=== PATIENT | female | born 1935 | race African-American/Black ===

== ENCOUNTER 2017-03-17 18:01 | Inpatient (IN) | payer MEDICARE, MEDICAID ==
[2017-03-17] MEDS ORDERED: NORMAL SALINE 1000 ML 1,000 ML IV ONE (18:18)
[2017-03-17] MEDS ORDERED: ONDANSETRON HCL INJ/PF 4 MG/2 ML SDV IV ONE ×2 (18:18→20:11)
--- NOTE | 2017-03-17 18:19 | ER Document Report ---
ED General - General Stated Complaint: ABDOMINAL PAIN Time Seen by Provider: 03/17/17 18:06 Mode of Arrival: Medic Information source: Patient Notes: 82-year-old female history of constipation presents with complaints of generalized abdominal pain. Patient denies any fevers or chills has been vomiting all day. Patient notes last bowel movement was this morning - HPI Onset: Just prior to arrival Onset/Duration: Sudden Quality of pain: Cramping Severity: Mild Pain Level: 1 Associated symptoms: Nausea, Vomiting Exacerbated by: Denies Relieved by: Denies Similar symptoms previously: Yes Recently seen / treated by doctor: Yes - Related Data Allergies/Adverse Reactions: No Known Allergies Allergy (Verified 03/17/17 21:09) Past Medical History - Social History Smoking Status: Never Smoker Cigarette use (# per day): No Chew tobacco use (# tins/day): No Smoking Education Provided: No Family History: Reviewed & Not Pertinent Neurological Medical History: Denies: Hx Seizures Past Surgical History: Reports: Hx Hysterectomy - Immunizations Hx Pneumococcal Vaccination: 07/28/09 Review of Systems - Review of Systems Notes: REVIEW OF SYSTEMS: CONSTITUTIONAL : Denies fever, chills, or sweats. Denies recent illness. EENT: Denies eye, ear, throat, or mouth pain or symptoms. Denies nasal or sinus congestion or discharge. Denies throat, tongue, or mouth swelling or difficulty swallowing. CARDIOVASCULAR: Denies chest pain. Denies palpitations or racing or irregular heart beat. Denies ankle edema. RESPIRATORY: Denies cough, cold, or chest congestion. Denies shortness of breath, difficulty breathing, or wheezing. GASTROINTESTINAL: Admits constipation nausea vomiting GENITOURINARY: Denies difficulty urinating, painful urination, burning, frequency, blood in urine, or discharge. FEMALE GENITOURINARY: Denies vaginal bleeding, heavy or abnormal periods, irregular periods. Denies vaginal discharge or odor. MUSCULOSKELETAL: Denies back or neck pain or stiffness. Denies joint pain or swelling. SKIN: Denies rash, lesions or sores. HEMATOLOGIC : Denies easy bruising or bleeding. LYMPHATIC: Denies swollen, enlarged glands. NEUROLOGICAL: Denies confusion or altered mental status. Denies passing out or loss of consciousness. Denies dizziness or lightheadedness. Denies headache. Denies weakness or paralysis or loss of use of either side. Denies problems with gait or speech. Denies sensory loss, numbness, or tingling. Denies seizures. PSYCHIATRIC: Denies anxiety or stress. Denies depression, suicidal ideation, or homicidal ideation. ALL OTHER SYSTEMS REVIEWED AND NEGATIVE. PHYSICAL EXAMINATION: GENERAL: Well-appearing, well-nourished and in no acute distress. Actively vomiting HEAD: Atraumatic, normocephalic. EYES: Pupils equal round and reactive to light, extraocular movements intact, conjunctiva are normal. ENT: Nares patent, oropharynx clear without exudates. Moist mucous membranes. NECK: Normal range of motion, supple without lymphadenopathy LUNGS: Breath sounds clear to auscultation bilaterally and equal. No wheezes rales or rhonchi. HEART: Regular rate and rhythm without murmurs ABDOMEN: Firm tender all throughout Female : deferred Musculoskeletal: Normal range of motion, no pitting or edema. No cyanosis. NEUROLOGICAL: Cranial nerves grossly intact. Normal speech, normal gait. Normal sensory, motor exams PSYCH: Normal mood, normal affect. SKIN: Warm, Dry, normal turgor, no rashes or lesions noted. Dictation was performed using evly voice recognition software Physical Exam - Vital signs Vitals: Resp BP Pulse Ox 28 H 91/49 L 94 03/17/17 18:09 03/17/17 18:09 03/17/17 18:09 Course - Re-evaluation Re-evalutation: 03/17/17 18:19 Very high concern for obstruction CT pending at this time - Vital Signs Vital signs: Temp Pulse Resp BP Pulse Ox 98.1 F 71 14 158/86 H 99 03/17/17 22:55 03/17/17 22:55 03/17/17 23:01 03/17/17 22:55 03/17/17 23:01 - Laboratory Result Diagrams: 03/17/17 18:25 03/17/17 18:25 Laboratory results interpreted by me: 03/17/17 03/17/17 03/17/17 18:25 18:25 21:00 WBC 14.1 H Absolute Neutrophils 8.7 H Sodium 136.8 L Est GFR ( Amer) 55 L Est GFR (Non-Af Amer) 46 L Glucose 155 H Lactic Acid 3.5 H Direct Bilirubin 0.6 H AST 121 H Lipase 56269.7 H Discharge - Discharge Clinical Impression: Gallstone pancreatitis Abdominal pain Qualifiers: Abdominal location: generalized Qualified Code(s): R10.84 - Generalized abdominal pain Condition: Stable Disposition: ADMITTED INPATIENT Admitting Provider: Hospitalist Unit Admitted: Telemetry
[2017-03-17 18:35] LABS: ABSOLUTE BASOPHILS # (AUTO) 0.1 10^3/uL (0.0-0.2); ABSOLUTE EOSINOPHILS # (AUTO) 0.1 10^3/uL (0.0-0.6); ABSOLUTE LYMPHOCYTES (AUTO) 4.6 10^3/uL (0.5-4.7); ABSOLUTE MONOCYTES (AUTO) 0.5 10^3/uL (0.1-1.4); ABSOLUTE NEUT (AUTO) 8.7 10^3/uL (1.7-8.2); BASOPHILS % (AUTO) 0.4 % (0-2); HEMATOCRIT 39.6 % (36.0-47.0); HEMOGLOBIN 12.9 g/dL (12.0-15.5); HGB HCT DIFFERENCE -0.9; LYMPHOCYTES % (AUTO) 32.9 % (13-45); MEAN CORPUSCULAR HEMOGLOBIN 30.1 pg (27.0-33.4); MEAN CORPUSCULAR HGB CONC 32.6 g/dL (32.0-36.0); MEAN CORPUSCULAR VOLUME 92 fl (80-97); MONOCYTES % (AUTO) 3.7 % (3-13); RED CELL DISTRIBUTION WIDTH 13.9 % (11.5-14.0); WHITE BLOOD COUNT 14.1 10^3/uL (4.0-10.5)
[2017-03-17 18:53] LABS: ALANINE AMINOTRANSFERASE 52 U/L (9-52); ALBUMIN 4.1 g/dL (3.5-5.0); ALKALINE PHOSPHATASE 108 U/L (38-126); ANION GAP 10 (5-19); ASPARTATE AMINO TRANSFERASE 121 U/L (14-36); BILIRUBIN,DIRECT 0.6 mg/dL (0.0-0.4); BILIRUBIN,TOTAL 0.7 mg/dL (0.2-1.3); BLOOD UREA NITROGEN 20 mg/dL (7-20); CALCIUM 9.4 mg/dL (8.4-10.2); CARBON DIOXIDE 22 mmol/L (22-30); CHLORIDE 105 mmol/L (98-107); CREATININE RESULT 1.14 mg/dL (0.52-1.25); GLUCOSE 155 mg/dL (75-110); POTASSIUM 3.8 mmol/L (3.6-5.0); SODIUM 136.8 mmol/L (137-145); TOTAL PROTEIN 7.6 g/dL (6.3-8.2)
[2017-03-17 19:24] LABS: LIPASE 56537.7 U/L (23-300)
[2017-03-17] MEDS ORDERED: NORMAL SALINE 1000 ML 1,000 ML IV PRN (19:30)
[2017-03-17] MEDS ORDERED: HYDROMORPHONE HCL INJ/PF 2 MG/ML AMPULE IV ONE (20:12)
--- NOTE | 2017-03-17 21:56 | RADIOLOGY REPORT (SQ) ---
EXAM DESCRIPTION: CT ABD/PELVIS WITH IV ORAL COMPLETED DATE/TIME: 03/17/2017 9:37 pm REASON FOR STUDY: vomiting COMPARISON: 01/02/2011 TECHNIQUE: CT scan of the abdomen and pelvis performed using helical scanning technique with dynamic intravenous contrast injection. No oral contrast. Images reviewed with lung, soft tissue, and bone windows. Reconstructed coronal and sagittal MPR images reviewed. Delayed images for evaluation of the urinary system also acquired. All images stored on PACS. All CT scanners at this facility use dose modulation, iterative reconstruction, and/or weight based d osing when appropriate to reduce radiation dose to as low as reasonably achievable (ALARA). [facility]: Dose Right [facility]: CareDose [facility]: Dose Right [facility]: Teradose 4D [facility]: NetProspex CONTRAST TYPE AND DOSE: contrast/concentration: Isovue 370.00 mg/ml; Total Contrast Delivered: 69.0 ml; Total Saline Delivered: 65.0 ml RENAL FUNCTION: Creatinine 1.14 RADIATION DOSE: Up-to-date CT equipment and radiation dose reduction techniques were employed. CTDIv ol: 14.6 - 17.4 mGy. DLP: 1613 mGy-cm.. LIMITATIONS: None. FINDINGS: LOWER CHEST: No significant findings. No nodules or infiltrates. LIVER: Normal size. No masses. No dilated ducts. SPLEEN: Normal size. No focal lesions. PANCREAS: Dilated pancreatic duct. Mild posterior peripancreatic fluid. GALLBLADDER: Distended gallbladder without definitive stones. ADRENAL GLANDS: No significant masses or asymmetry. RIGHT KIDNEY AND URETER: Cyst. No significant calcifications. No hydronephrosis or hydroureter. LEFT KIDNEY AND URETER: No solid masses. No significant calcifications. No hydronephrosis or hydr oureter. AORTA AND VESSELS: No aneurysm. No dissection. Renal arteries, SMA, celiac without stenosis. RETROPERITONEUM: No retroperitoneal adenopathy, hemorrhage or masses. BOWEL AND PERITONEAL CAVITY: No masses or inflammatory changes. No free fluid or peritoneal masses. APPENDIX: Not visualized. PELVIS: No mass. No free fluid. Normal bladder. ABDOMINAL WALL: No masses. No hernias. BONES: No significant or acute findings. OTHER: No other significant finding. IMPRESSION: The distended gallbladder. Small amount of fluid posterior to the pancreas. Dilated pa ncreatic duct. No definite pancreatic mass lesion. TECHNICAL DOCUMENTATION: JOB ID: [id number] Quality ID # [id number]: Final reports with documentation of one or more dose reduction techniques (e.g., Au tomated exposure control, adjustment of the mA and/or kV according to patient size, use of iterative reconstruction technique) 2010 [facility]- All Rights Reserved
[2017-03-17] MEDS ORDERED: ERTAPENEM SODIUM INJ 1 GM VIAL IV ONE (22:05)
[2017-03-17] MEDS ORDERED: ACETAMINOPHEN 325 MG TABLET PO PRN (22:08)
[2017-03-17] MEDS ORDERED: ONDANSETRON HCL INJ/PF 4 MG/2 ML SDV IV PRN (22:08)
[2017-03-17] MEDS ORDERED: ERTAPENEM SODIUM INJ 1 GM VIAL IV PRN (22:42)
[2017-03-17 22:58] LABS: PROTHROMBIN TIME 13.4 SEC (11.4-15.4)
--- NOTE | 2017-03-17 23:10 | RADIOLOGY REPORT (SQ) ---
EXAM DESCRIPTION: CHEST SINGLE VIEW COMPLETED DATE/TIME: 03/17/2017 10:59 pm REASON FOR STUDY: pre op COMPARISON: 01/03/2011 EXAM PARAMETERS: NUMBER OF VIEWS: One view. TECHNIQUE: Single frontal radiographic view of the chest acquired. RADIATION DOSE: NA LIMITATIONS: None. FINDINGS: LUNGS AND PLEURA: No opacities, masses or pneumothorax. No pleural effusion. MEDIASTINUM AND HILAR STRUCTURES: No masses. Contour normal. HEART AND VASCULAR STRUCTURES: Heart normal in size. Normal vasculature. BONES: No acute findings. HARDWARE: None in the chest. OTHER: No other significant finding. IMPRESSION: NO ACUTE RADIOGRAPHIC FINDING IN THE CHEST. TECHNICAL DOCUMENTATION: JOB ID: [id number]
[2017-03-17] MEDS: NORMAL SALINE 1000 ML 1,000 ML IV PRN (23:41)
[2017-03-17] MEDS: HYDROMORPHONE HCL INJ/PF 2 MG/ML AMPULE IV PRN (23:42)
--- NOTE | 2017-03-17 23:57 | CONSULTATION REPORT E ---
Consultation Report NAME: CHRISTINA SOMMER : 1935 AGE: 82Y DATE: 03/17/2017 ED11 A TO: RANI MODI M.D. FROM: BRADEN PACHECO M.D. Requesting Physician REFERRING PHYSICIAN: Tracie Haynes D.O. CHIEF COMPLAINT: Acute cholecystitis with pancreatitis. REASON FOR CONSULTATION: The patient is an 82-year-old white female who presents to the emergency department complaining of acute onset abdominal pain that started about 4 days ago. This is a nagging pain refractory to dietary management. This was associated with some vomiting. Last bowel movement was yesterday. The pain intensified over the last 48 hours to the point that she could not tolerate it any further. She was seen in the emergency department today where she underwent CT scan of the abdomen and pelvis without oral contrast which showed findings consistent with acute pancreatitis, acute cholecystitis, dilated common bile duct and pancreatic duct. No definitive stones. There was no free air or free fluid in the peritoneal cavity. Surgery was consulted. The patient was advised admission to the medicine service. PAST MEDICAL HISTORY: 1. Anemia. 2. Hypertension. 3. Hypercholesterolemia. 4. Anxiety syndrome. 5. Degenerative joint disease. PAST SURGICAL HISTORY: Significant for bilateral knee replacements. ALLERGIES: None known. MEDICATIONS: Include antihypertensive. SOCIAL HISTORY: The patient does not smoke. REVIEW OF SYSTEMS: CONSTITUTIONAL: The patient denies. CARDIOVASCULAR: The patient denies. MUSCULOSKELETAL: As per HPI. The patient does get about well and cooks and cleans and lives with her son. The remainder of the review of systems unremarkable. PHYSICAL EXAMINATION: GENERAL: The patient is examined in the emergency department. VITAL SIGNS: Stable except for uncontrolled hypertension with diastolic of 102, heart rate 85. GENERAL: The patient is awake and alert, communicative, oriented x4. HEAD: Eyes without icterus. NECK: No adenopathy. LUNGS: Diminished in the bases bilateral. HEART: Without murmur or gallop. ABDOMEN: Slightly distended. Tender in the right upper quadrant with guarding. Bowel sounds are hypoactive. EXTREMITIES: Lower extremities with scars over the knees consistent with previous surgery. RECTAL: Deferred. The patient has a remote history of colonoscopy. The remainder of the physical exam is unremarkable. LABORATORY PROFILE: Shows a white blood cell count of 14,000 with no left shift, hemoglobin of 12.9. Blood sugar 155. Lactate of 3.5, lipase of 56,537. Independent interpretation of CT scan of the abdomen and pelvis shows no free fluid, no free air. Distended gallbladder, distended pancreatic duct and what appears to be a distended common bile duct. No liver masses. Polycystic kidney. Delineation of pancreatic anatomy poor due to absence of oral contrast. IMPRESSION: 1. Acute cholecystitis with pancreatitis, rule out common pathoanatomy such as distal common bile duct stone. 2. Dehydration. 3. Sepsis. 4. History of hypertension. 5. History of degenerative joint disease. RECOMMENDATIONS: The patient needs admission to the medicine service, IV fluids, intravenous antibiotics, and n.p.o. status. Definitive management of her gallbladder disease may include cholecystostomy tube versus cholecystectomy, depending upon the patient's perioperative cardiovascular risk assessment, which will be undertaken in the next 24 hours. Furthermore, evaluation for distal common bile duct obstruction such as retained stone will be considered as well. DICTATING PHYSICIAN: RANI MODI M.D. [id number] PHY#: [id number] ID: [id number] JOB#: [id number] ACCT: [id number] cc:RANI MODI M.D. > MTDD
[2017-03-18] MEDS: HYDROMORPHONE HCL INJ/PF 2 MG/ML AMPULE IV PRN (01:22)
[2017-03-18 01:25] LABS: ADD ON TESTING BLD IN LAB ACKNOWLEDGE
[2017-03-18 01:40] LABS: MAGNESIUM 2.3 mg/dL (1.6-2.3)
[2017-03-18] MEDS ORDERED: PIPERACILLIN SODIUM/TAZOBACTAM 4.5 GM in NORMAL SALINE 100 ML IV SCH (01:45)
[2017-03-18] MEDS ORDERED: PHARMACY COMMUNICATION ORDER MC SCH (01:45)
--- NOTE | 2017-03-18 01:51 | PDOC H&P ---
History of Present Illness Admission Date/PCP: 03/17/17 22:08 DR. Wallace Patient complains of: Abdominal pain, nausea and vomiting History of Present Illness: CHRISTINA SOMMER is a 82 year old -Burmese female with underlying hypertension, along with coronary artery disease, having suffered UT 2 in 1993 , and arthritis who presents to the emergency room for evaluation of above complaints. Patient has been discussed with emergency room physician who evaluated the patient. Prior to my being contacted about the patient, Dr. Jenkins of general surgery had seen and evaluated the patient and requested that patient be admitted to the medicine service with surgery consult. Consult note by general surgery has been reviewed. She describes a 4 day history of slowly progressive primarily sharp upper abdominal pain, primarily right upper quadrant. Increases with pressure on the area and certain movements. No prior such pain. No history of pancreatitis. Denies alcohol use. No associated fever or chills, diarrhea or dysuria. She has had a number of episodes of vomiting over the last 24 hours. Emergency room physician initially admitted the patient to Dr. Butler. However, after orders had been entered by Dr. Butler, he called back and stated that actually the patient was no longer in his practice. Dictation via voice recognition software. Laboratory results are listed in [facility] and are reviewed. X-ray summary results are listed below, with full report(s) reviewed. . EKG reviewed. No prior EKG available for comparison. Social history/personal habits: . Son lives with her. Does not work outside the home. No tobacco use for 30 years. Denies illicit drug use. No alcohol use. No known drug allergies. Home medications initially autopopulated into [facility] may not accurately reflect patient's true medications, dosages, and/or frequencies. monitor technician to reconcile medications. Unfortunately, patient not certain of medications/dosages/frequencies. REVIEW OF SYSTEMS: Constitutional: No fever or chills. Eyes: Wears glasses. ENT: No swallowing problems or complaints. Denies hearing loss. Pulmonary: No current complaints. Cardiovascular: No current complaints, including chest pain. States that on a good day, she can walk probably a mile with no unusual shortness of breath, no chest or lower extremity pain or tightness. Gastrointestinal: See history and present illness. Skin: No current complaints, including rashes. Hematologic: Denies easy bruising. Neurologic: No current complaints, including numbness or tingling. Musculoskeletal: Joint pain from arthritis. Psychiatric: Denies anxiety or depression. Endocrine: No current complaints, including polyuria. Genitourinary: No current complaints, including dysuria. PHYSICAL EXAMINATION: 5 feet 7 inches tall. 86.2 kg. BMI 29.8 kg/m.Temperature 97.4. Pulse 78 and regular. Blood pressure 152/76. Respirations are 18 and unlabored. 100% saturation on room air. Slightly overweight otherwise well-nourished well-developed elderly - Burmese female appearing approximately her stated age. Pleasant awake alert and cooperative. Appears to be in some discomfort with abdominal pain. Mildly anxious. Skin is warm and dry. No grossly obvious evidence of rash in areas of skin examined. No subcutaneous nodules palpated. ENT: Hearing grossly normal to normal conversation. Tongue midline on protrusion pink and slightly tacky. Eyes: No scleral icterus. Pupils equal and reactive to light at 4 mm. [place] conjunctivae. Neck is supple and nontender to gentle active range of motion and palpation. Midline trachea. No palpable thyroid nodule mass enlargement or tenderness. Lymphatic: No palpable cervical or clavicular nodes. Neck and lymphatic exams limited by patient body habitus. Psychiatric: Fair to reasonable insight into acute and chronic medical issues. Oriented to time location and why here. Lungs: Auscultation reveals clear and equal breath sounds bilaterally. No use of accessory respiratory muscles. Cardiovascular: Heart regular rate and rhythm, without gallop or rub. No carotid or abdominal aortic bruits. No ankle or pedal edema. Palpable dorsalis pedis pulses. 2/6 holosystolic murmur at cardiac apex. Abdomen:soft slightly distended with positive bowel sounds. Mild to moderate diffuse upper abdominal discomfort, a bit more noticeable in the right upper quadrant. No evidence of guarding or peritoneal signs. Unable to adequately evaluate abdomen for masses or organomegaly due to distention and discomfort. Extremities: Feet are warm and dry. No calf tenderness to compression. No grossly obvious visual evidence of calf swelling. Gentle manipulation of lower extremities fails to reveal any obvious evidence of injury or instability to knees hips or ankles. Neurologic: Moves upper extremities grossly normally. Patellar reflexes absent. Absent Babinski. Light touch is intact at feet. Dorsiflexion and plantarflexion of feet 5 / 5 and symmetric. Past Medical History Cardiac Medical History: Reports: Coronary Artery Disease, Myocardial Infarction , Hypertension, Heart Murmur - Long-standing, per patient Denies: Atrial Fibrillation, Congestive Heart Failure, DVT, Hyperlipidema, Pulmonary Embolism Pulmonary Medical History: Denies: Asthma, Chronic Obstructive Pulmonary Disease (COPD), Sleep Apnea EENT Medical History: Denies: Ears, Throat Neurological Medical History: Denies: Hemorrhagic CVA, Ischemic CVA, Seizures Endocrine Medical History: Denies: Diabetes Mellitus Type 1, Diabetes Mellitus Type 2, Hyperthyroidism, Hypothyroidism Renal/ Medical History: Reports: None GI Medical History: Denies: Cirrhosis, Gastroesophageal Reflux Disease, Hepatitis, Peptic Ulcer Disease Musculoskeltal Medical History: Reports: Arthritis Psychiatric Medical History: Denies: Alcohol Dependency, Depression, General Anxiety Disorder, Substance Abuse, Tobacco Dependency Infectious Medical History: Denies: Hepatitis B, Hepatitis C Past Surgical History Past Surgical History: Reports: Hysterectomy, Orthopedic Surgery - Bilateral knee replacement, Other - Benign left breast biopsy Social History Information Source: Patient, Emergency Med Personnel, [facility], [facility] Records Lives with: Family Smoking Status: Former Smoker Frequency of Alcohol Use: None Hx Recreational Drug Use: No Drugs: None Hx Prescription Drug Abuse: No - Advance Directive Resuscitation Status: Full Code Surrogate healthcare decision maker:: Son who lives with her Family History Family History: Reviewed & Not Pertinent Parental Family History Reviewed: Yes - Never really knew her father. Mother of heart failure. Children Family History Reviewed: Yes - Son has gout. Sibling(s) Family History Reviewed.: Yes - Hypertension Medication/Allergy Home Medications: Lisinopril [Zestril] 20 mg PO DAILY 03/18/17 Allergies/Adverse Reactions: No Known Allergies Allergy (Verified 03/17/17 21:09) Physical Exam Vital Signs: Temp Pulse Resp BP Pulse Ox 97.4 F 78 18 152/76 H 100 03/18/17 01:28 03/18/17 01:28 03/18/17 01:28 03/18/17 01:28 03/18/17 01:28 Intake & Output 03/17/17 03/18/17 03/19/17 00:59 00:59 00:59 Weight 79.832 kg 86.2 kg Results Impressions: Chest X-Ray 03/17/17 00:00 IMPRESSION: NO ACUTE RADIOGRAPHIC FINDING IN THE CHEST. Abdomen/Pelvis CT 03/17/17 18:18 IMPRESSION: The distended gallbladder. Small amount of fluid posterior to the pancreas. Dilated pancreatic duct. No definite pancreatic mass lesion. Assessment & Plan - Diagnosis (1) ARF (acute renal failure) Qualifiers: Acute renal failure type: unspecified Qualified Code(s): N17.9 - Acute kidney failure, unspecified Is this a current diagnosis for this admission?: Yes Plan: No evidence of obstruction on CT scan. IV fluids. Serial chemistry. I have strongly encouraged patient not to get out of bed without notifying staff , to avoid a fall with injury. Knee high SCDs for DVT prophylaxis, along with subcutaneous heparin. Impression and plans were discussed with patient, who concurs. Time spent in evaluation and management of patient: 70 minutes. (2) Abnormal CT of the abdomen Is this a current diagnosis for this admission?: Yes Plan: Surgical management. (3) Pancreatitis Qualifiers: Chronicity: acute Pancreatitis type: unspecified pancreatitis type Acute pancreatitis complication: no infection or necrosis Qualified Code(s): K85.90 - Acute pancreatitis without necrosis or infection, unspecified Is this a current diagnosis for this admission?: Yes Plan: Surgical management. (4) CAD (coronary artery disease) Qualifiers: Coronary Disease-Associated Artery/Lesion type: [place] artery [place] vs. transplanted heart: [place] heart Associated angina: without angina Qualified Code(s): I25.10 - Atherosclerotic heart disease of [place] coronary artery without angina pectoris Is this a current diagnosis for this admission?: Yes Plan: Cardiology consult. Resume home medications as appropriate once these have been determined and reviewed. (5) HTN (hypertension) Qualifiers: Hypertension type: essential hypertension Qualified Code(s): I10 - Essential (primary) hypertension Is this a current diagnosis for this admission?: Yes Plan: Resume home medications as appropriate once these have been determined and reviewed. - Time Time Spent: 50 to 70 Minutes Anticipated discharge: Home Within: Other - Inpatient Certification Based on my medical assessment, after consideration of the patient's comorbidities, presenting symptoms, or acuity I expect that the services needed warrant INPATIENT care.: Yes I certify that my determination is in accordance with my understanding of Medicare's requirements for reasonable and necessary INPATIENT services [42 CFR 412.3e].: Yes Medical Necessity: Need Close Monitoring Due to Risk of Patient Decompensation, Need For IV Fluids, Need for Pain Control, Need for IV Antibiotics, Risk of Complication if Not Cared For in Hospital Post Hospital Care: D/C or Transfer Summary
[2017-03-18] MEDS ORDERED: PIPERACILLIN/TAZOBACTAM 3.375 GM VIAL IV PRN (01:52)
[2017-03-18 02:46] LABS: APPEARANCE,URINE CLEAR; BILIRUBIN,URINE NEGATIVE (NEGATIVE); GLUCOSE, URINE NEGATIVE (NEGATIVE); KETONES,URINE NEGATIVE (NEGATIVE); LEUKOCYTE ESTERASE,URINE NEGATIVE (NEGATIVE); NITRITE,URINE NEGATIVE (NEGATIVE); PROTEIN,URINE NEGATIVE (NEGATIVE); URINE SPECIFIC GRAVITY 1.027; UROBILINOGEN,URINE NEGATIVE mg/dL (<2.0)
[2017-03-18] MEDS: PIPERACILLIN SODIUM/TAZOBACTAM 3.375 GM in NORMAL SALINE 100 ML IV SCH ×3 (05:29→18:05)
[2017-03-18 07:01] LABS: ABSOLUTE BASOPHILS # (AUTO) 0.1 10^3/uL (0.0-0.2); ABSOLUTE LYMPHOCYTES (AUTO) 1.7 10^3/uL (0.5-4.7); ABSOLUTE MONOCYTES (AUTO) 0.4 10^3/uL (0.1-1.4); ABSOLUTE NEUT (AUTO) 7.3 10^3/uL (1.7-8.2); BASOPHILS % (AUTO) 0.6 % (0-2); EOSINOPHILS % (AUTO) 0.1 % (0-6); HEMATOCRIT 34.7 % (36.0-47.0); HEMOGLOBIN 11.6 g/dL (12.0-15.5); HGB HCT DIFFERENCE 0.1; LYMPHOCYTES % (AUTO) 18.1 % (13-45); MEAN CORPUSCULAR HEMOGLOBIN 30.7 pg (27.0-33.4); MEAN CORPUSCULAR HGB CONC 33.5 g/dL (32.0-36.0); MEAN CORPUSCULAR VOLUME 92 fl (80-97); MONOCYTES % (AUTO) 4.5 % (3-13); RED BLOOD COUNT 3.78 10^6/uL (3.72-5.28); RED CELL DISTRIBUTION WIDTH 14.1 % (11.5-14.0); SEGMENTED NEUTROPHILS % (AUTO) 76.7 % (42-78); WHITE BLOOD COUNT 9.5 10^3/uL (4.0-10.5)
[2017-03-18 07:21] LABS: ALANINE AMINOTRANSFERASE 126 U/L (9-52); ALBUMIN 3.2 g/dL (3.5-5.0); ALKALINE PHOSPHATASE 90 U/L (38-126); ANION GAP 6 (5-19); ASPARTATE AMINO TRANSFERASE 164 U/L (14-36); BILIRUBIN,DIRECT 0.4 mg/dL (0.0-0.4); BILIRUBIN,TOTAL 0.5 mg/dL (0.2-1.3); BLOOD UREA NITROGEN 19 mg/dL (7-20); CARBON DIOXIDE 25 mmol/L (22-30); CHLORIDE 110 mmol/L (98-107); CREATININE RESULT 1.12 mg/dL (0.52-1.25); GLUCOSE 102 mg/dL (75-110); SODIUM 140.9 mmol/L (137-145); TOTAL PROTEIN 6.2 g/dL (6.3-8.2)
[2017-03-18 08:04] LABS: LIPASE 15742.8 U/L (23-300); POTASSIUM 5.4 mmol/L (3.6-5.0)
[2017-03-18 09:02] LABS: APPEARANCE,URINE SLIGHTLY-CLOUDY; BILIRUBIN,URINE NEGATIVE (NEGATIVE); GLUCOSE, URINE NEGATIVE (NEGATIVE); KETONES,URINE NEGATIVE (NEGATIVE); LEUKOCYTE ESTERASE,URINE NEGATIVE (NEGATIVE); NITRITE,URINE NEGATIVE (NEGATIVE); PROTEIN,URINE NEGATIVE (NEGATIVE); UROBILINOGEN,URINE NEGATIVE mg/dL (<2.0)
--- NOTE | 2017-03-18 09:26 | EKG REPORT ---
SEVERITY:- ABNORMAL ECG - SINUS RHYTHM MULTIPLE ATRIAL PREMATURE COMPLEXES FIRST DEGREE AV BLOCK NONSPECIFIC T ABNORMALITIES, DIFFUSE LEADS : Confirmed by: Alessia Jim 18-Mar-2017 09:25:37
--- NOTE | 2017-03-18 09:26 | EKG REPORT ---
SEVERITY:- ABNORMAL ECG - SINUS RHYTHM FIRST DEGREE AV BLOCK BORDERLINE T ABNORMALITIES, DIFFUSE LEADS : Confirmed by: Alessia Jim 18-Mar-2017 09:25:24
[2017-03-18] MEDS ORDERED: ERTAPENEM SODIUM 1 GM in NORMAL SALINE 50 ML IV SCH (10:00)
[2017-03-18] MEDS ORDERED: ENOXAPARIN SODIUM INJ 40 MG/0.4 ML DISP.SYRIN SUBCUT SCH (10:00)
[2017-03-18] MEDS: HEPARIN SOD (PORCINE) 5,000 UNIT/ML 1 ML SYRINGE SUBCUT SCH ×2 (10:41→21:43)
[2017-03-18] MEDS: FAMOTIDINE INJ/PF 20 MG/2 ML SDV IV SCH ×2 (10:41→21:41)
[2017-03-18] MEDS: NORMAL SALINE 1000 ML 1,000 ML IV PRN ×2 (10:49→21:54)
--- NOTE | 2017-03-18 12:28 | PDOC CONSULTATION ---
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 The patient reports a 4 day history of slowly progressive primarily sharp right and left upper abdominal pain, primarily in the right upper quadrant together with pressure on the area. No prior such pain. No history of pancreatitis, she denies alcohol use, gallstones, previous abdominal surgery. She denies fever or chills, diarrhea, hematemesis, hematochetia, or dysuria. She reports several episodes of vomiting the day prior to admission. Past Medical History Cardiac Medical History: Reports: Coronary Artery Disease, Myocardial Infarction , Hypertension, Heart Murmur - Long-standing, per patient Denies: Atrial Fibrillation, Congestive Heart Failure, DVT, Hyperlipidema, Pulmonary Embolism Pulmonary Medical History: Denies: Asthma, Chronic Obstructive Pulmonary Disease (COPD), Sleep Apnea EENT Medical History: Denies: Ears, Throat Neurological Medical History: Denies: Hemorrhagic CVA, Ischemic CVA, Seizures Endocrine Medical History: Denies: Diabetes Mellitus Type 1, Diabetes Mellitus Type 2, Hyperthyroidism, Hypothyroidism Renal/ Medical History: Reports: None GI Medical History: Denies: Cirrhosis, Gastroesophageal Reflux Disease, Hepatitis, Peptic Ulcer Disease Musculoskeltal Medical History: Reports: Arthritis Psychiatric Medical History: Denies: Alcohol Dependency, Depression, General Anxiety Disorder, Substance Abuse, Tobacco Dependency Infectious Medical History: Denies: Hepatitis B, Hepatitis C Past Surgical History Past Surgical History: Reports: Hysterectomy, Orthopedic Surgery - Bilateral knee replacement, Other - Benign left breast biopsy Social History Lives with: Family Smoking Status: Former Smoker Last Time Smoked: occasional snuff Frequency of Alcohol Use: None Hx Recreational Drug Use: No Drugs: None Hx Prescription Drug Abuse: No - Advance Directive Resuscitation Status: Full Code Family History Family History: Reviewed & Not Pertinent Parental Family History Reviewed: Yes - none Children Family History Reviewed: Yes - none Sibling(s) Family History Reviewed.: Yes - none Medication/Allergy Home Medications: Lisinopril [Zestril] 20 mg PO DAILY 03/18/17 Allergies/Adverse Reactions: No Known Allergies Allergy (Verified 03/17/17 21:09) Review of Systems Cardiovascular: PRESENT: as per HPI, other - VT x 2 Physical Exam Vital Signs: Temp Pulse Resp BP Pulse Ox 98.9 F 78 16 142/61 H 98 03/18/17 08:02 03/18/17 08:02 03/18/17 08:02 03/18/17 08:02 03/18/17 08:02 Intake & Output 03/17/17 03/18/17 03/19/17 06:59 06:59 06:59 Intake Total 700 Output Total 600 Balance 100 Weight 86.2 kg General appearance: PRESENT: cooperative, well-nourished Neck exam: PRESENT: full ROM Respiratory exam: PRESENT: clear to auscultation talha Cardiovascular exam: PRESENT: RRR GI/Abdominal exam: PRESENT: guarding, tenderness - diffuse, mainly in the right and left upper quadrant with guarding Musculoskeletal exam: PRESENT: full ROM Neurological exam: PRESENT: alert, awake, reflexes normal Results Laboratory Results: 03/18/17 06:42 03/18/17 06:42 03/18/17 03/18/17 03/18/17 01:58 02:20 06:42 WBC 9.5 RBC 3.78 Hgb 11.6 L Hct 34.7 L MCV 92 MCH 30.7 MCHC 33.5 RDW 14.1 H Plt Count 193 Seg Neutrophils % 76.7 Lymphocytes % 18.1 Monocytes % 4.5 Eosinophils % 0.1 Basophils % 0.6 Absolute Neutrophils 7.3 Absolute Lymphocytes 1.7 Absolute Monocytes 0.4 Absolute Eosinophils 0.0 Absolute Basophils 0.1 Sodium Potassium Chloride Carbon Dioxide Anion Gap BUN Creatinine Est GFR ( Amer) Est GFR (Non-Af Amer) Glucose Lactic Acid 2.9 H Calcium Total Bilirubin AST ALT Alkaline Phosphatase Total Protein Albumin Lipase Urine Color STRAW Urine Appearance CLEAR Urine pH 6.0 Ur Specific [place] 1.027 Urine Protein NEGATIVE Urine Glucose (UA) NEGATIVE Urine Ketones NEGATIVE Urine Blood MODERATE H Urine Nitrite NEGATIVE Ur Leukocyte Esterase NEGATIVE Urine WBC (Auto) 0 Urine RBC (Auto) 2 03/18/17 03/18/17 03/18/17 06:42 08:05 08:28 WBC RBC Hgb Hct MCV MCH MCHC RDW Plt Count Seg Neutrophils % Lymphocytes % Monocytes % Eosinophils % Basophils % Absolute Neutrophils Absolute Lymphocytes Absolute Monocytes Absolute Eosinophils Absolute Basophils Sodium 140.9 Potassium 5.4 H D Chloride 110 H Carbon Dioxide 25 Anion Gap 6 BUN 19 Creatinine 1.12 Est GFR ( Amer) 56 L Est GFR (Non-Af Amer) 46 L Glucose 102 Lactic Acid 1.5 Calcium 8.0 L Total Bilirubin 0.5 AST 164 H ALT 126 H Alkaline Phosphatase 90 Total Protein 6.2 L Albumin 3.2 L Lipase 89412.8 H Urine Color YELLOW Urine Appearance SLIGHTLY-CLOUDY Urine pH 5.0 Ur Specific [place] 1.040 Urine Protein NEGATIVE Urine Glucose (UA) NEGATIVE Urine Ketones NEGATIVE Urine Blood MODERATE H Urine Nitrite NEGATIVE Ur Leukocyte Esterase NEGATIVE Urine WBC (Auto) 1 Urine RBC (Auto) 7 Impressions: Chest X-Ray 03/17/17 00:00 IMPRESSION: NO ACUTE RADIOGRAPHIC FINDING IN THE CHEST. Abdomen/Pelvis CT 03/17/17 18:18 IMPRESSION: The distended gallbladder. Small amount of fluid posterior to the pancreas. Dilated pancreatic duct. No definite pancreatic mass lesion. Assessment & Plan - Plan Summary Plan Summary: A/ Four day hx of abdominal pain, nausea, vomiting On PE, the abdomen is very tender, parti Blood work shows elevated AST/ALT (164/126) with normal total bilirubin Elevated Lipase (15K) Normal CBC CT scan A/P significant for pancreatitis and distended gallbladder; no stones seen, no pancreatic mass identified Diagnosis of gallstone pancreatitis has been entertained P/ Continue NPO, IVH, IV antibiotics US gallbladder today MRCP today once the pancreatitis symptoms and chemical levels have improved, patient will undergo laparoscopic cholecystectomy with possible IOC
--- NOTE | 2017-03-18 15:22 | Progress Note ---
Provider Note Provider Note: Pt seen, examined, and chart reviewed. Pt seen earlier this morning. U/S of abd ordered. Appreciate Surgery's assistance with case.
--- NOTE | 2017-03-18 17:16 | RADIOLOGY REPORT (SQ) ---
EXAM DESCRIPTION: U/S ABDOMEN LIMITED W/O DOP COMPLETED DATE/TIME: 03/18/2017 4:02 pm REASON FOR STUDY: r/o gallstones, hx pancratitis COMPARISON: AP chest 03/17/2017 CT abdomen pelvis 03/17/2017, 01/02/2011 TECHNIQUE: Dynamic and static grayscale images acquired of the abdomen and recorded on PACS. Additio nal selected color Doppler and spectral images recorded. LIMITATIONS: Midline bowel gas FINDINGS: PANCREAS: Midline pancreas unremarkable LIVER: No masses. Echotexture normal. LIVER VASCULATURE: Normal directional flow of the main portal vein and hepatic veins. GALLBLADDER: Distended, stones and sludge layer dependently in the gallbladder. No definite gallblad carina wall thickening or pericholecystic fluid. ULTRASOUND-DETECTED [place]'S SIGN: Negative. INTRAHEPATIC DUCTS AND COMMON DUCT: There is mild intrahepatic and extrahepatic biliary ductal dilata tion. Common bile duct at the yulissa hepatis 11 mm in diameter. Distal ductal stone or stricture cou ld not be excluded, distal common bile duct at the pancreatic head difficult to visualize due to duod enum gas. INFERIOR VENA CAVA: Normal flow. AORTA: No aneurysm. RIGHT KIDNEY: Normal size. Normal echogenicity. No solid or suspicious masses. No hydronephrosis. No calcifications. Right mid and lower pole renal cortical cysts are not as well demonstrated as on pr ior CT abdomen and pelvis due to right upper quadrant bowel gas PERITONEAL AND RIGHT PLEURAL SPACE: No ascites or effusions. OTHER: No other significant findings. IMPRESSION: Mild intra and extrahepatic biliary ductal dilatation. Distal ductal stone or stricture could not be excluded. Stones and sludge in the dependent gallbladder without gallbladder wall thickening. No pericholecyst ic fluid. TECHNICAL DOCUMENTATION: JOB ID: [id number] [employer]- All Rights Reserved
[2017-03-18] MEDS: MORPHINE SULFATE 10 MG/ML INJ IV PRN (20:10)
--- NOTE | 2017-03-18 20:18 | RADIOLOGY REPORT (SQ) ---
EXAM DESCRIPTION: MRI ABDOMEN WITHOUT COMPLETED DATE/TIME: 03/18/2017 7:59 pm REASON FOR STUDY: MRCP; r/o CBD stones, hx pancreatitis COMPARISON: Abdominal ultrasound dated 03/18/2017, CT dated 03/17/2017 TECHNIQUE: Noncontrast MRCP. Source and MIP images reviewed. LIMITATIONS: None. FINDINGS: GALLBLADDER: The gallbladder is distended. Small layering stones are noted. INTRAHEPATIC DUCTS: Mild central intrahepatic biliary ductal dilatation this appears improved from re cent CT EXTRAHEPATIC DUCTS: The common bile duct is dilated measured at 8.9 mm. No focal mass or filling def ects. The distal common bile duct is normal in caliber. PANCREAS: Pancreas shows no inflammatory changes. The pancreatic duct is prominent no focal strictur es are appreciated. LIVER, SPLEEN, KIDNEYS, ADRENALS: There are several right renal cysts. No focal hepatic lesions. Th e spleen and left kidney are unremarkable. VESSELS: No evidence of aneurysm. Grossly appropriate flow voids in the major vascular structures. LUNG BASES: Grossly clear. OTHER: No other significant finding. IMPRESSION: Mild dilatation of the common bile duct and central hepatic ducts. No definite distal s tone or mass. The gallbladder is distended with small layering stones. TECHNICAL DOCUMENTATION: JOB ID: [id number] [employer]- All Rights Reserved
[2017-03-19] MEDS: PIPERACILLIN SODIUM/TAZOBACTAM 3.375 GM in NORMAL SALINE 100 ML IV SCH ×5 (00:14→23:52)
[2017-03-19 04:23] LABS: ABSOLUTE BASOPHILS # (AUTO) 0.1 10^3/uL (0.0-0.2); ABSOLUTE EOSINOPHILS # (AUTO) 0.1 10^3/uL (0.0-0.6); ABSOLUTE LYMPHOCYTES (AUTO) 1.9 10^3/uL (0.5-4.7); ABSOLUTE MONOCYTES (AUTO) 0.6 10^3/uL (0.1-1.4); ABSOLUTE NEUT (AUTO) 7.7 10^3/uL (1.7-8.2); BASOPHILS % (AUTO) 0.9 % (0-2); EOSINOPHILS % (AUTO) 0.7 % (0-6); HEMATOCRIT 32.4 % (36.0-47.0); HGB HCT DIFFERENCE 0.6; LYMPHOCYTES % (AUTO) 18.5 % (13-45); MEAN CORPUSCULAR HEMOGLOBIN 31.1 pg (27.0-33.4); MEAN CORPUSCULAR HGB CONC 33.9 g/dL (32.0-36.0); MEAN CORPUSCULAR VOLUME 92 fl (80-97); MONOCYTES % (AUTO) 6.1 % (3-13); RED BLOOD COUNT 3.54 10^6/uL (3.72-5.28); RED CELL DISTRIBUTION WIDTH 14.1 % (11.5-14.0); SEGMENTED NEUTROPHILS % (AUTO) 73.8 % (42-78); WHITE BLOOD COUNT 10.5 10^3/uL (4.0-10.5)
[2017-03-19 04:37] LABS: ALANINE AMINOTRANSFERASE 80 U/L (9-52); ALBUMIN 3.2 g/dL (3.5-5.0); ALKALINE PHOSPHATASE 78 U/L (38-126); ANION GAP 7 (5-19); ASPARTATE AMINO TRANSFERASE 58 U/L (14-36); BILIRUBIN,DIRECT 0.5 mg/dL (0.0-0.4); BLOOD UREA NITROGEN 12 mg/dL (7-20); CALCIUM 8.1 mg/dL (8.4-10.2); CARBON DIOXIDE 22 mmol/L (22-30); CHLORIDE 110 mmol/L (98-107); GLUCOSE 88 mg/dL (75-110); SODIUM 139.2 mmol/L (137-145); TOTAL PROTEIN 6.1 g/dL (6.3-8.2)
[2017-03-19 04:49] LABS: LIPASE 2580.3 U/L (23-300); POTASSIUM 4.2 mmol/L (3.6-5.0)
--- NOTE | 2017-03-19 08:33 | PDOC PROGRESS REPORT ---
Subjective Progress Note for:: 03/19/17 Subjective:: Feels better but still has epigastric abdominal pain and abdominal distention. Physical Exam Vital Signs: Temp Pulse Resp BP Pulse Ox 99.6 F 99 20 134/74 H 95 03/19/17 07:31 03/19/17 07:31 03/19/17 07:31 03/19/17 07:31 03/19/17 07:31 Intake & Output 03/18/17 03/19/17 03/20/17 06:59 06:59 06:59 Intake Total 700 3432 Output Total 600 400 Balance 100 3032 Weight 86.2 kg 86.9 kg General appearance: PRESENT: no acute distress, cooperative Respiratory exam: PRESENT: clear to auscultation talha Cardiovascular exam: PRESENT: RRR GI/Abdominal exam: PRESENT: other - Soft, mildly distended, diffuse abdominal tenderness without peritoneal signs. Results Laboratory Results: 03/19/17 04:06 03/19/17 04:06 03/18/17 03/18/17 03/19/17 08:05 08:28 04:06 WBC 10.5 RBC 3.54 L Hgb 11.0 L Hct 32.4 L MCV 92 MCH 31.1 MCHC 33.9 RDW 14.1 H Plt Count 160 Seg Neutrophils % 73.8 Lymphocytes % 18.5 Monocytes % 6.1 Eosinophils % 0.7 Basophils % 0.9 Absolute Neutrophils 7.7 Absolute Lymphocytes 1.9 Absolute Monocytes 0.6 Absolute Eosinophils 0.1 Absolute Basophils 0.1 Sodium Potassium Chloride Carbon Dioxide Anion Gap BUN Creatinine Est GFR ( Amer) Est GFR (Non-Af Amer) Glucose Lactic Acid 1.5 Calcium Total Bilirubin AST ALT Alkaline Phosphatase Total Protein Albumin Lipase Urine Color YELLOW Urine Appearance SLIGHTLY-CLOUDY Urine pH 5.0 Ur Specific [place] 1.040 Urine Protein NEGATIVE Urine Glucose (UA) NEGATIVE Urine Ketones NEGATIVE Urine Blood MODERATE H Urine Nitrite NEGATIVE Ur Leukocyte Esterase NEGATIVE Urine WBC (Auto) 1 Urine RBC (Auto) 7 03/19/17 04:06 WBC RBC Hgb Hct MCV MCH MCHC RDW Plt Count Seg Neutrophils % Lymphocytes % Monocytes % Eosinophils % Basophils % Absolute Neutrophils Absolute Lymphocytes Absolute Monocytes Absolute Eosinophils Absolute Basophils Sodium 139.2 Potassium 4.2 D Chloride 110 H Carbon Dioxide 22 Anion Gap 7 BUN 12 Creatinine 1.00 Est GFR ( Amer) > 60 Est GFR (Non-Af Amer) 53 L Glucose 88 Lactic Acid Calcium 8.1 L Total Bilirubin 1.0 AST 58 H ALT 80 H Alkaline Phosphatase 78 Total Protein 6.1 L Albumin 3.2 L Lipase 2580.3 H Urine Color Urine Appearance Urine pH Ur Specific [place] Urine Protein Urine Glucose (UA) Urine Ketones Urine Blood Urine Nitrite Ur Leukocyte Esterase Urine WBC (Auto) Urine RBC (Auto) Impressions: Chest X-Ray 03/17/17 00:00 IMPRESSION: NO ACUTE RADIOGRAPHIC FINDING IN THE CHEST. Abdomen/Pelvis CT 03/17/17 18:18 IMPRESSION: The distended gallbladder. Small amount of fluid posterior to the pancreas. Dilated pancreatic duct. No definite pancreatic mass lesion. Abdomen MRI 03/18/17 00:00 IMPRESSION: Mild dilatation of the common bile duct and central hepatic ducts. No definite distal stone or mass. The gallbladder is distended with small layering stones. Abdomen Ultrasound 03/18/17 00:00 IMPRESSION: Mild intra and extrahepatic biliary ductal dilatation. Distal ductal stone or stricture could not be excluded. Stones and sludge in the dependent gallbladder without gallbladder wall thickening. No pericholecystic fluid. Assessment & Plan - Diagnosis (1) Gallstone pancreatitis Is this a current diagnosis for this admission?: Yes Plan: Gallstone pancreatitis. Wait for pancreatitis to subside and then plan laparoscopic cholecystectomy with intraoperative cholangiogram. In light of her pancreatic ductal dilation as well, she may benefit from an ERCP with brushings. 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 Will discuss with hospitalist.
[2017-03-19] MEDS: FAMOTIDINE INJ/PF 20 MG/2 ML SDV IV SCH ×2 (11:04→22:20)
[2017-03-19] MEDS: HEPARIN SOD (PORCINE) 5,000 UNIT/ML 1 ML SYRINGE SUBCUT SCH ×2 (11:05→22:25)
[2017-03-19] MEDS: NORMAL SALINE 1000 ML 1,000 ML IV PRN (16:54)
--- NOTE | 2017-03-19 17:36 | PDOC PROGRESS REPORT ---
Subjective Progress Note for:: 03/19/17 Subjective:: Pt states that she still has abd pain. Spoke to Dr. Yu who requested transfer for ERCP. [facility] denied transfer due to pt most likely passing Gallstone. LFT trending down. Dr. Yu was contacted and agreed with not transferring pt. Dr. Yu states that pt will stay here and have surgery later during the stay. Physical Exam Vital Signs: Temp Pulse Resp BP Pulse Ox 98.8 F 98 18 147/60 H 100 03/19/17 15:52 03/19/17 15:52 03/19/17 15:52 03/19/17 15:52 03/19/17 15:52 Intake & Output 03/18/17 03/19/17 03/20/17 06:59 06:59 06:59 Intake Total 700 3432 2462 Output Total 600 400 Balance 100 3032 2462 Weight 86.2 kg 86.9 kg General appearance: PRESENT: no acute distress, well-developed, well-nourished Head exam: PRESENT: atraumatic, normocephalic Eye exam: PRESENT: conjunctiva pink, EOMI. ABSENT: scleral icterus Ear exam: PRESENT: normal external ear exam Mouth exam: PRESENT: moist Neck exam: ABSENT: carotid bruit, JVD, lymphadenopathy, thyromegaly Respiratory exam: PRESENT: clear to auscultation talha. ABSENT: rales, rhonchi, wheezes Vascular exam: PRESENT: normal capillary refill GI/Abdominal exam: PRESENT: other - Positive for tenderness to palpation significant over midepigastric area. Positive for bowel sounds Extremities exam: PRESENT: full ROM Musculoskeletal exam: PRESENT: full ROM Neurological exam: PRESENT: alert, awake, oriented to person, oriented to place , oriented to time, oriented to situation, CN II-XII grossly intact. ABSENT: motor sensory deficit Psychiatric exam: PRESENT: appropriate affect, normal mood. ABSENT: homicidal ideation, suicidal ideation Skin exam: PRESENT: dry, warm Results Laboratory Results: 03/19/17 04:06 03/19/17 04:06 03/19/17 03/19/17 04:06 04:06 WBC 10.5 RBC 3.54 L Hgb 11.0 L Hct 32.4 L MCV 92 MCH 31.1 MCHC 33.9 RDW 14.1 H Plt Count 160 Seg Neutrophils % 73.8 Lymphocytes % 18.5 Monocytes % 6.1 Eosinophils % 0.7 Basophils % 0.9 Absolute Neutrophils 7.7 Absolute Lymphocytes 1.9 Absolute Monocytes 0.6 Absolute Eosinophils 0.1 Absolute Basophils 0.1 Sodium 139.2 Potassium 4.2 D Chloride 110 H Carbon Dioxide 22 Anion Gap 7 BUN 12 Creatinine 1.00 Est GFR ( Amer) > 60 Est GFR (Non-Af Amer) 53 L Glucose 88 Calcium 8.1 L Total Bilirubin 1.0 AST 58 H ALT 80 H Alkaline Phosphatase 78 Total Protein 6.1 L Albumin 3.2 L Lipase 2580.3 H Impressions: Chest X-Ray 03/17/17 00:00 IMPRESSION: NO ACUTE RADIOGRAPHIC FINDING IN THE CHEST. Abdomen/Pelvis CT 03/17/17 18:18 IMPRESSION: The distended gallbladder. Small amount of fluid posterior to the pancreas. Dilated pancreatic duct. No definite pancreatic mass lesion. Abdomen MRI 03/18/17 00:00 IMPRESSION: Mild dilatation of the common bile duct and central hepatic ducts. No definite distal stone or mass. The gallbladder is distended with small layering stones. Abdomen Ultrasound 03/18/17 00:00 IMPRESSION: Mild intra and extrahepatic biliary ductal dilatation. Distal ductal stone or stricture could not be excluded. Stones and sludge in the dependent gallbladder without gallbladder wall thickening. No pericholecystic fluid. Assessment & Plan - Diagnosis (1) Gallstone pancreatitis Is this a current diagnosis for this admission?: Yes Plan: Surgery involved in case. Patient's LFTs are trending down consistent with patient passing stone. We will continue to treat patient for symptoms. Surgery states that they will do surgery to remove patient's gallbladder later on during the week. (2) ARF (acute renal failure) Qualifiers: Acute renal failure type: unspecified Qualified Code(s): N17.9 - Acute kidney failure, unspecified Is this a current diagnosis for this admission?: Yes Plan: Resolved with IV fluids. (3) Abdominal pain Qualifiers: Abdominal location: generalized Qualified Code(s): R10.84 - Generalized abdominal pain Is this a current diagnosis for this admission?: Yes Plan: Continue pain medication. (4) CAD (coronary artery disease) Qualifiers: Coronary Disease-Associated Artery/Lesion type: [place] artery [place] vs. transplanted heart: [place] heart Associated angina: without angina Qualified Code(s): I25.10 - Atherosclerotic heart disease of [place] coronary artery without angina pectoris Is this a current diagnosis for this admission?: Yes Plan: Patient denies any chest pain. Supportive care (5) HTN (hypertension) Qualifiers: Hypertension type: essential hypertension Qualified Code(s): I10 - Essential (primary) hypertension Is this a current diagnosis for this admission?: Yes Plan: We will continue patient's home medications. (6) DVT prophylaxis Is this a current diagnosis for this admission?: Yes Plan: Lovenox - Time Time Spent with patient: 25-34 minutes - Contacted [facility] who declined transfer patient. Dr. Yu was made aware of the decline for transfer and he agreed with keeping patient here. Patient states he will take patient to the OR later this week.
--- NOTE | 2017-03-19 19:47 | XCELERA REPORT ---
[address] [address] Transthoracic Echocardiogram Report Name: CHRISTINA SOMMER Age: 82 yrs Gender: Female : 1935 Patient Status: Inpatient Patient Location: [address] [place] [address] Study Date: 03/19/2017 08:21 AM Height: 67 in Weight: 190 lb BSA: 2.0 m2 Procedure: A complete two-dimensional transthoracic echocardiogram was performed (2D, M-mode, spectral and color flow Doppler). The study was technically difficult with many images being suboptimal in quality. Reason For Study: CAD pre op Ordering Physician: ALESSIA DYE Performed By: Dominga Gandhi Interpretation Summary The study was technically difficult with many images being suboptimal in quality. The left ventricular ejection fraction is normal. There is borderline concentric left ventricular hypertrophy. Doppler measurements suggest pseudonormalized left ventricular relaxation, which is associated with grade II/IV or mild to moderate diastolic dysfunction The left ventricle is grossly normal size. Not all wall segments were well visualized. Regional wall motion abnormalities cannot be excluded due to limited visualization. The right ventricular systolic function is normal. The right atrium is normal in size The left atrial size is normal. There is a mild amount of mitral regurgitation There is no mitral valve stenosis. There is no aortic valve stenosis There is a mild to moderate amount of aortic regurgitation There is a trace to mild amount of tricuspid regurgitation There is mild pulmonary hypertension by echo Right ventricular systolic pressure is estimated to be elevated at 30- 40mmHg. The aortic root is not well visualized but is probably normal size. The inferior vena cava appeared normal and decreased > 50% with respiration (RAP 5-10 mmHg) There is no pericardial effusion. MMode/2D Measurements & Calculations RVDd: 2.8 cm LVIDd: 5.0 cm FS: 36.7 % Ao root diam: 2.1 cm IVSd: 0.92 cm LVIDs: 3.2 cm EDV(Teich): 119.5 ml LVPWd: 0.86 cmESV(Teich): 40.4 ml Ao root area: 3.5 cm2 EF(Teich): 66.2 % LA dimension: 2.8 cm LVOT diam: 2.0 cm LVOT area: 3.0 cm2 Doppler Measurements & Calculations MV E max barbara: MV P1/2t max barbara: Ao V2 max: AI max barbara: 118.5 cm/sec 118.5 cm/sec 291.8 cm/sec 340.7 cm/sec MV A max barbara: MV P1/2t: 53.3 msec Ao max PG: AI max P.5 cm/sec MVA(P1/2t): 4.1 cm2 34.1 mmHg 46.4 mmHg MV E/A: 1.0 MV dec slope: Ao V2 mean: AI dec slope: 651.4 cm/sec2 204.7 cm/sec 262.8 cm/sec2 Ao mean PG: AI P1/2t: 19.1 mmHg 379.7 msec Ao V2 VTI: 59.1 cm MONTY(I,D): 0.85 cm2 MONTY(V,D): 0.95 cm2 LV V1 max PG: SV(LVOT): 50.0 ml PA V2 max: TR max barbara: 3.4 mmHg 119.0 cm/sec 281.9 cm/sec LV V1 mean PG: PA max PG: TR max P.7 mmHg 5.7 mmHg 31.9 mmHg LV V1 max: 92.5 cm/sec LV V1 mean: 60.7 cm/sec LV V1 VTI: 16.7 cm Left Ventricle The left ventricle is grossly normal size. There is borderline concentric left ventricular hypertrophy. The left ventricular ejection fraction is normal. Doppler measurements suggest pseudonormalized left ventricular relaxation, which is associated with grade II/IV or mild to moderate diastolic dysfunction. Not all wall segments were well visualized. Regional wall motion abnormalities cannot be excluded due to limited visualization. Right Ventricle The right ventricle is grossly normal size. There is normal right ventricular wall thickness. The right ventricular systolic function is normal. Atria The right atrium is normal in size. The left atrial size is normal. Interarterial septum not well visualized and not well dopplered. Cannot comment on ASD/PFO presence. Mitral Valve The mitral valve leaflets are sclerotic, but show no functional abnormalities. There is no mitral valve stenosis. There is a mild amount of mitral regurgitation. Aortic Valve The aortic valve opens well. There is no aortic valve stenosis. There is a mild to moderate amount of aortic regurgitation. Tricuspid Valve The tricuspid valve is not well visualized secondary to technical limitations. There is no tricuspid stenosis. There is a trace to mild amount of tricuspid regurgitation. There is mild pulmonary hypertension by echo. Right ventricular systolic pressure is estimated to be elevated at 30-40mmHg. Pulmonic Valve The pulmonic valve is not well visualized. Great Vessels The aortic root is not well visualized but is probably normal size. The inferior vena cava appeared normal and decreased > 50% with respiration (RAP 5-10 mmHg). Effusions There is no pericardial effusion. : ALESSIA DYE > Alessia Dye
[2017-03-20] MEDS ORDERED: ALBUTEROL SULFATE 0.083% NEB 2.5 MG/3 ML AMPUL NEB ONE (03:34)
[2017-03-20] MEDS ORDERED: NORMAL SALINE 1000 ML 1,000 ML IV PRN (03:35)
[2017-03-20 04:52] LABS: ABSOLUTE BASOPHILS # (AUTO) 0.1 10^3/uL (0.0-0.2); ABSOLUTE EOSINOPHILS # (AUTO) 0.1 10^3/uL (0.0-0.6); ABSOLUTE LYMPHOCYTES (AUTO) 1.8 10^3/uL (0.5-4.7); ABSOLUTE MONOCYTES (AUTO) 0.8 10^3/uL (0.1-1.4); ABSOLUTE NEUT (AUTO) 9.6 10^3/uL (1.7-8.2); BASOPHILS % (AUTO) 0.7 % (0-2); EOSINOPHILS % (AUTO) 0.5 % (0-6); HEMATOCRIT 30.9 % (36.0-47.0); HEMOGLOBIN 10.6 g/dL (12.0-15.5); HGB HCT DIFFERENCE 0.9; LYMPHOCYTES % (AUTO) 14.3 % (13-45); MEAN CORPUSCULAR HEMOGLOBIN 30.8 pg (27.0-33.4); MEAN CORPUSCULAR HGB CONC 34.2 g/dL (32.0-36.0); MEAN CORPUSCULAR VOLUME 90 fl (80-97); MONOCYTES % (AUTO) 6.3 % (3-13); RED BLOOD COUNT 3.43 10^6/uL (3.72-5.28); RED CELL DISTRIBUTION WIDTH 13.6 % (11.5-14.0); SEGMENTED NEUTROPHILS % (AUTO) 78.2 % (42-78); WHITE BLOOD COUNT 12.3 10^3/uL (4.0-10.5)
[2017-03-20 05:12] LABS: ALANINE AMINOTRANSFERASE 61 U/L (9-52); ALBUMIN 3.3 g/dL (3.5-5.0); ALKALINE PHOSPHATASE 80 U/L (38-126); ANION GAP 11 (5-19); ASPARTATE AMINO TRANSFERASE 39 U/L (14-36); BILIRUBIN,DIRECT 0.7 mg/dL (0.0-0.4); BILIRUBIN,TOTAL 1.2 mg/dL (0.2-1.3); BLOOD UREA NITROGEN 10 mg/dL (7-20); CALCIUM 8.8 mg/dL (8.4-10.2); CARBON DIOXIDE 18 mmol/L (22-30); CHLORIDE 107 mmol/L (98-107); CREATININE RESULT 0.83 mg/dL (0.52-1.25); GLUCOSE 77 mg/dL (75-110); LIPASE 548.2 U/L (23-300); POTASSIUM 3.9 mmol/L (3.6-5.0); SODIUM 135.9 mmol/L (137-145); TOTAL PROTEIN 6.4 g/dL (6.3-8.2)
[2017-03-20] MEDS: ACETAMINOPHEN 325 MG TABLET PO PRN ×2 (05:14→16:48)
[2017-03-20] MEDS: PIPERACILLIN SODIUM/TAZOBACTAM 3.375 GM in NORMAL SALINE 100 ML IV SCH ×4 (05:16→23:22)
[2017-03-20] MEDS: HEPARIN SOD (PORCINE) 5,000 UNIT/ML 1 ML SYRINGE SUBCUT SCH ×2 (09:59→21:35)
[2017-03-20] MEDS: FAMOTIDINE INJ/PF 20 MG/2 ML SDV IV SCH ×2 (09:59→21:35)
--- NOTE | 2017-03-20 14:11 | PDOC PROGRESS REPORT ---
Subjective Progress Note for:: 03/20/17 Subjective:: Patient is lying in bed without complaints. Physical Exam Vital Signs: Temp Pulse Resp BP Pulse Ox 98.1 F 88 18 148/61 H 100 03/20/17 11:38 03/20/17 11:38 03/20/17 11:38 03/20/17 11:38 03/20/17 11:38 Intake & Output 03/19/17 03/20/17 03/21/17 06:59 06:59 06:59 Intake Total 3432 2762 Output Total 400 Balance 3032 2762 Weight 86.9 kg 86.1 kg GI/Abdominal exam: PRESENT: normal bowel sounds, soft. ABSENT: distended, guarding, rebound, tenderness Results Laboratory Results: 03/20/17 03:53 03/20/17 03:53 03/20/17 03/20/17 03:53 03:53 WBC 12.3 H RBC 3.43 L Hgb 10.6 L Hct 30.9 L MCV 90 MCH 30.8 MCHC 34.2 RDW 13.6 Plt Count 169 Seg Neutrophils % 78.2 H Lymphocytes % 14.3 Monocytes % 6.3 Eosinophils % 0.5 Basophils % 0.7 Absolute Neutrophils 9.6 H Absolute Lymphocytes 1.8 Absolute Monocytes 0.8 Absolute Eosinophils 0.1 Absolute Basophils 0.1 Sodium 135.9 L Potassium 3.9 Chloride 107 Carbon Dioxide 18 L Anion Gap 11 BUN 10 Creatinine 0.83 Est GFR ( Amer) > 60 Est GFR (Non-Af Amer) > 60 Glucose 77 Calcium 8.8 Total Bilirubin 1.2 AST 39 H ALT 61 H Alkaline Phosphatase 80 Total Protein 6.4 Albumin 3.3 L Lipase 548.2 H 03/18/17 08:05 Clean Catch Midstream Urine Culture - Final NO GROWTH 2 DAYS Impressions: Chest X-Ray 03/17/17 00:00 IMPRESSION: NO ACUTE RADIOGRAPHIC FINDING IN THE CHEST. Abdomen/Pelvis CT 03/17/17 18:18 IMPRESSION: The distended gallbladder. Small amount of fluid posterior to the pancreas. Dilated pancreatic duct. No definite pancreatic mass lesion. Abdomen MRI 03/18/17 00:00 IMPRESSION: Mild dilatation of the common bile duct and central hepatic ducts. No definite distal stone or mass. The gallbladder is distended with small layering stones. Abdomen Ultrasound 03/18/17 00:00 IMPRESSION: Mild intra and extrahepatic biliary ductal dilatation. Distal ductal stone or stricture could not be excluded. Stones and sludge in the dependent gallbladder without gallbladder wall thickening. No pericholecystic fluid. Assessment & Plan - Diagnosis (1) Pancreatitis Qualifiers: Chronicity: acute Pancreatitis type: unspecified pancreatitis type Acute pancreatitis complication: no infection or necrosis Qualified Code(s): K85.90 - Acute pancreatitis without necrosis or infection, unspecified Is this a current diagnosis for this admission?: Yes - Plan Summary Plan Summary: Patient's lipase is down to 580. If tomorrow's lipase is closer to normal, then patient will be ready for laparoscopic cholecystectomy in 24-48 hours thereafter
--- NOTE | 2017-03-20 22:32 | PDOC PROGRESS REPORT ---
Subjective Progress Note for:: 03/20/17 Subjective:: Patient lying in bed in no acute distress. Patient family at bedside. Patient is taking ice chips and sips of water. Patient states she would like to eat understand. She cannot due to her condition. Physical Exam Vital Signs: Temp Pulse Resp BP Pulse Ox 97.9 F 89 20 159/63 H 98 03/20/17 20:23 03/20/17 20:23 03/20/17 20:23 03/20/17 20:23 03/20/17 20:23 Intake & Output 03/19/17 03/20/17 03/21/17 06:59 06:59 06:59 Intake Total 3432 2762 240 Output Total 400 Balance 3032 2762 240 Weight 86.9 kg 86.1 kg General appearance: PRESENT: no acute distress, other Head exam: PRESENT: atraumatic, normocephalic Eye exam: PRESENT: EOMI Mouth exam: PRESENT: moist Respiratory exam: PRESENT: clear to auscultation talha Cardiovascular exam: PRESENT: RRR GI/Abdominal exam: PRESENT: normal bowel sounds, soft Rectal exam: PRESENT: deferred Neurological exam: PRESENT: alert, awake, oriented to person, oriented to place , oriented to time Psychiatric exam: PRESENT: normal mood Skin exam: PRESENT: intact, warm Results Laboratory Results: 03/20/17 03:53 03/20/17 03:53 03/20/17 03/20/17 03:53 03:53 WBC 12.3 H RBC 3.43 L Hgb 10.6 L Hct 30.9 L MCV 90 MCH 30.8 MCHC 34.2 RDW 13.6 Plt Count 169 Seg Neutrophils % 78.2 H Lymphocytes % 14.3 Monocytes % 6.3 Eosinophils % 0.5 Basophils % 0.7 Absolute Neutrophils 9.6 H Absolute Lymphocytes 1.8 Absolute Monocytes 0.8 Absolute Eosinophils 0.1 Absolute Basophils 0.1 Sodium 135.9 L Potassium 3.9 Chloride 107 Carbon Dioxide 18 L Anion Gap 11 BUN 10 Creatinine 0.83 Est GFR ( Amer) > 60 Est GFR (Non-Af Amer) > 60 Glucose 77 Calcium 8.8 Total Bilirubin 1.2 AST 39 H ALT 61 H Alkaline Phosphatase 80 Total Protein 6.4 Albumin 3.3 L Lipase 548.2 H 03/18/17 08:05 Clean Catch Midstream Urine Culture - Final NO GROWTH 2 DAYS Impressions: Chest X-Ray 03/17/17 00:00 IMPRESSION: NO ACUTE RADIOGRAPHIC FINDING IN THE CHEST. Abdomen/Pelvis CT 03/17/17 18:18 IMPRESSION: The distended gallbladder. Small amount of fluid posterior to the pancreas. Dilated pancreatic duct. No definite pancreatic mass lesion. Abdomen MRI 03/18/17 00:00 IMPRESSION: Mild dilatation of the common bile duct and central hepatic ducts. No definite distal stone or mass. The gallbladder is distended with small layering stones. Abdomen Ultrasound 03/18/17 00:00 IMPRESSION: Mild intra and extrahepatic biliary ductal dilatation. Distal ductal stone or stricture could not be excluded. Stones and sludge in the dependent gallbladder without gallbladder wall thickening. No pericholecystic fluid. Assessment & Plan - Diagnosis (1) Gallstone pancreatitis Is this a current diagnosis for this admission?: Yes Plan: LFTs trending down. Patient is not having any pain. Surgery is following closely for possible lap sonido. (2) ARF (acute renal failure) Qualifiers: Acute renal failure type: unspecified Qualified Code(s): N17.9 - Acute kidney failure, unspecified Is this a current diagnosis for this admission?: Yes Plan: The due to intravascular depletion. This has now resolved with IV fluids. (3) Abdominal pain Qualifiers: Abdominal location: generalized Qualified Code(s): R10.84 - Generalized abdominal pain Is this a current diagnosis for this admission?: Yes Plan: Most likely due to gallstone pancreatitis. Patient no longer complaining about pain. (4) CAD (coronary artery disease) Qualifiers: Coronary Disease-Associated Artery/Lesion type: [place] artery [place] vs. transplanted heart: [place] heart Associated angina: without angina Qualified Code(s): I25.10 - Atherosclerotic heart disease of [place] coronary artery without angina pectoris Is this a current diagnosis for this admission?: Yes Plan: Patient denies chest pain. Echo shows normal EF however patient does have diastolic dysfunction. Regional wall motion abnormality could not be excluded. (5) HTN (hypertension) Qualifiers: Hypertension type: essential hypertension Qualified Code(s): I10 - Essential (primary) hypertension Is this a current diagnosis for this admission?: Yes Plan: Stable on home medications. - Time Time Spent with patient: Less than 15 minutes Anticipated discharge: Home
[2017-03-21 05:03] LABS: ABSOLUTE BASOPHILS # (AUTO) 0.1 10^3/uL (0.0-0.2); ABSOLUTE EOSINOPHILS # (AUTO) 0.2 10^3/uL (0.0-0.6); ABSOLUTE LYMPHOCYTES (AUTO) 1.4 10^3/uL (0.5-4.7); ABSOLUTE MONOCYTES (AUTO) 0.6 10^3/uL (0.1-1.4); ABSOLUTE NEUT (AUTO) 8.1 10^3/uL (1.7-8.2); BASOPHILS % (AUTO) 0.6 % (0-2); EOSINOPHILS % (AUTO) 1.9 % (0-6); HEMATOCRIT 30.9 % (36.0-47.0); HEMOGLOBIN 10.6 g/dL (12.0-15.5); HGB HCT DIFFERENCE 0.9; LYMPHOCYTES % (AUTO) 13.7 % (13-45); MEAN CORPUSCULAR HEMOGLOBIN 31.2 pg (27.0-33.4); MEAN CORPUSCULAR HGB CONC 34.3 g/dL (32.0-36.0); MEAN CORPUSCULAR VOLUME 91 fl (80-97); MONOCYTES % (AUTO) 5.6 % (3-13); RED BLOOD COUNT 3.39 10^6/uL (3.72-5.28); RED CELL DISTRIBUTION WIDTH 13.3 % (11.5-14.0); SEGMENTED NEUTROPHILS % (AUTO) 78.2 % (42-78); WHITE BLOOD COUNT 10.4 10^3/uL (4.0-10.5)
[2017-03-21] MEDS: PIPERACILLIN SODIUM/TAZOBACTAM 3.375 GM in NORMAL SALINE 100 ML IV SCH ×3 (05:08→18:30)
[2017-03-21 05:19] LABS: ALANINE AMINOTRANSFERASE 50 U/L (9-52); ALBUMIN 3.1 g/dL (3.5-5.0); ALKALINE PHOSPHATASE 74 U/L (38-126); ANION GAP 11 (5-19); ASPARTATE AMINO TRANSFERASE 27 U/L (14-36); BILIRUBIN,DIRECT 0.7 mg/dL (0.0-0.4); BILIRUBIN,TOTAL 0.9 mg/dL (0.2-1.3); BLOOD UREA NITROGEN 9 mg/dL (7-20); CALCIUM 8.7 mg/dL (8.4-10.2); CARBON DIOXIDE 18 mmol/L (22-30); CHLORIDE 110 mmol/L (98-107); CREATININE RESULT 0.83 mg/dL (0.52-1.25); GLUCOSE 64 mg/dL (75-110); LIPASE 1018.1 U/L (23-300); MAGNESIUM 1.9 mg/dL (1.6-2.3); SODIUM 139.2 mmol/L (137-145); TOTAL PROTEIN 6.1 g/dL (6.3-8.2)
[2017-03-21] MEDS: FAMOTIDINE INJ/PF 20 MG/2 ML SDV IV SCH (09:04)
[2017-03-21] MEDS: HEPARIN SOD (PORCINE) 5,000 UNIT/ML 1 ML SYRINGE SUBCUT SCH (09:04)
[2017-03-21] MEDS: ACETAMINOPHEN 325 MG TABLET PO PRN (20:53)
--- NOTE | 2017-03-21 22:18 | PDOC PROGRESS REPORT ---
Subjective Progress Note for:: 03/21/17 Subjective:: Patient is without complaints, and is up walking in her room. Patient had good bowel movement today Physical Exam Vital Signs: Temp Pulse Resp BP Pulse Ox 98.5 F 94 18 151/68 H 100 03/21/17 16:04 03/21/17 16:04 03/21/17 16:04 03/21/17 16:04 03/21/17 16:04 Intake & Output 03/20/17 03/21/17 03/22/17 06:59 06:59 06:59 Intake Total 2762 520 900 Output Total 650 Balance 2762 -130 900 Weight 86.1 kg 85.1 kg General appearance: PRESENT: no acute distress, cooperative Cardiovascular exam: PRESENT: RRR GI/Abdominal exam: PRESENT: normal bowel sounds, soft. ABSENT: guarding, rebound, rigid, tenderness Results Laboratory Results: 03/21/17 03:55 03/21/17 03:55 03/21/17 03/21/17 03:55 03:55 WBC 10.4 RBC 3.39 L Hgb 10.6 L Hct 30.9 L MCV 91 MCH 31.2 MCHC 34.3 RDW 13.3 Plt Count 185 Seg Neutrophils % 78.2 H Lymphocytes % 13.7 Monocytes % 5.6 Eosinophils % 1.9 Basophils % 0.6 Absolute Neutrophils 8.1 Absolute Lymphocytes 1.4 Absolute Monocytes 0.6 Absolute Eosinophils 0.2 Absolute Basophils 0.1 Sodium 139.2 Potassium 4.0 Chloride 110 H Carbon Dioxide 18 L Anion Gap 11 BUN 9 Creatinine 0.83 Est GFR ( Amer) > 60 Est GFR (Non-Af Amer) > 60 Glucose 64 L Calcium 8.7 Magnesium 1.9 Total Bilirubin 0.9 AST 27 ALT 50 Alkaline Phosphatase 74 Total Protein 6.1 L Albumin 3.1 L Lipase 1018.1 H Impressions: Chest X-Ray 03/17/17 00:00 IMPRESSION: NO ACUTE RADIOGRAPHIC FINDING IN THE CHEST. Abdomen/Pelvis CT 03/17/17 18:18 IMPRESSION: The distended gallbladder. Small amount of fluid posterior to the pancreas. Dilated pancreatic duct. No definite pancreatic mass lesion. Abdomen MRI 03/18/17 00:00 IMPRESSION: Mild dilatation of the common bile duct and central hepatic ducts. No definite distal stone or mass. The gallbladder is distended with small layering stones. Abdomen Ultrasound 03/18/17 00:00 IMPRESSION: Mild intra and extrahepatic biliary ductal dilatation. Distal ductal stone or stricture could not be excluded. Stones and sludge in the dependent gallbladder without gallbladder wall thickening. No pericholecystic fluid. Assessment & Plan - Diagnosis (1) Pancreatitis Qualifiers: Chronicity: acute Pancreatitis type: unspecified pancreatitis type Acute pancreatitis complication: no infection or necrosis Qualified Code(s): K85.90 - Acute pancreatitis without necrosis or infection, unspecified Is this a current diagnosis for this admission?: Yes - Plan Summary Plan Summary: In spite of her lipase now being 1018.1 today, patient remains asymptomatic, with good bowel function, and no complaints of abdominal pain, nausea, or vomiting. Given that her abdominal exam is completely benign, will start the patient on clear liquid diet...and treat the patient, and not the lab value.
--- NOTE | 2017-03-21 22:34 | PDOC PROGRESS REPORT ---
Subjective Progress Note for:: 03/21/17 Subjective:: She is doing well at this time with no complaints. Patient is patiently waiting further recommendations. Patient denies any pain. Physical Exam Vital Signs: Temp Pulse Resp BP Pulse Ox 98.5 F 94 18 151/68 H 100 03/21/17 16:04 03/21/17 16:04 03/21/17 16:04 03/21/17 16:04 03/21/17 16:04 Intake & Output 03/20/17 03/21/17 03/22/17 06:59 06:59 06:59 Intake Total 2762 520 900 Output Total 650 Balance 2762 -130 900 Weight 86.1 kg 85.1 kg General appearance: PRESENT: no acute distress, cooperative Head exam: PRESENT: atraumatic Eye exam: PRESENT: EOMI Mouth exam: PRESENT: moist, neck supple Respiratory exam: PRESENT: clear to auscultation talha Cardiovascular exam: PRESENT: RRR GI/Abdominal exam: PRESENT: normal bowel sounds, soft, other - Nontender Rectal exam: PRESENT: deferred Extremities exam: PRESENT: full ROM Musculoskeletal exam: PRESENT: full ROM Neurological exam: PRESENT: alert, awake, oriented to person, oriented to place , oriented to time Psychiatric exam: PRESENT: normal mood Skin exam: PRESENT: intact, warm Results Laboratory Results: 03/21/17 03:55 03/21/17 03:55 03/21/17 03/21/17 03:55 03:55 WBC 10.4 RBC 3.39 L Hgb 10.6 L Hct 30.9 L MCV 91 MCH 31.2 MCHC 34.3 RDW 13.3 Plt Count 185 Seg Neutrophils % 78.2 H Lymphocytes % 13.7 Monocytes % 5.6 Eosinophils % 1.9 Basophils % 0.6 Absolute Neutrophils 8.1 Absolute Lymphocytes 1.4 Absolute Monocytes 0.6 Absolute Eosinophils 0.2 Absolute Basophils 0.1 Sodium 139.2 Potassium 4.0 Chloride 110 H Carbon Dioxide 18 L Anion Gap 11 BUN 9 Creatinine 0.83 Est GFR ( Amer) > 60 Est GFR (Non-Af Amer) > 60 Glucose 64 L Calcium 8.7 Magnesium 1.9 Total Bilirubin 0.9 AST 27 ALT 50 Alkaline Phosphatase 74 Total Protein 6.1 L Albumin 3.1 L Lipase 1018.1 H Impressions: Chest X-Ray 03/17/17 00:00 IMPRESSION: NO ACUTE RADIOGRAPHIC FINDING IN THE CHEST. Abdomen/Pelvis CT 03/17/17 18:18 IMPRESSION: The distended gallbladder. Small amount of fluid posterior to the pancreas. Dilated pancreatic duct. No definite pancreatic mass lesion. Abdomen MRI 03/18/17 00:00 IMPRESSION: Mild dilatation of the common bile duct and central hepatic ducts. No definite distal stone or mass. The gallbladder is distended with small layering stones. Abdomen Ultrasound 03/18/17 00:00 IMPRESSION: Mild intra and extrahepatic biliary ductal dilatation. Distal ductal stone or stricture could not be excluded. Stones and sludge in the dependent gallbladder without gallbladder wall thickening. No pericholecystic fluid. Assessment & Plan - Diagnosis (1) Gallstone pancreatitis Is this a current diagnosis for this admission?: Yes Plan: LFTs trending down. Patient is not having any pain. Surgery following closely and has started patient on a liquid diet as patient is has been pain-free. (2) ARF (acute renal failure) Qualifiers: Acute renal failure type: unspecified Qualified Code(s): N17.9 - Acute kidney failure, unspecified Is this a current diagnosis for this admission?: Yes Plan: The due to intravascular depletion. This has now resolved with IV fluids. Will consider discontinuing fluids in the morning if patient is tolerating diet. (3) Abdominal pain Qualifiers: Abdominal location: generalized Qualified Code(s): R10.84 - Generalized abdominal pain Is this a current diagnosis for this admission?: Yes Plan: Most likely due to gallstone pancreatitis. Patient no longer complaining about pain. (4) CAD (coronary artery disease) Qualifiers: Coronary Disease-Associated Artery/Lesion type: [place] artery [place] vs. transplanted heart: [place] heart Associated angina: without angina Qualified Code(s): I25.10 - Atherosclerotic heart disease of [place] coronary artery without angina pectoris Is this a current diagnosis for this admission?: Yes Plan: Patient denies chest pain. Echo shows normal EF however patient does have diastolic dysfunction. Regional wall motion abnormality could not be excluded. She appears stable from this standpoint. Because she does have diastolic dysfunction will consider discontinuing fluids if patient is tolerating orals. (5) HTN (hypertension) Qualifiers: Hypertension type: essential hypertension Qualified Code(s): I10 - Essential (primary) hypertension Is this a current diagnosis for this admission?: Yes Plan: Stable on home medications. Continue to monitor. - Time Time Spent with patient: Less than 15 minutes Anticipated discharge: Home
[2017-03-22] MEDS: HEPARIN SOD (PORCINE) 5,000 UNIT/ML 1 ML SYRINGE SUBCUT SCH ×2 (02:17→10:29)
[2017-03-22] MEDS: FAMOTIDINE INJ/PF 20 MG/2 ML SDV IV SCH ×3 (02:20→21:15)
[2017-03-22] MEDS: PIPERACILLIN SODIUM/TAZOBACTAM 3.375 GM in NORMAL SALINE 100 ML IV SCH ×2 (02:21→07:14)
[2017-03-22 04:53] LABS: ABSOLUTE EOSINOPHILS # (AUTO) 0.2 10^3/uL (0.0-0.6); ABSOLUTE LYMPHOCYTES (AUTO) 1.4 10^3/uL (0.5-4.7); ABSOLUTE MONOCYTES (AUTO) 0.6 10^3/uL (0.1-1.4); ABSOLUTE NEUT (AUTO) 6.2 10^3/uL (1.7-8.2); BASOPHILS % (AUTO) 0.5 % (0-2); EOSINOPHILS % (AUTO) 2.8 % (0-6); HEMATOCRIT 29.9 % (36.0-47.0); HEMOGLOBIN 10.3 g/dL (12.0-15.5); LYMPHOCYTES % (AUTO) 16.2 % (13-45); MEAN CORPUSCULAR HEMOGLOBIN 30.9 pg (27.0-33.4); MEAN CORPUSCULAR HGB CONC 34.4 g/dL (32.0-36.0); MEAN CORPUSCULAR VOLUME 90 fl (80-97); MONOCYTES % (AUTO) 7.1 % (3-13); RED BLOOD COUNT 3.33 10^6/uL (3.72-5.28); RED CELL DISTRIBUTION WIDTH 13.5 % (11.5-14.0); SEGMENTED NEUTROPHILS % (AUTO) 73.4 % (42-78); WHITE BLOOD COUNT 8.4 10^3/uL (4.0-10.5)
[2017-03-22 05:05] LABS: ALANINE AMINOTRANSFERASE 41 U/L (9-52); ALBUMIN 3.1 g/dL (3.5-5.0); ALKALINE PHOSPHATASE 75 U/L (38-126); ANION GAP 14 (5-19); ASPARTATE AMINO TRANSFERASE 21 U/L (14-36); BILIRUBIN,DIRECT 0.7 mg/dL (0.0-0.4); BILIRUBIN,TOTAL 0.9 mg/dL (0.2-1.3); BLOOD UREA NITROGEN 9 mg/dL (7-20); CALCIUM 8.8 mg/dL (8.4-10.2); CARBON DIOXIDE 16 mmol/L (22-30); CHLORIDE 111 mmol/L (98-107); GLUCOSE 70 mg/dL (75-110); POTASSIUM 3.9 mmol/L (3.6-5.0); TOTAL PROTEIN 6.3 g/dL (6.3-8.2)
[2017-03-22] MEDS ORDERED: VECURONIUM BROMIDE INJ 10 MG VIAL IV ONE (08:59)
[2017-03-22] MEDS ORDERED: DEXAMETHASONE SOD PHOSPHATE INJ 4 MG/1 ML VIAL ONE (08:59)
[2017-03-22] MEDS ORDERED: GLYCOPYRROLATE INJ 0.4 MG/2 ML VIAL ONE (08:59)
[2017-03-22] MEDS ORDERED: ONDANSETRON HCL INJ/PF 4 MG/2 ML SDV ONE (08:59)
[2017-03-22] MEDS ORDERED: NEOSTIGMINE METHYLSULFATE 10 MG/10 ML VIAL ONE (08:59)
[2017-03-22] MEDS ORDERED: SUCCINYLCHOLINE CHLORIDE INJ 200 MG/10 ML VIAL ONE (08:59)
[2017-03-22] MEDS ORDERED: PHENYLEPHRINE HCL INJ/PF 10 MG/1 ML SDV ONE (08:59)
[2017-03-22] MEDS ORDERED: LIDOCAINE 2% INJ-PF (20 MG/ML) 10 ML AMPUL ONE (08:59)
--- NOTE | 2017-03-22 11:58 | PDOC CONSULTATION ---
Consultation Consult Date: 03/18/17 Attending physician:: RANI PICHARDO Consult reason:: Preop cardiovascular assessment History of Present Illness Admission Date/PCP: 03/17/17 22:08 Patient complains of: Abdominal pain History of Present Illness: CHRISTINA SOMMER is a 82 year old -[place] female with underlying hypertension, along with coronary artery disease, having suffered MO 2 in 1993 , status coronary intervention at that time, and arthritis who admitted the emergency room for evaluation of abdominal discomfort. She is noted to have acute pancreatitis. Patient evaluated by Dr. Jenkins of general surgery for possible cholecystectomy. Patient describes a 4 day history of slowly progressive primarily sharp upper abdominal pain, primarily right upper quadrant. Increases with pressure on the area and certain movements. No prior such pain. No history of pancreatitis. Denies alcohol use. No associated fever or chills, diarrhea or dysuria. She has had a number of episodes of vomiting over the last 24 hours but now more stable. This history was reviewed, supplemented and confirmed. Past Medical History Cardiac Medical History: Reports: Coronary Artery Disease, Myocardial Infarction , Hypertension, Heart Murmur - Long-standing, per patient Denies: Atrial Fibrillation, Congestive Heart Failure, DVT, Hyperlipidema, Pulmonary Embolism Pulmonary Medical History: Denies: Asthma, Chronic Obstructive Pulmonary Disease (COPD), Sleep Apnea EENT Medical History: Denies: Ears, Throat Neurological Medical History: Denies: Hemorrhagic CVA, Ischemic CVA, Seizures Endocrine Medical History: Denies: Diabetes Mellitus Type 1, Diabetes Mellitus Type 2, Hyperthyroidism, Hypothyroidism Renal/ Medical History: Reports: None GI Medical History: Denies: Cirrhosis, Gastroesophageal Reflux Disease, Hepatitis, Peptic Ulcer Disease Musculoskeltal Medical History: Reports: Arthritis Psychiatric Medical History: Denies: Alcohol Dependency, Depression, General Anxiety Disorder, Substance Abuse, Tobacco Dependency Infectious Medical History: Denies: Hepatitis B, Hepatitis C Past Surgical History Past Surgical History: Reports: Hysterectomy, Orthopedic Surgery - Bilateral knee replacement, Other - Benign left breast biopsy Social History Information Source: Patient Lives with: Family Smoking Status: Former Smoker Last Time Smoked: occasional snuff Frequency of Alcohol Use: None Hx Recreational Drug Use: No Drugs: None Hx Prescription Drug Abuse: No - Advance Directive Resuscitation Status: Full Code Surrogate healthcare decision maker:: Patient's sons at the surrogate decision-maker Family History Family History: Reviewed & Not Pertinent, Hypertension Parental Family History Reviewed: Yes Children Family History Reviewed: Yes Sibling(s) Family History Reviewed.: Yes Medication/Allergy Home Medications: Lisinopril [Zestril] 20 mg PO DAILY 03/18/17 Allergies/Adverse Reactions: No Known Allergies Allergy (Verified 03/17/17 21:09) Review of Systems Review of Systems: Please see history of present illness and past medical history as wall. Constitutional: No fever or chills reported. Head : No recent chronic headaches, recent head injury. Eyes: No recent eye pain, diplopia, redness, discharge, acute visual changes. Ears: No recent chronic ear pain, acute hearing loss, ear discharge. Oral cavity: No recent ulcerations, bleeding, oral cavity discomfort. Neck: No recent acute neck pain reported. Hematologic: No recent easy bruising or bleeding or hematologic malignancy reported. Lymphatic: No recent lymphatic malignancy, chronic lymphadenopathy reported yet Cardiovascular system review: See history of present illness. Respiratory system review: No recent chronic cough, hemoptysis, blood clots in the lungs reported. Mild Shortness of breath on exertion Gastrointestinal system review: Positive for abdominal pain, nausea vomiting but no hematemesis, melena, recent change in bowel habits. Genitourinary system review: No recent acute or chronic hematuria, flank pain, UTI etc. reported. Skin system review: Negative for any recent abnormal bruising, no rash, no pruritus reported. Neurologic: No prior history of strokes, mini strokes, seizure disorder. Psychologic: No history of major psychosis or major depression reported. Musculoskeletal: Minor aches and pains reported. No acute joint swelling reported. Endocrine: No recent polyuria, polydipsia, recent heat or cold intolerance. Physical Exam Vital Signs: Temp Pulse Resp BP Pulse Ox 98.5 F 105 H 18 149/62 H 95 03/19/17 11:20 03/19/17 11:20 03/19/17 11:20 03/19/17 11:20 03/19/17 11:20 Intake & Output 03/18/17 03/19/17 03/20/17 06:59 06:59 06:59 Intake Total 700 3432 Output Total 600 400 Balance 100 3032 Weight 86.2 kg 86.9 kg Exam: GENERAL: well-nourished and in no acute distress. Alert and oriented x3 HEAD: Atraumatic, normocephalic. EYES: Pupils equal round and reactive to light, extraocular movements intact, sclera anicteric, conjunctiva are normal. ENT: TMs normal, nares patent, oropharynx clear without exudates. Moist mucous membranes. No oral ulcerations or bleeding gums noted NECK: supple without lymphadenopathy. Trachea is central. No cervical or axillary lymphadenopathy noted. Carotids are 2+, JVD WNL LUNGS: Respiration seems nonlabored, no significant accessory muscle action noted. Breath sounds clear to auscultation bilaterally and equal noted. No wheezes rales or rhonchi noted. No significant dullness noted on percussion. CHEST: Palpation of the chest wall shows no significant chest wall tenderness. No other significant abnormalities noted. 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 ABDOMEN: Mildly distended, diffuse tenderness noted in the epigastric and upper abdominal area, hypoactive bowel sounds. No guarding, no rebound. No rigidity noted . No masses appreciated. EXTREMITIES: Pedal pulses are 1-2+, no calf tenderness noted. No clubbing or cyanosis.trace to 1+ pedal edema noted NEUROLOGICAL: Focused neurological exam showed no significant neurologic deficit. Normal speech, no focal weakness appreciated. PSYCH: Normal mood, normal affect. Judgment and insight within normal limits. SKIN: No significant ecchymosis, rash, ulcerations or signs of pruritus noted. MUSCULOSKELETAL EXAM: No significant joint swelling noted. Results Laboratory Results: 03/19/17 04:06 03/19/17 04:06 03/19/17 03/19/17 04:06 04:06 WBC 10.5 RBC 3.54 L Hgb 11.0 L Hct 32.4 L MCV 92 MCH 31.1 MCHC 33.9 RDW 14.1 H Plt Count 160 Seg Neutrophils % 73.8 Lymphocytes % 18.5 Monocytes % 6.1 Eosinophils % 0.7 Basophils % 0.9 Absolute Neutrophils 7.7 Absolute Lymphocytes 1.9 Absolute Monocytes 0.6 Absolute Eosinophils 0.1 Absolute Basophils 0.1 Sodium 139.2 Potassium 4.2 D Chloride 110 H Carbon Dioxide 22 Anion Gap 7 BUN 12 Creatinine 1.00 Est GFR ( Amer) > 60 Est GFR (Non-Af Amer) 53 L Glucose 88 Calcium 8.1 L Total Bilirubin 1.0 AST 58 H ALT 80 H Alkaline Phosphatase 78 Total Protein 6.1 L Albumin 3.2 L Lipase 2580.3 H EKG Comments: Sinus rhythm, no acute ST-T wave changes are noted Impressions: Chest X-Ray 03/17/17 00:00 IMPRESSION: NO ACUTE RADIOGRAPHIC FINDING IN THE CHEST. Abdomen/Pelvis CT 03/17/17 18:18 IMPRESSION: The distended gallbladder. Small amount of fluid posterior to the pancreas. Dilated pancreatic duct. No definite pancreatic mass lesion. Abdomen MRI 03/18/17 00:00 IMPRESSION: Mild dilatation of the common bile duct and central hepatic ducts. No definite distal stone or mass. The gallbladder is distended with small layering stones. Abdomen Ultrasound 03/18/17 00:00 IMPRESSION: Mild intra and extrahepatic biliary ductal dilatation. Distal ductal stone or stricture could not be excluded. Stones and sludge in the dependent gallbladder without gallbladder wall thickening. No pericholecystic fluid. Assessment & Plan - Diagnosis (1) Preoperative cardiovascular examination Is this a current diagnosis for this admission?: Yes (2) Pancreatitis Qualifiers: Chronicity: acute Pancreatitis type: unspecified pancreatitis type Acute pancreatitis complication: no infection or necrosis Qualified Code(s): K85.90 - Acute pancreatitis without necrosis or infection, unspecified Is this a current diagnosis for this admission?: Yes (3) CAD (coronary artery disease) Qualifiers: Coronary Disease-Associated Artery/Lesion type: [place] artery [place] vs. transplanted heart: [place] heart Associated angina: without angina Qualified Code(s): I25.10 - Atherosclerotic heart disease of [place] coronary artery without angina pectoris Is this a current diagnosis for this admission?: Yes (4) HTN (hypertension) Qualifiers: Hypertension type: essential hypertension Qualified Code(s): I10 - Essential (primary) hypertension Is this a current diagnosis for this admission?: Yes - Notes Notes: Preop cardiovascular examination: Patient has normal EKG no acute EKG changes, no recent angina, no evidence of CHF on clinical exam or on chest x-ray evaluation., Patient maintaining sinus rhythm, therefore acceptable risk for surgery. Patient is therefore been cleared for surgery. Timing of the surgery is best left to the surgeon. Pancreatitis: [place] to be related to gallstones. Being adequately managed by surgeons and by senior sales compensation analyst. CAD: Currently is stable. Patient has not had any symptoms of chest pain or any ischemia equivalent symptoms for several years. Hypertension: Blood pressure currently stable. Continue with current antihypertensives. May switch to IV Vasotec etc. IV Lopressor etc. when n.p.o. Blood pressure goal should be 150/90 or less at her age. - Time Time Spent: 30 to 50 Minutes - CODE STATUS was discussed, patient remains full code. Surrogate decision-maker patient sons. Multiple medical problems were addressed. More than 50% of the time spent coordinating care, discussing management plans with involved caregivers. Management plans discussed with involved personnels. Medical decision making was of moderate to high complexity , patient's has multiple comorbidities. Medications reviewed and adjusted accordingly: Yes
[2017-03-22] MEDS ORDERED: CEFAZOLIN 1 GM/D5W RTU 1 GM/50 ML RTUPB IV ONE (12:00)
--- NOTE | 2017-03-22 12:02 | CONSULTATION REPORT E ---
Consultation Report NAME: CHRISTINA SOMMER : 1935 AGE: 82Y DATE: 03/22/2017 535 A TO: RANI MODI M.D. FROM: XAVI MANRIQUE M.D. Requesting Physician SUBJECTIVE: This is hospital day 5 for the patient hospitalized for abdominal pain, gallstone pancreatitis. She is currently asymptomatic. She did have a few clear liquids this morning, but no nausea or vomiting. We have kept her n.p.o. hereafter. PHYSICAL EXAMINATION: VITAL SIGNS: Patient's vital signs are stable. GENERAL: Patient is awake, alert, and oriented x4. ABDOMEN: The abdomen is examined. No peritoneal signs. No rigidity. The remainder of the exam is nonfocal. LABORATORY PROFILE: Shows a hemoglobin of 10.3, white blood cell count is 8400. Patient's bicarbonate is 16. Albumin 3.1. Lipase level 03/21/2017 was 1296. IMPRESSION: Gallstone pancreatitis in an 82-year-old female with clinical improvement. Explanation for dropping bicarbonate level uncertain. PLAN: 1. We will ensure adequate hydration. 2. Set patient up for interval laparoscopic, possible open, cholecystectomy with intraoperative cholangiography. I have explained the rationale for the planned operation. I believe she understands and agrees to proceed. DICTATING PHYSICIAN: RANI MODI M.D. [id number] [id number] ID: [id number] JOB#: [id number] ACCT: [id number] cc:RANI MODI M.D. >
--- NOTE | 2017-03-22 12:08 | PDOC PROGRESS REPORT ---
Subjective Progress Note for:: 03/20/17 Subjective:: Abdominal pain is improved. 2D echo results reviewed. Patient feeling much better. Date of surgery has not been decided. Physical Exam Vital Signs: Temp Pulse Resp BP Pulse Ox 97.9 F 89 20 159/63 H 98 03/20/17 20:23 03/20/17 20:23 03/20/17 20:23 03/20/17 20:23 03/20/17 20:23 Intake & Output 03/19/17 03/20/17 03/21/17 06:59 06:59 06:59 Intake Total 3432 2762 240 Output Total 400 Balance 3032 2762 240 Weight 86.9 kg 86.1 kg Exam: GENERAL: well-nourished and in no acute distress. Alert and oriented x3 HEAD: Atraumatic, normocephalic. EYES: Pupils equal round and reactive to light, extraocular movements intact, sclera anicteric, conjunctiva are normal. ENT: TMs normal, nares patent, oropharynx clear without exudates. Moist mucous membranes. No oral ulcerations or bleeding gums noted NECK: supple without lymphadenopathy. Trachea is central. No cervical or axillary lymphadenopathy noted. Carotids are 2+, JVD WNL LUNGS: Respiration seems nonlabored, no significant accessory muscle action noted. Breath sounds clear to auscultation bilaterally and equal noted. No wheezes rales or rhonchi noted. No significant dullness noted on percussion. CHEST: Palpation of the chest wall shows no significant chest wall tenderness. No other significant abnormalities noted. 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 ABDOMEN: Soft, slightly distended no significant tenderness appreciated, normoactive bowel sounds. No guarding, no rebound. No rigidity noted . No masses appreciated. EXTREMITIES: Pedal pulses are 1-2+, no calf tenderness noted. No clubbing or cyanosis.trace pedal edema noted NEUROLOGICAL: Focused neurological exam showed no significant neurologic deficit. Normal speech, no focal weakness appreciated. PSYCH: Normal mood, normal affect. Judgment and insight within normal limits. SKIN: No significant ecchymosis, rash, ulcerations or signs of pruritus noted. MUSCULOSKELETAL EXAM: No significant joint swelling noted. Results Laboratory Results: 03/20/17 03:53 03/20/17 03:53 03/20/17 03/20/17 03:53 03:53 WBC 12.3 H RBC 3.43 L Hgb 10.6 L Hct 30.9 L MCV 90 MCH 30.8 MCHC 34.2 RDW 13.6 Plt Count 169 Seg Neutrophils % 78.2 H Lymphocytes % 14.3 Monocytes % 6.3 Eosinophils % 0.5 Basophils % 0.7 Absolute Neutrophils 9.6 H Absolute Lymphocytes 1.8 Absolute Monocytes 0.8 Absolute Eosinophils 0.1 Absolute Basophils 0.1 Sodium 135.9 L Potassium 3.9 Chloride 107 Carbon Dioxide 18 L Anion Gap 11 BUN 10 Creatinine 0.83 Est GFR ( Amer) > 60 Est GFR (Non-Af Amer) > 60 Glucose 77 Calcium 8.8 Total Bilirubin 1.2 AST 39 H ALT 61 H Alkaline Phosphatase 80 Total Protein 6.4 Albumin 3.3 L Lipase 548.2 H 03/18/17 08:05 Clean Catch Midstream Urine Culture - Final NO GROWTH 2 DAYS EKG Comments: Telemetry strips shows patient maintaining sinus rhythm Impressions: Chest X-Ray 03/17/17 00:00 IMPRESSION: NO ACUTE RADIOGRAPHIC FINDING IN THE CHEST. Abdomen/Pelvis CT 03/17/17 18:18 IMPRESSION: The distended gallbladder. Small amount of fluid posterior to the pancreas. Dilated pancreatic duct. No definite pancreatic mass lesion. Abdomen MRI 03/18/17 00:00 IMPRESSION: Mild dilatation of the common bile duct and central hepatic ducts. No definite distal stone or mass. The gallbladder is distended with small layering stones. Abdomen Ultrasound 03/18/17 00:00 IMPRESSION: Mild intra and extrahepatic biliary ductal dilatation. Distal ductal stone or stricture could not be excluded. Stones and sludge in the dependent gallbladder without gallbladder wall thickening. No pericholecystic fluid. Status: Image reviewed by me - 2D echo results were discussed. Assessment & Plan - Diagnosis (1) Pancreatitis Qualifiers: Chronicity: acute Pancreatitis type: unspecified pancreatitis type Acute pancreatitis complication: no infection or necrosis Qualified Code(s): K85.90 - Acute pancreatitis without necrosis or infection, unspecified Is this a current diagnosis for this admission?: Yes (2) Preoperative cardiovascular examination Is this a current diagnosis for this admission?: Yes (3) CAD (coronary artery disease) Qualifiers: Coronary Disease-Associated Artery/Lesion type: [place] artery [place] vs. transplanted heart: [place] heart Associated angina: without angina Qualified Code(s): I25.10 - Atherosclerotic heart disease of [place] coronary artery without angina pectoris Is this a current diagnosis for this admission?: Yes (4) HTN (hypertension) Qualifiers: Hypertension type: essential hypertension Qualified Code(s): I10 - Essential (primary) hypertension Is this a current diagnosis for this admission?: Yes - Notes Notes: Patient has been stable from cardiac standpoint. Patient being followed by surgeons and art objects repairer. 2D echo results shows normal LVEF. Patient cleared for surgery. Timing of the surgery to be decided by the surgeon. At this point will recommend continuing current management plans. - Time Time with patient: 15-25 minutes - More than 50% of the time spent coordinating care, discussing management plans with involved caregivers. Management plans discussed with involved personnels. Medical decision making was of moderate complexity, patient's has multiple comorbidities. Medications reviewed and adjusted accordingly: Yes
--- NOTE | 2017-03-22 12:10 | PDOC PROGRESS REPORT ---
Subjective Progress Note for:: 03/19/17 Subjective:: No chest pain reported. No dyspnea reported. Patient more comfortable. Abdominal pain is improved. 2D echo scheduled. Patient to report any chest pain. Telemetry strips shows sinus rhythm. Physical Exam Vital Signs: Temp Pulse Resp BP Pulse Ox 98.8 F 98 18 147/60 H 100 03/19/17 15:52 03/19/17 15:52 03/19/17 15:52 03/19/17 15:52 03/19/17 15:52 Intake & Output 03/18/17 03/19/17 03/20/17 06:59 06:59 06:59 Intake Total 700 3432 2462 Output Total 600 400 Balance 100 3032 2462 Weight 86.2 kg 86.9 kg Exam: GENERAL: well-nourished and in no acute distress. Alert and oriented x3 HEAD: Atraumatic, normocephalic. EYES: Pupils equal round and reactive to light, extraocular movements intact, sclera anicteric, conjunctiva are normal. ENT: TMs normal, nares patent, oropharynx clear without exudates. Moist mucous membranes. No oral ulcerations or bleeding gums noted NECK: supple without lymphadenopathy. Trachea is central. No cervical or axillary lymphadenopathy noted. Carotids are 2+, JVD WNL LUNGS: Respiration seems nonlabored, no significant accessory muscle action noted. Breath sounds clear to auscultation bilaterally and equal noted. No wheezes rales or rhonchi noted. No significant dullness noted on percussion. CHEST: Palpation of the chest wall shows no significant chest wall tenderness. No other significant abnormalities noted. 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 ABDOMEN: Soft, mildly distended and mild upper abdominal tenderness appreciated , normoactive bowel sounds. No guarding, no rebound. No rigidity noted . No masses appreciated. EXTREMITIES: Pedal pulses are 1-2+, no calf tenderness noted. No clubbing or cyanosis.trace to 1+ pedal edema noted NEUROLOGICAL: Focused neurological exam showed no significant neurologic deficit. Normal speech, no focal weakness appreciated. PSYCH: Normal mood, normal affect. Judgment and insight within normal limits. SKIN: No significant ecchymosis, rash, ulcerations or signs of pruritus noted. MUSCULOSKELETAL EXAM: No significant joint swelling noted. Results Laboratory Results: 03/19/17 04:06 03/19/17 04:06 03/19/17 03/19/17 04:06 04:06 WBC 10.5 RBC 3.54 L Hgb 11.0 L Hct 32.4 L MCV 92 MCH 31.1 MCHC 33.9 RDW 14.1 H Plt Count 160 Seg Neutrophils % 73.8 Lymphocytes % 18.5 Monocytes % 6.1 Eosinophils % 0.7 Basophils % 0.9 Absolute Neutrophils 7.7 Absolute Lymphocytes 1.9 Absolute Monocytes 0.6 Absolute Eosinophils 0.1 Absolute Basophils 0.1 Sodium 139.2 Potassium 4.2 D Chloride 110 H Carbon Dioxide 22 Anion Gap 7 BUN 12 Creatinine 1.00 Est GFR ( Amer) > 60 Est GFR (Non-Af Amer) 53 L Glucose 88 Calcium 8.1 L Total Bilirubin 1.0 AST 58 H ALT 80 H Alkaline Phosphatase 78 Total Protein 6.1 L Albumin 3.2 L Lipase 2580.3 H EKG Comments: Telemetry strips shows sinus rhythm. Impressions: Chest X-Ray 03/17/17 00:00 IMPRESSION: NO ACUTE RADIOGRAPHIC FINDING IN THE CHEST. Abdomen/Pelvis CT 03/17/17 18:18 IMPRESSION: The distended gallbladder. Small amount of fluid posterior to the pancreas. Dilated pancreatic duct. No definite pancreatic mass lesion. Abdomen MRI 03/18/17 00:00 IMPRESSION: Mild dilatation of the common bile duct and central hepatic ducts. No definite distal stone or mass. The gallbladder is distended with small layering stones. Abdomen Ultrasound 03/18/17 00:00 IMPRESSION: Mild intra and extrahepatic biliary ductal dilatation. Distal ductal stone or stricture could not be excluded. Stones and sludge in the dependent gallbladder without gallbladder wall thickening. No pericholecystic fluid. Assessment & Plan - Notes Notes: Patient cleared for surgery. Waiting for surgeons to decide when the date of surgery is. Coronary artery disease: Stable. Hypertension: Blood pressure stable Pancreatitis: Related to gallstones, improving. - Time Time with patient: 15-25 minutes - 2D echo results to be reviewed once performed. Patient generally stable. Continue with full code. Medications reviewed and adjusted accordingly: Yes
[2017-03-22] MEDS ORDERED: MIDAZOLAM 2 MG/2 ML INJ ONE (13:00)
[2017-03-22] MEDS ORDERED: HYDROMORPHONE HCL INJ/PF 2 MG/ML AMPULE ONE (13:00)
[2017-03-22] MEDS ORDERED: PROPOFOL INJ 200 MG/20 ML VIAL IV ONE (13:00)
[2017-03-22] MEDS ORDERED: FENTANYL CITRATE INJ/PF 100 MCG/2 ML AMPUL ONE ×2 (13:00→14:58)
[2017-03-22] MEDS: BUPIVACAINE HCL 0.5 % INJ/PF 30 ML SDV ONE ×2 (13:09→13:30)
[2017-03-22] MEDS ORDERED: CEFAZOLIN INJ 1 GM VIAL ONE (13:18)
[2017-03-22] MEDS ORDERED: FENTANYL CITRATE INJ/PF 100 MCG/2 ML AMPUL IV PRN ×2 (13:59)
[2017-03-22] MEDS ORDERED: DIPHENHYDRAMINE HCL 50 MG/ML VIAL IV PRN (13:59)
[2017-03-22] MEDS ORDERED: MEPERIDINE HCL/PF INJ 25 MG/1 ML DISP.SYRIN IV PRN (13:59)
--- NOTE | 2017-03-22 14:41 | Operative Report ---
Operative Report DATE OF SURGERY: 03/22/17 PREOPERATIVE DIAGNOSIS: 1. Cholecystitis with cholelithiasis. 2. Gallstone pancreatitis POSTOPERATIVE DIAGNOSIS: Same OPERATION: 1. Laparoscopic cholecystectomy. 2. Laparoscopic cholangiography with fluoroscopic interpretation SURGEON: RANI MODI ANESTHESIA: GA TISSUE REMOVED OR ALTERED: 1 gallbladder with contents COMPLICATIONS: None ESTIMATED BLOOD LOSS: Scant INTRAOPERATIVE FINDINGS: See below PROCEDURE: The patient was taken to the preop holding area the main operating room where general anesthesia was induced. The abdomen was exposed, prepped and draped sterile fashion. Instrumentation was set up for laparoscopic cholecystectomy. Surgical plan surgical timeout were conducted. Skin was anesthetized with quarter percent Marcaine. A vertical incision was made over the umbilicus and a Veress needle was inserted the peritoneal cavity pneumoperitoneum was established. Veress needle was removed, 5 mm ports inserted and a 5 mm flexible scope was inserted. There were adhesions between the patient's midline abdominal wall and the greater omentum. There was no evidence of vascular or visceral injury during port insertion. Under direct visualization 3 additional ports were placed one in the subxiphoid to in subcostal positions. Gallbladder was grasped from the fundus and reflected up over the liver. Multiple adhesions between the gallbladder and the gastroduodenal area were taken down using a combination of traction and electrocautery dissection. Eventually we had the gallbladder suspended by its neck. Cystic artery was in his usual location. It was dissected out very nicely clipped twice proximally once distally divided. We now opened up the triangle of Calot low clearly getting on both right and left sides of the triangle. A posterior cystic artery branch was clipped once proximally once distally divided. The gallbladder was now suspended from the cystic duct only except for its attachments towards the fundus. A clip was placed on the gallbladder side of the cystic duct. An incision was made in the cystic duct allowing bile to drain out. We now brought onto the field of disposable percutaneous cholangiogram catheter threaded that through a separate stab wound in the patient's anterior abdominal wall and then threaded the catheter into the cystic duct stump. The catheter was secured with the a clip. We now removed laparoscopic instruments level the patient now proceeded to perform cholangiography with full-strength Isovue contrast. This was performed with approximately 10 cc of contrast. Delineation of the cystic duct, bile duct , hepatic duct and intrahepatic ducts are all appreciated. Complete visualization of the common bile duct was achieved mostly due to motion and incomplete filling artifact. There was contrast immediately detected in the duodenum consistent with a nonobstructed distal common bile duct. There was no evidence of leak. We felt the cholangiogram was complete. We returned to the peritoneal cavity reinserted laparoscopic instruments, removed the clip retaining the cholangiogram, and clipped the cystic duct stump twice proximally then divided the cystic duct. Cholangiogram catheter was removed, gallbladder removed from the liver bed using hook cautery resection part of the patient the supraumbilical port site. We returned the peritoneal cavity check for bleeding was none. We did place a 0 PDS Endoloop around the cystic duct stump in addition to the previously placed clips so as to ensure secure closure of the stump. At this point felt the operation was complete. Sponge and needle counts are correct. All ports removed under direct visualization pneumoperitoneum evacuated wounds closed with 3-0 Vicryl benzoin and Steri-Strips. Postop procedure well, extubated and taken recovery in stable condition Gregory dictating on Alysia Parkinson in dictation.
--- NOTE | 2017-03-22 15:23 | RADIOLOGY REPORT (SQ) ---
EXAM DESCRIPTION: CHOLANGIOGRAM OPERATIVE COMPLETED DATE/TIME: 03/22/2017 2:20 pm REASON FOR STUDY: CHOLANGIOGRAM IN OR COMPARISON: None. FLUOROSCOPY TIME: 0.1 Multiple fluoroscopic images saved to PACS. TECHNIQUE: Cinegraphic images were obtained from an intraoperative cholangiogram. LIMITATIONS: None. FINDINGS: There is opacification of the bile ducts, cystic duct remnants and second portion of the d uodenum without evidence of fixed filling defect or significant extravasation. IMPRESSION: INTRAOPERATIVE CHOLANGIOGRAM. COMMENT: Quality ID [id number]: Final reports for procedures using fluoroscopy that document radiation exp osure indices, or exposure time and number of fluorographic images (if radiation exposure indices are not available) TECHNICAL DOCUMENTATION: JOB ID: [id number] [employer]- All Rights Reserved
--- NOTE | 2017-03-22 16:42 | PROGRESS NOTE E ---
Progress Note NAME: CHRISTINA SOMMER : 1935 AGE: 82Y DATE: 03/22/2017 ROOM: 535 SUBJECTIVE: The patient denies any abdominal pain. There is no chest pain. There is no PND or orthopnea. There are no palpitations. There are no symptoms of TIA or CVA. There is no dizziness or near syncope or syncope. The patient is going to have surgery today. Although she has a history of coronary artery disease, the echocardiogram LV ejection fraction is normal. She also has mild to moderate aortic stenosis, but the patient has not been symptomatic. The patient has not had angina for a long time. OBJECTIVE: GENERAL: On examination the patient is slightly overweight, in no acute distress. VITAL SIGNS: She is afebrile with a temperature of 97.8 degrees Fahrenheit. Pulse is 90 beats per minute. Blood pressure is 156/82. Respirations are 18 per minute. O2 saturations are 100% on room air. HEAD: Atraumatic/normocephalic. EYES: Pupils are equal, round, regular, reactive to light and accommodation. Extraocular movements are normal. There is no conjunctival pallor. There is no scleral icterus. EARS, NOSE, AND THROAT: Negative. NECK: Supple. There is no JVD. Carotids are equal. There is no bruit. There is a transmitted murmur from the aortic region to both carotids, but there is no carotid delay. There is no lymphadenopathy. There is no goiter. Trachea is central. LUNGS: Clear to auscultation and percussion. HEART: S1, S2 are heard. There is a murmur of aortic stenosis present. The A2 sound is well heard. There is no carotid delay. There are no gallops. There is no rub. There is a systolic murmur in the left apex. ABDOMEN: Soft, at present nontender. There is no hepatosplenomegaly. Bowel sounds well heard. There are no tender areas or masses. EXTREMITIES: Femorals are slightly diminished. There is no femoral bruit. Leg pulses are diminished. There is no pedal edema. There is no cyanosis or clubbing. There is no DVT or cellulitis. Capillary refill is normal. CENTRAL NERVOUS SYSTEM: The patient is conscious, awake, alert, oriented x3 with no focal deficits. PSYCHIATRIC: The patient's judgement and insight are intact. Her affect is normal. INTAKE/OUTPUT: The patient's intake and output is not accurate. DIAGNOSTIC DATA: The patient's white count is 8,400, hemoglobin is 10.3, hematocrit is 29.9, and her platelet count is 224,000. The patient's sodium is 141, potassium is 3.9, chloride is 111, CO2 is 60, the patient's BUN is 9, creatinine is 0.90, GFR is greater than 60, glucose is 70, calcium is 8.8. The patient's liver function tests are normal now. Her lipase yesterday was 1296.1. The patient's albumin is 3.1. IMPRESSION: 1. ACUTE PANCREATITIS, MOST LIKELY SECONDARY TO CHOLECYSTITIS. 2. ACUTE CHOLECYSTITIS. 3. PREOPERATIVE CARDIAC RISK ASSESSMENT. 4. CORONARY ARTERY DISEASE, PATIENT WITHOUT ANGINAL SYMPTOMS AND IS STABLE. 5. HYPERTENSION. 6. MILD TO MODERATE AORTIC STENOSIS; THE PATIENT IS ASYMPTOMATIC. PLAN: The patient's echocardiogram had showed normal LV ejection fraction, and the patient's echocardiogram is not clinically not very significant. Hence, she should be an acceptable risk for a cholecystectomy laparoscopically done and with cholangiogram. As I mentioned earlier, the patient should be an acceptable risk for this surgery. Will postoperatively continue her blood pressure medications. Continue antibiotics. Continue IV fluids. Note that the patient, in spite of having a history of coronary artery disease, is only on lisinopril at home. Hence, will further question the patient. Would recommend that postoperatively get EKG and cardiac enzymes in the morning. Note, 30 minutes spent on this patient with more than 50% of the time spent on direct patient care. Her medications have been reviewed. Discussed with the other physicians on the case. Note that the patient is a FULL CODE. Her son is her surrogate healthcare decision maker. Will follow with you. DICTATING PHYSICIAN: JASWANT JUAREZ M.D. [id number] PHY#: [id number] ID: [id number] JOB#: [id number] ACCT: [id number] cc:JASWANT JUAREZ M.D. >
[2017-03-22] MEDS: ACETAMINOPHEN 325 MG TABLET PO PRN (18:25)
--- NOTE | 2017-03-22 18:27 | PDOC PROGRESS REPORT ---
Subjective Progress Note for:: 03/22/17 Subjective:: Patient seen earlier today. Patient lying in bed in no acute distress. She is in fact going to the OR for removal of her gallbladder. Physical Exam Vital Signs: Temp Pulse Resp BP Pulse Ox 98.0 F 87 17 159/72 H 99 03/22/17 18:01 03/22/17 18:01 03/22/17 18:01 03/22/17 18:01 03/22/17 18:01 Intake & Output 03/21/17 03/22/17 03/23/17 06:59 06:59 06:59 Intake Total 520 1909 1350 Output Total 650 1065 Balance -130 1909 285 Weight 85.1 kg 85.1 kg General appearance: PRESENT: no acute distress, cooperative Cardiovascular exam: PRESENT: RRR GI/Abdominal exam: PRESENT: normal bowel sounds, soft Rectal exam: PRESENT: deferred Extremities exam: PRESENT: full ROM Musculoskeletal exam: PRESENT: normal inspection Neurological exam: PRESENT: alert, awake, oriented to person, oriented to place , oriented to time Psychiatric exam: PRESENT: normal mood Skin exam: PRESENT: warm Results Laboratory Results: 03/22/17 04:03 03/22/17 04:03 03/21/17 03/22/17 03/22/17 22:55 04:03 04:03 WBC 8.4 RBC 3.33 L Hgb 10.3 L Hct 29.9 L MCV 90 MCH 30.9 MCHC 34.4 RDW 13.5 Plt Count 224 Seg Neutrophils % 73.4 Lymphocytes % 16.2 Monocytes % 7.1 Eosinophils % 2.8 Basophils % 0.5 Absolute Neutrophils 6.2 Absolute Lymphocytes 1.4 Absolute Monocytes 0.6 Absolute Eosinophils 0.2 Absolute Basophils 0.0 Sodium 141.0 Potassium 3.9 Chloride 111 H Carbon Dioxide 16 L Anion Gap 14 BUN 9 Creatinine 0.90 Est GFR ( Amer) > 60 Est GFR (Non-Af Amer) > 60 Glucose 70 L Calcium 8.8 Total Bilirubin 0.9 AST 21 ALT 41 Alkaline Phosphatase 75 Total Protein 6.3 Albumin 3.1 L Lipase 1296.1 H Impressions: Chest X-Ray 03/17/17 00:00 IMPRESSION: NO ACUTE RADIOGRAPHIC FINDING IN THE CHEST. Abdomen/Pelvis CT 03/17/17 18:18 IMPRESSION: The distended gallbladder. Small amount of fluid posterior to the pancreas. Dilated pancreatic duct. No definite pancreatic mass lesion. Abdomen MRI 03/18/17 00:00 IMPRESSION: Mild dilatation of the common bile duct and central hepatic ducts. No definite distal stone or mass. The gallbladder is distended with small layering stones. Abdomen Ultrasound 03/18/17 00:00 IMPRESSION: Mild intra and extrahepatic biliary ductal dilatation. Distal ductal stone or stricture could not be excluded. Stones and sludge in the dependent gallbladder without gallbladder wall thickening. No pericholecystic fluid. Cholangiogram 03/22/17 00:00 IMPRESSION: INTRAOPERATIVE CHOLANGIOGRAM. Assessment & Plan - Diagnosis (1) Gallstone pancreatitis Is this a current diagnosis for this admission?: Yes Plan: Plan is for lap sonido today and IOC. (2) ARF (acute renal failure) Qualifiers: Acute renal failure type: unspecified Qualified Code(s): N17.9 - Acute kidney failure, unspecified Is this a current diagnosis for this admission?: Yes Plan: The due to intravascular depletion. This has now resolved with IV fluids. Continue IV fluids for now following surgery. (3) Abdominal pain Qualifiers: Abdominal location: generalized Qualified Code(s): R10.84 - Generalized abdominal pain Is this a current diagnosis for this admission?: Yes Plan: Most likely due to gallstone pancreatitis. Patient no longer complaining about pain. Patient is going for a lap sonido with IOC today (4) CAD (coronary artery disease) Qualifiers: Coronary Disease-Associated Artery/Lesion type: [place] artery [place] vs. transplanted heart: [place] heart Associated angina: without angina Qualified Code(s): I25.10 - Atherosclerotic heart disease of [place] coronary artery without angina pectoris Is this a current diagnosis for this admission?: Yes Plan: Patient denies chest pain. Echo shows normal EF however patient does have diastolic dysfunction. Regional wall motion abnormality could not be excluded. She appears stable from this standpoint. Patient on IV fluids following surgery however once patient is tolerating orals IV fluid should be discontinued to prevent volume overload. (5) HTN (hypertension) Qualifiers: Hypertension type: essential hypertension Qualified Code(s): I10 - Essential (primary) hypertension Is this a current diagnosis for this admission?: Yes Plan: Stable on home medications. Continue to monitor. - Time Time Spent with patient: Less than 15 minutes Anticipated discharge: Home Within: Other - Once patient is cleared by surgery
[2017-03-22 18:58] LABS: HEMATOCRIT 33.4 % (36.0-47.0); HEMOGLOBIN 11.1 g/dL (12.0-15.5); HGB HCT DIFFERENCE -0.1; MEAN CORPUSCULAR HEMOGLOBIN 30.3 pg (27.0-33.4); MEAN CORPUSCULAR HGB CONC 33.4 g/dL (32.0-36.0); MEAN CORPUSCULAR VOLUME 91 fl (80-97); RED BLOOD COUNT 3.68 10^6/uL (3.72-5.28); RED CELL DISTRIBUTION WIDTH 13.6 % (11.5-14.0)
[2017-03-22 19:10] LABS: BAND NEUTROPHILS % (MANUAL) 1 % (3-5); BASOPHILS % (MANUAL) 0 % (0-2); EOSINOPHILS % (MANUAL) 0 % (0-6); LYMPHOCYTES % (MANUAL) 5 % (13-45); TOTAL CELLS COUNTED 100
[2017-03-22 19:11] LABS: BURR CELLS SLIGHT; OVALOCYTES SLIGHT; POIKILOCYTOSIS 1+
[2017-03-22] MEDS: NORMAL SALINE 1000 ML 1,000 ML IV PRN (20:30)
[2017-03-22] MEDS: MORPHINE SULFATE 10 MG/ML INJ IV PRN (20:31)
[2017-03-23] MEDS: MORPHINE SULFATE 10 MG/ML INJ IV PRN (01:33)
[2017-03-23] MEDS: NORMAL SALINE 1000 ML 1,000 ML IV PRN (01:33)
[2017-03-23 06:42] LABS: ABSOLUTE LYMPHOCYTES (AUTO) 0.9 10^3/uL (0.5-4.7); ABSOLUTE MONOCYTES (AUTO) 0.5 10^3/uL (0.1-1.4); ABSOLUTE NEUT (AUTO) 7.4 10^3/uL (1.7-8.2); BASOPHILS % (AUTO) 0.3 % (0-2); EOSINOPHILS % (AUTO) 0.1 % (0-6); HEMATOCRIT 29.9 % (36.0-47.0); HEMOGLOBIN 10.2 g/dL (12.0-15.5); HGB HCT DIFFERENCE 0.7; LYMPHOCYTES % (AUTO) 9.7 % (13-45); MEAN CORPUSCULAR HEMOGLOBIN 30.6 pg (27.0-33.4); MEAN CORPUSCULAR HGB CONC 34.1 g/dL (32.0-36.0); MEAN CORPUSCULAR VOLUME 90 fl (80-97); MONOCYTES % (AUTO) 5.9 % (3-13); RED BLOOD COUNT 3.32 10^6/uL (3.72-5.28); RED CELL DISTRIBUTION WIDTH 13.4 % (11.5-14.0); WHITE BLOOD COUNT 8.8 10^3/uL (4.0-10.5)
[2017-03-23 06:55] LABS: ALANINE AMINOTRANSFERASE 146 U/L (9-52); ALBUMIN 3.1 g/dL (3.5-5.0); ALKALINE PHOSPHATASE 253 U/L (38-126); ANION GAP 11 (5-19); ASPARTATE AMINO TRANSFERASE 220 U/L (14-36); BILIRUBIN,DIRECT 0.7 mg/dL (0.0-0.4); BILIRUBIN,TOTAL 0.7 mg/dL (0.2-1.3); BLOOD UREA NITROGEN 9 mg/dL (7-20); CALCIUM 8.7 mg/dL (8.4-10.2); CARBON DIOXIDE 16 mmol/L (22-30); CHLORIDE 114 mmol/L (98-107); GLUCOSE 130 mg/dL (75-110); MAGNESIUM 1.8 mg/dL (1.6-2.3); POTASSIUM 4.3 mmol/L (3.6-5.0); SODIUM 140.8 mmol/L (137-145); TOTAL PROTEIN 6.5 g/dL (6.3-8.2)
[2017-03-23] MEDS: FAMOTIDINE INJ/PF 20 MG/2 ML SDV IV SCH ×2 (10:35→22:08)
--- NOTE | 2017-03-23 11:03 | PDOC PROGRESS REPORT ---
Subjective Progress Note for:: 03/23/17 Subjective:: I saw the patient earlier this morning. There was no evidence of acute distress. She only picked on her breakfast. She has not ambulated in the halls Physical Exam Vital Signs: Temp Pulse Resp BP Pulse Ox 97.9 F 76 15 169/64 H 100 03/23/17 07:56 03/23/17 07:56 03/23/17 07:56 03/23/17 07:56 03/23/17 07:56 Intake & Output 03/22/17 03/23/17 03/24/17 06:59 06:59 06:59 Intake Total 1909 2300 Output Total 1065 Balance 1909 1235 Weight 85.1 kg 85.1 kg General appearance: PRESENT: no acute distress GI/Abdominal exam: PRESENT: other - Mildly distended; minimally tender; operative incisions covered with dressings Results Laboratory Results: 03/23/17 06:27 03/23/17 06:27 03/22/17 03/23/17 03/23/17 18:45 06:27 06:27 WBC 15.0 H 8.8 RBC 3.68 L 3.32 L Hgb 11.1 L 10.2 L Hct 33.4 L 29.9 L MCV 91 90 MCH 30.3 30.6 MCHC 33.4 34.1 RDW 13.6 13.4 Plt Count 245 249 Seg Neutrophils % Not Reportable 84.0 H Lymphocytes % Not Reportable 9.7 L Monocytes % Not Reportable 5.9 Eosinophils % Not Reportable 0.1 Basophils % Not Reportable 0.3 Absolute Neutrophils Not Reportable 7.4 Absolute Lymphocytes Not Reportable 0.9 Absolute Monocytes Not Reportable 0.5 Absolute Eosinophils Not Reportable 0.0 Absolute Basophils Not Reportable 0.0 Sodium 140.8 Potassium 4.3 Chloride 114 H Carbon Dioxide 16 L Anion Gap 11 BUN 9 Creatinine 0.80 Est GFR ( Amer) > 60 Est GFR (Non-Af Amer) > 60 Glucose 130 H Calcium 8.7 Magnesium 1.8 Total Bilirubin 0.7 AST 220 H ALT 146 H Alkaline Phosphatase 253 H Total Protein 6.5 Albumin 3.1 L Impressions: Chest X-Ray 03/17/17 00:00 IMPRESSION: NO ACUTE RADIOGRAPHIC FINDING IN THE CHEST. Abdomen/Pelvis CT 03/17/17 18:18 IMPRESSION: The distended gallbladder. Small amount of fluid posterior to the pancreas. Dilated pancreatic duct. No definite pancreatic mass lesion. Abdomen MRI 03/18/17 00:00 IMPRESSION: Mild dilatation of the common bile duct and central hepatic ducts. No definite distal stone or mass. The gallbladder is distended with small layering stones. Abdomen Ultrasound 03/18/17 00:00 IMPRESSION: Mild intra and extrahepatic biliary ductal dilatation. Distal ductal stone or stricture could not be excluded. Stones and sludge in the dependent gallbladder without gallbladder wall thickening. No pericholecystic fluid. Cholangiogram 03/22/17 00:00 IMPRESSION: INTRAOPERATIVE CHOLANGIOGRAM. Assessment & Plan - Diagnosis (1) Gallstone pancreatitis Is this a current diagnosis for this admission?: Yes Plan: Patient is 1 day status post laparoscopic cholecystectomy with intraoperative cholangiography, uneventful postoperative course, probable element of ileus. Liver function studies slightly elevated, not unexpected given intraoperative manipulation of biliary tree including cholangiography Plan: 1. Encourage patient to ambulate, exercise gently, and take p.o. as tolerated 2. Can likely send patient home tomorrow if she meets criteria.
--- NOTE | 2017-03-23 20:17 | PROGRESS NOTE E ---
Progress Note NAME: CHRISTINA SOMMER : 1935 AGE: 82Y DATE: 03/23/17 ROOM: 535 SUBJECTIVE: The patient had a surgery yesterday and was found to have an acute cholecystitis with cholelithiasis and gallstone pancreatitis. She had an intraoperative cholangiogram which did not any filling defects or extravasation. She denies any chest pain or discomfort. There is no shortness of breath. There is no PND, orthopnea or leg edema. She denies any palpitations. She has not eaten much of her breakfast. She has also not ambulated the halls. She states that, 9 years ago, she was told that she had a myocardial infarction and also was told that she had a murmur. She has no history of congestive heart failure in the past. But the patient is only on lisinopril. She has no known allergies. The patient denies any nausea, vomiting or diarrhea. OBJECTIVE: GENERAL: The patient is slightly overweight, in no acute distress. VITAL SIGNS: She is afebrile with a temperature of 98.2 degrees Fahrenheit, pulse is 80 beats per minute, 02 sat is 100% on room air. HEENT: Head is atraumatic, normocephalic. Eyes: Pupils are equal, round, regular, reactive to light and accommodation. Extraocular movements are normal. There is no conjunctival pallor. There is no scleral icterus. ENT: Negative. NECK: Supple. There is no JVD. Carotids are equal. There is no bruit. There is *------* murmur from the aortic region to both carotids but there is no carotid delay. There is no lymphedema. There no goiter. Trachea is central. LUNGS: Clear to auscultation and percussion. CARDIOVASCULAR: S1, S2 heard. There is murmur of aortic stenosis present which is mild to moderate. The A2 sound is well heard. There is no carotid delay. There are no gallops. There is murmur of aortic regurgitation . There is no rub. There is a systolic murmur at the left apex. ABDOMEN: Soft, at present nontender. There is no hepatosplenomegaly. Bowel sounds are well heard. The incision site of her cholecystectomy is clean. EXTREMITIES: Femorals are slightly diminished. There are no femoral bruits. Leg pulses diminished. There is no pedal edema. There is no cyanosis or clubbing. There is no DVT or cellulitis. Capillary refill is normal. DRUM MAKER: The patient is conscious, awake, alert, oriented x3, with no focal deficits. PSYCHIATRIC: The patient's judgement and insight are intact. Her affect is normal. LABORATORY DATA: The patient's sodium is 140.8, potassium is 4.3, chloride is 114, CO2 is 16. Her BUN is 9, creatinine is 0.80. GFR is greater than 60. Her calcium is 8.7, magnesium is normal at 1.8. Her liver function tests show a high direct bilirubin of 0.7 and a high AST of 220; her ALT is 146 and her alkaline phosphatase is increased to 253. Her albumin is 3.1. Her total protein is 6.5. The patient's white count is 8,800, hemoglobin is 10.2, hematocrit is 29.9, and her platelet count is 249,000. The patient's 24-hour intake is 2300 mL in; output is 1065 mL. ASSESSMENT: 1. Acute cholecystitis with cholelithiasis with acute cholecystectomy. 2. Acute pancreatitis. The patient is asymptomatic. We will recheck the patient's lipase. 3. Coronary artery disease. The patient without any anginal symptoms, stable. 4. History of old myocardial infarction, but there is no wall motion abnormality on the echo definitely, and the EKG does not show evidence of old myocardial infarction. 5. Hypertension. 6. Mild to moderate aortic stenosis. The patient is asymptomatic. PLAN: In view of the abdominal LFTs, we will at present not start any cardioprotective medications. Also note that the patient's EKG shows sinus rhythm with first-degree AV block and LVH. In view of this, we will not start the patient on a beta-kobe, would rather start the patient on Norvasc, and also later once the lipase trends down and the LFTs come down, we will start the patient on aspirin. Also, we will check the patient's troponin I in the a.m. Note that the patient desires to follow up with me; hence, I have given her my card to call me to make an appointment after she is discharged. TIME SPENT: Note 25 minutes were spent on patient, more than 50% of the time spent in direct patient care. Her medications have been reviewed. Her labs have been discussed with her. I also re-discussed the echo findings with her. Medical decision making was of moderate complexity. Discussed with other caregiving providers on the case. Will follow. DICTATING PHYSICIAN: JASWANT JUAREZ M.D. [id number] PHY#: [id number] ID: [id number] JOB#: [id number] ACCT: [id number] cc: > [facility]
[2017-03-24] MEDS ORDERED: DILTIAZEM HCL INJ 25 MG/5 ML VIAL ONE ×6 (01:03→01:37)
[2017-03-24] MEDS ORDERED: DILTIAZEM HCL/D5W 125 MG/125 ML RTUINJ IV PRN (01:06)
[2017-03-24] MEDS ORDERED: DILTIAZEM HCL INJ 25 MG/5 ML VIAL IV ONE ×7 (01:09→01:41)
[2017-03-24] MEDS ORDERED: NORMAL SALINE 1000 ML 250 ML IV ONE ×5 (01:11→05:15)
[2017-03-24] MEDS ORDERED: DILTIAZEM HCL/D5W 125 MG/125 ML RTUINJ IV ONE (01:12)
[2017-03-24 01:32] LABS: ABSOLUTE BASOPHILS # (AUTO) 0.1 10^3/uL (0.0-0.2); ABSOLUTE EOSINOPHILS # (AUTO) 0.1 10^3/uL (0.0-0.6); ABSOLUTE LYMPHOCYTES (AUTO) 2.3 10^3/uL (0.5-4.7); ABSOLUTE MONOCYTES (AUTO) 0.7 10^3/uL (0.1-1.4); ABSOLUTE NEUT (AUTO) 6.4 10^3/uL (1.7-8.2); BASOPHILS % (AUTO) 0.9 % (0-2); HEMOGLOBIN 10.3 g/dL (12.0-15.5); HGB HCT DIFFERENCE 0.9; LYMPHOCYTES % (AUTO) 24.2 % (13-45); MEAN CORPUSCULAR HEMOGLOBIN 30.8 pg (27.0-33.4); MEAN CORPUSCULAR HGB CONC 34.2 g/dL (32.0-36.0); MEAN CORPUSCULAR VOLUME 90 fl (80-97); MONOCYTES % (AUTO) 7.4 % (3-13); RED BLOOD COUNT 3.33 10^6/uL (3.72-5.28); RED CELL DISTRIBUTION WIDTH 13.9 % (11.5-14.0); SEGMENTED NEUTROPHILS % (AUTO) 66.5 % (42-78); WHITE BLOOD COUNT 9.7 10^3/uL (4.0-10.5)
[2017-03-24 01:49] LABS: ALANINE AMINOTRANSFERASE 98 U/L (9-52); ALBUMIN 2.9 g/dL (3.5-5.0); ALKALINE PHOSPHATASE 193 U/L (38-126); ANION GAP 10 (5-19); ASPARTATE AMINO TRANSFERASE 71 U/L (14-36); BILIRUBIN,DIRECT 0.4 mg/dL (0.0-0.4); BILIRUBIN,TOTAL 0.5 mg/dL (0.2-1.3); BLOOD UREA NITROGEN 8 mg/dL (7-20); CALCIUM 8.7 mg/dL (8.4-10.2); CARBON DIOXIDE 16 mmol/L (22-30); CHLORIDE 118 mmol/L (98-107); CREATININE RESULT 0.75 mg/dL (0.52-1.25); GLUCOSE 105 mg/dL (75-110); MAGNESIUM 1.8 mg/dL (1.6-2.3); POTASSIUM 3.4 mmol/L (3.6-5.0); SODIUM 144.3 mmol/L (137-145)
[2017-03-24] MEDS ORDERED: DIGOXIN INJ 0.5 MG/2 ML AMPULE IV ONE ×2 (01:56→04:30)
[2017-03-24] MEDS ORDERED: DIGOXIN INJ 0.5 MG/2 ML AMPULE ONE (01:59)
[2017-03-24] MEDS ORDERED: AMIODARONE HCL 150 MG in DEXTROSE 5%-WATER 100 ML IV ONE (02:20)
[2017-03-24] MEDS ORDERED: DEXTROSE 5%-WATER 500 ML with AMIODARONE HCL 900 MG IV PRN ×2 (02:20)
[2017-03-24] MEDS ORDERED: AMIODARONE HCL INJ 150 MG/3 ML VIAL IV ONE ×2 (02:25→02:27)
[2017-03-24] MEDS ORDERED: MAGNESIUM SULFATE/D5W 1 GM/100 ML RTUPB IV ONE ×3 (02:25→05:15)
[2017-03-24] MEDS ORDERED: POTASSI CL 20 MEQ/50 ML RIDER 40 MEQ/100 ML RTUPB IV ONE (02:27)
[2017-03-24] MEDS: POTASSI CL 20 MEQ/50 ML RIDER 20 MEQ/50 ML RTUPB IV SCH ×2 (02:51→04:41)
[2017-03-24] MEDS ORDERED: NORMAL SALINE 250 ML IV ONE (04:15)
[2017-03-24 06:27] LABS: ABSOLUTE EOSINOPHILS # (AUTO) 0.1 10^3/uL (0.0-0.6); ABSOLUTE LYMPHOCYTES (AUTO) 2.3 10^3/uL (0.5-4.7); ABSOLUTE MONOCYTES (AUTO) 0.6 10^3/uL (0.1-1.4); ABSOLUTE NEUT (AUTO) 6.4 10^3/uL (1.7-8.2); BASOPHILS % (AUTO) 0.5 % (0-2); EOSINOPHILS % (AUTO) 1.3 % (0-6); HEMATOCRIT 32.5 % (36.0-47.0); HEMOGLOBIN 11.1 g/dL (12.0-15.5); HGB HCT DIFFERENCE 0.8; LYMPHOCYTES % (AUTO) 24.1 % (13-45); MEAN CORPUSCULAR HGB CONC 34.2 g/dL (32.0-36.0); MEAN CORPUSCULAR VOLUME 91 fl (80-97); MONOCYTES % (AUTO) 6.5 % (3-13); RED BLOOD COUNT 3.59 10^6/uL (3.72-5.28); RED CELL DISTRIBUTION WIDTH 13.7 % (11.5-14.0); SEGMENTED NEUTROPHILS % (AUTO) 67.6 % (42-78); WHITE BLOOD COUNT 9.4 10^3/uL (4.0-10.5)
[2017-03-24 06:41] LABS: ALANINE AMINOTRANSFERASE 90 U/L (9-52); ALKALINE PHOSPHATASE 201 U/L (38-126); ANION GAP 10 (5-19); ASPARTATE AMINO TRANSFERASE 60 U/L (14-36); BILIRUBIN,DIRECT 0.4 mg/dL (0.0-0.4); BILIRUBIN,TOTAL 0.5 mg/dL (0.2-1.3); BLOOD UREA NITROGEN 7 mg/dL (7-20); CALCIUM 8.6 mg/dL (8.4-10.2); CARBON DIOXIDE 19 mmol/L (22-30); CHLORIDE 116 mmol/L (98-107); GLUCOSE 107 mg/dL (75-110); LIPASE 376.3 U/L (23-300); POTASSIUM 3.7 mmol/L (3.6-5.0); SODIUM 144.6 mmol/L (137-145); TOTAL PROTEIN 6.2 g/dL (6.3-8.2)
--- NOTE | 2017-03-24 09:08 | PDOC PROGRESS REPORT ---
Subjective Progress Note for:: 03/23/17 Subjective:: Patient sitting up in bed in NAD. Patient drinking liquids and denies any pain at the time. Physical Exam Vital Signs: Temp Pulse Resp BP Pulse Ox 97.9 F 76 15 169/64 H 100 03/23/17 07:56 03/23/17 07:56 03/23/17 07:56 03/23/17 07:56 03/23/17 07:56 Intake & Output 03/22/17 03/23/17 03/24/17 06:59 06:59 06:59 Intake Total 1909 2300 Output Total 1065 Balance 1909 1235 Weight 85.1 kg 85.1 kg General appearance: PRESENT: no acute distress Head exam: PRESENT: normocephalic Eye exam: PRESENT: EOMI. ABSENT: scleral icterus Mouth exam: PRESENT: moist Neck exam: PRESENT: full ROM Respiratory exam: PRESENT: clear to auscultation talha Cardiovascular exam: PRESENT: RRR GI/Abdominal exam: PRESENT: normal bowel sounds, soft Rectal exam: PRESENT: deferred Extremities exam: PRESENT: full ROM Musculoskeletal exam: PRESENT: ambulatory Neurological exam: PRESENT: alert, awake, oriented to person, oriented to place , oriented to time, CN II-XII grossly intact Psychiatric exam: PRESENT: normal mood Skin exam: PRESENT: warm Results Laboratory Results: 03/23/17 06:27 03/23/17 06:27 03/22/17 03/23/17 03/23/17 18:45 06:27 06:27 WBC 15.0 H 8.8 RBC 3.68 L 3.32 L Hgb 11.1 L 10.2 L Hct 33.4 L 29.9 L MCV 91 90 MCH 30.3 30.6 MCHC 33.4 34.1 RDW 13.6 13.4 Plt Count 245 249 Seg Neutrophils % Not Reportable 84.0 H Lymphocytes % Not Reportable 9.7 L Monocytes % Not Reportable 5.9 Eosinophils % Not Reportable 0.1 Basophils % Not Reportable 0.3 Absolute Neutrophils Not Reportable 7.4 Absolute Lymphocytes Not Reportable 0.9 Absolute Monocytes Not Reportable 0.5 Absolute Eosinophils Not Reportable 0.0 Absolute Basophils Not Reportable 0.0 Sodium 140.8 Potassium 4.3 Chloride 114 H Carbon Dioxide 16 L Anion Gap 11 BUN 9 Creatinine 0.80 Est GFR ( Amer) > 60 Est GFR (Non-Af Amer) > 60 Glucose 130 H Calcium 8.7 Magnesium 1.8 Total Bilirubin 0.7 AST 220 H ALT 146 H Alkaline Phosphatase 253 H Total Protein 6.5 Albumin 3.1 L Impressions: Chest X-Ray 03/17/17 00:00 IMPRESSION: NO ACUTE RADIOGRAPHIC FINDING IN THE CHEST. Abdomen/Pelvis CT 03/17/17 18:18 IMPRESSION: The distended gallbladder. Small amount of fluid posterior to the pancreas. Dilated pancreatic duct. No definite pancreatic mass lesion. Abdomen MRI 03/18/17 00:00 IMPRESSION: Mild dilatation of the common bile duct and central hepatic ducts. No definite distal stone or mass. The gallbladder is distended with small layering stones. Abdomen Ultrasound 03/18/17 00:00 IMPRESSION: Mild intra and extrahepatic biliary ductal dilatation. Distal ductal stone or stricture could not be excluded. Stones and sludge in the dependent gallbladder without gallbladder wall thickening. No pericholecystic fluid. Cholangiogram 03/22/17 00:00 IMPRESSION: INTRAOPERATIVE CHOLANGIOGRAM. Assessment & Plan - Diagnosis (1) Gallstone pancreatitis Is this a current diagnosis for this admission?: Yes Plan: Patient is status post lap sonido with IOC on 03/22. Patient is tolerating liquid diet and doing well. (2) ARF (acute renal failure) Qualifiers: Acute renal failure type: unspecified Qualified Code(s): N17.9 - Acute kidney failure, unspecified Is this a current diagnosis for this admission?: Yes Plan: The due to intravascular depletion. Will discontinue fluids. (3) Abdominal pain Qualifiers: Abdominal location: generalized Qualified Code(s): R10.84 - Generalized abdominal pain Is this a current diagnosis for this admission?: Yes Plan: Most likely due to gallstone pancreatitis. Patient no longer complaining about pain. Patient is status post lap sonido with IOC on 03/22. (4) CAD (coronary artery disease) Qualifiers: Coronary Disease-Associated Artery/Lesion type: [place] artery [place] vs. transplanted heart: [place] heart Associated angina: without angina Qualified Code(s): I25.10 - Atherosclerotic heart disease of [place] coronary artery without angina pectoris Is this a current diagnosis for this admission?: Yes Plan: Patient denies chest pain. Echo shows normal EF however patient does have diastolic dysfunction. Regional wall motion abnormality could not be excluded. She appears stable from this standpoint. Patient on IV fluids following surgery however once patient is tolerating orals IV fluid should be discontinued to prevent volume overload. (5) HTN (hypertension) Qualifiers: Hypertension type: essential hypertension Qualified Code(s): I10 - Essential (primary) hypertension Is this a current diagnosis for this admission?: Yes Plan: Stable on home medications. Continue to monitor. - Time Time Spent with patient: Less than 15 minutes Anticipated discharge: Home
[2017-03-24] MEDS ORDERED: POTASSIUM CHLORIDE 10 MEQ TABLET.SA PO ONE (10:00)
[2017-03-24] MEDS ORDERED: METOPROLOL SUCCINATE 25 MG TAB.SR.24H PO ONE (10:00)
--- NOTE | 2017-03-24 10:06 | Progress Note ---
Provider Note Provider Note: March 24, 2017: Shortly after midnight, I was notified by patient's floor nurse that patient had developed acute onset of tachycardia into the 170 range. No complaints of pain, and stable vital signs otherwise. Rapid response was called and I went to the patient's bedside several minutes later. EKG confirmed atrial fibrillation, with rapid ventricular response. Per my discussion with patient, and review of prior EKGs, there is no history of atrial fibrillation or atrial flutter. We then proceeded with combination of IV fluid boluses, Cardizem boluses, and Cardizem drip. She denied any pain, and fortunately vital signs otherwise remained stable other than 1 or 2 brief episodes of mild hypotension after receiving Cardizem boluses. However, despite these efforts, she remained quite tachycardic into the 150-160 range, although she did momentarily decrease her rate into the 120-130 range after each Cardizem bolus. I then spoke by phone with Dr. Hsieh, on-call an/syq 13 nav/c2 operator. Patient was given 0.250 mg of digoxin. Again, little if any change in her rate. Initial plans were to transfer patient to [facility]. However, with her ongoing tachycardia, decision was made to instead transfer the patient to the intensive care unit. This was accomplished uneventfully. Per Dr. Hsieh's recommendations, with patient's persistent tachycardia despite the above therapeutic interventions, amiodarone drip was started, which subsequently controlled her rate nicely. 60 minutes critical care time spent in evaluation management of patient, including direct patient evaluation, entering of multiple orders into the electronic health record, multiple discussions with nursing staff, telephone discussion with on-call cardiology, chart and lab review. Discussed with day hospitalist team.
[2017-03-24] MEDS: FAMOTIDINE INJ/PF 20 MG/2 ML SDV IV SCH ×2 (10:27→21:43)
--- NOTE | 2017-03-24 11:29 | RADIOLOGY REPORT (SQ) ---
EXAM DESCRIPTION: NM LUNG VENT/PERF SCAN COMPLETED DATE/TIME: 03/24/2017 11:21 am REASON FOR STUDY: elev d dimer COMPARISON: None. RADIONUCLIDE AND DOSE: 5.3 millicuries TC-99m MAA Intravenous 32.0 millicuries TC-99m DTPA Inhaled aerosol TECHNIQUE: Eight views of the lungs acquired post ventilation of DTPA aerosol. Eight matching views of the lungs acquired following injection of MAA. LIMITATIONS: None. FINDINGS: VENTILATION: Symmetric and homogeneous distribution of DTPA aerosol during ventilatory pha se. No significant areas of photopenia. PERFUSION: Perfusion images with normal homogenous activity and no wedge-shaped or segmental defects. No ventilation-perfusion mismatches. OTHER: No other significant finding. IMPRESSION: Low probability for pulmonary embolus. TECHNICAL DOCUMENTATION: JOB ID: [id number] [employer]- All Rights Reserved
--- NOTE | 2017-03-24 11:38 | PDOC PROGRESS REPORT ---
Subjective Progress Note for:: 03/24/17 Subjective:: Patient is alert, responsive, and in no acute distress. Is anxious to go home Physical Exam Vital Signs: Temp Pulse Resp BP Pulse Ox 97.9 F 69 15 160/64 H 99 03/24/17 08:09 03/24/17 07:45 03/24/17 09:45 03/24/17 09:39 03/24/17 09:45 Intake & Output 03/23/17 03/24/17 03/25/17 06:59 06:59 06:59 Intake Total 2300 2665 Output Total 1065 2300 350 Balance 1235 365 -350 Weight 85.1 kg 83.5 kg General appearance: PRESENT: no acute distress, cooperative Cardiovascular exam: PRESENT: RRR GI/Abdominal exam: PRESENT: normal bowel sounds, soft. ABSENT: guarding - Wounds are clean, dry, and intact., tenderness Results Laboratory Results: 03/24/17 06:17 03/24/17 06:17 03/24/17 03/24/17 03/24/17 01:15 01:15 01:15 WBC 9.7 RBC 3.33 L Hgb 10.3 L Hct 30.0 L MCV 90 MCH 30.8 MCHC 34.2 RDW 13.9 Plt Count 250 Seg Neutrophils % 66.5 Lymphocytes % 24.2 Monocytes % 7.4 Eosinophils % 1.0 Basophils % 0.9 Absolute Neutrophils 6.4 Absolute Lymphocytes 2.3 Absolute Monocytes 0.7 Absolute Eosinophils 0.1 Absolute Basophils 0.1 Sodium 144.3 Potassium 3.4 L Chloride 118 H Carbon Dioxide 16 L Anion Gap 10 BUN 8 Creatinine 0.75 Est GFR ( Amer) > 60 Est GFR (Non-Af Amer) > 60 Glucose 105 Calcium 8.7 Magnesium 1.8 Total Bilirubin 0.5 AST 71 H ALT 98 H Alkaline Phosphatase 193 H Total Protein 6.0 L Albumin 2.9 L Lipase TSH 0.85 03/24/17 03/24/17 06:17 06:17 WBC 9.4 RBC 3.59 L Hgb 11.1 L Hct 32.5 L MCV 91 MCH 31.0 MCHC 34.2 RDW 13.7 Plt Count 289 Seg Neutrophils % 67.6 Lymphocytes % 24.1 Monocytes % 6.5 Eosinophils % 1.3 Basophils % 0.5 Absolute Neutrophils 6.4 Absolute Lymphocytes 2.3 Absolute Monocytes 0.6 Absolute Eosinophils 0.1 Absolute Basophils 0.0 Sodium 144.6 Potassium 3.7 Chloride 116 H Carbon Dioxide 19 L Anion Gap 10 BUN 7 Creatinine 0.80 Est GFR ( Amer) > 60 Est GFR (Non-Af Amer) > 60 Glucose 107 Calcium 8.6 Magnesium Total Bilirubin 0.5 AST 60 H ALT 90 H Alkaline Phosphatase 201 H Total Protein 6.2 L Albumin 3.0 L Lipase 376.3 H TSH 03/24/17 03/24/17 01:15 06:17 Troponin I < 0.012 0.097 Impressions: Abdomen/Pelvis CT 03/17/17 18:18 IMPRESSION: The distended gallbladder. Small amount of fluid posterior to the pancreas. Dilated pancreatic duct. No definite pancreatic mass lesion. Abdomen MRI 03/18/17 00:00 IMPRESSION: Mild dilatation of the common bile duct and central hepatic ducts. No definite distal stone or mass. The gallbladder is distended with small layering stones. Abdomen Ultrasound 03/18/17 00:00 IMPRESSION: Mild intra and extrahepatic biliary ductal dilatation. Distal ductal stone or stricture could not be excluded. Stones and sludge in the dependent gallbladder without gallbladder wall thickening. No pericholecystic fluid. Cholangiogram 03/22/17 00:00 IMPRESSION: INTRAOPERATIVE CHOLANGIOGRAM. Lung Scan-VQ NM 03/24/17 09:58 IMPRESSION: Low probability for pulmonary embolus. Assessment & Plan - Diagnosis (1) Pancreatitis Qualifiers: Chronicity: acute Pancreatitis type: unspecified pancreatitis type Acute pancreatitis complication: no infection or necrosis Qualified Code(s): K85.90 - Acute pancreatitis without necrosis or infection, unspecified Is this a current diagnosis for this admission?: Yes (2) Gallstone pancreatitis Is this a current diagnosis for this admission?: Yes - Plan Summary Plan Summary: Continues on amiodarone drip. Once on p.o. antiarrhythmics, will be transferred to the floor, and ultimately home within the next 48 hours.
--- NOTE | 2017-03-24 11:50 | RADIOLOGY REPORT (SQ) ---
EXAM DESCRIPTION: CHEST PA/LAT COMPLETED DATE/TIME: 03/24/2017 11:24 am REASON FOR STUDY: AFIB, TACHY, ALSO FOR NM VQ COMPARISON: CT angio chest 01/01/2011 Two-view chest 01/03/2011 AP chest 03/17/2017 EXAM PARAMETERS: NUMBER OF VIEWS: two views TECHNIQUE: Digital Frontal and Lateral radiographic views of the chest acquired. RADIATION DOSE: NA LIMITATIONS: none FINDINGS: LUNGS AND PLEURA: No opacities, masses or pneumothorax. No pleural effusion. MEDIASTINUM AND HILAR STRUCTURES: No masses or contour abnormalities. HEART AND VASCULAR STRUCTURES: Mild to moderate cardiomegaly. BONES: No acute findings. HARDWARE: None in the chest. OTHER: No other significant finding. IMPRESSION: Stable mild to moderate cardiomegaly. No acute infiltrates. TECHNICAL DOCUMENTATION: JOB ID: [id number] [employer]- All Rights Reserved
--- NOTE | 2017-03-24 12:04 | EKG REPORT ---
SEVERITY:- ABNORMAL ECG - ATRIAL FIBRILLATION WITH RAPID V-RATE REPOLARIZATION ABNORMALITY, PROB RATE RELATED LVH : Confirmed by: Alessia Jim 24-Mar-2017 12:03:38
--- NOTE | 2017-03-24 12:04 | EKG REPORT ---
SEVERITY:- ABNORMAL ECG - SINUS RHYTHM MULTIPLE ATRIAL PREMATURE COMPLEXES BORDERLINE T WAVE ABNORMALITIES LVH : Confirmed by: Alessia Jim 24-Mar-2017 12:03:23
[2017-03-24] MEDS ORDERED: LISINOPRIL 10 MG TABLET PO ONE (14:00)
[2017-03-24] MEDS: LISINOPRIL 10 MG TABLET PO SCH (21:43)
[2017-03-24] MEDS: METOPROLOL SUCCINATE 50 MG TAB.SR.24H PO SCH (21:44)
--- NOTE | 2017-03-24 22:09 | PDOC PROGRESS REPORT ---
Subjective Progress Note for:: 03/24/17 Subjective:: She states she is doing well today. She states she feels better since her heart is no longer racing. She is looking forward to going home tomorrow. Physical Exam Vital Signs: Temp Pulse Resp BP Pulse Ox 97.5 F 67 16 152/57 H 100 03/24/17 20:00 03/24/17 21:00 03/24/17 18:15 03/24/17 17:24 03/24/17 18:15 Intake & Output 03/23/17 03/24/17 03/25/17 06:59 06:59 06:59 Intake Total 2300 2665 102 Output Total 1065 2300 2300 Balance 1269 474 -0914 Weight 85.1 kg 83.5 kg General appearance: PRESENT: no acute distress Head exam: PRESENT: normocephalic Respiratory exam: PRESENT: clear to auscultation talha Cardiovascular exam: PRESENT: irregular rhythm GI/Abdominal exam: PRESENT: soft, tenderness - Laparoscopic wounds are clean and dry erythema Rectal exam: PRESENT: deferred Extremities exam: ABSENT: pedal edema Musculoskeletal exam: PRESENT: ambulatory Neurological exam: PRESENT: alert, awake, CN II-XII grossly intact Results Laboratory Results: 03/24/17 06:17 03/24/17 06:17 03/24/17 03/24/17 03/24/17 01:15 01:15 01:15 WBC 9.7 RBC 3.33 L Hgb 10.3 L Hct 30.0 L MCV 90 MCH 30.8 MCHC 34.2 RDW 13.9 Plt Count 250 Seg Neutrophils % 66.5 Lymphocytes % 24.2 Monocytes % 7.4 Eosinophils % 1.0 Basophils % 0.9 Absolute Neutrophils 6.4 Absolute Lymphocytes 2.3 Absolute Monocytes 0.7 Absolute Eosinophils 0.1 Absolute Basophils 0.1 Sodium 144.3 Potassium 3.4 L Chloride 118 H Carbon Dioxide 16 L Anion Gap 10 BUN 8 Creatinine 0.75 Est GFR ( Amer) > 60 Est GFR (Non-Af Amer) > 60 Glucose 105 Calcium 8.7 Magnesium 1.8 Total Bilirubin 0.5 AST 71 H ALT 98 H Alkaline Phosphatase 193 H Total Protein 6.0 L Albumin 2.9 L Lipase TSH 0.85 03/24/17 03/24/17 06:17 06:17 WBC 9.4 RBC 3.59 L Hgb 11.1 L Hct 32.5 L MCV 91 MCH 31.0 MCHC 34.2 RDW 13.7 Plt Count 289 Seg Neutrophils % 67.6 Lymphocytes % 24.1 Monocytes % 6.5 Eosinophils % 1.3 Basophils % 0.5 Absolute Neutrophils 6.4 Absolute Lymphocytes 2.3 Absolute Monocytes 0.6 Absolute Eosinophils 0.1 Absolute Basophils 0.0 Sodium 144.6 Potassium 3.7 Chloride 116 H Carbon Dioxide 19 L Anion Gap 10 BUN 7 Creatinine 0.80 Est GFR ( Amer) > 60 Est GFR (Non-Af Amer) > 60 Glucose 107 Calcium 8.6 Magnesium Total Bilirubin 0.5 AST 60 H ALT 90 H Alkaline Phosphatase 201 H Total Protein 6.2 L Albumin 3.0 L Lipase 376.3 H TSH 03/24/17 03/24/17 01:15 06:17 Troponin I < 0.012 0.097 Impressions: Abdomen/Pelvis CT 03/17/17 18:18 IMPRESSION: The distended gallbladder. Small amount of fluid posterior to the pancreas. Dilated pancreatic duct. No definite pancreatic mass lesion. Abdomen MRI 03/18/17 00:00 IMPRESSION: Mild dilatation of the common bile duct and central hepatic ducts. No definite distal stone or mass. The gallbladder is distended with small layering stones. Abdomen Ultrasound 03/18/17 00:00 IMPRESSION: Mild intra and extrahepatic biliary ductal dilatation. Distal ductal stone or stricture could not be excluded. Stones and sludge in the dependent gallbladder without gallbladder wall thickening. No pericholecystic fluid. Cholangiogram 03/22/17 00:00 IMPRESSION: INTRAOPERATIVE CHOLANGIOGRAM. Chest X-Ray 03/24/17 00:00 IMPRESSION: Stable mild to moderate cardiomegaly. No acute infiltrates. Lung Scan-VQ NM 03/24/17 09:58 IMPRESSION: Low probability for pulmonary embolus. Assessment & Plan - Diagnosis (1) Gallstone pancreatitis Is this a current diagnosis for this admission?: Yes Plan: Patient is status post lap sonido with IOC on 03/22. Patient is tolerating liquid diet and doing well. Patient LFTs and lipase are significantly improved. Patient may be able to be discharged home tomorrow if okay with surgery. (2) ARF (acute renal failure) Qualifiers: Acute renal failure type: unspecified Qualified Code(s): N17.9 - Acute kidney failure, unspecified Is this a current diagnosis for this admission?: Yes Plan: The due to intravascular depletion. Now resolved should be able to discontinue fluids. (3) Abdominal pain Qualifiers: Abdominal location: generalized Qualified Code(s): R10.84 - Generalized abdominal pain Is this a current diagnosis for this admission?: Yes Plan: Most likely due to gallstone pancreatitis. Patient no longer complaining about pain. Patient is status post lap sonido with IOC on 03/22. She is tolerating p.o. (4) CAD (coronary artery disease) Qualifiers: Coronary Disease-Associated Artery/Lesion type: [place] artery [place] vs. transplanted heart: [place] heart Associated angina: without angina Qualified Code(s): I25.10 - Atherosclerotic heart disease of [place] coronary artery without angina pectoris Is this a current diagnosis for this admission?: Yes Plan: Patient denies chest pain. Echo shows normal EF however patient does have diastolic dysfunction. Regional wall motion abnormality could not be excluded. She appears stable from this standpoint. Patient on IV fluids following surgery however once patient is tolerating orals IV fluid should be discontinued to prevent volume overload. (5) HTN (hypertension) Qualifiers: Hypertension type: essential hypertension Qualified Code(s): I10 - Essential (primary) hypertension Is this a current diagnosis for this admission?: Yes Plan: Stable on home medications. Continue to monitor. (6) Atrial fibrillation with RVR Is this a current diagnosis for this admission?: Yes Plan: Patient developed A. fib with RVR overnight. Patient was transferred to the ICU initially given Cardizem and digoxin in ultimately started on amiodarone drip. Patient heart rate did improve significantly. Patient was transitioned to p.o. metoprolol. Cardiology did evaluate the patient and recommend continue with the metoprolol and follow-up with them as outpatient. Cardiology has cleared patient for discharge in the morning as long as she remains stable overnight. (7) Elevated d-dimer Is this a current diagnosis for this admission?: Yes Plan: Patient elevated d-dimer could have been due to various reasons unrelated to pulmonary embolism. However patient had a VQ scan completed which showed low probability for PE. - Time Time Spent with patient: 15-24 minutes Anticipated discharge: Home Within: within 24 hours - Plan Summary Plan Summary: Possible discharge in the morning.
--- NOTE | 2017-03-25 01:17 | PROGRESS NOTE E ---
Progress Note NAME: CHRISTINA SOMMER : 1935 AGE: 82Y DATE: 03/24/2017 ROOM: 612 SUBJECTIVE: Note that the patient last night went into atrial fibrillation with rapid ventricular response. The patient had only symptoms of palpitations but no chest pain or shortness of breath. There was no PND or orthopnea. Subsequently, the patient's blood pressure was in the 90 but after she got a bolus of Cardizem and a Cardizem drip was placed at 15 mg/h, and her heart rate was still [address] Rush called me and I asked him to give her a dose of Digoxin 0.25 mg IV push, and wait for about a half an hour, and if did not convert, then transfer the patient to ICU, stop the patient's Cardizem drip, and start the patient on amiodarone with a bolus protocol infusion, which was done and the patient promptly converted early this morning around 5:49 a.m. to sinus rhythm. The patient at present denies any chest pain or discomfort. There is no PND or orthopnea. There are no palpitations. She has no abdominal pain. There is no nausea or vomiting. There is no TIA or CVA symptoms. OBJECTIVE: GENERAL: The patient is slightly overweight, in no acute distress. VITAL SIGNS: She is afebrile with a temperature of 97.9 degrees Fahrenheit, pulse is 83 beats per minute, blood pressure is 161/71, respirations are 18 per minute, 02 sats are 100% on room air. HEENT: Head is atraumatic, normocephalic. Eyes: Pupils are equal, round, regular, reactive to light and accommodation. Extraocular movements are normal. There is no conjunctival pallor. There is no scleral icterus. ENT: Negative. NECK: Supple. There is no JVD. Carotids are equal. There is no bruit. There is transmitted murmur from the aortic region to both carotids but there is no carotid delay. There is no lymphadenopathy. There no goiter. Trachea is central. LUNGS: Clear to auscultation and percussion. CARDIOVASCULAR: S1, S2 heard. S1 is of normal intensity. There is a murmur of aortic stenosis present. The A2 sound is well heard. There is no carotid delay. There are no gallops. There is no murmur of aortic regurgitation present. There is no rub. There is a systolic murmur at the left ventricular apex. ABDOMEN: Soft at present, nontender. There is no hepatosplenomegaly. Incision site of her cholecystectomy is clean. EXTREMITIES: Femorals are slightly diminished. There are no femoral bruits. Leg pulses are diminished. There is no pedal edema. There is no cyanosis or clubbing. There is no DVT or cellulitis. Capillary refill is normal. INDEPENDENT MARKETING CONSULTANT: The patient is conscious, awake, alert, oriented x3, with no focal deficits. PSYCHIATRIC: The patient's judgement and insight are intact. Her affect is normal. The patient's 24 hour intake is 2665 mL; output is 2300 mL. LABORATORY DATA: The patient's white count is 9,408, hemoglobin is 11.1, hematocrit is 32.5, and platelet count is 289,000. The patient's sodium is 144.6, potassium is 3.7, chloride is 116, CO2 is 19, BUN is 7, creatinine is 0.80. GFR is greater than 60. Her glucose is 107. Her calcium is 8.6. Her lipase has come down to 376.3. Her TSH is 0.85. Her CPK-MB is less than 0.012, and subsequently 0.097 *------*. Her liver functions are abnormal but the AST has come down to 60 from 71. The ALT has come down to 90 from 98. Her alkaline phosphatase is slightly increased to 201 from 193. Her d-dimer was 3.92. Her VQ scan done showed atrial fibrillation and elevated d-dimer. Low probability for embolism. ASSESSMENT: 1. Paroxysmal atrial fibrillation. Now in sinus. Note that the patient's magnesium and potassium were slightly low and they are repleted, along with amiodarone drip, the patient converted to sinus; hence paroxysmal atrial fibrillation. 2. Patient admitted with acute cholecystitis with cholangiectasis status post cholecystectomy, stable. 3. Gallstone pancreatitis. Now lipase is coming down. 4. Coronary artery disease. Stable. Patient without any anginal symptoms and no evidence of SD. 5. Abnormal liver function tests which are coming down. 6. History of old myocardial infarction but there is no wall motion abnormality on the echo definitively, and EKG does not show evidence of old myocardial infarction. 7. Hypertension. Blood pressure is still up. 8. Mild to moderate aortic stenosis. Patient is asymptomatic. RECOMMENDATION: In view of abnormal LFTs, the patient regarding to sinus rhythm after the patient being postop, and the patient's magnesium and potassium were low. Would recommend stopping the patient's amiodarone and leave the patient on Toprol XL. *------* Toprol XL this morning, and hence, we will increase the dose to 50 mg of Toprol XL every 12 hours starting tonight at 2200. Later, would start the patient on Norvasc, and once LFTs some down, we will start the patient on aspirin. If the patient is stable and remains in sinus rhythm, then we would start her on beta kobe, and will also add Norvasc at 5 mg p.o. daily from tomorrow. The patient is asked to follow up with me, and hence, will make an appointment. Would get a 30-day event monitor later on, and if the circumstances direct me, I would get an IV Lexiscan Cardiolite, and this can be done as an outpatient. Would like the patient to heal from the surgery. TIME SPENT: Note 30 minutes were spent on this patient, with more than 50% of the time spent in direct patient care, and the medications reviewed and medications adjusted. The patient's medical decision making was of high complexity in view that atrial fibrillation of new onset with rapid ventricular response which has now converted to sinus rhythm. Discussed with the surgicalist and discussed with the attending physician on the case. Thanking you. DICTATING PHYSICIAN: JASWANT JUAREZ M.D. [id number] PHY#: [id number] ID: [id number] JOB#: [id number] ACCT: [id number] cc: >
[2017-03-25 04:23] LABS: ALANINE AMINOTRANSFERASE 73 U/L (9-52); ALBUMIN 3.3 g/dL (3.5-5.0); ALKALINE PHOSPHATASE 181 U/L (38-126); ASPARTATE AMINO TRANSFERASE 36 U/L (14-36); BILIRUBIN,DIRECT 0.4 mg/dL (0.0-0.4); BILIRUBIN,TOTAL 0.6 mg/dL (0.2-1.3); LIPASE 596.6 U/L (23-300); TOTAL PROTEIN 6.9 g/dL (6.3-8.2)
[2017-03-25] MEDS: METOPROLOL SUCCINATE 50 MG TAB.SR.24H PO SCH ×2 (09:18→21:48)
[2017-03-25] MEDS: FAMOTIDINE INJ/PF 20 MG/2 ML SDV IV SCH ×2 (09:18→21:48)
[2017-03-25] MEDS: AMLODIPINE BESYLATE 5 MG TABLET PO SCH (09:18)
[2017-03-25] MEDS: LISINOPRIL 10 MG TABLET PO SCH ×2 (09:18→21:53)
[2017-03-25 10:34] LABS: ABSOLUTE BASOPHILS # (AUTO) 0.1 10^3/uL (0.0-0.2); ABSOLUTE EOSINOPHILS # (AUTO) 0.2 10^3/uL (0.0-0.6); ABSOLUTE LYMPHOCYTES (AUTO) 2.3 10^3/uL (0.5-4.7); ABSOLUTE MONOCYTES (AUTO) 0.7 10^3/uL (0.1-1.4); ABSOLUTE NEUT (AUTO) 6.7 10^3/uL (1.7-8.2); BASOPHILS % (AUTO) 1.1 % (0-2); EOSINOPHILS % (AUTO) 1.7 % (0-6); HEMOGLOBIN 11.4 g/dL (12.0-15.5); HGB HCT DIFFERENCE 1.2; LYMPHOCYTES % (AUTO) 22.9 % (13-45); MEAN CORPUSCULAR HEMOGLOBIN 30.5 pg (27.0-33.4); MEAN CORPUSCULAR HGB CONC 34.6 g/dL (32.0-36.0); MEAN CORPUSCULAR VOLUME 88 fl (80-97); MONOCYTES % (AUTO) 7.2 % (3-13); RED BLOOD COUNT 3.74 10^6/uL (3.72-5.28); RED CELL DISTRIBUTION WIDTH 13.6 % (11.5-14.0); SEGMENTED NEUTROPHILS % (AUTO) 67.1 % (42-78); WHITE BLOOD COUNT 10.1 10^3/uL (4.0-10.5)
[2017-03-25 11:39] LABS: ANION GAP 7 (5-19); BLOOD UREA NITROGEN 8 mg/dL (7-20); CALCIUM 9.3 mg/dL (8.4-10.2); CARBON DIOXIDE 23 mmol/L (22-30); CHLORIDE 110 mmol/L (98-107); CREATININE RESULT 0.72 mg/dL (0.52-1.25); GLUCOSE 98 mg/dL (75-110); MAGNESIUM 1.8 mg/dL (1.6-2.3); POTASSIUM 3.8 mmol/L (3.6-5.0); SODIUM 139.9 mmol/L (137-145)
--- NOTE | 2017-03-25 12:19 | EKG REPORT ---
SEVERITY:- ABNORMAL ECG - SINUS RHYTHM CONSIDER LEFT VENTRICULAR HYPERTROPHY : Confirmed by: Radha Hsieh MD 25-Mar-2017 12:19:09
--- NOTE | 2017-03-25 14:04 | PDOC PROGRESS REPORT ---
Subjective Progress Note for:: 03/25/17 Physical Exam Vital Signs: Temp Pulse Resp BP Pulse Ox 97.6 F 74 18 123/68 100 03/25/17 12:00 03/25/17 12:00 03/25/17 13:00 03/25/17 12:13 03/25/17 12:45 Intake & Output 03/24/17 03/25/17 03/26/17 06:59 06:59 06:59 Intake Total 2665 102 Output Total 2300 3350 700 Balance 365 -3035 -700 Weight 83.5 kg 81.7 kg General appearance: PRESENT: no acute distress Respiratory exam: PRESENT: clear to auscultation talha Cardiovascular exam: PRESENT: RRR GI/Abdominal exam: PRESENT: normal bowel sounds, soft. ABSENT: guarding - Incision is clean/dry/intact., tenderness Results Laboratory Results: 03/25/17 09:03 03/25/17 09:03 03/25/17 03/25/17 03/25/17 03:59 09:03 09:03 WBC 10.1 RBC 3.74 Hgb 11.4 L Hct 33.0 L MCV 88 MCH 30.5 MCHC 34.6 RDW 13.6 Plt Count 307 Seg Neutrophils % 67.1 Lymphocytes % 22.9 Monocytes % 7.2 Eosinophils % 1.7 Basophils % 1.1 Absolute Neutrophils 6.7 Absolute Lymphocytes 2.3 Absolute Monocytes 0.7 Absolute Eosinophils 0.2 Absolute Basophils 0.1 Sodium 139.9 Potassium 3.8 Chloride 110 H Carbon Dioxide 23 Anion Gap 7 BUN 8 Creatinine 0.72 Est GFR ( Amer) > 60 Est GFR (Non-Af Amer) > 60 Glucose 98 Calcium 9.3 Magnesium 1.8 Total Bilirubin 0.6 AST 36 ALT 73 H Alkaline Phosphatase 181 H Total Protein 6.9 Albumin 3.3 L Lipase 596.6 H 03/24/17 03/24/17 01:15 06:17 Troponin I < 0.012 0.097 Impressions: Abdomen/Pelvis CT 03/17/17 18:18 IMPRESSION: The distended gallbladder. Small amount of fluid posterior to the pancreas. Dilated pancreatic duct. No definite pancreatic mass lesion. Abdomen MRI 03/18/17 00:00 IMPRESSION: Mild dilatation of the common bile duct and central hepatic ducts. No definite distal stone or mass. The gallbladder is distended with small layering stones. Abdomen Ultrasound 03/18/17 00:00 IMPRESSION: Mild intra and extrahepatic biliary ductal dilatation. Distal ductal stone or stricture could not be excluded. Stones and sludge in the dependent gallbladder without gallbladder wall thickening. No pericholecystic fluid. Cholangiogram 03/22/17 00:00 IMPRESSION: INTRAOPERATIVE CHOLANGIOGRAM. Chest X-Ray 03/24/17 00:00 IMPRESSION: Stable mild to moderate cardiomegaly. No acute infiltrates. Lung Scan-VQ NM 03/24/17 09:58 IMPRESSION: Low probability for pulmonary embolus. Assessment & Plan - Diagnosis (1) Pancreatitis Qualifiers: Chronicity: acute Pancreatitis type: unspecified pancreatitis type Acute pancreatitis complication: no infection or necrosis Qualified Code(s): K85.90 - Acute pancreatitis without necrosis or infection, unspecified Is this a current diagnosis for this admission?: Yes (2) Gallstone pancreatitis Is this a current diagnosis for this admission?: Yes - Plan Summary Plan Summary: Patient is being transferred to the floor on metoprolol. Discharge planning is for the a.m.
--- NOTE | 2017-03-25 15:54 | PDOC PROGRESS REPORT ---
Subjective Progress Note for:: 03/25/17 Subjective:: The patient is a pleasant 82-year-old -[place] female who presented to the emergency room with diffuse abdominal pain. She was found to have evidence of gallstone pancreatitis. She is status post cholecystectomy and over the course of the hospitalization her pancreatitis and liver function tests are improving. She has had a prolonged hospitalization. She was transferred to the ICU as she had developed atrial fibrillation with rapid ventricular response that was not responding to IV Cardizem. She was placed on an amiodarone drip and clinically improved. She was followed by cardiology and transitioned onto an oral regimen yesterday. This morning the patient is seen in the ICU. She currently is only allowed to eat ice chips. She states that she has had no fever or chills overnight. No chest pain, shortness of breath or heart palpitations. She has had no nausea or vomiting but she has had nothing to eat yet. She cannot recall when she had a bowel movement. She reports no dysuria, frequency or hematuria. At this point the patient has not been seen by physical therapy and her diet has not been advanced and I do not feel that it is safe to send her home. She will be transitioned to a telemetry bed today and she is in agreement with this plan. Physical Exam Vital Signs: Temp Pulse Resp BP Pulse Ox 97.6 F 74 18 123/68 100 03/25/17 12:00 03/25/17 12:00 03/25/17 13:00 03/25/17 12:13 03/25/17 12:45 Intake & Output 03/24/17 03/25/17 03/26/17 06:59 06:59 06:59 Intake Total 2665 102 Output Total 2300 3350 700 Balance 365 -3838 -700 Weight 83.5 kg 81.7 kg General appearance: PRESENT: no acute distress, thin Head exam: PRESENT: atraumatic, normocephalic Mouth exam: PRESENT: moist, neck supple Respiratory exam: PRESENT: clear to auscultation talha. ABSENT: rales, rhonchi, wheezes Cardiovascular exam: PRESENT: irregular rhythm, +S1, +S2. ABSENT: tachycardia GI/Abdominal exam: PRESENT: normal bowel sounds, soft, tenderness - She is somewhat tender at the site of her, other - She is somewhat tender at the site of her recent surgery. Rectal exam: ABSENT: deferred Extremities exam: ABSENT: calf tenderness, clubbing, pedal edema Neurological exam: PRESENT: alert, altered, awake, oriented to person, oriented to place, oriented to time, oriented to situation Psychiatric exam: PRESENT: depressed Skin exam: PRESENT: dry, warm Results Laboratory Results: 03/25/17 09:03 03/25/17 09:03 03/25/17 03/25/17 03/25/17 03:59 09:03 09:03 WBC 10.1 RBC 3.74 Hgb 11.4 L Hct 33.0 L MCV 88 MCH 30.5 MCHC 34.6 RDW 13.6 Plt Count 307 Seg Neutrophils % 67.1 Lymphocytes % 22.9 Monocytes % 7.2 Eosinophils % 1.7 Basophils % 1.1 Absolute Neutrophils 6.7 Absolute Lymphocytes 2.3 Absolute Monocytes 0.7 Absolute Eosinophils 0.2 Absolute Basophils 0.1 Sodium 139.9 Potassium 3.8 Chloride 110 H Carbon Dioxide 23 Anion Gap 7 BUN 8 Creatinine 0.72 Est GFR ( Amer) > 60 Est GFR (Non-Af Amer) > 60 Glucose 98 Calcium 9.3 Magnesium 1.8 Total Bilirubin 0.6 AST 36 ALT 73 H Alkaline Phosphatase 181 H Total Protein 6.9 Albumin 3.3 L Lipase 596.6 H 03/24/17 03/24/17 01:15 06:17 Troponin I < 0.012 0.097 Impressions: Abdomen/Pelvis CT 03/17/17 18:18 IMPRESSION: The distended gallbladder. Small amount of fluid posterior to the pancreas. Dilated pancreatic duct. No definite pancreatic mass lesion. Abdomen MRI 03/18/17 00:00 IMPRESSION: Mild dilatation of the common bile duct and central hepatic ducts. No definite distal stone or mass. The gallbladder is distended with small layering stones. Abdomen Ultrasound 03/18/17 00:00 IMPRESSION: Mild intra and extrahepatic biliary ductal dilatation. Distal ductal stone or stricture could not be excluded. Stones and sludge in the dependent gallbladder without gallbladder wall thickening. No pericholecystic fluid. Cholangiogram 03/22/17 00:00 IMPRESSION: INTRAOPERATIVE CHOLANGIOGRAM. Chest X-Ray 03/24/17 00:00 IMPRESSION: Stable mild to moderate cardiomegaly. No acute infiltrates. Lung Scan-VQ NM 03/24/17 09:58 IMPRESSION: Low probability for pulmonary embolus. Assessment & Plan - Diagnosis (1) Gallstone pancreatitis Is this a current diagnosis for this admission?: Yes Plan: The patient is status post cholecystectomy with intraoperative cholangiogram. She has been doing well postoperatively. I do not see that her diet has been advanced so I am going to start her on a clear liquid diet today and we will advance as tolerated. I also am going to get physical therapy to see her to make sure she can safely ambulate. If her diet can be successfully advanced and she can ambulate she likely can be discharged home. She may require subacute rehabilitation if she is weak. (2) Atrial fibrillation with RVR Is this a current diagnosis for this admission?: Yes Plan: The patient was transitioned to the ICU and placed on an amiodarone drip. Currently her heart rate is in a sinus rhythm and stable on metoprolol. Cardiology saw the patient and we appreciate their input. We will keep her on telemetry for now but she seems to be much improved. This was likely due to her entire acute illness. (3) ARF (acute renal failure) Qualifiers: Acute renal failure type: unspecified Qualified Code(s): N17.9 - Acute kidney failure, unspecified Is this a current diagnosis for this admission?: Yes Plan: This was quite mild likely secondary to dehydration due to her abdominal pain at the time of admission. Resolved at this point. Her creatinine is back to its normal baseline. (4) CAD (coronary artery disease) Qualifiers: Coronary Disease-Associated Artery/Lesion type: [place] artery [place] vs. transplanted heart: [place] heart Associated angina: without angina Qualified Code(s): I25.10 - Atherosclerotic heart disease of [place] coronary artery without angina pectoris Is this a current diagnosis for this admission?: Yes Plan: No complaints of chest pain at this point. She seems to be doing quite well (5) Hypertension Plan: Adequately controlled at this point. Continue amlodipine, lisinopril and metoprolol. (6) Metabolic acidosis Plan: Resolved. This was likely secondary to gallstone pancreatitis and recent surgery. (7) Elevated liver function tests Plan: Secondary to gallstone pancreatitis. Patient also has an elevated lipase. Overall her liver function tests are trending downward. Her lipase did bump up somewhat today. We will recheck level tomorrow. (8) Hypokalemia Plan: Repleted and resolved - Time Time Spent with patient: 35 or more minutes Medications reviewed and adjusted accordingly: Yes Disposition: The patient will be transitioned out of the ICU today. I am hopeful that she will be able to be discharged home. Physical therapy has not yet seen her and it is unclear whether she can safely ambulate. Her diet also needs to be advanced as well. We will advance her diet today and get physical therapy to see the patient. I am hopeful that she can be stable for discharge in the next 24-48 hours. - Inpatient Certification Medical Necessity: Other - Inpatient hospitalization remains necessary to advance the patient's diet and get physical therapy evaluation. I also need to monitor her heart overnight she is just been transferred out of the ICU. Hopefully she can be discharged home in the next 24-48 hours.
[2017-03-26] MEDS: METOPROLOL SUCCINATE 50 MG TAB.SR.24H PO SCH (09:45)
[2017-03-26] MEDS: AMLODIPINE BESYLATE 5 MG TABLET PO SCH (09:45)
[2017-03-26] MEDS: FAMOTIDINE INJ/PF 20 MG/2 ML SDV IV SCH (09:45)
[2017-03-26] MEDS: LISINOPRIL 10 MG TABLET PO SCH (09:45)
[2017-03-26 09:56] LABS: ALANINE AMINOTRANSFERASE 76 U/L (9-52); ALBUMIN 3.2 g/dL (3.5-5.0); ALKALINE PHOSPHATASE 164 U/L (38-126); ASPARTATE AMINO TRANSFERASE 39 U/L (14-36); BILIRUBIN,DIRECT 0.3 mg/dL (0.0-0.4); BILIRUBIN,TOTAL 0.4 mg/dL (0.2-1.3); TOTAL PROTEIN 6.7 g/dL (6.3-8.2)
[2017-03-26] MEDS ORDERED: (PENDING PHARMACY ID) (Lisinopril [Zestril] 20 MG) PO SCH (10:00)
--- NOTE | 2017-03-26 12:38 | PDOC PROGRESS REPORT ---
Subjective Progress Note for:: 03/26/17 Subjective:: Pt. sitting comfortably in chair. Wants and is ready to go home! Physical Exam Vital Signs: Temp Pulse Resp BP Pulse Ox 97.8 F 78 16 122/52 L 100 03/26/17 04:23 03/26/17 07:00 03/26/17 04:23 03/26/17 04:23 03/26/17 04:23 Intake & Output 03/25/17 03/26/17 03/27/17 06:59 06:59 06:59 Intake Total 102 500 Output Total 3350 800 Balance -3248 -300 Weight 81.7 kg 79.9 kg General appearance: PRESENT: no acute distress Respiratory exam: PRESENT: clear to auscultation talha Cardiovascular exam: PRESENT: RRR GI/Abdominal exam: PRESENT: normal bowel sounds, soft - Incisions are c/d/i Results Laboratory Results: 03/25/17 09:03 03/25/17 09:03 03/26/17 09:03 Total Bilirubin 0.4 AST 39 H ALT 76 H Alkaline Phosphatase 164 H Total Protein 6.7 Albumin 3.2 L 03/24/17 03/24/17 01:15 06:17 Troponin I < 0.012 0.097 Impressions: Abdomen/Pelvis CT 03/17/17 18:18 IMPRESSION: The distended gallbladder. Small amount of fluid posterior to the pancreas. Dilated pancreatic duct. No definite pancreatic mass lesion. Abdomen MRI 03/18/17 00:00 IMPRESSION: Mild dilatation of the common bile duct and central hepatic ducts. No definite distal stone or mass. The gallbladder is distended with small layering stones. Abdomen Ultrasound 03/18/17 00:00 IMPRESSION: Mild intra and extrahepatic biliary ductal dilatation. Distal ductal stone or stricture could not be excluded. Stones and sludge in the dependent gallbladder without gallbladder wall thickening. No pericholecystic fluid. Cholangiogram 03/22/17 00:00 IMPRESSION: INTRAOPERATIVE CHOLANGIOGRAM. Chest X-Ray 03/24/17 00:00 IMPRESSION: Stable mild to moderate cardiomegaly. No acute infiltrates. Lung Scan-VQ NM 03/24/17 09:58 IMPRESSION: Low probability for pulmonary embolus. Assessment & Plan - Diagnosis (1) Pancreatitis Qualifiers: Chronicity: acute Pancreatitis type: unspecified pancreatitis type Acute pancreatitis complication: no infection or necrosis Qualified Code(s): K85.90 - Acute pancreatitis without necrosis or infection, unspecified Is this a current diagnosis for this admission?: Yes (2) Gallstone pancreatitis Is this a current diagnosis for this admission?: Yes - Plan Summary Plan Summary: Pt. is surgically clear for D/C home. Please have pt. f/u in the [facility] [facility] in 7 -10 days.
--- NOTE | 2017-03-26 16:04 | PDOC DISCHARGE SUMMARY ---
General - Admit/Disc Date/PCP Admission Date/Primary Care Provider: 03/17/17 22:08 floral designer: Dr. Kevin Wallace General surgeon: Dr. Jenkins Shrub Planter: Dr. Hsieh Discharge Date: 03/26/17 - Discharge Diagnosis (1) Gallstone pancreatitis Is this a current diagnosis for this admission?: Yes Summary: Status post cholecystitis. She has tolerated the procedure well and is currently ambulating with a rolling walker at the time of discharge. (2) Atrial fibrillation with RVR Is this a current diagnosis for this admission?: Yes Summary: Resolved. Likely secondary to her acute illness. She has been discharged on metoprolol for rate control. (3) ARF (acute renal failure) Is this a current diagnosis for this admission?: Yes Summary: This was quite mild. Secondary to dehydration due to intractable abdominal pain at the time of admission. (4) CAD (coronary artery disease) Is this a current diagnosis for this admission?: Yes Summary: Stable. She has had no complaints of chest pain. (5) Hypertension Summary: Continue lisinopril and metoprolol. (6) Metabolic acidosis Summary: Resolved (7) Elevated liver function tests Summary: Likely secondary to acute gallstone pancreatitis. Her numbers are normalizing. She will need a repeat liver panel and lipase as an outpatient. (8) Hypokalemia Summary: Repleted and resolved - Additional Information Resuscitation Status: Full Code Discharge Diet: As Tolerated, Other (Comments) - soft low residue then slowly advance to a regular diet Discharge Activity: Activity As Tolerated, Balance Activity w/Rest, Slowly Increase Activity Home Medications: Amlodipine Besylate [Norvasc 5 mg Tablet] 5 mg PO DAILY #30 tablet 03/26/17 Lisinopril [Prinivil 10 mg Tablet] 10 mg PO Q12 #60 tablet 03/26/17 Metoprolol Succinate [Toprol Xl 50 mg Tab.sr] 50 mg PO Q12 #60 tab.sr.24h History of Present Illness History of Present Illness: CHRISTINA SOMMER is a 82 year old female who presented to the emergency room with abdominal pain. Hospital Course Hospital Course: The patient is a very pleasant 82-year-old -[place] female who presented to the emergency room with diffuse abdominal pain. She was found to have evidence of gallstone pancreatitis. She was admitted to the hospital and evaluated by the general surgery service. Ultimately she is status post cholecystectomy. Over the course of her hospitalization her pancreatitis and liver function tests have improved. She has had a little prolonged hospitalization. She was transferred to the ICU she developed atrial fibrillation with a rapid ventricular response that was not responding to IV Cardizem. In the unit she was placed on an amiodarone drip and clinically improved and reverted to a sinus rhythm. She was followed by cardiology and currently is stable on metoprolol. The patient's diet was advanced and she worked with physical therapy. On the day of discharge she is tolerating her diet. General surgery plans to follow her up as an outpatient. She has been seen by physical therapy who believe she is stable for discharge. I am setting up home health physical therapy at discharge for a home evaluation as well as strength and safety training. She will follow-up with her primary care physician Dr. Kevin Wallace in 1-2 weeks. She will follow-up with the surgery service in 1 week. At this point maximum hospital benefit has been reached. The patient will be discharged to home today in stable condition. Physical Exam Vital Signs: Temp Pulse Resp BP Pulse Ox 97.8 F 77 16 122/52 L 100 03/26/17 04:23 03/26/17 14:00 03/26/17 04:23 03/26/17 04:23 03/26/17 04:23 Intake & Output 03/25/17 03/26/17 03/27/17 06:59 06:59 06:59 Intake Total 102 500 Output Total 3350 800 Balance -3248 -300 Weight 81.7 kg 79.9 kg General appearance: PRESENT: no acute distress, thin Head exam: PRESENT: atraumatic, normocephalic Mouth exam: PRESENT: moist, neck supple Respiratory exam: PRESENT: clear to auscultation talha. ABSENT: chest wall tenderness, crackles, decreased breath sounds, rales, tachypnea, wheezes Cardiovascular exam: PRESENT: RRR, +S1, +S2. ABSENT: diastolic murmur, gallop, rubs, systolic murmur GI/Abdominal exam: PRESENT: normal bowel sounds, soft, other - She has mild tenderness to palpation around her incision site. Rectal exam: PRESENT: deferred Extremities exam: ABSENT: calf tenderness, clubbing, pedal edema Musculoskeletal exam: PRESENT: ambulatory, other - She can ambulate up and down the [place] with a rolling walker. Neurological exam: PRESENT: alert, altered, awake, oriented to person, oriented to time, oriented to situation Psychiatric exam: PRESENT: appropriate affect Skin exam: PRESENT: dry, warm Results Laboratory Results: 03/25/17 09:03 03/25/17 09:03 03/26/17 09:03 Total Bilirubin 0.4 AST 39 H ALT 76 H Alkaline Phosphatase 164 H Total Protein 6.7 Albumin 3.2 L 03/24/17 03/24/17 01:15 06:17 Troponin I < 0.012 0.097 Impressions: Abdomen/Pelvis CT 03/17/17 18:18 IMPRESSION: The distended gallbladder. Small amount of fluid posterior to the pancreas. Dilated pancreatic duct. No definite pancreatic mass lesion. Abdomen MRI 03/18/17 00:00 IMPRESSION: Mild dilatation of the common bile duct and central hepatic ducts. No definite distal stone or mass. The gallbladder is distended with small layering stones. Abdomen Ultrasound 03/18/17 00:00 IMPRESSION: Mild intra and extrahepatic biliary ductal dilatation. Distal ductal stone or stricture could not be excluded. Stones and sludge in the dependent gallbladder without gallbladder wall thickening. No pericholecystic fluid. Cholangiogram 03/22/17 00:00 IMPRESSION: INTRAOPERATIVE CHOLANGIOGRAM. Chest X-Ray 03/24/17 00:00 IMPRESSION: Stable mild to moderate cardiomegaly. No acute infiltrates. Lung Scan-VQ NM 03/24/17 09:58 IMPRESSION: Low probability for pulmonary embolus. Qualifiers PATEINT BEING DISCHARGED WITH ANY OF THE FOLLOWING DIAGNOSIS?: No Plan Time Spent: Greater than 30 Minutes
[2017-03-26 17:26] VITALS: BP 165/62
--- NOTE | 2017-03-26 19:30 | PDOC PROGRESS REPORT ---
Subjective Progress Note for:: 03/25/17 Subjective:: No chest pain reported. No dyspnea reported. Patient more comfortable. Abdominal pain is improved. 2D echo scheduled. Patient to report any chest pain. Telemetry strips shows sinus rhythm. Physical Exam Vital Signs: Temp Pulse Resp BP Pulse Ox 97.8 F 59 L 13 165/62 H 100 03/25/17 16:00 03/25/17 16:00 03/25/17 16:00 03/25/17 16:00 03/25/17 16:00 Intake & Output 03/24/17 03/25/17 03/26/17 06:59 06:59 06:59 Intake Total 2665 102 0 Output Total 2300 3350 700 Balance 747 -9088 -700 Weight 83.5 kg 81.7 kg Exam: GENERAL: well-nourished and in no acute distress. Alert and oriented x3 HEAD: Atraumatic, normocephalic. EYES: Pupils equal round and reactive to light, extraocular movements intact, sclera anicteric, conjunctiva are normal. ENT: TMs normal, nares patent, oropharynx clear without exudates. Moist mucous membranes. No oral ulcerations or bleeding gums noted NECK: supple without lymphadenopathy. Trachea is central. No cervical or axillary lymphadenopathy noted. Carotids are 2+, JVD WNL LUNGS: Respiration seems nonlabored, no significant accessory muscle action noted. Breath sounds clear to auscultation bilaterally and equal noted. No wheezes rales or rhonchi noted. No significant dullness noted on percussion. CHEST: Palpation of the chest wall shows no significant chest wall tenderness. No other significant abnormalities noted. 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 ABDOMEN: Soft, mild upper abdominal postsurgical tenderness appreciated, normoactive bowel sounds. No guarding, no rebound. No rigidity noted . No masses appreciated. EXTREMITIES: Pedal pulses are 1-2+, no calf tenderness noted. No clubbing or cyanosis.trace pedal edema noted NEUROLOGICAL: Focused neurological exam showed no significant neurologic deficit. Normal speech, no focal weakness appreciated. PSYCH: Normal mood, normal affect. Judgment and insight within normal limits. SKIN: No significant ecchymosis, rash, ulcerations or signs of pruritus noted. MUSCULOSKELETAL EXAM: No significant joint swelling noted. Results Laboratory Results: 03/25/17 09:03 03/25/17 09:03 03/25/17 03/25/17 03/25/17 03:59 09:03 09:03 WBC 10.1 RBC 3.74 Hgb 11.4 L Hct 33.0 L MCV 88 MCH 30.5 MCHC 34.6 RDW 13.6 Plt Count 307 Seg Neutrophils % 67.1 Lymphocytes % 22.9 Monocytes % 7.2 Eosinophils % 1.7 Basophils % 1.1 Absolute Neutrophils 6.7 Absolute Lymphocytes 2.3 Absolute Monocytes 0.7 Absolute Eosinophils 0.2 Absolute Basophils 0.1 Sodium 139.9 Potassium 3.8 Chloride 110 H Carbon Dioxide 23 Anion Gap 7 BUN 8 Creatinine 0.72 Est GFR ( Amer) > 60 Est GFR (Non-Af Amer) > 60 Glucose 98 Calcium 9.3 Magnesium 1.8 Total Bilirubin 0.6 AST 36 ALT 73 H Alkaline Phosphatase 181 H Total Protein 6.9 Albumin 3.3 L Lipase 596.6 H 03/24/17 03/24/17 01:15 06:17 Troponin I < 0.012 0.097 EKG Comments: Telemetry strips shows sinus rhythm. No sustained tachycardia or bradycardia arrhythmias noted. Impressions: Abdomen/Pelvis CT 03/17/17 18:18 IMPRESSION: The distended gallbladder. Small amount of fluid posterior to the pancreas. Dilated pancreatic duct. No definite pancreatic mass lesion. Abdomen MRI 03/18/17 00:00 IMPRESSION: Mild dilatation of the common bile duct and central hepatic ducts. No definite distal stone or mass. The gallbladder is distended with small layering stones. Abdomen Ultrasound 03/18/17 00:00 IMPRESSION: Mild intra and extrahepatic biliary ductal dilatation. Distal ductal stone or stricture could not be excluded. Stones and sludge in the dependent gallbladder without gallbladder wall thickening. No pericholecystic fluid. Cholangiogram 03/22/17 00:00 IMPRESSION: INTRAOPERATIVE CHOLANGIOGRAM. Chest X-Ray 03/24/17 00:00 IMPRESSION: Stable mild to moderate cardiomegaly. No acute infiltrates. Lung Scan-VQ NM 03/24/17 09:58 IMPRESSION: Low probability for pulmonary embolus. Assessment & Plan - Diagnosis (1) Paroxysmal atrial fibrillation Is this a current diagnosis for this admission?: Yes (2) Gallstone pancreatitis Is this a current diagnosis for this admission?: Yes (3) Hypertension Qualifiers: Hypertension type: essential hypertension Qualified Code(s): I10 - Essential (primary) hypertension Is this a current diagnosis for this admission?: Yes (4) CAD (coronary artery disease) Qualifiers: Coronary Disease-Associated Artery/Lesion type: [place] artery [place] vs. transplanted heart: [place] heart Associated angina: without angina Qualified Code(s): I25.10 - Atherosclerotic heart disease of [place] coronary artery without angina pectoris Is this a current diagnosis for this admission?: Yes (5) Diastolic CHF Qualifiers: Congestive heart failure chronicity: chronic Qualified Code(s): I50.32 - Chronic diastolic (congestive) heart failure Is this a current diagnosis for this admission?: No - Notes Notes: Paroxysmal atrial fibrillation: Postop. Patient did respond to IV amiodarone therapy. Currently on beta-kobe. Postop A. fib can respond to beta- kobe. At this point agree with continuing beta-kobe therapy. No need for chronic anticoagulation. Patient can follow-up with me in the office, if she is not being followed by another parallel computing software engineer. Gallstone pancreatitis: Patient is status post cholecystectomy and has done well. Hypertension: Reasonably well controlled. Blood pressure goal in this patient is 135/85 or less. This was discussed with the patient. Currently blood pressure under reasonable control. Better medication for this patient are TONO inhibitor/ARB/beta kobe etc. discussed side effects of uncontrolled hypertension and also severe hypotension. CAD: Patient has CAD. Currently stable without any angina or angina equivalent symptoms. Discussed symptoms associated with unstable angina, acute coronary syndrome, myocardial infarction etc. patient to be educated in proper instruction for nitroglycerin use and proper use of emergency services. Aggressive risk factor modification advised. Diastolic CHF: Chronic currently stable. Continue baseline diuretic therapy. This was not a problem this admission. - Time Time with patient: 15-25 minutes - CODE STATUS was discussed, patient remains full code. Surrogate decision-maker unchanged. Multiple medical problems were addressed. More than 50% of the time spent coordinating care, discussing management plans with involved caregivers. Management plans discussed with involved personnels. Medical decision making was of moderate to high complexity , patient's has multiple comorbidities.
--- NOTE | 2017-03-26 19:32 | PDOC PROGRESS REPORT ---
Subjective Progress Note for:: 03/26/17 Subjective:: Patient seems to be doing better with gradual improvement. Pt is denying any chest arm or neck discomfort. Patient denying any PND, orthopnea. Patient denied any sustained palpitations, dizziness, syncope, near syncope. Patient denying any fever chills. Patient denying any other significant discomfort. Patient is maintaining sinus rhythm. Review of systems: Rest review of systems negative. Medications: Medications have been reviewed. Patient had p.o. intake and tolerated it well. Patient had bowel movement. Physical Exam Vital Signs: Temp Pulse Resp BP Pulse Ox 97.8 F 77 16 165/62 H 100 03/26/17 17:24 03/26/17 17:24 03/26/17 17:24 03/26/17 17:24 03/26/17 17:24 Intake & Output 03/25/17 03/26/17 03/27/17 06:59 06:59 06:59 Intake Total 102 500 Output Total 3350 800 Balance -3248 -300 Weight 81.7 kg 79.9 kg Exam: GENERAL: well-nourished and in no acute distress. Alert and oriented x3 HEAD: Atraumatic, normocephalic. EYES: Pupils equal round and reactive to light, extraocular movements intact, sclera anicteric, conjunctiva are normal. ENT: TMs normal, nares patent, oropharynx clear without exudates. Moist mucous membranes. No oral ulcerations or bleeding gums noted NECK: supple without lymphadenopathy. Trachea is central. No cervical or axillary lymphadenopathy noted. Carotids are 2+, JVD WNL LUNGS: Respiration seems nonlabored, no significant accessory muscle action noted. Breath sounds clear to auscultation bilaterally and equal noted. No wheezes rales or rhonchi noted. No significant dullness noted on percussion. CHEST: Palpation of the chest wall shows no significant chest wall tenderness. No other significant abnormalities noted. 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 ABDOMEN: Soft, minimal postsurgical upper abdominal tenderness appreciated, normoactive bowel sounds. No guarding, no rebound. No rigidity noted . No masses appreciated. EXTREMITIES: Pedal pulses are 1-2+, no calf tenderness noted. No clubbing or cyanosis.trace to 1+ pedal edema noted NEUROLOGICAL: Focused neurological exam showed no significant neurologic deficit. Normal speech, no focal weakness appreciated. PSYCH: Normal mood, normal affect. Judgment and insight within normal limits. SKIN: No significant ecchymosis, rash, ulcerations or signs of pruritus noted. MUSCULOSKELETAL EXAM: No significant joint swelling noted. Results Laboratory Results: 03/25/17 09:03 03/25/17 09:03 03/26/17 09:03 Total Bilirubin 0.4 AST 39 H ALT 76 H Alkaline Phosphatase 164 H Total Protein 6.7 Albumin 3.2 L 03/24/17 03/24/17 01:15 06:17 Troponin I < 0.012 0.097 EKG Comments: Telemetry strip showed sinus rhythm, no acute ST-T wave changes noted Impressions: Abdomen/Pelvis CT 03/17/17 18:18 IMPRESSION: The distended gallbladder. Small amount of fluid posterior to the pancreas. Dilated pancreatic duct. No definite pancreatic mass lesion. Abdomen MRI 03/18/17 00:00 IMPRESSION: Mild dilatation of the common bile duct and central hepatic ducts. No definite distal stone or mass. The gallbladder is distended with small layering stones. Abdomen Ultrasound 03/18/17 00:00 IMPRESSION: Mild intra and extrahepatic biliary ductal dilatation. Distal ductal stone or stricture could not be excluded. Stones and sludge in the dependent gallbladder without gallbladder wall thickening. No pericholecystic fluid. Cholangiogram 03/22/17 00:00 IMPRESSION: INTRAOPERATIVE CHOLANGIOGRAM. Chest X-Ray 03/24/17 00:00 IMPRESSION: Stable mild to moderate cardiomegaly. No acute infiltrates. Lung Scan-VQ NM 03/24/17 09:58 IMPRESSION: Low probability for pulmonary embolus. Assessment & Plan - Diagnosis (1) Paroxysmal atrial fibrillation Is this a current diagnosis for this admission?: Yes (2) Gallstone pancreatitis Is this a current diagnosis for this admission?: Yes (3) Hypertension Qualifiers: Hypertension type: essential hypertension Qualified Code(s): I10 - Essential (primary) hypertension Is this a current diagnosis for this admission?: Yes (4) CAD (coronary artery disease) Qualifiers: Coronary Disease-Associated Artery/Lesion type: [place] artery [place] vs. transplanted heart: [place] heart Associated angina: without angina Qualified Code(s): I25.10 - Atherosclerotic heart disease of [place] coronary artery without angina pectoris Is this a current diagnosis for this admission?: Yes (5) Diastolic CHF Qualifiers: Congestive heart failure chronicity: chronic Qualified Code(s): I50.32 - Chronic diastolic (congestive) heart failure Is this a current diagnosis for this admission?: No - Notes Notes: Patient likely to be discharged. Patient given my card if she wishes to follow- up. Currently stable from cardiac standpoint. Patient to report any recurrence of palpitations, chest pain etc. Paroxysmal atrial fibrillation: Postop. Patient maintaining sinus rhythm. It was transient. No need for chronic anticoagulation. Patient can follow-up with me in the office, if she is not being followed by another loan auditor. Gallstone pancreatitis: Patient is status post cholecystectomy and has done well. Hypertension: Reasonably well controlled. Blood pressure goal in this patient is 135/85 or less. This was discussed with the patient. Currently blood pressure under reasonable control. Better medication for this patient are TONO inhibitor/ARB/beta kobe etc. discussed side effects of uncontrolled hypertension and also severe hypotension. CAD: Patient has CAD. Currently stable without any angina or angina equivalent symptoms. Discussed symptoms associated with unstable angina, acute coronary syndrome, myocardial infarction etc. patient to be educated in proper instruction for nitroglycerin use and proper use of emergency services. Aggressive risk factor modification advised. Diastolic CHF: Chronic currently stable. Continue baseline diuretic therapy. This was not a problem this admission. - Time Time with patient: 15-25 minutes - CODE STATUS was discussed, patient remains full code. Surrogate decision-maker unchanged. Multiple medical problems were addressed. More than 50% of the time spent coordinating care, discussing management plans with involved caregivers. Management plans discussed with involved personnels. Medical decision making was of moderate to high complexity , patient's has multiple comorbidities. Medications reviewed and adjusted accordingly: Yes
== END 2017-03-26 18:00 | disposition home health service (06) | DRG 418 ==
LOC: ER 18:01 → EH 22:08 → UNDOADMIN 22:17 → EH 22:17 → 5 23:25 → ICU 03-24 02:05 → 5 03-25 13:56
PROVIDERS: ADMIT Family Medicine; ATTEND Family Medicine
PROC: BF140ZZ Fluoroscopy of Gallbladder, Bile Ducts and Pancreatic Ducts using High Osmolar Contrast (ICD-10-PCS; 2017-03-22)
PROC: 0FT44ZZ Resection of Gallbladder, Percutaneous Endoscopic Approach (ICD-10-PCS; principal; 2017-03-22 13:00)
DX: K85.10 Biliary acute pancreatitis without necrosis or infection (principal); K80.00 Calculus of gallbladder with acute cholecystitis without obstruction; N17.9 Acute kidney failure, unspecified; E87.2 Acidosis; I48.91 Unspecified atrial fibrillation; E87.6 Hypokalemia; E86.0 Dehydration; I25.10 Atherosclerotic heart disease of native coronary artery without angina pectoris; E78.00 Pure hypercholesterolemia, unspecified; I10 Essential (primary) hypertension; Z79.899 Other long term (current) drug therapy; I25.2 Old myocardial infarction; Z90.710 Acquired absence of both cervix and uterus; Z96.653 Presence of artificial knee joint, bilateral; Z87.891 Personal history of nicotine dependence
CPT/HCPCS: 00790; 36415; 71010; 71020; 74177; 74181; 74300; 76705; 78582; 80048; 80053; 80076; 81001; 83605; 83690; 83735; 84443; 84484; 85025; 85379; 85610; 85730; 87086; 88304; 93005; 93010; 93306; 94640; 94799; 96361; 96374; 96375; 96376; 99285; A9540; A9567; G8978-GP; G8979-GP; J0282; J0330; J0690; J1100; J1170; J1335; J1644; J2250; J2270; J2370; J2405; J2543; J2704; J3010; J3475; J3480; J3490; J7030; J7060; Q9967; Q9969; S0028

== ENCOUNTER 2019-01-27 16:19 | Inpatient (IN) | payer OTHER, MEDICARE, MEDICAID ==
--- NOTE | 2019-01-27 16:48 | ER Document Report ---
ED Medical Screen (RME) - General Chief Complaint: Allergy Symptoms Stated Complaint: DIFFICULTY BREATHING,WEAKNESS Time Seen by Provider: 01/27/19 16:42 Mode of Arrival: Ambulatory Information source: Patient TRAVEL OUTSIDE OF THE [place] IN LAST 30 DAYS: No - HPI Notes: 01/27/19 16:47 83-year-old female with a history of A. fib and pneumonia presents ED for complaints of weakness, cough, suspect worsening pneumonia. Has brought by EMS, patient was recently hospitalized at [facility] for pneumonia approximately 2 weeks ago. Patient is not currently taking any antibiotics. Denies any shortness of breath nausea vomiting or diarrhea, decreased diet, drinking without issues. No rashes. Has not tried any [id number] medications. Other than noted above, the 12 point review of systems was reviewed with the patient and were negative, all pertinent findings are included in the HPI. PHYSICAL EXAMINATION: Vital signs reviewed. GENERAL: Well-appearing, well-nourished and in no acute distress. HEAD: Atraumatic, normocephalic. CV: bradycardia LUNGS: Diminished lung sounds on her basis no respiratory distress ABD: generalized abd pain Musculoskeletal: Normal range of motion NEUROLOGICAL: Normal speech PSYCH: Normal mood, normal affect. MDM: Patient seen and examined for rapid initial assessment. Vital signs reviewed. A comprehensive ED assessment and evaluation of the patient, analysis of test results and completion of the medical decision making process will be conducted by additional ED providers. *Note is created using voice recognition software and may contain spelling, syntax or grammatical errors. - Related Data Allergies/Adverse Reactions: No Known Allergies Allergy (Verified 01/27/19 16:20) Past Medical History - Past Medical History Cardiac Medical History: Reports: Hx Coronary Artery Disease, Hx Heart Attack, Hx Hypertension, Hx Heart Murmur - Long-standing, per patient Denies: Hx Atrial Fibrillation, Hx Congestive Heart Failure, Hx DVT, Hx Hypercholesterolemia, Hx Pulmonary Embolism Pulmonary Medical History: Denies: Hx Asthma, Hx COPD, Hx Sleep Apnea Neurological Medical History: Denies: Hx Seizures Endocrine Medical History: Denies: Hx Diabetes Mellitus Type 1, Hx Diabetes Mellitus Type 2, Hx Hyperthyroidism, Hx Hypothyroidism GI Medical History: Denies: Hx Cirrhosis, Hx Gastroesophageal Reflux Disease, Hx Hepatitis Musculoskeltal Medical History: Reports Hx Arthritis Psychiatric Medical History: Denies: Hx Depression Infectious Medical History: Denies: Hx Hepatitis Past Surgical History: Reports: Hx Hysterectomy, Hx Orthopedic Surgery - Bilateral knee replacement, Other - Benign left breast biopsy Physical Exam - Vital signs Vitals: Temp Pulse Resp BP Pulse Ox 97.6 F 57 L 14 132/49 H 99 01/27/19 16:26 01/27/19 16:26 01/27/19 16:26 01/27/19 16:26 01/27/19 16:26 Course - Vital Signs Vital signs: Temp Pulse Resp BP Pulse Ox 97.6 F 57 L 14 132/49 H 99 01/27/19 16:26 01/27/19 16:26 01/27/19 16:26 01/27/19 16:26 01/27/19 16:26
--- NOTE | 2019-01-27 17:07 | RADIOLOGY REPORT (SQ) ---
EXAM DESCRIPTION: CHEST 2 VIEWS COMPLETED DATE/TIME: 01/27/2019 4:52 pm REASON FOR STUDY: cough COMPARISON: CT chest 01/01/2011 Chest films 03/17/2017, 03/24/2017 EXAM PARAMETERS: NUMBER OF VIEWS: two views TECHNIQUE: Digital Frontal and Lateral radiographic views of the chest acquired. RADIATION DOSE: NA LIMITATIONS: none FINDINGS: LUNGS AND PLEURA: There is volume loss and consolidation in the right upper lobe, with tim vation of the right minor fissure and consolidation in the posterior aspect right upper lobe worrisom e for pneumonia. Endobronchial lesion causing postobstructive pneumonia may be present. CT chest is recommended for followup. Left lung is well inflated and clear. No pleural effusions. No pneumothorax. MEDIASTINUM AND HILAR STRUCTURES: No masses or contour abnormalities. HEART AND VASCULAR STRUCTURES: Heart normal size. No evidence for failure. BONES: No acute findings. HARDWARE: Clips right upper quadrant post cholecystectomy OTHER: No other significant finding. IMPRESSION: Volume loss and consolidation in the right upper lobe. Postobstructive pneumonia could be present. CT chest with IV contrast recommended for followup. TECHNICAL DOCUMENTATION: JOB ID: [id number] [employer]- All Rights Reserved Reading location - IP/workstation name: [email or web address]
[2019-01-27 20:26] LABS: ABSOLUTE BASOPHILS # (AUTO) 0.1 10^3/uL (0.0-0.2); ABSOLUTE EOSINOPHILS # (AUTO) 0.1 10^3/uL (0.0-0.6); ABSOLUTE LYMPHOCYTES (AUTO) 3.2 10^3/uL (0.5-4.7); ABSOLUTE MONOCYTES (AUTO) 0.8 10^3/uL (0.1-1.4); ABSOLUTE NEUT (AUTO) 6.7 10^3/uL (1.7-8.2); BASOPHILS % (AUTO) 0.6 % (0-2); EOSINOPHILS % (AUTO) 1.3 % (0-6); HEMATOCRIT 41.2 % (36.0-47.0); HEMOGLOBIN 13.8 g/dL (12.0-15.5); LYMPHOCYTES % (AUTO) 29.3 % (13-45); MEAN CORPUSCULAR HEMOGLOBIN 29.6 pg (27.0-33.4); MEAN CORPUSCULAR HGB CONC 33.5 g/dL (32.0-36.0); MEAN CORPUSCULAR VOLUME 88 fl (80-97); MONOCYTES % (AUTO) 7.7 % (3-13); PLATELET COUNT 317 10^3/uL (150-450); RED BLOOD COUNT 4.66 10^6/uL (3.72-5.28); RED CELL DISTRIBUTION WIDTH 13.5 % (11.5-14.0); SEGMENTED NEUTROPHILS % (AUTO) 61.1 % (42-78); TOTAL CELLS COUNTED % (AUTO) 100 %; WHITE BLOOD COUNT 10.9 10^3/uL (4.0-10.5)
[2019-01-27 20:48] LABS: ALANINE AMINOTRANSFERASE 15 U/L (9-52); ALBUMIN 4.3 g/dL (3.5-5.0); ALKALINE PHOSPHATASE 67 U/L (38-126); ANION GAP 12 (5-19); ASPARTATE AMINO TRANSFERASE 18 U/L (14-36); BILIRUBIN,DIRECT 0.4 mg/dL (0.0-0.4); BILIRUBIN,TOTAL 0.9 mg/dL (0.2-1.3); BLOOD UREA NITROGEN 26 mg/dL (7-20); CALCIUM 9.8 mg/dL (8.4-10.2); CARBON DIOXIDE 26 mmol/L (22-30); CHLORIDE 101 mmol/L (98-107); CREATINE KINASE 51 U/L (30-135); GLUCOSE 105 mg/dL (75-110); POTASSIUM 5.4 mmol/L (3.6-5.0)
[2019-01-27] MEDS ORDERED: NORMAL SALINE 1000 ML 1,000 ML IV ONE ×2 (20:58→23:51)
[2019-01-27 20:59] LABS: CREATINE KINASE MB 0.26 ng/mL (<4.55); TROPONIN I < 0.012 ng/mL
--- NOTE | 2019-01-27 21:06 | ER Document Report ---
ED General - General Chief Complaint: Allergy Symptoms Stated Complaint: DIFFICULTY BREATHING,WEAKNESS Time Seen by Provider: 01/27/19 16:42 Mode of Arrival: Ambulatory TRAVEL OUTSIDE OF THE [place] IN LAST 30 DAYS: No - HPI Patient complains to provider of: Patient complains of nausea vomiting for the past 3 days. Onset: Other - 3 days. Onset/Duration: Sudden Quality of pain: No pain - Cough productive of white sputum. Exacerbated by: Denies Relieved by: Denies Similar symptoms previously: Yes Recently seen / treated by doctor: Yes - She was recently hospitalized for pneumonia in another facility. - Related Data Allergies/Adverse Reactions: No Known Allergies Allergy (Verified 01/27/19 16:20) Past Medical History - General Information source: Patient - Social History Smoking Status: Never Smoker Frequency of alcohol use: None Drug Abuse: None Family History: Reviewed & Not Pertinent, Hypertension Patient has suicidal ideation: No Patient has homicidal ideation: No - Past Medical History Cardiac Medical History: Reports: Hx Coronary Artery Disease, Hx Heart Attack, Hx Hypertension, Hx Heart Murmur - Long-standing, per patient Denies: Hx Atrial Fibrillation, Hx Congestive Heart Failure, Hx DVT, Hx Hypercholesterolemia, Hx Pulmonary Embolism Pulmonary Medical History: Denies: Hx Asthma, Hx COPD, Hx Sleep Apnea Neurological Medical History: Denies: Hx Seizures Endocrine Medical History: Denies: Hx Diabetes Mellitus Type 1, Hx Diabetes Mellitus Type 2, Hx Hyperthyroidism, Hx Hypothyroidism Renal/ Medical History: Denies: Hx Peritoneal Dialysis GI Medical History: Denies: Hx Cirrhosis, Hx Gastroesophageal Reflux Disease, Hx Hepatitis Musculoskeletal Medical History: Reports Hx Arthritis Psychiatric Medical History: Denies: Hx Depression Infectious Medical History: Denies: Hx Hepatitis Past Surgical History: Reports: Hx Hysterectomy, Hx Orthopedic Surgery - Bilateral knee replacement, Other - Benign left breast biopsy - Immunizations Hx Pneumococcal Vaccination: 07/28/09 Review of Systems - Review of Systems Constitutional: No symptoms reported EENT: No symptoms reported Cardiovascular: No symptoms reported Respiratory: Cough, Sputum Gastrointestinal: Nausea, Vomiting Genitourinary: No symptoms reported Female Genitourinary: No symptoms reported Musculoskeletal: No symptoms reported Skin: No symptoms reported Hematologic/Lymphatic: No symptoms reported Neurological/Psychological: No symptoms reported Physical Exam - Vital signs Vitals: Temp Pulse Resp BP Pulse Ox 97.6 F 57 L 14 132/49 H 99 01/27/19 16:26 01/27/19 16:26 01/27/19 16:26 01/27/19 16:26 01/27/19 16:26 Interpretation: Normal - General General appearance: Appears well, Alert, Other - Dry oral mucosa In distress: None - HEENT Head: Normocephalic, Atraumatic Eyes: Normal Pupils: PERRL Mucous membranes: Dry Pharynx: Normal - Respiratory Respiratory status: No respiratory distress Chest status: Nontender Breath sounds: Normal Chest palpation: Normal - Cardiovascular Rhythm: Regular Heart sounds: Normal auscultation Murmur: No - Abdominal Inspection: Normal Distension: No distension Bowel sounds: Normal Tenderness: Nontender Organomegaly: No organomegaly - Back Back: Normal, Nontender - Extremities General upper extremity: Normal inspection, Nontender, Normal color, Normal ROM, Normal temperature General lower extremity: Normal inspection, Nontender, Normal color, Normal ROM, Normal temperature, Normal weight bearing. No: Sally's sign - Neurological Neuro grossly intact: Yes Cognition: Normal Orientation: AAOx4 Bradford Coma Scale Eye Opening: Spontaneous Bradford Coma Scale Verbal: Oriented Bradford Coma Scale Motor: Obeys Commands Bradford Coma Scale Total: 15 Speech: Normal Motor strength normal: LUE, RUE, LLE, RLE Sensory: Normal - Psychological Associated symptoms: Normal affect, Normal mood - Skin Skin Temperature: Warm Skin Moisture: Dry Skin Color: Normal Course - Vital Signs Vital signs: Temp Pulse Resp BP Pulse Ox 97.9 F 50 L 16 143/56 H 99 01/28/19 16:00 01/28/19 16:00 01/28/19 16:00 01/28/19 16:00 01/28/19 16:00 - Laboratory Result Diagrams: 01/28/19 08:48 01/28/19 07:22 Laboratory results interpreted by me: 01/27/19 01/27/19 20:10 20:10 WBC 10.9 H Potassium 5.4 H BUN 26 H Creatinine 2.30 H Est GFR ( Amer) 24 L Est GFR (Non-Af Amer) 20 L - Diagnostic Test Radiology reviewed: Image reviewed, Reports reviewed Radiology results interpreted by me: 01/28/19 19:54 Right upper lobe pneumonia. - Transfer of Care Notes: 01/28/19 19:54 Patient will be admitted by the hospitalist on-call Dr. Cooper Church for further evaluation and management. Discharge - Discharge Clinical Impression: Dehydration ARF (acute renal failure) Qualifiers: Acute renal failure type: unspecified Qualified Code(s): N17.9 - Acute kidney failure, unspecified Intractable nausea and vomiting Qualifiers: Vomiting type: unspecified Qualified Code(s): R11.2 - Nausea with vomiting, unspecified Pneumonia Qualifiers: Pneumonia type: due to unspecified organism Laterality: right Lung location: upper lobe of lung Qualified Code(s): J18.1 - Lobar pneumonia, unspecified organism Condition: Stable Disposition: ADMITTED INPATIENT Admitting Provider: Ranjit (Hospitalist) Unit Admitted: Medical Floor
--- NOTE | 2019-01-27 23:37 | EKG REPORT ---
SEVERITY:- ABNORMAL ECG - SINUS RHYTHM LVH WITH SECONDARY REPOLARIZATION ABNORMALITY : Confirmed by: Alessia Jim 27-Jan-2019 23:36:53
[2019-01-27] MEDS ORDERED: HYDRALAZINE HCL INJ/PF 20 MG/1 ML SDV IV PRN (23:49)
[2019-01-27] MEDS ORDERED: IPRATROPIUM/ALBUTEROL 0.5-2.5 MG/3 ML AMPUL NEB PRN (23:49)
[2019-01-27] MEDS ORDERED: ACETAMINOPHEN 325 MG TABLET PO PRN (23:49)
[2019-01-27] MEDS ORDERED: PIPERACILLIN/TAZOBACTAM 3.375 GM VIAL IV ONE (23:50)
[2019-01-27] MEDS ORDERED: LEVOFLOXACIN 750 MG/D5W RTU 750 MG/150 ML RTUPB IV ONE (23:51)
[2019-01-27] MEDS ORDERED: AZITHROMYCIN INJ 500 MG VIAL IV PRN (23:56)
[2019-01-28] MEDS ORDERED: CEFTRIAXONE 1 GM/D5W RTU 1 GM/50 ML RTUPB IV ONE
[2019-01-28] MEDS ORDERED: LEVOFLOXACIN 750 MG/D5W RTU 750 MG/150 ML RTUPB IV ONE (01:00)
[2019-01-28] MEDS: IPRATROPIUM/ALBUTEROL 0.5-2.5 MG/3 ML AMPUL NEB SCH ×4 (02:12→20:23)
--- NOTE | 2019-01-28 05:18 | PDOC H&P ---
History of Present Illness Admission Date/PCP: 01/28/19 00:10 Patient complains of: Shortness of breath and fever History of Present Illness: CHRISTINA SOMMER is a 83 year old female with a past medical history of depression, anxiety, coronary artery disease, diastolic heart failure and recent pneumonia requiring admission to [facility] 10 days ago. Patient presents with 3 days of worsening cough and shortness of breath then developed fever prompting evaluation emergency room where she is found to have leukocytosis, acute renal failure, hypotension and a right upper lobe ammonia. She started on empiric antibiotics and IV fluid challenge and referred to the hospitalist for admission. Past Medical History Cardiac Medical History: Reports: Coronary Artery Disease, Myocardial Infarction, Hypertension, Heart Murmur - Long-standing, per patient Denies: Atrial Fibrillation, Congestive Heart Failure, DVT, Hyperlipidema, Pulmonary Embolism Pulmonary Medical History: Denies: Asthma, Chronic Obstructive Pulmonary Disease (COPD), Sleep Apnea Neurological Medical History: Denies: Seizures Endocrine Medical History: Denies: Diabetes Mellitus Type 1, Diabetes Mellitus Type 2, Hyperthyroidism, Hypothyroidism GI Medical History: Denies: Cirrhosis, Gastroesophageal Reflux Disease, Hepatitis Musculoskeltal Medical History: Reports: Arthritis Psychiatric Medical History: Denies: Depression Past Surgical History Past Surgical History: Reports: Hysterectomy, Orthopedic Surgery - Bilateral knee replacement, Other - Benign left breast biopsy Social History Information Source: Patient, [facility] Records Smoking Status: Never Smoker Frequency of Alcohol Use: None Hx Recreational Drug Use: No Drugs: None Hx Prescription Drug Abuse: No - Advance Directive Resuscitation Status: Full Code Family History Family History: Hypertension Parental Family History Reviewed: Yes Children Family History Reviewed: Yes Sibling(s) Family History Reviewed.: Yes Medication/Allergy Home Medications: Amlodipine Besylate [Norvasc 5 mg Tablet] 5 mg PO DAILY #30 tablet 03/26/17 Lisinopril [Prinivil 10 mg Tablet] 10 mg PO Q12 #60 tablet 03/26/17 Metoprolol Succinate [Toprol Xl 50 mg Tab.sr] 50 mg PO Q12 #60 tab.sr.24h 03/26/17 Allergies/Adverse Reactions: No Known Allergies Allergy (Verified 01/27/19 16:20) Review of Systems Constitutional: ABSENT: chills, fever(s), headache(s), weight gain, weight loss Eyes: ABSENT: visual disturbances Ears: ABSENT: hearing changes Cardiovascular: ABSENT: chest pain, dyspnea on exertion, edema, orthropnea, palpitations Respiratory: ABSENT: cough, hemoptysis Gastrointestinal: ABSENT: abdominal pain, constipation, diarrhea, hematemesis, hematochezia, nausea, vomiting Genitourinary: ABSENT: dysuria, hematuria Musculoskeletal: ABSENT: joint swelling Integumentary: ABSENT: rash, wounds Neurological: ABSENT: abnormal gait, abnormal speech, confusion, dizziness, focal weakness, syncope Psychiatric: ABSENT: anxiety, depression, homidical ideation, suicidal ideation Endocrine: ABSENT: cold intolerance, heat intolerance, polydipsia, polyuria Hematologic/Lymphatic: ABSENT: easy bleeding, easy bruising Physical Exam Vital Signs: Temp Pulse Resp BP Pulse Ox 97.4 F 56 L 18 137/47 H 100 01/28/19 00:52 01/28/19 00:52 01/28/19 04:01 01/28/19 04:01 01/28/19 04:01 Intake & Output 01/26/19 01/27/19 01/28/19 11:59 11:59 11:59 Weight 62.5 kg General appearance: PRESENT: cooperative, mild distress, thin Head exam: PRESENT: atraumatic, normocephalic Eye exam: PRESENT: conjunctiva pink, EOMI, PERRLA. ABSENT: scleral icterus Ear exam: PRESENT: normal external ear exam Mouth exam: PRESENT: moist, tongue midline Neck exam: ABSENT: carotid bruit, JVD, lymphadenopathy, thyromegaly Respiratory exam: PRESENT: accessory muscle use, clear to auscultation talha, prolonged expiratory phas, rales, retraction, rhonchi, tachypnea. ABSENT: wheezes Cardiovascular exam: PRESENT: RRR. ABSENT: diastolic murmur, rubs, systolic murmur Pulses: PRESENT: normal dorsalis pedis pul Vascular exam: PRESENT: normal capillary refill GI/Abdominal exam: PRESENT: hypoactive bowel sounds, normal bowel sounds, soft. ABSENT: distended, guarding, mass, organolmegaly, rebound, tenderness Rectal exam: PRESENT: deferred Extremities exam: PRESENT: full ROM. ABSENT: calf tenderness, clubbing, pedal edema Neurological exam: PRESENT: alert, awake, oriented to person, oriented to place, oriented to time, oriented to situation, CN II-XII grossly intact. ABSENT: motor sensory deficit Psychiatric exam: PRESENT: appropriate affect, normal mood. ABSENT: homicidal ideation, suicidal ideation Skin exam: PRESENT: dry, intact, warm. ABSENT: cyanosis, rash Results Laboratory Results: 01/27/19 20:10 01/27/19 20:10 01/27/19 01/27/19 20:10 20:10 WBC 10.9 H RBC 4.66 Hgb 13.8 Hct 41.2 MCV 88 MCH 29.6 MCHC 33.5 RDW 13.5 Plt Count 317 Seg Neutrophils % 61.1 Lymphocytes % 29.3 Monocytes % 7.7 Eosinophils % 1.3 Basophils % 0.6 Absolute Neutrophils 6.7 Absolute Lymphocytes 3.2 Absolute Monocytes 0.8 Absolute Eosinophils 0.1 Absolute Basophils 0.1 Sodium 139.0 Potassium 5.4 H Chloride 101 Carbon Dioxide 26 Anion Gap 12 BUN 26 H Creatinine 2.30 H Est GFR ( Amer) 24 L Est GFR (Non-Af Amer) 20 L Glucose 105 Calcium 9.8 Total Bilirubin 0.9 AST 18 ALT 15 Alkaline Phosphatase 67 Total Protein 8.0 Albumin 4.3 01/27/19 01/27/19 20:10 20:10 Creatine Kinase 51 CK-MB (CK-2) 0.26 Troponin I < 0.012 Impressions: Chest X-Ray 01/27/19 16:42 IMPRESSION: Volume loss and consolidation in the right upper lobe. Postobstructive pneumonia could be present. CT chest with IV contrast recommended for followup. Assessment and Plan - Diagnosis (1) Pneumonia Qualifiers: Pneumonia type: due to unspecified organism Laterality: right Lung location: upper lobe of lung Qualified Code(s): J18.1 - Lobar pneumonia, unspecified organism Is this a current diagnosis for this admission?: Yes Plan: Pneumonia care set deployed, empiric antibiotics initiated, follow-up CBC, blood culture and medical records from [facility]. (2) ARF (acute renal failure) Qualifiers: Acute renal failure type: unspecified Qualified Code(s): N17.9 - Acute kidney failure, unspecified Is this a current diagnosis for this admission?: Yes Plan: Avoid nephrotoxic meds and doses, IV fluid challenge (3) Intractable nausea and vomiting Qualifiers: Vomiting type: unspecified Qualified Code(s): R11.2 - Nausea with vomiting, unspecified Is this a current diagnosis for this admission?: Yes Plan: Symptomatic management (4) Constipation Is this a current diagnosis for this admission?: Yes Plan: Trial lactulose, Colace daily - Time Time Spent with patient: 25-34 minutes - Inpatient Certification Medical Necessity: Need Close Monitoring Due to Risk of Patient Decompensation
[2019-01-28] MEDS: HEPARIN SOD (PORCINE) 5,000 UNIT/ML 1 ML SYRINGE SUBCUT SCH ×3 (06:00→22:34)
[2019-01-28] MEDS ORDERED: ONDANSETRON HCL INJ/PF 4 MG/2 ML SDV IV PRN (06:06)
[2019-01-28 06:40] LABS: APPEARANCE,URINE SLIGHTLY-CLOUDY; BILIRUBIN,URINE NEGATIVE (NEGATIVE); COLOR,URINE YELLOW; GLUCOSE, URINE NEGATIVE (NEGATIVE); KETONES,URINE 20 mg/dL (NEGATIVE); LEUKOCYTE ESTERASE,URINE NEGATIVE (NEGATIVE); NITRITE,URINE NEGATIVE (NEGATIVE); PROTEIN,URINE 30 mg/dL (NEGATIVE); URINE SPECIFIC GRAVITY 1.016; UROBILINOGEN,URINE NEGATIVE mg/dL (<2.0)
[2019-01-28 07:51] LABS: ANION GAP 9 (5-19); BLOOD UREA NITROGEN 24 mg/dL (7-20); CALCIUM 8.8 mg/dL (8.4-10.2); CARBON DIOXIDE 26 mmol/L (22-30); CHLORIDE 103 mmol/L (98-107); GLUCOSE 112 mg/dL (75-110); POTASSIUM 5.1 mmol/L (3.6-5.0); SODIUM 138.2 mmol/L (137-145)
[2019-01-28 08:57] LABS: ABSOLUTE BASOPHILS # (AUTO) 0.1 10^3/uL (0.0-0.2); ABSOLUTE MONOCYTES (AUTO) 0.5 10^3/uL (0.1-1.4); MEAN CORPUSCULAR HEMOGLOBIN 29.4 pg (27.0-33.4); PLATELET COUNT 260 10^3/uL (150-450); TOTAL CELLS COUNTED % (AUTO) 100 %
[2019-01-28 09:00] LABS: ABSOLUTE EOSINOPHILS # (AUTO) 0.1 10^3/uL (0.0-0.6); ABSOLUTE NEUT (AUTO) 5.6 10^3/uL (1.7-8.2); BASOPHILS % (AUTO) 0.8 % (0-2); EOSINOPHILS % (AUTO) 0.7 % (0-6); HEMATOCRIT 34.1 % (36.0-47.0); LYMPHOCYTES % (AUTO) 23.9 % (13-45); MEAN CORPUSCULAR HGB CONC 33.4 g/dL (32.0-36.0); MEAN CORPUSCULAR VOLUME 88 fl (80-97); MONOCYTES % (AUTO) 6.2 % (3-13); RED BLOOD COUNT 3.88 10^6/uL (3.72-5.28); RED CELL DISTRIBUTION WIDTH 13.7 % (11.5-14.0); SEGMENTED NEUTROPHILS % (AUTO) 68.4 % (42-78); WHITE BLOOD COUNT 8.2 10^3/uL (4.0-10.5)
[2019-01-28 09:01] LABS: HEMOGLOBIN 11.4 g/dL (12.0-15.5)
[2019-01-28] MEDS: NORMAL SALINE 1000 ML 1,000 ML IV PRN ×2 (09:27→19:00)
[2019-01-28] MEDS: LACTULOSE SYRUP 20 GM/30 ML UDCUP PO SCH (09:54)
--- NOTE | 2019-01-28 18:41 | Progress Note Acknowledgement ---
Progress Note Acknowledgement Progess Note Acknowledgement: I, the undersigned member of the medical staff with appropriate privileges and with supervisory authority over Laura Owen, a [facility] allied health professional, acknowledge that I have reviewed the progress notes entered on this patient, and in my professional judgment believe that the assessment made and/or any care evidenced was appropriate
--- NOTE | 2019-01-28 18:41 | PDOC PROGRESS REPORT ---
Subjective Progress Note for:: 01/28/19 Subjective:: CHRISTINA SOMMER is a 83 year old female with a past medical history of depression, anxiety, coronary artery disease, diastolic heart failure and recent pneumonia requiring admission to [facility] 10 days ago who was admitted 01/27/2019 for pneumonia and acute kidney injury. Patient is seen on afternoon rounds with family members present. She is found a mbulating in her room on room air without difficulty. She tells me that she is comfortable and has no current complaints. Fever, chills, chest pain, palpitations, dyspnea, orthopnea, cough, abdominal pain, nausea vomiting and diarrhea. She has no new questions or concerns at this time. No concerns per family. No concerns per nursing. She denies Reason For Visit: HYPERKALEMIA,ASF PNEUMONIA Physical Exam Vital Signs: Temp Pulse Resp BP Pulse Ox 97.9 F 50 L 16 143/56 H 99 01/28/19 16:00 01/28/19 16:00 01/28/19 16:00 01/28/19 16:00 01/28/19 16:00 Intake & Output 01/27/19 01/28/19 01/29/19 06:59 06:59 06:59 Intake Total 1200 400 Balance 1200 400 Weight 62.5 kg General appearance: PRESENT: no acute distress, cooperative, thin, well- developed, well-nourished Head exam: PRESENT: atraumatic, normocephalic Eye exam: PRESENT: conjunctiva pink, EOMI, PERRLA. ABSENT: scleral icterus Ear exam: PRESENT: normal external ear exam Mouth exam: PRESENT: moist, tongue midline Teeth exam: PRESENT: poor dentation Neck exam: ABSENT: carotid bruit, JVD, lymphadenopathy, thyromegaly Respiratory exam: PRESENT: prolonged expiratory phas, rhonchi, symmetrical, unlabored. ABSENT: rales, wheezes Cardiovascular exam: PRESENT: RRR, +S1, +S2. ABSENT: diastolic murmur, rubs, systolic murmur Pulses: PRESENT: normal dorsalis pedis pul Vascular exam: PRESENT: normal capillary refill GI/Abdominal exam: PRESENT: normal bowel sounds, soft. ABSENT: distended, guarding, mass, organolmegaly, rebound, tenderness Rectal exam: PRESENT: deferred Extremities exam: PRESENT: full ROM. ABSENT: calf tenderness, clubbing, pedal edema Neurological exam: PRESENT: alert, awake, oriented to person, oriented to place, oriented to time, oriented to situation, CN II-XII grossly intact. ABSENT: motor sensory deficit Psychiatric exam: PRESENT: appropriate affect, normal mood. ABSENT: homicidal ideation, suicidal ideation Skin exam: PRESENT: dry, intact, warm. ABSENT: cyanosis, rash Results Laboratory Results: 01/28/19 08:48 01/28/19 07:22 01/27/19 01/27/19 01/28/19 20:10 20:10 06:08 WBC 10.9 H RBC 4.66 Hgb 13.8 Hct 41.2 MCV 88 MCH 29.6 MCHC 33.5 RDW 13.5 Plt Count 317 Seg Neutrophils % 61.1 Lymphocytes % 29.3 Monocytes % 7.7 Eosinophils % 1.3 Basophils % 0.6 Absolute Neutrophils 6.7 Absolute Lymphocytes 3.2 Absolute Monocytes 0.8 Absolute Eosinophils 0.1 Absolute Basophils 0.1 Sodium 139.0 Potassium 5.4 H Chloride 101 Carbon Dioxide 26 Anion Gap 12 BUN 26 H Creatinine 2.30 H Est GFR ( Amer) 24 L Est GFR (Non-Af Amer) 20 L Glucose 105 Calcium 9.8 Total Bilirubin 0.9 AST 18 ALT 15 Alkaline Phosphatase 67 Total Protein 8.0 Albumin 4.3 Urine Color YELLOW Urine Appearance SLIGHTLY-CLOUDY Urine pH 5.0 Ur Specific [place] 1.016 Urine Protein 30 H Urine Glucose (UA) NEGATIVE Urine Ketones 20 H Urine Blood SMALL H Urine Nitrite NEGATIVE Ur Leukocyte Esterase NEGATIVE Urine WBC (Auto) 5 Urine RBC (Auto) 2 01/28/19 01/28/19 01/28/19 07:22 07:22 08:48 WBC Cancelled 8.2 RBC Cancelled 3.88 Hgb Cancelled 11.4 L D Hct Cancelled 34.1 L MCV Cancelled 88 MCH Cancelled 29.4 MCHC Cancelled 33.4 RDW Cancelled 13.7 Plt Count Cancelled 260 Seg Neutrophils % Cancelled 68.4 Lymphocytes % Cancelled 23.9 Monocytes % Cancelled 6.2 Eosinophils % Cancelled 0.7 Basophils % Cancelled 0.8 Absolute Neutrophils Cancelled 5.6 Absolute Lymphocytes Cancelled 2.0 Absolute Monocytes Cancelled 0.5 Absolute Eosinophils Cancelled 0.1 Absolute Basophils Cancelled 0.1 Sodium 138.2 Potassium 5.1 H Chloride 103 Carbon Dioxide 26 Anion Gap 9 BUN 24 H Creatinine 1.63 H Est GFR ( Amer) 36 L Est GFR (Non-Af Amer) 30 L Glucose 112 H Calcium 8.8 Total Bilirubin AST ALT Alkaline Phosphatase Total Protein Albumin Urine Color Urine Appearance Urine pH Ur Specific [place] Urine Protein Urine Glucose (UA) Urine Ketones Urine Blood Urine Nitrite Ur Leukocyte Esterase Urine WBC (Auto) Urine RBC (Auto) 01/27/19 01/27/19 20:10 20:10 Creatine Kinase 51 CK-MB (CK-2) 0.26 Troponin I < 0.012 Impressions: Chest X-Ray 01/27/19 16:42 IMPRESSION: Volume loss and consolidation in the right upper lobe. Postobstructive pneumonia could be present. CT chest with IV contrast recommended for followup. Assessment and Plan - Diagnosis (1) Pneumonia Qualifiers: Pneumonia type: due to unspecified organism Laterality: right Lung location: upper lobe of lung Qualified Code(s): J18.1 - Lobar pneumonia, unspecified organism Is this a current diagnosis for this admission?: Yes Plan: Sputum and blood cultures pending. Patient is admitted to the medical floor on continuous cardiac telemetry. She is provided supplemental oxygen as needed to maintain saturations >90% She is provided scheduled and as needed nebulizer treatments. She has been empirically placed on IV azithromycin and ceftriaxone. Will adjust as cultures result. Incentive spirometer and flutter valve to bedside. As the patient's chest x-ray shows a right upper lobe postobstructive pneumonia with recommendations for follow-up CT imaging, will plan for CT of the chest with contrast tomorrow when creatinine is further improved. Consider pulmonary consultation. (2) ARF (acute renal failure) Qualifiers: Acute renal failure type: unspecified Qualified Code(s): N17.9 - Acute kidney failure, unspecified Is this a current diagnosis for this admission?: Yes Plan: Improved; Cr 2.30-> 1.63 Secondary to dehydration related to poor p.o. intake and nausea and vomiting. Continue gentle IV fluids. Encourage p.o. fluids. Avoid nephrotoxic medications as able. Daily chemistries. (3) Constipation Is this a current diagnosis for this admission?: Yes Plan: Resolved following Lactulose. Continue Colace daily. (4) Intractable nausea and vomiting Qualifiers: Vomiting type: unspecified Qualified Code(s): R11.2 - Nausea with vomiting, unspecified Is this a current diagnosis for this admission?: Yes Plan: Gentle IV fluids as above. Diet as tolerated. Antiemetics as needed. - Time Time Spent with patient: 25-34 minutes Medications reviewed and adjusted accordingly: Yes Anticipated discharge: Home Within: within 72 hours
[2019-01-28] MEDS ORDERED: CEFTRIAXONE 1 GM/D5W RTU 1 GM/50 ML RTUPB IV SCH (22:00)
[2019-01-28] MEDS: AZITHROMYCIN 500 MG in DEXTROSE 5%-WATER 250 ML IV SCH (23:58)
[2019-01-29] MEDS: IPRATROPIUM/ALBUTEROL 0.5-2.5 MG/3 ML AMPUL NEB SCH ×4 (01:58→20:52)
[2019-01-29 05:56] LABS: ABSOLUTE BASOPHILS # (AUTO) 0.1 10^3/uL (0.0-0.2); ABSOLUTE EOSINOPHILS # (AUTO) 0.1 10^3/uL (0.0-0.6); ABSOLUTE LYMPHOCYTES (AUTO) 1.5 10^3/uL (0.5-4.7); ABSOLUTE MONOCYTES (AUTO) 0.5 10^3/uL (0.1-1.4); ABSOLUTE NEUT (AUTO) 4.7 10^3/uL (1.7-8.2); EOSINOPHILS % (AUTO) 1.1 % (0-6); HEMATOCRIT 30.8 % (36.0-47.0); HEMOGLOBIN 10.4 g/dL (12.0-15.5); LYMPHOCYTES % (AUTO) 22.3 % (13-45); MEAN CORPUSCULAR HEMOGLOBIN 29.6 pg (27.0-33.4); MEAN CORPUSCULAR HGB CONC 33.7 g/dL (32.0-36.0); MEAN CORPUSCULAR VOLUME 88 fl (80-97); MONOCYTES % (AUTO) 7.2 % (3-13); PLATELET COUNT 227 10^3/uL (150-450); RED BLOOD COUNT 3.51 10^6/uL (3.72-5.28); RED CELL DISTRIBUTION WIDTH 13.2 % (11.5-14.0); SEGMENTED NEUTROPHILS % (AUTO) 68.4 % (42-78); TOTAL CELLS COUNTED % (AUTO) 100 %; WHITE BLOOD COUNT 6.9 10^3/uL (4.0-10.5)
[2019-01-29 06:20] LABS: ANION GAP 7 (5-19); BLOOD UREA NITROGEN 17 mg/dL (7-20); CALCIUM 8.3 mg/dL (8.4-10.2); CARBON DIOXIDE 22 mmol/L (22-30); CHLORIDE 110 mmol/L (98-107); GLUCOSE 98 mg/dL (75-110); POTASSIUM 4.2 mmol/L (3.6-5.0); SODIUM 138.6 mmol/L (137-145)
[2019-01-29] MEDS: NORMAL SALINE 1000 ML 1,000 ML IV PRN (06:36)
[2019-01-29] MEDS: HEPARIN SOD (PORCINE) 5,000 UNIT/ML 1 ML SYRINGE SUBCUT SCH ×3 (06:36→21:13)
[2019-01-29] MEDS ORDERED: NORMAL SALINE 1000 ML 1,000 ML IV PRN (08:22)
--- NOTE | 2019-01-29 09:11 | RADIOLOGY REPORT (SQ) ---
EXAM DESCRIPTION: CT CHEST WITH COMPLETED DATE/TIME: 01/29/2019 8:33 am REASON FOR STUDY: RUL volume loss on CXR; (+) PNA COMPARISON: 01/01/2011, 12/20/2018 CT chest Two-view chest 01/27/2019, 03/24/2017 TECHNIQUE: CT scan of the chest performed using helical scanning technique with dynamic intravenous contrast injection. Images reviewed with lung, soft tissue and bone windows. Reconstructed coronal and sagittal MPR and MIP images reviewed. All images stored on PACS. All CT scanners at this facility use dose modulation, iterative reconstruction, and/or weight based d osing when appropriate to reduce radiation dose to as low as reasonably achievable (ALARA). [facility]: Dose Right [facility]: CareDose [facility]: Dose Right [facility]: Teradose 4D [facility]: [employer] CONTRAST TYPE AND DOSE: contrast/concentration: Isovue 350.00 mg/ml; Total Contrast Delivered: 79.0 ml; Total Saline Delivered: 55.0 ml RENAL FUNCTION: Creatinine 1.1 RADIATION DOSE: CT Rad equipment meets quality standard of care and radiation dose reduction techniq ues were employed. CTDIvol: 3.8 mGy. DLP: 140 mGy-cm. . LIMITATIONS: None. FINDINGS: LUNGS AND PLEURA: Dense cavitary pneumonia is present in the right upper lobe with volume loss. Patchy alveolar nodules are seen elsewhere in the anterior aspect right upper lobe, and scatte red throughout the remainder of the lungs bilaterally. This could represent tuberculosis. Other aty pical or fungal pneumonia is possible. This finding was discussed with Laura hunt and 0900 hours 01/29/2019. Airways are patent. No pleural effusion or pneumothorax. Few pleural calcifications are present in the posterior right medial hemithorax. HILAR AND MEDIASTINAL STRUCTURES: No identified masses or abnormal nodes. HEART AND VASCULAR STRUCTURES: No aneurysm or dissection. No central pulmonary emboli. No pericardi al effusion. Calcified aortic valve HARDWARE: None in the chest. UPPER ABDOMEN: Clips post cholecystectomy THYROID AND OTHER SOFT TISSUES: No masses. No adenopathy. BONES: No significant finding. OTHER: No other significant finding. IMPRESSION: Cavitary pneumonia with volume loss in the right upper lobe. Patchy alveolar nodules ar e seen elsewhere in the lungs worrisome for tuberculosis with endobronchial spread of infection. Aty pical pneumonia, bacterial pneumonia could mimic this appearance. Findings discussed with Laura Owen MATERIALS AND PROCESSES MANAGER 0850 hours 01/29/2019 TECHNICAL DOCUMENTATION: JOB ID: [id number] Quality ID # [id number]: Final reports with documentation of one or more dose reduction techniques (e.g., Au tomated exposure control, adjustment of the mA and/or kV according to patient size, use of iterative reconstruction technique) 2010 [employer]- All Rights Reserved Reading location - IP/workstation name: [email or web address]
[2019-01-29] MEDS ORDERED: (PENDING PHARMACY ID) (Diltiazem Hcl [Diltiazem 24hr Er] 240 MG) PO SCH (10:00)
[2019-01-29] MEDS ORDERED: ERGOCALCIFEROL PO SCH (10:00)
[2019-01-29] MEDS ORDERED: (PENDING PHARMACY ID) (Lisinopril [Prinivil] 20 MG) PO SCH (10:00)
[2019-01-29] MEDS ORDERED: TUBERCULIN,PURIF.PROT.DERIV. 5 TU/0.1 ML TEST 1 ML VIAL ID ONE (11:00)
[2019-01-29] MEDS: METOPROLOL TARTRATE 25 MG TABLET PO SCH ×3 (13:06→23:00)
[2019-01-29] MEDS: LISINOPRIL 10 MG TABLET PO SCH (13:06)
[2019-01-29] MEDS: DOCUSATE SODIUM 100 MG CAPSULE PO SCH (13:06)
[2019-01-29] MEDS: DILTIAZEM HCL 240 MG CAPSULE.CR PO SCH (13:06)
[2019-01-29] MEDS: PANTOPRAZOLE SODIUM 20 MG TABLET.DR PO SCH (13:06)
[2019-01-29] MEDS: DIGOXIN 0.25 MG TABLET PO SCH (13:07)
[2019-01-29] MEDS: LACTULOSE SYRUP 20 GM/30 ML UDCUP PO SCH (13:08)
--- NOTE | 2019-01-29 18:18 | PDOC PROGRESS REPORT ---
Subjective Progress Note for:: 01/29/19 Subjective:: CHRISTINA SOMMER is a 83 year old female with a past medical history of depression, anxiety, coronary artery disease, diastolic heart failure and recent pneumonia requiring admission to [facility] 10 days ago who was admitted 01/27/2019 for pneumonia and acute kidney injury. Patient is seen on morning rounds. She is found resting in bed comfortably on r oom air. She tells me that she is comfortable and has no current complaints. Fever, chills, chest pain, palpitations, dyspnea, orthopnea, cough, abdominal pain, nausea vomiting and diarrhea. She has no new questions or concerns at this time. No concerns per nursing. She denies Reason For Visit: HYPERKALEMIA,ASF PNEUMONIA Physical Exam Vital Signs: Temp Pulse Resp BP Pulse Ox 98.3 F 69 16 116/43 L 97 01/29/19 03:17 01/29/19 08:44 01/29/19 08:44 01/29/19 03:17 01/29/19 08:44 Intake & Output 01/28/19 01/29/19 01/30/19 06:59 06:59 06:59 Intake Total 1200 2921 Balance 1200 2921 Weight 62.5 kg 62.5 kg General appearance: PRESENT: no acute distress, cooperative, thin, well- developed, well-nourished Head exam: PRESENT: atraumatic, normocephalic Eye exam: PRESENT: conjunctiva pink, EOMI, PERRLA. ABSENT: scleral icterus Ear exam: PRESENT: normal external ear exam Mouth exam: PRESENT: moist, tongue midline Neck exam: ABSENT: carotid bruit, JVD, lymphadenopathy, thyromegaly Respiratory exam: PRESENT: decreased breath sounds - throughout; absent RUL, symmetrical, unlabored. ABSENT: rales, rhonchi, wheezes Cardiovascular exam: PRESENT: RRR, +S1, +S2, systolic murmur. ABSENT: diastolic murmur, rubs Pulses: PRESENT: normal dorsalis pedis pul Vascular exam: PRESENT: normal capillary refill GI/Abdominal exam: PRESENT: normal bowel sounds, soft. ABSENT: distended, guarding, mass, organolmegaly, rebound, tenderness Rectal exam: PRESENT: deferred Extremities exam: PRESENT: full ROM. ABSENT: calf tenderness, clubbing, pedal edema Neurological exam: PRESENT: alert, awake, oriented to person, oriented to place, oriented to time, oriented to situation, CN II-XII grossly intact. ABSENT: motor sensory deficit Psychiatric exam: PRESENT: appropriate affect, normal mood. ABSENT: homicidal ideation, suicidal ideation Skin exam: PRESENT: dry, intact, warm. ABSENT: cyanosis, rash Results Laboratory Results: 01/29/19 05:18 01/29/19 05:18 01/29/19 01/29/19 05:18 05:18 WBC 6.9 RBC 3.51 L Hgb 10.4 L Hct 30.8 L MCV 88 MCH 29.6 MCHC 33.7 RDW 13.2 Plt Count 227 Seg Neutrophils % 68.4 Lymphocytes % 22.3 Monocytes % 7.2 Eosinophils % 1.1 Basophils % 1.0 Absolute Neutrophils 4.7 Absolute Lymphocytes 1.5 Absolute Monocytes 0.5 Absolute Eosinophils 0.1 Absolute Basophils 0.1 Sodium 138.6 Potassium 4.2 Chloride 110 H Carbon Dioxide 22 Anion Gap 7 BUN 17 Creatinine 1.07 Est GFR ( Amer) 59 L Est GFR (Non-Af Amer) 49 L Glucose 98 Calcium 8.3 L 01/27/19 01/27/19 20:10 20:10 Creatine Kinase 51 CK-MB (CK-2) 0.26 Troponin I < 0.012 Impressions: Chest X-Ray 01/27/19 16:42 IMPRESSION: Volume loss and consolidation in the right upper lobe. Postobstructive pneumonia could be present. CT chest with IV contrast recommended for followup. Chest CT 01/29/19 08:00 IMPRESSION: Cavitary pneumonia with volume loss in the right upper lobe. Patchy alveolar nodules are seen elsewhere in the lungs worrisome for tuberculosis with endobronchial spread of infection. Atypical pneumonia, bacterial pneumonia could mimic this appearance. Findings discussed with Laura BURGER 0850 hours 01/29/2019 Assessment and Plan - Diagnosis (1) Pneumonia Qualifiers: Pneumonia type: due to unspecified organism Laterality: right Lung location: upper lobe of lung Qualified Code(s): J18.1 - Lobar pneumonia, unspecified organism Is this a current diagnosis for this admission?: Yes Plan: Sputum cultures are pending. Blood cultures negative at 24 hours. Chest x-ray shows a right upper lobe postobstructive pneumonia Chest CT shows cavitary pneumonia with volume loss in the right upper lobe with patchy aveolar nodules elsewhere in the lung worrisome for tuberculosis with endobronchial spread of infection. Patient is admitted to the medical floor on continuous cardiac telemetry. She is provided supplemental oxygen as needed to maintain saturations >90% She is provided scheduled and as needed nebulizer treatments. She has been empirically placed on IV azithromycin and ceftriaxone. Will adjust as cultures result. Incentive spirometer and flutter valve to bedside. Airborne precautions; AFB sputum x 3, PPD placed. Obtain records from [facility] As patient does not have sputum production at this time, will check gold interferon Consider pulmonary consultation. (2) ARF (acute renal failure) Qualifiers: Acute renal failure type: unspecified Qualified Code(s): N17.9 - Acute kidney failure, unspecified Is this a current diagnosis for this admission?: Yes Plan: Resolved; Cr 2.30-> 1.63-> 1.07 Secondary to dehydration related to poor p.o. intake and nausea and vomiting. Continue gentle IV fluids. Encourage p.o. fluids. Avoid nephrotoxic medications as able. Daily chemistries. (3) Constipation Is this a current diagnosis for this admission?: Yes Plan: Resolved following Lactulose. Continue Colace daily. (4) Intractable nausea and vomiting Qualifiers: Vomiting type: unspecified Qualified Code(s): R11.2 - Nausea with vomiting, unspecified Is this a current diagnosis for this admission?: Yes Plan: Resolved; possibly related to constipation. Gentle IV fluids as above. Diet as tolerated. Antiemetics as needed. - Time Time Spent with patient: 25-34 minutes Medications reviewed and adjusted accordingly: Yes Anticipated discharge: Home Within: Other - Pending TB clearance
[2019-01-29] MEDS ORDERED: CEFTRIAXONE SODIUM 1,000 MG in DEXTROSE 5%-WATER 50 ML IV SCH (22:00)
[2019-01-29] MEDS: AZITHROMYCIN 500 MG in DEXTROSE 5%-WATER 250 ML IV SCH (22:56)
[2019-01-30] MEDS: IPRATROPIUM/ALBUTEROL 0.5-2.5 MG/3 ML AMPUL NEB SCH ×2 (02:39→08:03)
[2019-01-30 05:13] LABS: ABSOLUTE BASOPHILS # (AUTO) 0.1 10^3/uL (0.0-0.2); ABSOLUTE EOSINOPHILS # (AUTO) 0.2 10^3/uL (0.0-0.6); ABSOLUTE LYMPHOCYTES (AUTO) 2.5 10^3/uL (0.5-4.7); ABSOLUTE MONOCYTES (AUTO) 0.5 10^3/uL (0.1-1.4); ABSOLUTE NEUT (AUTO) 4.2 10^3/uL (1.7-8.2); BASOPHILS % (AUTO) 0.9 % (0-2); EOSINOPHILS % (AUTO) 2.4 % (0-6); HEMATOCRIT 32.1 % (36.0-47.0); LYMPHOCYTES % (AUTO) 33.8 % (13-45); MEAN CORPUSCULAR HEMOGLOBIN 29.5 pg (27.0-33.4); MEAN CORPUSCULAR HGB CONC 34.1 g/dL (32.0-36.0); MEAN CORPUSCULAR VOLUME 87 fl (80-97); MONOCYTES % (AUTO) 7.1 % (3-13); PLATELET COUNT 256 10^3/uL (150-450); RED BLOOD COUNT 3.72 10^6/uL (3.72-5.28); RED CELL DISTRIBUTION WIDTH 13.8 % (11.5-14.0); SEGMENTED NEUTROPHILS % (AUTO) 55.8 % (42-78); TOTAL CELLS COUNTED % (AUTO) 100 %; WHITE BLOOD COUNT 7.5 10^3/uL (4.0-10.5)
[2019-01-30 05:23] LABS: ANION GAP 7 (5-19); BLOOD UREA NITROGEN 11 mg/dL (7-20); CALCIUM 8.7 mg/dL (8.4-10.2); CARBON DIOXIDE 23 mmol/L (22-30); CHLORIDE 109 mmol/L (98-107); GLUCOSE 99 mg/dL (75-110); POTASSIUM 3.7 mmol/L (3.6-5.0); SODIUM 139.2 mmol/L (137-145)
[2019-01-30] MEDS: HEPARIN SOD (PORCINE) 5,000 UNIT/ML 1 ML SYRINGE SUBCUT SCH (08:22)
--- NOTE | 2019-01-30 09:56 | PDOC DISCHARGE SUMMARY ---
General - Admit/Disc Date/PCP Admission Date/Primary Care Provider: 01/28/19 00:10 Discharge Date: 01/30/19 - Discharge Diagnosis (1) Pneumonia Is this a current diagnosis for this admission?: Yes Summary: Ruled out. Sputum cultures were not obtained as patient is not producing sputum. Blood cultures negative at 48 hours. Chest x-ray shows a right upper lobe postobstructive pneumonia Chest CT shows cavitary pneumonia with volume loss in the right upper lobe with patchy aveolar nodules elsewhere in the lung worrisome for tuberculosis with endobronchial spread of infection. Patient was admitted to the medical floor on continuous cardiac telemetry and supported with supplemental oxygen and nebulizer treatments. She was been empirically placed on IV azithromycin and ceftriaxone. The patient was placed on airborne precautions while awaiting Gold Quantiferon results and/or records from [facility] where she was admitted two weeks ago for PNA. Fortunately, records were received demonstrating that during her admission at [facility] she underwent bronchoscopy and had negative AFB cultures. She received a full course of antibiotic therapy at that time for treatment of community acquired pneumonia. As the patient is afebrile, with nml WBC, maintains oxygen saturations on room air, and denies dyspnea or cough, there is no concern for active pneumonia infection at this time. She is discharged to home in stable condition with recommendations to follow up with her PCP and general adjuster as was previously arranged. (2) ARF (acute renal failure) Is this a current diagnosis for this admission?: Yes Summary: Resolved; Cr 2.30-> 1.63-> 1.07-> 0.95 Secondary to dehydration related to poor p.o. intake and nausea and vomiting. (3) Constipation Is this a current diagnosis for this admission?: Yes Summary: Chronic; improved. (+) bm this admission. Resolved following Lactulose. Continue Colace daily; resume outpatient management. (4) Intractable nausea and vomiting Is this a current diagnosis for this admission?: Yes Summary: Resolved. Possibly related to constipation. Records from [facility] show that the patient was also found to have a right ovarian mass somewhat concerning for malignancy. This may also be contributing to her intermittent nausea/vomiting. Patient already has a scheduled follow up appointment with Dr. Hartman, [facility]. She is reminded to follow up as scheduled. (5) Ovarian mass Is this a current diagnosis for this admission?: Yes Summary: Records from [facility] show that the patient was also found to have a right ovarian mass somewhat concerning for malignancy. This may also be contributing to her intermittent nausea/vomiting. Patient already has a scheduled follow up appointment with Dr. Hartman, [facility]. She is reminded to follow up as scheduled. - Additional Information Resuscitation Status: Full Code Discharge Diet: Cardiac Discharge Activity: Activity As Tolerated, Balance Activity w/Rest Home Medications: Digoxin [Lanoxin 0.25 mg Tablet] 0.25 mg PO DAILY 01/28/19 Diltiazem HCl [Diltiazem 24Hr ER] 240 mg PO DAILY 01/28/19 Ergocalciferol (Vitamin D2) [Vitamin D] 200 unit PO DAILY 01/28/19 Lisinopril [Prinivil] 20 mg PO DAILY 01/28/19 Metoprolol Tartrate [Lopressor 25 mg Tablet] 50 mg PO Q12 01/28/19 Omeprazole 20 mg PO Q6AM 01/28/19 Acetaminophen [Tylenol 325 mg Tablet] 650 mg PO Q4HP PRN tablet 01/30/19 Docusate Sodium [Colace 100 mg Capsule] 100 mg PO DAILY capsule 01/30/19 History of Present Illness History of Present Illness: Per H&P by Dr. Church: CHRISTINA SOMMER is a 83 year old female with a past medical history of depression, anxiety, coronary artery disease, diastolic heart failure and recent pneumonia requiring admission to [facility] discharged 10 days ago. Patient presents with 3 days of worsening cough and shortness of breath then developed fever prompting evaluation emergency room where she is found to have leukocytosis, acute renal failure, hypotension and a right upper lobe ammonia. She started on empiric antibiotics and IV fluid challenge and referred to the hospitalist for admission. Physical Exam Vital Signs: Temp Pulse Resp BP Pulse Ox 97.8 F 68 14 125/44 L 94 01/30/19 04:28 01/30/19 08:03 01/30/19 08:03 01/30/19 04:28 01/30/19 08:03 Intake & Output 01/29/19 01/30/19 01/31/19 06:59 06:59 06:59 Intake Total 2921 598 300 Output Total 475 Balance 2921 123 300 Weight 62.5 kg 64.1 kg General appearance: PRESENT: no acute distress, cooperative, thin, well- developed, well-nourished Head exam: PRESENT: atraumatic, normocephalic Eye exam: PRESENT: conjunctiva pink, EOMI, PERRLA. ABSENT: scleral icterus Ear exam: PRESENT: normal external ear exam Mouth exam: PRESENT: moist, tongue midline Neck exam: ABSENT: carotid bruit, JVD, lymphadenopathy, thyromegaly Respiratory exam: PRESENT: clear to auscultation talha, decreased breath sounds - throughout; especially to RUL, symmetrical, unlabored, other - ambulatory on room air. ABSENT: rales, rhonchi, wheezes Cardiovascular exam: PRESENT: RRR. ABSENT: diastolic murmur, rubs, systolic murmur Pulses: PRESENT: normal dorsalis pedis pul Vascular exam: PRESENT: normal capillary refill GI/Abdominal exam: PRESENT: normal bowel sounds, soft. ABSENT: distended, guarding, mass, organolmegaly, rebound, tenderness Rectal exam: PRESENT: deferred Extremities exam: PRESENT: full ROM. ABSENT: calf tenderness, clubbing, pedal edema Musculoskeletal exam: PRESENT: ambulatory Neurological exam: PRESENT: alert, awake, oriented to person, oriented to place, oriented to time, oriented to situation, CN II-XII grossly intact. ABSENT: motor sensory deficit Psychiatric exam: PRESENT: appropriate affect, normal mood. ABSENT: homicidal ideation, suicidal ideation Skin exam: PRESENT: dry, intact, warm. ABSENT: cyanosis, rash Results Laboratory Results: 01/30/19 05:06 01/30/19 05:06 01/30/19 01/30/19 05:06 05:06 WBC 7.5 RBC 3.72 Hgb 11.0 L Hct 32.1 L MCV 87 MCH 29.5 MCHC 34.1 RDW 13.8 Plt Count 256 Seg Neutrophils % 55.8 Lymphocytes % 33.8 Monocytes % 7.1 Eosinophils % 2.4 Basophils % 0.9 Absolute Neutrophils 4.2 Absolute Lymphocytes 2.5 Absolute Monocytes 0.5 Absolute Eosinophils 0.2 Absolute Basophils 0.1 Sodium 139.2 Potassium 3.7 Chloride 109 H Carbon Dioxide 23 Anion Gap 7 BUN 11 Creatinine 0.95 Est GFR ( Amer) > 60 Est GFR (Non-Af Amer) 56 L Glucose 99 Calcium 8.7 01/27/19 01/27/19 20:10 20:10 Creatine Kinase 51 CK-MB (CK-2) 0.26 Troponin I < 0.012 Impressions: Chest X-Ray 01/27/19 16:42 IMPRESSION: Volume loss and consolidation in the right upper lobe. Postobstructive pneumonia could be present. CT chest with IV contrast recommended for followup. Chest CT 01/29/19 08:00 IMPRESSION: Cavitary pneumonia with volume loss in the right upper lobe. Patchy alveolar nodules are seen elsewhere in the lungs worrisome for tuberculosis with endobronchial spread of infection. Atypical pneumonia, bacterial pneumonia could mimic this appearance. Findings discussed with Laura BURGER 0850 hours 01/29/2019 Qualifiers - * PATIENT BEING DISCHARGED WITH ANY OF THE FOLLOWING DIAGNOSIS: No Acute Heart Failure - Is this a Heart Failure Patient?: No Plan Discharge Plan: Patient is discharged to home in the care of family members with Home Health Nursing services. Follow up with primary care provider within 1 week. Follow up with pulomonology as previously arranged following discharge from [facility]. Follow up with [facility], Dr. Hartman, next week as scheduled. Return to the emergency department as needed for concerning symptoms. Time Spent: Greater than 30 Minutes
[2019-01-30 10:41] VITALS: BP 125/53
[2019-01-30] MEDS: DILTIAZEM HCL 240 MG CAPSULE.CR PO SCH (10:45)
[2019-01-30] MEDS: DIGOXIN 0.25 MG TABLET PO SCH (10:45)
[2019-01-30] MEDS: PANTOPRAZOLE SODIUM 20 MG TABLET.DR PO SCH (10:45)
[2019-01-30] MEDS: DOCUSATE SODIUM 100 MG CAPSULE PO SCH (10:45)
[2019-01-30] MEDS: LISINOPRIL 10 MG TABLET PO SCH (10:45)
[2019-01-30] MEDS: LACTULOSE SYRUP 20 GM/30 ML UDCUP PO SCH (10:45)
== END 2019-01-30 12:06 | disposition home health service (06) | DRG 194 ==
LOC: ER 16:19 → EH 01-28 00:10 → 4S 01-28 09:25 → 3S 01-29 13:58
PROVIDERS: ADMIT Internal Medicine; ATTEND Internal Medicine
DX: J18.1 Lobar pneumonia, unspecified organism (principal); N17.9 Acute kidney failure, unspecified; I50.30 Unspecified diastolic (congestive) heart failure; I48.91 Unspecified atrial fibrillation; I25.10 Atherosclerotic heart disease of native coronary artery without angina pectoris; I25.2 Old myocardial infarction; M19.90 Unspecified osteoarthritis, unspecified site; K59.00 Constipation, unspecified; F32.9 Major depressive disorder, single episode, unspecified; F41.9 Anxiety disorder, unspecified; I11.0 Hypertensive heart disease with heart failure; E87.5 Hyperkalemia; E86.0 Dehydration; N83.9 Noninflammatory disorder of ovary, fallopian tube and broad ligament, unspecified
CPT/HCPCS: 36415; 71046; 71260; 80048; 80053; 81001; 82550; 82553; 84484; 85025; 87040; 93005; 93010; 94640; 94667; 94668; 94799; 99285; J0456; J0696; J1644; J1956; J2405; J2543; J3490; J7030; J7060; J7620

== ENCOUNTER 2019-02-14 09:45 | Emergency (ER) | payer MEDICARE, MEDICAID ==
--- NOTE | 2019-02-14 10:00 | ER Document Report ---
ED GI/ - General Chief Complaint: Abdominal Pain Stated Complaint: ABDOMINAL PAIN Time Seen by Provider: 02/14/19 09:59 Primary Care Provider: YESSICA ROSAS MD [Primary Care Provider] - Follow up as needed Notes: Patient says that she had a very severe, sharp pain in her mid abdomen this morning for the first time. She vomited about 3 times this morning. Denies any urinary tract infection symptoms. Denies any fever. No change in bowel habits. Last bowel movement about 1 hour ago. Patient says that she was admitted to this hospital in early January. Diagnoses include pneumonia, acute renal failure, constipation, intractable vomiting and nausea, right ovarian mass, suspicious for malignancy. Patient has recently been diagnosed as having a "spot" on her pancreas. No surgery is recommended. She has had work-up including ultrasound and ?CT scans at a facility somewhere in [facility] also describes recently having had an upper gastrostomy without known results. I do not think patient is had a colonoscopy. She is had her gallbladder removed and also a hysterectomy. Patient says that she was hospitalized at [facility] for about 5 days about a month ago. Does not know the reason or results. She was also seen at a [facility] clinic in [place] last week. PMH: Hypertension. Patient is also on digoxin for unknown reason. TRAVEL OUTSIDE OF THE [place] IN LAST 30 DAYS: No - Related Data Allergies/Adverse Reactions: No Known Allergies Allergy (Verified 02/14/19 09:45) Past Medical History - Social History Smoking Status: Former Smoker - Many years ago Family History: Reviewed & Not Pertinent, Hypertension - Past Medical History Cardiac Medical History: Reports: Hx Coronary Artery Disease, Hx Heart Attack, Hx Hypertension, Hx Heart Murmur - Long-standing, per patient Musculoskeletal Medical History: Reports Hx Arthritis Past Surgical History: Reports: Hx Hysterectomy, Hx Orthopedic Surgery - Bilateral knee replacement, Other - Benign left breast biopsy - Immunizations Hx Pneumococcal Vaccination: 07/28/09 Review of Systems - Review of Systems Notes: REVIEW OF SYSTEMS: CONSTITUTIONAL : Denies fever. EENT: Denies eye, ear, nose or mouth or throat pain or other symptoms. CARDIOVASCULAR: Denies chest pain. RESPIRATORY: Denies cough, chest congestion, or shortness of breath. GASTROINTESTINAL: See HPI. GENITOURINARY: Denies difficulty or painful urinating, urinary frequency, blood in urine. MUSCULOSKELETAL: Denies back or neck pain. Denies joint pain or swelling. SKIN: Denies rash or skin lesions. NEUROLOGICAL: Denies LOC or altered mental status. Denies headache. Denies sensory loss or motor deficits. ALL OTHER SYSTEMS REVIEWED AND NEGATIVE. Physical Exam - Vital signs Vitals: Temp Pulse Resp BP Pulse Ox 97.4 F 67 16 103/52 L 99 02/14/19 09:49 02/14/19 09:49 02/14/19 09:49 02/14/19 09:49 02/14/19 09:49 Interpretation: Normal Notes: PHYSICAL EXAMINATION: GENERAL: Well-appearing, in no acute distress. HEAD: Atraumatic, normocephalic. EYES: Pupils equal round and reactive to light, extraocular movements intact. ENT: oropharynx clear without exudates. Moist mucous membranes. NECK: Normal range of motion, supple. LUNGS: Breath sounds clear and equal bilaterally. HEART: Regular rate and rhythm without murmurs. ABDOMEN: Soft, nontender. No localized tenderness. No guarding or rebound. No masses. No pulsatile masses. No bruits heard. BACK: No tenderness throughout entire back. EXTREMITIES: Normal range of motion without pain. NEUROLOGICAL: Normal speech, normal gait. Normal sensory, motor, and reflex e xams. Awake, alert, and oriented x3. Cranial nerves normal. PSYCH: Normal mood, normal affect. SKIN: Warm, dry, no rashes. Course - Re-evaluation Re-evalutation: 02/14/19 16:51 Family members are here who can take patient home. Patient has not had a pain in her abdomen for several hours. She says that she feels fine now. Her work- up did not show any significant changes from previous conditions with the exception that her level of digoxin is very high at 3.6. She does not have symptoms related to that increase digoxin level. Will recommend she hold taking the digoxin until she can follow-up with her primary care physician and sort out the dosage. Patient happens to have 2 bottles of digoxin, 1 of them small white pills nails 1 small yellow pills, but that the same medications and I am concerned that the patient may be taking both of them at the same time. - Vital Signs Vital signs: Temp Pulse Resp BP Pulse Ox 98.2 F 89 20 120/88 H 100 02/14/19 17:15 02/14/19 17:15 02/14/19 17:15 02/14/19 17:15 02/14/19 17:15 - Laboratory Result Diagrams: 02/14/19 10:55 02/14/19 10:55 Laboratory results interpreted by me: 02/14/19 02/14/19 02/14/19 10:55 10:55 11:15 Seg Neutrophils % 78.7 H BUN 33 H Creatinine 1.37 H Est GFR ( Amer) 44 L Est GFR (Non-Af Amer) 37 L Glucose 129 H Total Bilirubin 1.4 H Direct Bilirubin 0.7 H Urine Protein 100 H Urine Ketones 20 H Urine Blood SMALL H Digoxin 3.77 H* - Diagnostic Test Radiology reviewed: Image reviewed, Reports reviewed - CT scan of the abdomen and pelvis does not show any new findings. Old, chronic findings are noted. Radiology results interpreted by me: 02/14/19 19:12 Chest x-ray still shows some scarring or other lesion in the right upper lung, unchanged from previously. - EKG Interpretation by Me Rate: Normal Rhythm: A.Fib [place]/QRS: LBBB Discharge - Discharge Clinical Impression: Abdominal pain, Elevated digoxin level Condition: Stable Disposition: HOME, SELF-CARE Additional Instructions: ABDOMINAL PAIN: There are many causes of abdominal pain. Pain can mean a serious problem requiring surgery (such as appendicitis). It can also be an innocent problem that goes away on its own (such as a viral infection). Often, time must pass to determine the cause of pain. The physician does not feel that hospitalization is necessary, at present. Things may change within the next 24 hours. Call the doctor or come back for re-examination if any problems occur, such as: (1) Pain that becomes more severe, steady, or becomes concentrated in one specific area. Also, pain that is more severe with movement or coughing. (2) Vomiting that persists or becomes more frequent. (3) Blood in the vomitus, urine, or bowel movements. Blood in the stool may have a tarry or black appearance. (4) Shaking chills or fever greater than 100 degrees F. (5) The abdomen becomes more distended or swollen. (6) Bowel movements cease. (7) Failure to improve as expected. NORMAL EXAM AND WORKUP: At this time, your examination and workup show no significant abnormality. No significant abnormal physical findings are noted. All laboratory, EKG, and imaging (x-ray, CT scans, ultrasound) studies that were ordered show no significant abnormality. Although your examination and all studies that were ordered showed no significant abnormal finding, there are no examinations and no studies that are 100% accurate. There is always the possibility that some abnormality could exist and not be detected with physical examination or within the limits and capabilities of laboratory and other studies. You should return or follow up as you were instructed on your visit today for further evaluation if your symptoms do not resolve. USE OF ACETAMINOPHEN (Tylenol): Acetaminophen may be taken for pain relief or fever control. It's much safer than aspirin, offering a wider range of "safe" dosages. It is safe during . Some brand names are Tylenol, Panadol, Datril, Anacin 3, Tempra, and Liquiprin. Acetaminophen can be repeated every four hours. The following are maximum recommended dosages: WEIGHT Dose Drops Elixir Chewable(80mg) (LBS.) drprs=droppers tsp=teaspoon >89 pounds or adults 650 mg to 900 mg Acetaminophen can be repeated every four hours. Maximum dose not to exceed 4000 mg a day. These maximum recommended dosages are slightly higher than the dosages written on the product container, but these dosages are very safe and below the toxic dosage for acetaminophen. FOLLOW-UP CARE: If you have been referred to a physician for follow-up care, call the physicians office for an appointment as you were instructed or within the next two days. If you experience worsening or a significant change in your symptoms, notify the physician immediately or return to the Emergency Department at any time for re-evaluation. Your digoxin level is high, too high, and needs to come down. You have 2 bottles of digoxin pills, 1 of them small white pills and the other one small yellow pills. At this time, I recommend you stop taking both of these pills and follow-up with Dr. Rosas your primary care doctor by calling his office tomorrow to let them know that you were in the emergency department and that we needed him to follow you up. Do not take any of these digoxin pills for the next few days until Dr. Rosas reviews the situation and toe shoe which ones to take and which ones not to take. Referrals: YESSICA ROSAS MD [Primary Care Provider] - Follow up as needed
[2019-02-14] MEDS ORDERED: NORMAL SALINE 1000 ML 1,000 ML IV ONE (10:16)
[2019-02-14 11:12] LABS: ABSOLUTE BASOPHILS # (AUTO) 0.1 10^3/uL (0.0-0.2); ABSOLUTE LYMPHOCYTES (AUTO) 1.3 10^3/uL (0.5-4.7); ABSOLUTE MONOCYTES (AUTO) 0.3 10^3/uL (0.1-1.4); ABSOLUTE NEUT (AUTO) 6.6 10^3/uL (1.7-8.2); BASOPHILS % (AUTO) 1.1 % (0-2); EOSINOPHILS % (AUTO) 0.6 % (0-6); HEMATOCRIT 41.2 % (36.0-47.0); HEMOGLOBIN 13.8 g/dL (12.0-15.5); LYMPHOCYTES % (AUTO) 15.8 % (13-45); MEAN CORPUSCULAR HEMOGLOBIN 29.2 pg (27.0-33.4); MEAN CORPUSCULAR HGB CONC 33.4 g/dL (32.0-36.0); MEAN CORPUSCULAR VOLUME 88 fl (80-97); MONOCYTES % (AUTO) 3.8 % (3-13); PLATELET COUNT 294 10^3/uL (150-450); RED BLOOD COUNT 4.72 10^6/uL (3.72-5.28); RED CELL DISTRIBUTION WIDTH 13.9 % (11.5-14.0); SEGMENTED NEUTROPHILS % (AUTO) 78.7 % (42-78); TOTAL CELLS COUNTED % (AUTO) 100 %; WHITE BLOOD COUNT 8.4 10^3/uL (4.0-10.5)
--- NOTE | 2019-02-14 11:16 | RADIOLOGY REPORT (SQ) ---
EXAM DESCRIPTION: CHEST 2 VIEWS COMPLETED DATE/TIME: 02/14/2019 11:06 am REASON FOR STUDY: Abdominal pain and recent history of pneumonia COMPARISON: 01/27/2019. EXAM PARAMETERS: NUMBER OF VIEWS: two views TECHNIQUE: Digital Frontal and Lateral radiographic views of the chest acquired. RADIATION DOSE: NA LIMITATIONS: none FINDINGS: LUNGS AND PLEURA: Persistent density in the right upper lobe. Otherwise clear. No pleura l effusion or pneumothorax. MEDIASTINUM AND HILAR STRUCTURES: No masses or contour abnormalities. HEART AND VASCULAR STRUCTURES: Heart normal size. No evidence for failure. BONES: No acute findings. Degenerative changes in the spine. HARDWARE: None in the chest. OTHER: No other significant finding. IMPRESSION: PERSISTENT DENSITY/ INFILTRATE IN THE RIGHT UPPER LOBE. NO SIGNIFICANT INTERVAL CHANGE. TECHNICAL DOCUMENTATION: JOB ID: [id number] [employer]- All Rights Reserved Reading location - IP/workstation name: [email or web address]
[2019-02-14 11:28] LABS: ALANINE AMINOTRANSFERASE 23 U/L (9-52); ALBUMIN 3.8 g/dL (3.5-5.0); ALKALINE PHOSPHATASE 59 U/L (38-126); ANION GAP 10 (5-19); ASPARTATE AMINO TRANSFERASE 28 U/L (14-36); BILIRUBIN,DIRECT 0.7 mg/dL (0.0-0.4); BILIRUBIN,TOTAL 1.4 mg/dL (0.2-1.3); BLOOD UREA NITROGEN 33 mg/dL (7-20); CARBON DIOXIDE 28 mmol/L (22-30); CHLORIDE 100 mmol/L (98-107); GLUCOSE 129 mg/dL (75-110); LIPASE 194.4 U/L (23-300); POTASSIUM 4.5 mmol/L (3.6-5.0); SODIUM 137.6 mmol/L (137-145); TOTAL PROTEIN 7.4 g/dL (6.3-8.2)
[2019-02-14 11:39] LABS: DIGOXIN 3.77 ng/mL (0.8-2.0)
[2019-02-14 11:56] LABS: APPEARANCE,URINE CLOUDY; BILIRUBIN,URINE NEGATIVE (NEGATIVE); GLUCOSE, URINE NEGATIVE (NEGATIVE); KETONES,URINE 20 mg/dL (NEGATIVE); LEUKOCYTE ESTERASE,URINE NEGATIVE (NEGATIVE); NITRITE,URINE NEGATIVE (NEGATIVE); PROTEIN,URINE 100 mg/dL (NEGATIVE); URINE SPECIFIC GRAVITY 1.016; UROBILINOGEN,URINE NEGATIVE mg/dL (<2.0)
[2019-02-14 11:57] LABS: COLOR,URINE YELLOW
--- NOTE | 2019-02-14 13:11 | RADIOLOGY REPORT (SQ) ---
EXAM DESCRIPTION: CT ABD/PELVIS WITH IV ORAL COMPLETED DATE/TIME: 02/14/2019 12:47 pm REASON FOR STUDY: Abdominal pain, Hx "spot" on pancreas. COMPARISON: 03/17/2017 TECHNIQUE: CT scan of the abdomen and pelvis performed using helical scanning technique with dynamic intravenous contrast injection. No oral contrast. Images reviewed with lung, soft tissue, and bone windows. Reconstructed coronal and sagittal MPR images reviewed. Delayed images for evaluation of the urinary system also acquired. All images stored on PACS. All CT scanners at this facility use dose modulation, iterative reconstruction, and/or weight based d osing when appropriate to reduce radiation dose to as low as reasonably achievable (ALARA). [facility]: Dose Right [facility]: CareDose [facility]: Dose Right [facility]: Teradose 4D [facility]: LoveIt CONTRAST TYPE AND DOSE: contrast/concentration: Isovue 350.00 mg/ml; Total Contrast Delivered: 62.0 ml; Total Saline Delivered: 65.0 ml Additional oral enteric contrast. RENAL FUNCTION: Serum creatinine 1.37 RADIATION DOSE: CT Rad equipment meets quality standard of care and radiation dose reduction techniq ues were employed. CTDIvol: 5.4 - 6.6 mGy. DLP: 537 mGy-cm.. LIMITATIONS: None. FINDINGS: LOWER CHEST: Clustered ground-glass nodular pulmonary opacities of the included bilateral lung bases. Calcified dependent right-sided pleural plaques. LIVER: Normal size. No masses. No dilated ducts. SPLEEN: Normal size. No focal lesions. PANCREAS: No masses. No significant calcifications. No adjacent inflammation or peripancreatic fluid collections. Pancreatic duct remains dilated to approximately 6 mm and appears patent to the ampulla , unchanged from prior examination. Incidental note of pancreas divisum. GALLBLADDER: Surgically absent. ADRENAL GLANDS: No significant masses or asymmetry. RIGHT KIDNEY AND URETER: No solid masses. No significant calcifications. No hydronephrosis or hyd roureter. LEFT KIDNEY AND URETER: No solid masses. No significant calcifications. No hydronephrosis or hydr oureter. AORTA AND VESSELS: No aneurysm. No dissection. Renal arteries, SMA, celiac without stenosis. Mixed c alcific atherosclerosis. RETROPERITONEUM: No retroperitoneal adenopathy, hemorrhage or masses. BOWEL AND PERITONEAL CAVITY: No masses or inflammatory changes. No free fluid or peritoneal masses. APPENDIX: Normal. PELVIS: No mass. Status posthysterectomy. No free fluid. Normal bladder. ABDOMINAL WALL: No masses. No hernias. BONES: No significant or acute findings. OTHER: No other significant finding. IMPRESSION: 1. No acute CT findings to explain abdominal pain. 2. There are clustered ground-glass nodular opacities of the included bilateral lung bases, consiste nt with infection or aspiration. 3. Pancreatic duct remains dilated to approximately 6 mm and appears patent to the ampulla, unchanged from prior examinations and of doubtful clinical significance. Incidental note of pancreas divisum. TECHNICAL DOCUMENTATION: JOB ID: [id number] Quality ID # [id number]: Final reports with documentation of one or more dose reduction techniques (e.g., Au tomated exposure control, adjustment of the mA and/or kV according to patient size, use of iterative reconstruction technique) 2010 [employer]- All Rights Reserved Reading location - IP/workstation name: [email or web address]
--- NOTE | 2019-02-14 16:03 | EKG REPORT ---
SEVERITY:- ABNORMAL ECG - ATRIAL FIBRILLATION, V-RATE 67-110 INCOMPLETE LEFT BUNDLE BRANCH BLOCK : Confirmed by: Rodri Tran MD 14-Feb-2019 16:02:12
[2019-02-14 17:30] VITALS: BP 120/88
== END 2019-02-14 17:30 | disposition home or self-care (01) ==
LOC: ER 09:45
DX: R10.9 Unspecified abdominal pain (principal); I25.10 Atherosclerotic heart disease of native coronary artery without angina pectoris; I10 Essential (primary) hypertension; I44.7 Left bundle-branch block, unspecified; I48.91 Unspecified atrial fibrillation; Z79.899 Other long term (current) drug therapy; Z90.49 Acquired absence of other specified parts of digestive tract; Z90.710 Acquired absence of both cervix and uterus
CPT/HCPCS: 93005; 36415; 80162; 83690; 85025; 80053; 81001; 71046; 74177; 93010; J7030

== ENCOUNTER 2019-03-10 10:53 | Inpatient (IN) | payer MEDICARE, MEDICAID ==
[2019-03-10] MEDS ORDERED: NORMAL SALINE 1000 ML 1,000 ML IV ONE ×2 (11:20→13:56)
--- NOTE | 2019-03-10 11:28 | ER Document Report ---
ED Medical Screen (RME) - General Chief Complaint: Abdominal Pain Stated Complaint: ABDOMINAL PAIN Time Seen by Provider: 03/10/19 11:19 Primary Care Provider: YESSICA ROSAS MD [Primary Care Provider] - Follow up as needed Notes: Patient is a 84-year-old female with a history of hypertension, congestive heart failure, atrial fibrillation who presents to the emergency department with a chief complaint of vomiting. Patient states she has been vomiting for 2 weeks and has been unable to tolerate eating/drinking. Patient reports that she has had no diarrhea or fever. Patient reports vomiting multiple times per day. Patient reports generally feeling weak all over. Patient states she feels hot like she is going to pass out. Patient states she has had some generalized abdominal pain over the past week but noted that it had gotten worse this morning. Patient reports her abdominal pain is sharp, intermittent and primarily located around the umbilicus. Patient denies urinary symptoms. Patient reports dizziness with standing. Patient denies chest pain or shortness of breath. TRAVEL OUTSIDE OF THE [place] IN LAST 30 DAYS: No - Related Data Allergies/Adverse Reactions: No Known Allergies Allergy (Verified 03/10/19 10:55) Past Medical History - Past Medical History Cardiac Medical History: Reports: Hx Coronary Artery Disease, Hx Heart Attack, Hx Hypertension, Hx Heart Murmur - Long-standing, per patient Renal/ Medical History: Denies: Hx Peritoneal Dialysis Musculoskeltal Medical History: Reports Hx Arthritis Past Surgical History: Reports: Hx Cholecystectomy, Hx Hysterectomy, Hx Orthopedic Surgery - Bilateral knee replacement, Other - Benign left breast biopsy Physical Exam - Vital signs Vitals: Temp Pulse Resp BP Pulse Ox 97.5 F 72 18 54/37 L 96 03/10/19 11:06 03/10/19 11:06 03/10/19 11:06 03/10/19 11:06 03/10/19 11:06 - Abdominal Inspection: Normal Distension: No distension Bowel sounds: Hyperactive Tenderness: Tender - Tenderness around umbilicus Organomegaly: No organomegaly Course - Re-evaluation Re-evalutation: 03/10/19 11:28 Patient was immediately brought back to room 8 as she was found to be hypotensive in triage. Nursing staff at bedside attempting to establish IV access. She is alert and oriented. EKG, basic labs, digoxin level, and fluids ordered. Dr. Art aware of patient. I have greeted and performed a rapid initial assessment of this patient. A comprehensive ED assessment and evaluation of the patient, analysis of test results and completion of the medical decision making process will be conducted by additional ED providers. - Vital Signs Vital signs: Temp Pulse Resp BP Pulse Ox 97.5 F 72 18 54/37 L 96 03/10/19 11:06 03/10/19 11:06 03/10/19 11:06 03/10/19 11:06 03/10/19 11:06 Doctor's Discharge - Discharge Referrals: YESSICA ROSAS MD [Primary Care Provider] - Follow up as needed
[2019-03-10] MEDS ORDERED: RINGERS SOLUTION,LACTATED 1,000 ML IV ONE (11:39)
[2019-03-10] MEDS ORDERED: CEFTRIAXONE 1 GM/D5W RTU 50 ML IV ONE (11:47)
[2019-03-10] MEDS ORDERED: ONDANSETRON HCL INJ/PF 4 MG/2 ML SDV IV ONE (11:52)
--- NOTE | 2019-03-10 11:54 | ER Document Report ---
ED General - General Chief Complaint: Abdominal Pain Stated Complaint: ABDOMINAL PAIN Time Seen by Provider: 03/10/19 11:19 Mode of Arrival: Medic Information source: Patient, Relative, Emergency Med Personnel, [facility] Records Notes: Patient is a 84-year-old female with a history of hypertension, congestive heart failure, atrial fibrillation who presents to the emergency department with a chief complaint of vomiting. Patient states she has been vomiting for 2 weeks and has been unable to tolerate eating/drinking. Patient reports that she has had no diarrhea or fever. Patient reports vomiting multiple times per day. Patient reports generally feeling weak all over. Patient states she feels hot like she is going to pass out. Patient states she has had some generalized abdominal pain over the past week but noted that it had gotten worse this morning. Patient reports her abdominal pain is sharp, intermittent and primarily located around the umbilicus. Patient denies urinary symptoms. Patient reports dizziness with standing. Patient denies chest pain or shortness of breath. Patient was recently discharged from [facility] on January 30, 2019 where she was found to have pneumonia and acute renal failure. Patient has not yet followed up with her primary care physician. She also states that she is been out of her home medications for a few days now. TRAVEL OUTSIDE OF THE [place] IN LAST 30 DAYS: No - HPI Onset: Other Onset/Duration: Gradual, Persistent, Worse Quality of pain: Cramping Severity: Moderate Associated symptoms: Body/muscle aches, Diarrhea, Nausea, Vomiting, Weakness. denies: Chest pain, Fever, Shortness of breath Exacerbated by: Denies Relieved by: Denies Similar symptoms previously: Yes Recently seen / treated by doctor: Yes - Related Data Allergies/Adverse Reactions: No Known Allergies Allergy (Verified 03/10/19 10:55) Past Medical History - General Information source: Patient, Relative, [facility] Records - Social History Smoking Status: Former Smoker Frequency of alcohol use: None Drug Abuse: None Lives with: Alone Family History: Reviewed & Not Pertinent, Hypertension Patient has suicidal ideation: No Patient has homicidal ideation: No - Past Medical History Cardiac Medical History: Reports: Hx Coronary Artery Disease, Hx Heart Attack, Hx Hypertension, Hx Heart Murmur - Long-standing, per patient Renal/ Medical History: Denies: Hx Peritoneal Dialysis Musculoskeletal Medical History: Reports Hx Arthritis Past Surgical History: Reports: Hx Cholecystectomy, Hx Hysterectomy, Hx Orthopedic Surgery - Bilateral knee replacement, Other - Benign left breast biopsy - Immunizations Hx Pneumococcal Vaccination: 07/28/09 Review of Systems - Review of Systems Notes: REVIEW OF SYSTEMS: CONSTITUTIONAL : Denies fever, chills, or sweats. + recent illness. + weight loss, + hospitalizations. EENT: Denies visual changes, eye pain. Denies sore throat, oral lesions, difficulty swallowing. CARDIOVASCULAR: Denies chest pain. Denies palpitations. Denies lower extremity edema. RESPIRATORY: Denies cough. Denies shortness of breath, wheezing. GASTROINTESTINAL: Denies abdominal distention. + nausea, vomiting, diarrhea. Denies blood in vomitus, stools, or per rectum. Denies black, tarry stools. Denies constipation. GENITOURINARY: Denies difficulty urinating, painful urination, frequency, blood in urine, or vaginal discharge. MUSCULOSKELETAL: Denies back or neck pain or stiffness. Denies joint pain or swelling. SKIN: Denies rash, lesions or sores. HEMATOLOGIC : Denies easy bruising or bleeding. LYMPHATIC: Denies swollen glands. NEUROLOGICAL: Denies confusion or altered mental status. Denies loss of consciousness. Denies dizziness or lightheadedness. Denies headache. Denies paralysis. Denies problems difficulty with ambulation, slurred speech. Denies sensory loss, numbness, or tingling. Denies seizures. PSYCHIATRIC: Denies anxiety or stress. Denies depression, suicidal ideation, or homicidal ideation. Denies visual or auditory hallucinations. Physical Exam - Vital signs Vitals: Temp Pulse Resp BP Pulse Ox 97.5 F 72 18 54/37 L 96 03/10/19 11:06 03/10/19 11:06 03/10/19 11:06 03/10/19 11:06 03/10/19 11:06 - Notes Notes: PHYSICAL EXAMINATION: GENERAL: Frail, cachectic, no acute distress. HEAD: Atraumatic, normocephalic. EYES: Pupils equal round and reactive to light, extraocular movements intact, conjunctiva are normal. ENT: Nares patent, oropharynx clear without exudates. Moist mucous membranes. NECK: Normal range of motion, supple without lymphadenopathy LUNGS: Breath sounds clear to auscultation bilaterally and equal. No wheezes rales or rhonchi. HEART: Tachycardic, regular rhythm. Pulses throughout. ABDOMEN: Soft, mild suprapubic tenderness with palpation, nondistended abdomen. No guarding, no rebound. No masses appreciated. Female : deferred Musculoskeletal: Normal range of motion, no pitting or edema. No cyanosis. NEUROLOGICAL: Cranial nerves grossly intact. Normal speech, normal gait. Normal sensory, motor exams PSYCH: Normal mood, normal affect. SKIN: Warm, Dry, normal turgor, no rashes or lesions noted. Course - Re-evaluation Re-evalutation: Temp Pulse Resp BP Pulse Ox 97.5 F 72 28 H 68/39 L 96 03/10/19 11:06 03/10/19 11:06 03/10/19 11:17 03/10/19 11:16 03/10/19 11:06 03/10/19 11:52 84-year-old female presents with weakness, nausea, vomiting and diarrhea that have been ongoing for several weeks. EMS reports patient to be hypotensive upon their arrival. Patient currently complaining of lower abdominal pain. She was recently discharged from [facility] on 01/30/2019. Upon arrival patient was placed on quality assurance monitor and an EKG was obtained which showed the patient to be in atrial fibrillation with a rate of 133. Previous medical records and nursing notes reviewed. Patient does not appear toxic or dehy drated. 03/10/19 17:30 Laboratory 03/10/19 03/10/19 03/10/19 11:50 11:55 11:55 WBC 6.6 RBC 4.43 Hgb 13.0 Hct 39.2 MCV 89 MCH 29.4 MCHC 33.2 RDW 14.9 H Plt Count 254 Seg Neutrophils % 68.6 Lymphocytes % 26.0 Monocytes % 4.2 Eosinophils % 0.5 Basophils % 0.7 Absolute Neutrophils 4.5 Absolute Lymphocytes 1.7 Absolute Monocytes 0.3 Absolute Eosinophils 0.0 Absolute Basophils 0.0 PT 14.1 INR 1.09 VBG pH VBG pCO2 VBG HCO3 VBG Base Excess Sodium Potassium Chloride Carbon Dioxide Anion Gap BUN Creatinine Est GFR ( Amer) Est GFR (Non-Af Amer) Glucose POC Glucose 107 Lactic Acid Calcium Total Bilirubin Direct Bilirubin Neonat Total Bilirubin Neonat Direct Bilirubin Neonat Indirect Bili AST ALT Alkaline Phosphatase Troponin I NT-Pro-B Natriuret Pep Total Protein Albumin Lipase Urine Color Urine Appearance Urine pH Ur Specific Elsie Urine Protein Urine Glucose (UA) Urine Ketones Urine Blood Urine Nitrite Urine Bilirubin Urine Urobilinogen Ur Leukocyte Esterase Urine WBC (Auto) Urine RBC (Auto) U Hyaline Cast (Auto) Urine Bacteria (Auto) Squamous Epi Cells Auto Urine Mucus (Auto) Urine Ascorbic Acid Digoxin 03/10/19 03/10/19 03/10/19 11:55 11:55 11:55 WBC RBC Hgb Hct MCV MCH MCHC RDW Plt Count Seg Neutrophils % Lymphocytes % Monocytes % Eosinophils % Basophils % Absolute Neutrophils Absolute Lymphocytes Absolute Monocytes Absolute Eosinophils Absolute Basophils PT INR VBG pH 7.34 VBG pCO2 52.0 VBG HCO3 27.2 VBG Base Excess 0.4 Sodium 134.0 L Potassium 3.2 L Chloride 94 L Carbon Dioxide 30 Anion Gap 10 BUN 32 H Creatinine 2.51 H Est GFR ( Amer) 22 L Est GFR (Non-Af Amer) 18 L Glucose 133 H POC Glucose Lactic Acid 3.0 H Calcium 8.6 Total Bilirubin 1.1 Direct Bilirubin 0.6 H Neonat Total Bilirubin Not Reportable Neonat Direct Bilirubin Not Reportable Neonat Indirect Bili Not Reportable AST 32 ALT 14 Alkaline Phosphatase 57 Troponin I NT-Pro-B Natriuret Pep Total Protein 6.5 Albumin 3.2 L Lipase 158.5 Urine Color Urine Appearance Urine pH Ur Specific Elsie Urine Protein Urine Glucose (UA) Urine Ketones Urine Blood Urine Nitrite Urine Bilirubin Urine Urobilinogen Ur Leukocyte Esterase Urine WBC (Auto) Urine RBC (Auto) U Hyaline Cast (Auto) Urine Bacteria (Auto) Squamous Epi Cells Auto Urine Mucus (Auto) Urine Ascorbic Acid Digoxin 1.93 03/10/19 03/10/19 03/10/19 11:55 13:20 15:49 WBC RBC Hgb Hct MCV MCH MCHC RDW Plt Count Seg Neutrophils % Lymphocytes % Monocytes % Eosinophils % Basophils % Absolute Neutrophils Absolute Lymphocytes Absolute Monocytes Absolute Eosinophils Absolute Basophils PT INR VBG pH VBG pCO2 VBG HCO3 VBG Base Excess Sodium Potassium Chloride Carbon Dioxide Anion Gap BUN Creatinine Est GFR ( Amer) Est GFR (Non-Af Amer) Glucose POC Glucose Lactic Acid 2.4 H Calcium Total Bilirubin Direct Bilirubin Neonat Total Bilirubin Neonat Direct Bilirubin Neonat Indirect Bili AST ALT Alkaline Phosphatase Troponin I 0.194 NT-Pro-B Natriuret Pep 3940 H Total Protein Albumin Lipase Urine Color YELLOW Urine Appearance CLEAR Urine pH 7.0 Ur Specific Elsie 1.004 Urine Protein NEGATIVE Urine Glucose (UA) NEGATIVE Urine Ketones NEGATIVE Urine Blood SMALL H Urine Nitrite NEGATIVE Urine Bilirubin NEGATIVE Urine Urobilinogen NEGATIVE Ur Leukocyte Esterase NEGATIVE Urine WBC (Auto) 0 Urine RBC (Auto) 1 U Hyaline Cast (Auto) 10 Urine Bacteria (Auto) TRACE Squamous Epi Cells Auto 1 Urine Mucus (Auto) RARE Urine Ascorbic Acid NEGATIVE Digoxin Chest X-Ray 03/10/19 00:00 IMPRESSION: Persistent right upper lobe opacities compatible with pneumonia. New patchy opacities within the right middle and left lower lobe suspicious for additional multifocal infection. Abdomen/Pelvis CT 03/10/19 11:48 IMPRESSION: 1. No evidence of acute intra-abdominal/ pelvic process. 2. Scattered centrilobular bilateral basilar ground-glass opacities, likely secondary to infection/aspiration. 3. Unchanged dilation of the pancreatic duct, better evaluated on prior contras magdalene exam. Temp Pulse Resp BP Pulse Ox 97.4 F 72 20 98/75 L 98 03/10/19 14:40 03/10/19 11:06 03/10/19 15:31 03/10/19 15:31 03/10/19 15:31 84-year-old female presents with weakness, nausea, vomiting and diarrhea that have been ongoing for several weeks. EMS reports patient to be hypotensive upon their arrival. Patient currently complaining of lower abdominal pain. She was recently discharged from [facility] on 01/30/2019. Upon arrival patient was placed on quality assurance monitor and an EKG was obtained which showed the patient to be in atrial fibrillation with a rate of 133. Previous medical records and nursing notes reviewed. Patient does not appear toxic or dehydrated. Sepsis work-up obtained. Patient does have a mildly elevated lactate at 3.0. CBC is without leukocytosis. CMP does show acute kidney jury with a creatinine of 2.5 and hyperglycemia. Chest x-ray shows a new right middle lobe pneumonia. Patient's hypotension did improve after IV fluids. She did receive ceftriaxone and vancomycin. Patient will be admitted to the IMCU. - Vital Signs Vital signs: Temp Pulse Resp BP Pulse Ox 97.4 F 72 20 98/75 L 98 03/10/19 14:40 03/10/19 11:06 03/10/19 15:31 03/10/19 15:31 03/10/19 15:31 - Laboratory Result Diagrams: 03/10/19 11:55 03/10/19 11:55 Laboratory results interpreted by me: 03/10/19 03/10/19 03/10/19 11:55 11:55 11:55 RDW 14.9 H Sodium 134.0 L Potassium 3.2 L Chloride 94 L BUN 32 H Creatinine 2.51 H Est GFR ( Amer) 22 L Est GFR (Non-Af Amer) 18 L Glucose 133 H Lactic Acid 3.0 H Direct Bilirubin 0.6 H NT-Pro-B Natriuret Pep Albumin 3.2 L Urine Blood 03/10/19 03/10/19 03/10/19 11:55 13:20 15:49 RDW Sodium Potassium Chloride BUN Creatinine Est GFR ( Amer) Est GFR (Non-Af Amer) Glucose Lactic Acid 2.4 H Direct Bilirubin NT-Pro-B Natriuret Pep 3940 H Albumin Urine Blood SMALL H - Diagnostic Test Radiology reviewed: Image reviewed, Reports reviewed - EKG Interpretation by Me Rate: Tachycardia Rhythm: A.Fib When compared to previous EKG there are: Changes noted Critical Care Note - Critical Care Note Total time excluding time spent on procedures (mins): 40 - Minutes of critical care time spent in direct contact evaluating and reevaluating the patient, treating symptoms, reviewing labs and studies and speaking with family and consultants excluding any procedures Discharge - Discharge Clinical Impression: Acute kidney injury, Hypokalemia, Atrial fibrillation with RVR Sepsis Qualifiers: Sepsis type: sepsis due to unspecified organism Sepsis acute organ dysfunction status: unspecified Qualified Code(s): A41.9 - Sepsis, unspecified organism Pneumonia Qualifiers: Pneumonia type: due to unspecified organism Laterality: right Lung location: middle lobe of lung Qualified Code(s): J18.1 - Lobar pneumonia, unspecified organism Hypotension Qualifiers: Hypotension type: unspecified hypotension type Qualified Code(s): I95.9 - Hypotension, unspecified Intractable nausea and vomiting Qualifiers: Vomiting type: unspecified Qualified Code(s): R11.2 - Nausea with vomiting, unspecified Condition: Fair Disposition: ADMITTED INPATIENT Admitting Provider: Handy (Hospitalist) Unit Admitted: [facility]
[2019-03-10 12:20] LABS: ABSOLUTE LYMPHOCYTES (AUTO) 1.7 10^3/uL (0.5-4.7); ABSOLUTE MONOCYTES (AUTO) 0.3 10^3/uL (0.1-1.4); ABSOLUTE NEUT (AUTO) 4.5 10^3/uL (1.7-8.2); BASOPHILS % (AUTO) 0.7 % (0-2); EOSINOPHILS % (AUTO) 0.5 % (0-6); HEMATOCRIT 39.2 % (36.0-47.0); MEAN CORPUSCULAR HEMOGLOBIN 29.4 pg (27.0-33.4); MEAN CORPUSCULAR HGB CONC 33.2 g/dL (32.0-36.0); MEAN CORPUSCULAR VOLUME 89 fl (80-97); MONOCYTES % (AUTO) 4.2 % (3-13); PLATELET COUNT 254 10^3/uL (150-450); RED BLOOD COUNT 4.43 10^6/uL (3.72-5.28); RED CELL DISTRIBUTION WIDTH 14.9 % (11.5-14.0); SEGMENTED NEUTROPHILS % (AUTO) 68.6 % (42-78); TOTAL CELLS COUNTED % (AUTO) 100 %; WHITE BLOOD COUNT 6.6 10^3/uL (4.0-10.5)
[2019-03-10 12:27] LABS: INTERNATIONAL RATION (INR) 1.09; PROTHROMBIN TIME 14.1 SEC (11.4-15.4)
[2019-03-10] MEDS ORDERED: CEFTRIAXONE INJ 1000 MG VIAL IV ONE (12:30)
[2019-03-10 12:36] LABS: VENOUS BLOOD BASE EXCESS 0.4 mmol/L; VENOUS BLOOD HCO3 27.2 mmol/L (20-32); VENOUS BLOOD PH 7.34 (7.30-7.42)
--- NOTE | 2019-03-10 12:37 | RADIOLOGY REPORT (SQ) ---
EXAM DESCRIPTION: CHEST SINGLE VIEW COMPLETED DATE/TIME: 03/10/2019 12:25 pm REASON FOR STUDY: hypotensive recent history of pneumonia COMPARISON: 02/14/2019 EXAM PARAMETERS: NUMBER OF VIEWS: One view. TECHNIQUE: Single frontal radiographic view of the chest acquired. RADIATION DOSE: NA LIMITATIONS: None. FINDINGS: LUNGS AND PLEURA: Persistent patchy airspace disease within the right upper lobe. Increas ed patchy opacities within the right middle lobe. Minimal additional opacities within the left lung base. No significant effusion. No pneumothorax. MEDIASTINUM AND HILAR STRUCTURES: No masses. Contour normal. HEART AND VASCULAR STRUCTURES: Normal heart size. Aortic atherosclerosis. BONES: No acute findings. HARDWARE: None in the chest. OTHER: No other significant finding. IMPRESSION: Persistent right upper lobe opacities compatible with pneumonia. New patchy opacities w ithin the right middle and left lower lobe suspicious for additional multifocal infection. TECHNICAL DOCUMENTATION: JOB ID: [id number] [employer]- All Rights Reserved Reading location - IP/workstation name: [email or web address]
[2019-03-10 12:53] LABS: ALBUMIN 3.2 g/dL (3.5-5.0); ALKALINE PHOSPHATASE 57 U/L (38-126); ANION GAP 10 (5-19); ASPARTATE AMINO TRANSFERASE 32 U/L (14-36); BILIRUBIN,DIRECT 0.6 mg/dL (0.0-0.4); BILIRUBIN,TOTAL 1.1 mg/dL (0.2-1.3); BLOOD UREA NITROGEN 32 mg/dL (7-20); CALCIUM 8.6 mg/dL (8.4-10.2); CARBON DIOXIDE 30 mmol/L (22-30); CHLORIDE 94 mmol/L (98-107); DIGOXIN 1.93 ng/mL (0.8-2.0); GLUCOSE 133 mg/dL (75-110); POTASSIUM 3.2 mmol/L (3.6-5.0); TOTAL PROTEIN 6.5 g/dL (6.3-8.2)
[2019-03-10 13:28] LABS: TROPONIN I 0.194 ng/mL
[2019-03-10 13:47] LABS: APPEARANCE,URINE CLEAR; BILIRUBIN,URINE NEGATIVE (NEGATIVE); COLOR,URINE YELLOW; GLUCOSE, URINE NEGATIVE (NEGATIVE); KETONES,URINE NEGATIVE (NEGATIVE); LEUKOCYTE ESTERASE,URINE NEGATIVE (NEGATIVE); NITRITE,URINE NEGATIVE (NEGATIVE); PROTEIN,URINE NEGATIVE (NEGATIVE); URINE SPECIFIC GRAVITY 1.004; UROBILINOGEN,URINE NEGATIVE mg/dL (<2.0)
[2019-03-10] MEDS ORDERED: VANCOMYCIN HCL INJ 1000 MG VIAL IV ONE ×2 (13:55→13:56)
[2019-03-10] MEDS ORDERED: NORMAL SALINE 1000 ML 1,000 ML IV PRN (13:57)
--- NOTE | 2019-03-10 14:20 | RADIOLOGY REPORT (SQ) ---
EXAM DESCRIPTION: CT ABD/PELVIS NO ORAL OR IV COMPLETED DATE/TIME: 03/10/2019 1:33 pm REASON FOR STUDY: lower abd pain COMPARISON: 02/14/2019 TECHNIQUE: CT scan of the abdomen and pelvis performed without intravenous or oral contrast. Images reviewed with lung, soft tissue, and bone windows. Reconstructed coronal and sagittal MPR images revi ewed. All images stored on PACS. All CT scanners at this facility use dose modulation, iterative reconstruction, and/or weight based d osing when appropriate to reduce radiation dose to as low as reasonably achievable (ALARA). [facility]: Dose Right [facility]: CareDose [facility]: Dose Right [facility]: Teradose 4D [facility]: Smart Crystalplex RADIATION DOSE: CT Rad equipment meets quality standard of care and radiation dose reduction techniq ues were employed. CTDIvol: 5.5 mGy. DLP: 269 mGy-cm.mGy. LIMITATIONS: None. FINDINGS: LOWER CHEST: Scattered areas of centrilobular ground-glass attenuation in both lung bases, similar to prior. Calcified pleural plaques bilaterally. NON-CONTRASTED LIVER, SPLEEN, ADRENALS: Evaluation limited by lack of IV contrast. No identified sign ificant masses. PANCREAS: Limited evaluation without IV contrast. Pancreatic duct appears unchanged from prior. GALLBLADDER: Surgically absent. RIGHT KIDNEY AND URETER: No suspicious masses. Assessment limited by lack of IV contrast. Unchanged appearance of the scattered cysts. No significant calcifications. No hydronephrosis or hydroureter . LEFT KIDNEY AND URETER: No suspicious masses. Assessment limited by lack of IV contrast. No signifi cant calcifications. No hydronephrosis or hydroureter. AORTA AND RETROPERITONEUM: Aortoiliac atherosclerosis without aneurysm. No retroperitoneal mass or a denopathy. BOWEL AND PERITONEAL CAVITY: No obvious masses or inflammatory changes. No free fluid. APPENDIX: Not clearly visualized. PELVIS, BLADDER, AND ABDOMINAL WALL:No abnormal masses. No free fluid. Bladder normal. BONES: No acute bony abnormality. Lower lumbar spondylosis and facet arthropathy. OTHER: No other significant finding. IMPRESSION: 1. No evidence of acute intra-abdominal/ pelvic process. 2. Scattered centrilobular bilateral basilar ground-glass opacities, likely secondary to infection/a spiration. 3. Unchanged dilation of the pancreatic duct, better evaluated on prior contrasted exam. COMMENT: Quality ID # [id number]: Final reports with documentation of one or more dose reduction techniques (e.g., Automated exposure control, adjustment of the mA and/or kV according to patient size, use of iterative reconstruction technique) TECHNICAL DOCUMENTATION: JOB ID: [id number] [email or web address]- All Rights Reserved Reading location - IP/workstation name: [email or web address]
--- NOTE | 2019-03-10 14:38 | EKG REPORT ---
SEVERITY:- ABNORMAL ECG - ATRIAL FIBRILLATION VENTRICULAR PREMATURE COMPLEX LEFT BUNDLE BRANCH BLOCK : Confirmed by: Alessia Jim 10-Mar-2019 14:37:16
[2019-03-10] MEDS ORDERED: LEVALBUTEROL HCL NEB 1.25 MG/3 ML AMPUL NEB PRN (15:13)
[2019-03-10] MEDS ORDERED: ACETAMINOPHEN 325 MG TABLET PO PRN (15:13)
[2019-03-10] MEDS ORDERED: VANCOMYCIN HCL 0 MG in DEXTROSE 5%-WATER 250 ML IV NR (15:30)
[2019-03-10] MEDS: NORMAL SALINE 1000 ML 1,000 ML IV PRN (15:54)
[2019-03-10] MEDS ORDERED: LEVOFLOXACIN 500 MG/D5W RTU 500 MG/100 ML RTUPB IV SCH (16:30)
[2019-03-10] MEDS ORDERED: LEVOFLOXACIN 750 MG/D5W RTU 750 MG/150 ML RTUPB IV ONE (17:00)
--- NOTE | 2019-03-10 19:24 | PDOC H&P ---
History of Present Illness Admission Date/PCP: 03/10/19 16:24 YESSICA ROSAS MD History of Present Illness: CHRISTINA SOMMER is a 84 year old female with a past medical history significant for CAD, NV, hypertension, diastolic CHF, anxiety, depression, arthritis who presents to the emergency department today with a complaint of nausea and vomiting with generalized malaise that has progressively worsened x2 weeks. Of note, the patient was admitted to our facility 1 month ago for acute kidney injury secondary to nausea and vomiting and concern for right upper lobe pneumonia. It was determined that the patient had been discharged from [facility] 2 days prior after receiving full course of antibiotic treatment for pneumonia including TB rule out with negative AFBs/bronchoscopy evaluation. During her stay at [facility], she was found to have a right ovarian mass concerning for malignancy which is the likely source of her N/V. Unfortunately, the patient is a poor historian. She tells me that she has followed up with her crtts and environmental property assessor (Dr. Hartman) as was previously scheduled but is unable to tell me with the current treatment plans are for either her cavitary lung lesion or ovarian mass. Evaluation in the emergency department today revealed Tachycardia (heart rate 120s), hypotension (blood pressure 68/50 4/37; responsive to IV fluid bolus), t achypnea (RR 27), hypoxia on room air (86%), unremarkable CBC, acute kidney injury (CR 2.51, BUN 32), hypokalemia 3.2, elevated lactic acid (3.0), elevated proBNP (3900) and troponin (0.194). Chest x-ray demonstrated persistent right upper lobe opacity (history of cavitary lesion) with new patchy opacities to the right middle and left lower lobes suspicious for multifocal infection. Abdominal pelvic CT shows scattered centrilobular bilateral bibasilar groundglass opacities likely secondary to infection/aspiration, unchanged dilatation of the pancreatic duct from previous exam, and no evidence of acute intra-abdominal/pelvic processes. EKG demonstrated atrial fibrillation with RVR and a left bundle branch block. Left bundle branch block was present on EKG January 2019. The patient is referred to the hospitalist service for admission and management of sepsis secondary to multifocal pneumonia. Past Medical History Cardiac Medical History: Reports: Coronary Artery Disease, Myocardial Infarction, Hypertension, Heart Murmur - Long-standing, per patient Pulmonary Medical History: Reports: Pneumonia EENT Medical History: Reports: None Neurological Medical History: Reports: None Endocrine Medical History: Reports: None Renal/ Medical History: Reports: Chronic Kidney Disease Malignancy Medical History: Reports: Ovarian Cancer - New diagnosis right ovarian mass; concerning for malignancy, work-up underw GI Medical History: Reports: Gastroesophageal Reflux Disease Musculoskeltal Medical History: Reports: Arthritis Psychiatric Medical History: Reports: Depression, General Anxiety Disorder Hematology: Reports: Anemia Infectious Medical History: Reports: None Past Surgical History Past Surgical History: Reports: Cholecystectomy, Hysterectomy, Orthopedic Surgery - Bilateral knee replacement, Other - Benign left breast biopsy Social History Information Source: Patient Lives with: Family Smoking Status: Former Smoker Frequency of Alcohol Use: None Hx Recreational Drug Use: No Drugs: None Hx Prescription Drug Abuse: No - Advance Directive Resuscitation Status: Do Not Intubate Surrogate healthcare decision maker:: The patient's son, Cooper Sommer, Family History Family History: Reviewed & Not Pertinent, Hypertension Parental Family History Reviewed: Yes Children Family History Reviewed: Yes Sibling(s) Family History Reviewed.: Yes Medication/Allergy Home Medications: Cholecalciferol (Vitamin D3) [Vitamin D3 2000 unit Tablet] 2,000 unit PO DAILY 03/10/19 Digoxin [Lanoxin 0.125 mg Tablet] 0.125 mg PO DAILY 03/10/19 Diltiazem HCl [Diltiazem 24Hr ER] 120 mg PO DAILY 03/10/19 Lisinopril [Prinivil] 20 mg PO DAILY 03/10/19 Metoprolol Tartrate [Lopressor 25 mg Tablet] 50 mg PO Q12 03/10/19 Omeprazole 20 mg PO Q6AM 03/10/19 Ondansetron HCl [Zofran 4 mg Tablet] 4 mg PO Q8HP PRN 03/10/19 Allergies/Adverse Reactions: No Known Allergies Allergy (Verified 03/10/19 10:55) Review of Systems Constitutional: PRESENT: anorexia, chills, fever(s), weakness, weight loss - ~10 kg/1 month. ABSENT: headache(s), weight gain Eyes: ABSENT: visual disturbances Ears: ABSENT: hearing changes Cardiovascular: ABSENT: chest pain, dyspnea on exertion, edema, orthropnea, palpitations Respiratory: PRESENT: cough, dyspnea. ABSENT: hemoptysis Gastrointestinal: PRESENT: abdominal pain, nausea, vomiting. ABSENT: constipation, diarrhea, hematemesis, hematochezia Genitourinary: ABSENT: dysuria, hematuria Musculoskeletal: ABSENT: joint swelling Integumentary: ABSENT: rash, wounds Neurological: ABSENT: abnormal gait, abnormal speech, confusion, dizziness, focal weakness, syncope Psychiatric: ABSENT: anxiety, depression, homidical ideation, suicidal ideation Endocrine: ABSENT: cold intolerance, heat intolerance, polydipsia, polyuria Hematologic/Lymphatic: ABSENT: easy bleeding, easy bruising Physical Exam Vital Signs: Temp Pulse Resp BP Pulse Ox 97.4 F 72 22 H 102/83 86 L 03/10/19 14:40 03/10/19 11:06 03/10/19 18:15 03/10/19 18:09 03/10/19 18:16 Intake & Output 03/09/19 03/10/19 03/11/19 06:59 06:59 06:59 Intake Total 3425 Balance 3425 Weight 53 kg General appearance: PRESENT: cooperative, mild distress, thin, well-developed, well-nourished Head exam: PRESENT: atraumatic, normocephalic Eye exam: PRESENT: conjunctiva pink, EOMI, PERRLA. ABSENT: scleral icterus Mouth exam: PRESENT: moist, tongue midline Neck exam: ABSENT: carotid bruit, JVD, lymphadenopathy, thyromegaly Respiratory exam: PRESENT: rhonchi, symmetrical, tachypnea, wheezes. ABSENT: rales Cardiovascular exam: PRESENT: irregular rhythm, +S1, +S2, tachycardia. ABSENT: diastolic murmur, rubs, systolic murmur Pulses: PRESENT: normal dorsalis pedis pul Vascular exam: PRESENT: normal capillary refill GI/Abdominal exam: PRESENT: normal bowel sounds, soft, tenderness - vague, nonspecific. ABSENT: distended, guarding, mass, organolmegaly, rebound Rectal exam: PRESENT: deferred Extremities exam: PRESENT: full ROM. ABSENT: calf tenderness, clubbing, pedal edema Musculoskeletal exam: PRESENT: ambulatory Neurological exam: PRESENT: alert, awake, oriented to person, oriented to place, oriented to time, oriented to situation, CN II-XII grossly intact. ABSENT: motor sensory deficit Psychiatric exam: PRESENT: appropriate affect, normal mood. ABSENT: homicidal ideation, suicidal ideation Skin exam: PRESENT: dry, intact, warm. ABSENT: cyanosis, rash Results Laboratory Results: 03/10/19 11:55 03/10/19 11:55 03/10/19 03/10/19 03/10/19 11:55 11:55 11:55 WBC 6.6 RBC 4.43 Hgb 13.0 Hct 39.2 MCV 89 MCH 29.4 MCHC 33.2 RDW 14.9 H Plt Count 254 Seg Neutrophils % 68.6 Lymphocytes % 26.0 Monocytes % 4.2 Eosinophils % 0.5 Basophils % 0.7 Absolute Neutrophils 4.5 Absolute Lymphocytes 1.7 Absolute Monocytes 0.3 Absolute Eosinophils 0.0 Absolute Basophils 0.0 VBG pH VBG pCO2 VBG HCO3 VBG Base Excess Sodium 134.0 L Potassium 3.2 L Chloride 94 L Carbon Dioxide 30 Anion Gap 10 BUN 32 H Creatinine 2.51 H Est GFR ( Amer) 22 L Est GFR (Non-Af Amer) 18 L Glucose 133 H Lactic Acid 3.0 H Calcium 8.6 Total Bilirubin 1.1 AST 32 Alkaline Phosphatase 57 Total Protein 6.5 Albumin 3.2 L Lipase 158.5 Urine Color Urine Appearance Urine pH Ur Specific [place] Urine Protein Urine Glucose (UA) Urine Ketones Urine Blood Urine Nitrite Ur Leukocyte Esterase Urine WBC (Auto) Urine RBC (Auto) 03/10/19 03/10/19 03/10/19 11:55 13:20 15:49 WBC RBC Hgb Hct MCV MCH MCHC RDW Plt Count Seg Neutrophils % Lymphocytes % Monocytes % Eosinophils % Basophils % Absolute Neutrophils Absolute Lymphocytes Absolute Monocytes Absolute Eosinophils Absolute Basophils VBG pH 7.34 VBG pCO2 52.0 VBG HCO3 27.2 VBG Base Excess 0.4 Sodium Potassium Chloride Carbon Dioxide Anion Gap BUN Creatinine Est GFR ( Amer) Est GFR (Non-Af Amer) Glucose Lactic Acid 2.4 H Calcium Total Bilirubin AST Alkaline Phosphatase Total Protein Albumin Lipase Urine Color YELLOW Urine Appearance CLEAR Urine pH 7.0 Ur Specific [place] 1.004 Urine Protein NEGATIVE Urine Glucose (UA) NEGATIVE Urine Ketones NEGATIVE Urine Blood SMALL H Urine Nitrite NEGATIVE Ur Leukocyte Esterase NEGATIVE Urine WBC (Auto) 0 Urine RBC (Auto) 1 03/10/19 11:55 Troponin I 0.194 NT-Pro-B Natriuret Pep 3940 H Impressions: Chest X-Ray 03/10/19 00:00 IMPRESSION: Persistent right upper lobe opacities compatible with pneumonia. New patchy opacities within the right middle and left lower lobe suspicious for additional multifocal infection. Abdomen/Pelvis CT 03/10/19 11:48 IMPRESSION: 1. No evidence of acute intra-abdominal/ pelvic process. 2. Scattered centrilobular bilateral basilar ground-glass opacities, likely secondary to infection/aspiration. 3. Unchanged dilation of the pancreatic duct, better evaluated on prior contrasted exam. Assessment and Plan - Diagnosis (1) Sepsis Qualifiers: Sepsis type: sepsis due to unspecified organism Sepsis acute organ dysfunction status: unspecified Qualified Code(s): A41.9 - Sepsis, unspecified organism Is this a current diagnosis for this admission?: Yes Plan: Sepsis, due to multifocal pneumonia, present on admission, evidenced by tachycardia, hypotension, tachypnea, hypoxia on room air, acute kidney injury, and elevated lactic acid. Patient received 3 L IV fluid bolus by the ED provider. Received 1 dose of IV Rocephin and vancomycin by ED provider. Follow-up lactic acid is trending down. Blood, urine, sputum cultures pending. Patient is admitted to [facility] [place] on continuous cardiac telemetry and pulse oximetry. Continue maintenance IV fluids. We will treat for healthcare associated pneumonia (admitted to our facility 4 weeks ago and [facility] 6 weeks ago; received IV antibiotics during both admissions for pneumonia) with IV vancomycin, cefepime, and Levaquin. (2) Pneumonia Qualifiers: Pneumonia type: due to unspecified organism Laterality: bilateral Lung location: unspecified part of lung Qualified Code(s): J18.9 - Pneumonia, unspecified organism Is this a current diagnosis for this admission?: Yes Plan: Chest x-ray demonstrated persistent right upper lobe opacity (history of cavitary lesion) with new patchy opacities to the right middle and left lower lobes suspicious for multifocal infection. Abdominal pelvic CT shows scattered centrilobular bilateral bibasilar groundglass opacities likely secondary to infection/aspiration. Blood and sputum cultures pending. Patient is empirically treated for healthcare associated pneumonia with IV vancomycin, cefepime, Levaquin. She is provided supplemental oxygen as needed to maintain saturations. Scheduled as needed nebulizer treatments. Twice daily Mucinex. Robitussin as needed. Incentive spirometer to bedside. TB was ruled out during her [facility] admission in January 2019. (3) Acute kidney injury Is this a current diagnosis for this admission?: Yes Plan: Multifactorial secondary to sepsis/hypotension, poor p.o. intake secondary to nausea and abdominal upset, and GI losses related to vomiting. Patient received 3 L normal saline bolus by ED provider. Continuing maintenance fluids. We will avoid nephrotoxic medications as able; pharmacy to dose vancomycin. Daily chemistries. (4) Intractable nausea and vomiting Qualifiers: Vomiting type: unspecified Qualified Code(s): R11.2 - Nausea with vomiting, unspecified Is this a current diagnosis for this admission?: Yes Plan: Unclear etiology; secondary to acute illness (sepsis/pneumonia) versus metastatic cause (right ovarian mass mid work-up; patient is poor historian and able to tell me current evaluation/treatment plan close parentheses. Consider head CT. IV maintenance fluids. Antiemetics as needed. (5) Ovarian mass Is this a current diagnosis for this admission?: Yes Plan: We will plan on contacting the patient's environmental property assessor, Dr. Gilbert, tomorrow to verify whether or not the patient has been started on a recent medications that may account for her intractable nausea and vomiting. (6) Paroxysmal atrial fibrillation Is this a current diagnosis for this admission?: Yes Plan: Patient currently in atrial fibrillation with elevated heart rate; elevation likely secondary to sepsis. Unfortunately, blood pressures are soft and so she will not likely tolerate her full dose diltiazem, metoprolol, digoxin. We will resume digoxin and metoprolol with holding parameters. Nursing is notified to contact provider early for sustained heart rate greater than 120. (7) Elevated troponin Is this a current diagnosis for this admission?: Yes Plan: Troponin elevated to 0.194; lilkely demand mismatch ischemia related to PNA and sepsis. Patient denies chest pain. EKG demonstrates atrial fibrillation with tachycardia and left bundle branch block; LBBB was present on prior EKG. Continue to trend troponins. Daily aspirin therapy. Monitor on continuous cardiac telemetry. Consider cardiology consultation. - Time Time Spent with patient: 35 or more minutes Medications reviewed and adjusted accordingly: Yes - Inpatient Certification Based on my medical assessment, after consideration of the patient's comorbidities, presenting symptoms, or acuity I expect that the services needed warrant INPATIENT care.: Yes I certify that my determination is in accordance with my understanding of Medicare's requirements for reasonable and necessary INPATIENT services [42 CFR 412.3e].: Yes Medical Necessity: Significant Comorbidiites Make Outpatient Treatment Too Risky, Need Close Monitoring Due to Risk of Patient Decompensation, Need For IV Fluids, Need For Continuous Telemetry Monitoring, Need for IV Antibiotics, Risk of Complication if Not Cared For in Hospital, Risk of Diagnosis Which Will Require Inpatient Eval/Care/Monitoring
[2019-03-10] MEDS: IPRATROPIUM/ALBUTEROL 0.5-2.5 MG/3 ML AMPUL NEB SCH (19:47)
[2019-03-10] MEDS ORDERED: VANCOMYCIN HCL 750 MG in DEXTROSE 5%-WATER 250 ML IV SCH (20:00)
[2019-03-10] MEDS ORDERED: NORMAL SALINE 500 ML IV PRN (21:08)
[2019-03-10] MEDS: GUAIFENESIN 600 MG TABLET.SA PO SCH (21:42)
[2019-03-10] MEDS: FAMOTIDINE 20 MG TABLET PO SCH (21:43)
[2019-03-10] MEDS: HEPARIN SOD (PORCINE) 5,000 UNIT/ML 1 ML VIAL SUBCUT SCH (21:43)
[2019-03-10] MEDS: METOPROLOL TARTRATE 25 MG TABLET PO SCH (21:45)
[2019-03-10] MEDS: CEFEPIME 1 GM/D5W RTU 1 GM/50 ML RTUPB IV SCH (21:46)
[2019-03-10] MEDS ORDERED: CEFEPIME HCL 1.5 GM in DEXTROSE 5%-WATER 50 ML IV SCH (22:00)
[2019-03-10] MEDS: ASPIRIN 81 MG TABLET, CHEWABLE PO SCH (22:46)
[2019-03-11] MEDS: IPRATROPIUM/ALBUTEROL 0.5-2.5 MG/3 ML AMPUL NEB SCH ×4 (02:20→23:00)
[2019-03-11] MEDS ORDERED: NORMAL SALINE 500 ML IV ONE (04:00)
[2019-03-11] MEDS: HEPARIN SOD (PORCINE) 5,000 UNIT/ML 1 ML VIAL SUBCUT SCH (06:22)
[2019-03-11 06:31] LABS: ABSOLUTE LYMPHOCYTES (AUTO) 1.7 10^3/uL (0.5-4.7); ABSOLUTE MONOCYTES (AUTO) 0.4 10^3/uL (0.1-1.4); ABSOLUTE NEUT (AUTO) 3.4 10^3/uL (1.7-8.2); BASOPHILS % (AUTO) 0.4 % (0-2); EOSINOPHILS % (AUTO) 0.6 % (0-6); HEMATOCRIT 29.8 % (36.0-47.0); LYMPHOCYTES % (AUTO) 30.3 % (13-45); MEAN CORPUSCULAR HEMOGLOBIN 29.7 pg (27.0-33.4); MEAN CORPUSCULAR HGB CONC 33.7 g/dL (32.0-36.0); MEAN CORPUSCULAR VOLUME 88 fl (80-97); MONOCYTES % (AUTO) 7.8 % (3-13); PLATELET COUNT 169 10^3/uL (150-450); RED BLOOD COUNT 3.38 10^6/uL (3.72-5.28); RED CELL DISTRIBUTION WIDTH 14.7 % (11.5-14.0); SEGMENTED NEUTROPHILS % (AUTO) 60.9 % (42-78); TOTAL CELLS COUNTED % (AUTO) 100 %; WHITE BLOOD COUNT 5.6 10^3/uL (4.0-10.5)
[2019-03-11] MEDS ORDERED: NORMAL SALINE 1000 ML 1,000 ML IV ONE (06:45)
[2019-03-11 06:47] LABS: ANION GAP 6 (5-19); BLOOD UREA NITROGEN 25 mg/dL (7-20); CALCIUM 7.2 mg/dL (8.4-10.2); CARBON DIOXIDE 26 mmol/L (22-30); CHLORIDE 101 mmol/L (98-107); GLUCOSE 91 mg/dL (75-110)
[2019-03-11 06:53] LABS: POTASSIUM 2.7 mmol/L (3.6-5.0)
[2019-03-11] MEDS ORDERED: POTASSIUM CHLORIDE 20 MEQ PACKET PO ONE (08:09)
[2019-03-11] MEDS: POTASSI CL 20 MEQ/50 ML RIDER 20 MEQ/50 ML RTUPB IV SCH ×2 (08:44→12:58)
[2019-03-11] MEDS: NORMAL SALINE 1000 ML 1,000 ML IV PRN (08:53)
[2019-03-11] MEDS ORDERED: DEXTROSE 5%-WATER 250 ML with NOREPINEPHRINE BITARTRATE 4 MG IV PRN ×2 (10:02)
[2019-03-11] MEDS ORDERED: HEPARIN SOD (PORCINE) 1,000 UNIT/ML 10 ML VIAL IV ONE (12:02)
[2019-03-11] MEDS ORDERED: TUBERCULIN,PURIF.PROT.DERIV. 5 TU/0.1 ML TEST 1 ML VIAL ID ONE (12:30)
[2019-03-11] MEDS: ASPIRIN 81 MG TABLET, CHEWABLE PO SCH (12:37)
[2019-03-11] MEDS: METOPROLOL TARTRATE 25 MG TABLET PO SCH ×2 (12:37→22:21)
[2019-03-11] MEDS: FAMOTIDINE 20 MG TABLET PO SCH ×2 (12:38→22:21)
[2019-03-11] MEDS: GUAIFENESIN 600 MG TABLET.SA PO SCH ×2 (12:38→22:21)
--- NOTE | 2019-03-11 12:54 | RADIOLOGY REPORT (SQ) ---
EXAM DESCRIPTION: CHEST SINGLE VIEW COMPLETED DATE/TIME: 03/11/2019 12:40 pm REASON FOR STUDY: CENTRAL LINE PLACEMENT COMPARISON: 03/10/2019 EXAM PARAMETERS: NUMBER OF VIEWS: One view. TECHNIQUE: Single frontal radiographic view of the chest acquired. RADIATION DOSE: NA LIMITATIONS: None. FINDINGS: LUNGS AND PLEURA: Persistent right upper lobe pneumonia. MEDIASTINUM AND HILAR STRUCTURES: No masses. Contour normal. HEART AND VASCULAR STRUCTURES: Heart normal in size. Normal vasculature. BONES: No acute findings. HARDWARE: Right internal jugular catheter has its tip in the superior vena cava. OTHER: No other significant finding. IMPRESSION: Catheter placement. Persistent right upper lobe pneumonia. TECHNICAL DOCUMENTATION: JOB ID: [id number] [employer]- All Rights Reserved Reading location - IP/workstation name: [email or web address]
[2019-03-11] MEDS: DIGOXIN 0.125 MG TABLET PO SCH (12:57)
--- NOTE | 2019-03-11 12:57 | Operative Report ---
Bedside Procedure - History of Present Illness History of Present Illness: CHRISTINA SOMMER is a 84 year old female with a past medical history significant for CAD, ID, hypertension, diastolic CHF, anxiety, depression, arthritis who presents to the emergency department today with a complaint of nausea and vomiting with generalized malaise that has progressively worsened x2 weeks. Of note, the patient was admitted to our facility 1 month ago for acute kidney injury secondary to nausea and vomiting and concern for right upper lobe pneumonia. It was determined that the patient had been discharged from [facility] 2 days prior after receiving full course of antibiotic treatment for pneumonia including TB rule out with negative AFBs/bronchoscopy evaluation. During her stay at [facility], she was found to have a right ovarian mass concerning for malignancy which is the likely source of her N/V. Unfortunately, the patient is a poor historian. She tells me that she has followed up with her clinical systems educator and reservation agent (Dr. Hartman) as was previously scheduled but is unable to tell me with the current treatment plans are for either her cavitary lung lesion or ovarian mass. Evaluation in the emergency department today revealed Tachycardia (heart rate 120s), hypotension (blood pressure 68/50 4/37; responsive to IV fluid bolus), tachypnea (RR 27), hypoxia on room air (86%), unremarkable CBC, acute kidney injury (CR 2.51, BUN 32), hypokalemia 3.2, elevated lactic acid (3.0), elevated proBNP (3900) and troponin (0.194). Chest x-ray demonstrated persistent right upper lobe opacity (history of cavitary lesion) with new patchy opacities to the right middle and left lower lobes suspicious for multifocal infection. Abdominal pelvic CT shows scattered centrilobular bilateral bibasilar groundglass opacities likely secondary to infection/aspiration, unchanged dilatation of the pancreatic duct from previous exam, and no evidence of acute intra-abdominal/pelvic processes. EKG demonstrated atrial fibrillation with RVR and a left bundle branch block. Left bundle branch block was present on EKG January 2019. The patient is referred to the hospitalist service for admission and management of sepsis secondary to multifocal pneumonia. Indication for Procedure: HYPOTENSIO/VASOACTIVE MEDS Date: 03/11/19 Surgeon: AGUS SAMUEL - INSERTED UNDER MY GUIDANCE BY [employer] LO STEEL PLATE PRINTER - Central Line Right Internal jugular Time completed: 12:00 Consent obtained: Yes Central line pre-insertion: Sterile PPE donned, Betadine prep applied, Chloraprep applied, Sterile drapes applied Central line lumen type: Triple Anesthetic type: 1% Lidocaine Line secured with sutures: Yes Central line post-insertion: Blood return from lumens, Biopatch applied, Sutured, Sterile dressing applied, Position confirmed w/ CXR Complications: No
[2019-03-11] MEDS: CEFEPIME 1 GM/D5W RTU 1 GM/50 ML RTUPB IV SCH ×2 (12:58→22:21)
[2019-03-11] MEDS: HEPARIN SODIUM,PORCINE/D5W 25,000 UNIT/250 ML RTUINJ IV PRN (13:08)
[2019-03-11 13:32] LABS: INTERNATIONAL RATION (INR) 1.16; PROTHROMBIN TIME 14.9 SEC (11.4-15.4)
[2019-03-11 13:33] LABS: PARTIAL THROMBOPLASTIN TIME 26.6 SEC (23.5-35.8)
[2019-03-11 13:38] LABS: ABSOLUTE LYMPHOCYTES (AUTO) 1.1 10^3/uL (0.5-4.7); ABSOLUTE MONOCYTES (AUTO) 0.4 10^3/uL (0.1-1.4); ABSOLUTE NEUT (AUTO) 4.1 10^3/uL (1.7-8.2); BASOPHILS % (AUTO) 0.8 % (0-2); EOSINOPHILS % (AUTO) 0.5 % (0-6); HEMATOCRIT 31.3 % (36.0-47.0); HEMOGLOBIN 10.4 g/dL (12.0-15.5); MEAN CORPUSCULAR HEMOGLOBIN 29.4 pg (27.0-33.4); MEAN CORPUSCULAR HGB CONC 33.3 g/dL (32.0-36.0); MEAN CORPUSCULAR VOLUME 88 fl (80-97); MONOCYTES % (AUTO) 6.8 % (3-13); PLATELET COUNT 176 10^3/uL (150-450); RED BLOOD COUNT 3.55 10^6/uL (3.72-5.28); RED CELL DISTRIBUTION WIDTH 15.4 % (11.5-14.0); SEGMENTED NEUTROPHILS % (AUTO) 72.9 % (42-78); TOTAL CELLS COUNTED % (AUTO) 100 %; WHITE BLOOD COUNT 5.6 10^3/uL (4.0-10.5)
[2019-03-11 14:10] LABS: TROPONIN I 0.125 ng/mL
[2019-03-11 14:30] LABS: FREE T4 (FREE THYROXINE) 1.71 ng/dL (0.78-2.19)
[2019-03-11] MEDS: DILTIAZEM HCL/D5W 125 MG/125 ML RTUINJ IV PRN (14:30)
[2019-03-11 14:44] LABS: THYROID STIMULATING HORMONE 0.28 uIU/mL (0.47-4.68)
--- NOTE | 2019-03-11 17:00 | PDOC PROGRESS REPORT ---
Subjective Progress Note for:: 03/11/19 Subjective:: CHRISTNIA SOMMER is a 84 year old female with a past medical history significant for CAD, PR, hypertension, diastolic CHF, anxiety, depression, arthritis who was admitted 03/10/2019 for sepsis secondary to pneumonia. Patient was seen on morning rounds. She was found resting in bed comfortably on supplemental oxygen via nasal cannula. Patient reports continued dyspnea at rest and a slight nonproductive cough. She denies fever, chills, chest pain, palpitations, abdominal pain, nausea vomiting and diarrhea. She has no new questions or concerns. Nursing reports the patient has continued hypotension despite a total of 6 L IV fluids provided since time of admission and is now persistently tachycardic with a heart rate of 120-140. Reason For Visit: PNEUMONIA Physical Exam Vital Signs: Temp Pulse Resp BP Pulse Ox 98.0 F 104 H 18 90/58 L 98 03/11/19 12:00 03/11/19 14:05 03/11/19 14:05 03/11/19 15:21 03/11/19 14:05 Pulse Oximeter Continuous Start: 03/10/19 15:13 Freq: RTQ4 Status: Complete Protocol: Document 03/11/19 16:48 HCR (Rec: 03/11/19 16:48 HCR [id number]) Pulse Oximetry Assessment Equipment Usage Equipment Discontinued Continuous SpO2 Machine # 11 Intake & Output 03/10/19 03/11/19 03/12/19 06:59 06:59 06:59 Intake Total 4630 1550 Output Total 350 0 Balance 4280 1550 Weight 60.7 kg 58.2 kg General appearance: PRESENT: no acute distress, cooperative, thin, well- developed Head exam: PRESENT: atraumatic, normocephalic Eye exam: PRESENT: conjunctiva pink, EOMI, PERRLA. ABSENT: scleral icterus Ear exam: PRESENT: normal external ear exam Mouth exam: PRESENT: moist, tongue midline Neck exam: ABSENT: carotid bruit, JVD, lymphadenopathy, thyromegaly Respiratory exam: PRESENT: decreased breath sounds - Right upper lobe, rhonchi - Right greater than left, symmetrical, unlabored, other - Nasal cannula. ABSENT: rales, wheezes Cardiovascular exam: PRESENT: irregular rhythm, +S1, +S2, systolic murmur, tachycardia. ABSENT: diastolic murmur, rubs Pulses: PRESENT: normal dorsalis pedis pul Vascular exam: PRESENT: normal capillary refill GI/Abdominal exam: PRESENT: normal bowel sounds, soft. ABSENT: distended, guarding, mass, organolmegaly, rebound, tenderness Rectal exam: PRESENT: deferred Extremities exam: PRESENT: full ROM. ABSENT: calf tenderness, clubbing, pedal edema Neurological exam: PRESENT: alert, awake, oriented to person, oriented to place, oriented to time, oriented to situation, CN II-XII grossly intact. ABSENT: motor sensory deficit Psychiatric exam: PRESENT: appropriate affect, normal mood. ABSENT: homicidal ideation, suicidal ideation Skin exam: PRESENT: dry, intact, warm. ABSENT: cyanosis, rash Results Laboratory Results: 03/11/19 12:55 03/11/19 05:05 03/10/19 03/11/19 03/11/19 23:43 05:05 05:05 WBC 5.6 RBC 3.38 L Hgb 10.0 L D Hct 29.8 L MCV 88 MCH 29.7 MCHC 33.7 RDW 14.7 H Plt Count 169 Seg Neutrophils % 60.9 Lymphocytes % 30.3 Monocytes % 7.8 Eosinophils % 0.6 Basophils % 0.4 Absolute Neutrophils 3.4 Absolute Lymphocytes 1.7 Absolute Monocytes 0.4 Absolute Eosinophils 0.0 Absolute Basophils 0.0 Sodium 133.1 L Potassium 2.7 L* Chloride 101 Carbon Dioxide 26 Anion Gap 6 BUN 25 H Creatinine 1.58 H Est GFR ( Amer) 38 L Est GFR (Non-Af Amer) 31 L Glucose 91 Lactic Acid 2.4 H Calcium 7.2 L Magnesium TSH Free T4 Blood Type Antibody Screen 03/11/19 03/11/19 03/11/19 05:05 12:55 12:55 WBC 5.6 RBC 3.55 L Hgb 10.4 L Hct 31.3 L MCV 88 MCH 29.4 MCHC 33.3 RDW 15.4 H Plt Count 176 Seg Neutrophils % 72.9 Lymphocytes % 19.0 Monocytes % 6.8 Eosinophils % 0.5 Basophils % 0.8 Absolute Neutrophils 4.1 Absolute Lymphocytes 1.1 Absolute Monocytes 0.4 Absolute Eosinophils 0.0 Absolute Basophils 0.0 Sodium Potassium Chloride Carbon Dioxide Anion Gap BUN Creatinine Est GFR ( Amer) Est GFR (Non-Af Amer) Glucose Lactic Acid Calcium Magnesium 1.8 TSH Free T4 Blood Type AB NEGATIVE Antibody Screen NEGATIVE 03/11/19 03/11/19 12:55 13:25 WBC RBC Hgb Hct MCV MCH MCHC RDW Plt Count Seg Neutrophils % Lymphocytes % Monocytes % Eosinophils % Basophils % Absolute Neutrophils Absolute Lymphocytes Absolute Monocytes Absolute Eosinophils Absolute Basophils Sodium Potassium Chloride Carbon Dioxide Anion Gap BUN Creatinine Est GFR ( Amer) Est GFR (Non-Af Amer) Glucose Lactic Acid 2.8 H Calcium Magnesium TSH 0.28 L Free T4 1.71 Blood Type Antibody Screen 03/10/19 03/10/19 03/10/19 11:55 19:49 23:43 Troponin I 0.194 0.130 0.141 NT-Pro-B Natriuret Pep 3940 H 03/11/19 12:55 Troponin I 0.125 NT-Pro-B Natriuret Pep 2820 H Impressions: Abdomen/Pelvis CT 03/10/19 11:48 IMPRESSION: 1. No evidence of acute intra-abdominal/ pelvic process. 2. Scattered centrilobular bilateral basilar ground-glass opacities, likely secondary to infection/aspiration. 3. Unchanged dilation of the pancreatic duct, better evaluated on prior contrasted exam. Chest X-Ray 03/11/19 00:00 IMPRESSION: Catheter placement. Persistent right upper lobe pneumonia. Assessment and Plan - Diagnosis (1) Sepsis Qualifiers: Sepsis type: sepsis due to unspecified organism Sepsis acute organ dysfunction status: unspecified Qualified Code(s): A41.9 - Sepsis, unspecified organism Is this a current diagnosis for this admission?: Yes Plan: Sepsis, due to multifocal pneumonia, present on admission, evidenced by tachycardia, hypotension, tachypnea, hypoxia on room air, acute kidney injury, and elevated lactic acid. Patient received 3 L IV fluid bolus by the ED provider. Received 1 dose of IV Rocephin and vancomycin by ED provider. Lactic acid 3.0-> 2.4-> 2.4-> 2.8 Blood cultures have no growth at 24 hours. Urine culture no growth at 1 day. Sputum cultures pending. Due to persistent hypotension, patient is upgraded to ICU for possible vasopressor support. Continue continuous cardiac telemetry. Continue maintenance IV fluids. Levophed as needed to maintain MAP>60; central line placed. We will treat for healthcare associated pneumonia (admitted to our facility 4 weeks ago and [facility] 6 weeks ago; received IV antibiotics during both admissions for pneumonia) with IV vancomycin, cefepime, and Levaquin. Will adjust antibiotics as cultures result. (2) Pneumonia Qualifiers: Pneumonia type: due to unspecified organism Laterality: bilateral Lung location: unspecified part of lung Qualified Code(s): J18.9 - Pneumonia, uns pecified organism Is this a current diagnosis for this admission?: Yes Plan: Chest x-ray demonstrated persistent right upper lobe opacity (history of cavitary lesion) with new patchy opacities to the right middle and left lower lobes suspicious for multifocal infection. Abdominal pelvic CT shows scattered centrilobular bilateral bibasilar groundglass opacities likely secondary to infection/aspiration. Blood cultures are negative at 24 hours. Sputum cultures pending. PPD placed. Gold QuantiFERON pending; send out lab. Airborne precautions. Patient is empirically treated for healthcare associated pneumonia with IV vancomycin, cefepime, Levaquin. She is provided supplemental oxygen as needed to maintain saturations. Scheduled as needed nebulizer treatments. Twice daily Mucinex. Robitussin as needed. Incentive spirometer to bedside. TB was ruled out during her [facility] admission in January 2019. Discussed with Dr. Gary. Given her persistent right upper lobe cavitary lesion, right sided pneumonia, and weight loss, concern for TB persist. Dr. Gary recommends airborne precautions and further rule out with repeat PPD and gold QuantiFERON testing. (3) Acute kidney injury Is this a current diagnosis for this admission?: Yes Plan: Improved; Cr 2.58-> 1.58 Multifactorial secondary to sepsis/hypotension, poor p.o. intake secondary to nausea and abdominal upset, and GI losses related to vomiting. Has received aggressive IV fluid resuscitation. Continuing maintenance fluids. We will avoid nephrotoxic medications as able; pharmacy to dose vancomycin. Daily chemistries. (4) Intractable nausea and vomiting Qualifiers: Vomiting type: unspecified Qualified Code(s): R11.2 - Nausea with vomiting, unspecified Is this a current diagnosis for this admission?: Yes Plan: Improved; continued nausea but without emesis today. Unclear etiology; secondary to acute illness (sepsis/pneumonia) versus metastatic cause (right ovarian mass mid work-up; patient is poor historian and able to tell me current evaluation/treatment plan close parentheses. Consider head CT. IV maintenance fluids. Antiemetics as needed. (5) Ovarian mass Is this a current diagnosis for this admission?: Yes Plan: Dr. Nicole is consulted. Have requested discharge summary, [employer] consult notes, CT ABD/Pelvis and Pelvic U/S results from [facility]. (6) Paroxysmal atrial fibrillation Is this a current diagnosis for this admission?: Yes Plan: Patient with LBBB pattern; underlying a. fib with RVR today. Unfortunately, blood pressures are soft and so she will not likely tolerate her full dose diltiazem, metoprolol, digoxin. Continue home dose digoxin and metoprolol with holding parameters. Dr. Bell is consulted; appreciate his assistance. He has started her on a diltiazem drip at 2.5 mg/h. (7) Elevated troponin Is this a current diagnosis for this admission?: Yes Plan: Troponin elevated to 0.194-> 0.125; likely demand mismatch ischemia related to PNA and sepsis. Patient denies chest pain. EKG demonstrates atrial fibrillation with tachycardia and left bundle branch block; LBBB was present on prior EKG. Daily aspirin therapy. Monitor on continuous cardiac telemetry. Cardiology is consulted. - Time Time Spent with patient: 35 or more minutes Medications reviewed and adjusted accordingly: Yes - Plan Summary Plan Summary: Patient status and plan of care reviewed/developed with Dr. Gary and Dr. Resendiz.
--- NOTE | 2019-03-11 17:00 | Progress Note Acknowledgement ---
Progress Note Acknowledgement Progess Note Acknowledgement: I, the undersigned member of the medical staff with appropriate privileges and with supervisory authority over Laura Owen, a [facility] practice allied health professional, acknowledge that I have reviewed the progress notes entered on this patient, and in my professional judgment believe that the assessment made and/or any care evidenced was appropriate
--- NOTE | 2019-03-11 22:36 | PDOC CONSULTATION ---
Consultation-Blank Consultation: CARDIOLOGY CONSULTATION by Dr. Radha Hsieh on . Patient seen at 4 PM. 60 minutes spent on this patient more than 50% of time spent in direct patient care. REASON FOR CONSULTATION: Atrial fibrillation with wide-complex QRS, and borderline hypotension. CONSULT REQUESTING PROVIDER: Ms. Laura Owen, nurse practitioner, [facility]. HISTORY PRESENT ILLNESS: Past Medical History Cardiac Medical History: Reports: Coronary Artery Disease, Myocardial Infarction, Hypertension, Heart Murmur - Long-standing, per patient Pulmonary Medical History: Reports: Pneumonia EENT Medical History: Reports: None Neurological Medical History: Reports: None Endocrine Medical History: Reports: None Renal/ Medical History: Reports: Chronic Kidney Disease Malignancy Medical History: Reports: Ovarian Cancer - New diagnosis right ovarian mass; concerning for malignancy, work-up underw GI Medical History: Reports: Gastroesophageal Reflux Disease Musculoskeltal Medical History: Reports: Arthritis Psychiatric Medical History: Reports: Depression, General Anxiety Disorder Hematology: Reports: Anemia Infectious Medical History: Reports: None Past Surgical History Past Surgical History: Reports: Cholecystectomy, Hysterectomy, Orthopedic Surgery - Bilateral knee replacement, Other - Benign left breast biopsy Social History Information Source: Patient Lives with: Family Smoking Status: Former Smoker Frequency of Alcohol Use: None Hx Recreational Drug Use: No Drugs: None Hx Prescription Drug Abuse: No - Advance Directive Resuscitation Status: Do Not Intubate Surrogate healthcare decision maker:: The patient's son, Cooper Parkinson, Family History Family History: Reviewed & Not Pertinent, Hypertension Parental Family History Reviewed: Yes Children Family History Reviewed: Yes Sibling(s) Family History Reviewed.: Yes Medication/Allergy Home Medications: Cholecalciferol (Vitamin D3) [Vitamin D3 2000 unit Tablet] 2,000 unit PO DAILY 03/10/19 Digoxin [Lanoxin 0.125 mg Tablet] 0.125 mg PO DAILY 03/10/19 Diltiazem HCl [Diltiazem 24Hr ER] 120 mg PO DAILY 03/10/19 Lisinopril [Prinivil] 20 mg PO DAILY 03/10/19 Metoprolol Tartrate [Lopressor 25 mg Tablet] 50 mg PO Q12 03/10/19 Omeprazole 20 mg PO Q6AM 03/10/19 Ondansetron HCl [Zofran 4 mg Tablet] 4 mg PO Q8HP PRN 03/10/19 Allergies/Adverse Reactions: No Known Allergies Allergy (Verified 03/10/19 10:55) Review of Systems Constitutional: PRESENT: anorexia, chills, fever(s), weakness, weight loss - ~10 kg/1 month. ABSENT: headache(s), weight gain Eyes: ABSENT: visual disturbances Ears: ABSENT: hearing changes Cardiovascular: ABSENT: chest pain, dyspnea on exertion, edema, orthropnea, palpitations Respiratory: PRESENT: cough, dyspnea. ABSENT: hemoptysis Gastrointestinal: PRESENT: abdominal pain, nausea, vomiting. ABSENT: constipation, diarrhea, hematemesis, hematochezia Genitourinary: ABSENT: dysuria, hematuria Musculoskeletal: ABSENT: joint swelling Integumentary: ABSENT: rash, wounds Neurological: ABSENT: abnormal gait, abnormal speech, confusion, dizziness, focal weakness, syncope Psychiatric: ABSENT: anxiety, depression, homidical ideation, suicidal ideation Endocrine: ABSENT: cold intolerance, heat intolerance, polydipsia, polyuria Hematologic/Lymphatic: ABSENT: easy bleeding, easy bruising
[2019-03-12] MEDS: METOPROLOL TARTRATE 25 MG TABLET PO SCH ×3 (01:36→21:03)
[2019-03-12] MEDS: IPRATROPIUM/ALBUTEROL 0.5-2.5 MG/3 ML AMPUL NEB SCH ×4 (02:20→21:29)
[2019-03-12 03:12] LABS: ABSOLUTE BASOPHILS # (AUTO) 0.1 10^3/uL (0.0-0.2); ABSOLUTE EOSINOPHILS # (AUTO) 0.1 10^3/uL (0.0-0.6); ABSOLUTE LYMPHOCYTES (AUTO) 1.4 10^3/uL (0.5-4.7); ABSOLUTE MONOCYTES (AUTO) 0.4 10^3/uL (0.1-1.4); ABSOLUTE NEUT (AUTO) 4.1 10^3/uL (1.7-8.2); BASOPHILS % (AUTO) 1.1 % (0-2); HEMATOCRIT 29.6 % (36.0-47.0); LYMPHOCYTES % (AUTO) 22.6 % (13-45); MEAN CORPUSCULAR HEMOGLOBIN 29.4 pg (27.0-33.4); MEAN CORPUSCULAR HGB CONC 33.6 g/dL (32.0-36.0); MEAN CORPUSCULAR VOLUME 88 fl (80-97); PLATELET COUNT 174 10^3/uL (150-450); RED BLOOD COUNT 3.38 10^6/uL (3.72-5.28); RED CELL DISTRIBUTION WIDTH 15.3 % (11.5-14.0); SEGMENTED NEUTROPHILS % (AUTO) 68.3 % (42-78); TOTAL CELLS COUNTED % (AUTO) 100 %; WHITE BLOOD COUNT 6.1 10^3/uL (4.0-10.5)
[2019-03-12 03:32] LABS: BLOOD UREA NITROGEN 16 mg/dL (7-20); CALCIUM 7.8 mg/dL (8.4-10.2); CHLORIDE 109 mmol/L (98-107); GLUCOSE 95 mg/dL (75-110)
[2019-03-12 03:38] LABS: ANION GAP 5 (5-19); CARBON DIOXIDE 24 mmol/L (22-30)
[2019-03-12 03:40] LABS: POTASSIUM 3.9 mmol/L (3.6-5.0)
--- NOTE | 2019-03-12 08:55 | PDOC CONSULTATION ---
Consultation Consult Date: 03/12/19 Attending physician:: AGUS SAMUEL Provider Consulted: CELESTINE CAIN Consult reason:: Concern of L ovarian mass History of Present Illness Admission Date/PCP: 03/10/19 16:24 YESSICA ROSAS MD Patient complains of: N, V malaise, hypotension History of Present Illness: CHRISTINA SOMMER is a 84 year old female with multiple medical issues presents with hypotension, N/V poor po intake x several days, currently in ICU, on cardizem gtt, she was admitted 12/2018 to [facility] w/ afib w/ RVR, also has had 30# wt loss over past 2 yrs, CT a/p done there indicates a 3.1 x 2.1 cm septated L adnexal mass. This was overall concerning for a possible malignancy. She was treated for afib and pneumonia and then d/c'd home thereafter for further w/u. Since d/c she had been in our ED last month then here again on this admit both times had CT A/P and this ovarian mass was not reported. She seems to be doing better this am in ICU. Past Medical History Cardiac Medical History: Reports: Coronary Artery Disease, Myocardial Infarction, Hypertension, Heart Murmur - Long-standing, per patient Pulmonary Medical History: Reports: Pneumonia EENT Medical History: Reports: None Neurological Medical History: Reports: None Endocrine Medical History: Reports: None Renal/ Medical History: Reports: Chronic Kidney Disease Malignancy Medical History: Reports: Ovarian Cancer - New diagnosis right ovarian mass; concerning for malignancy, work-up underw GI Medical History: Reports: Gastroesophageal Reflux Disease Musculoskeltal Medical History: Reports: Arthritis Psychiatric Medical History: Reports: Depression, General Anxiety Disorder Hematology: Reports: Anemia Infectious Medical History: Reports: None Past Surgical History Past Surgical History: Reports: Cholecystectomy, Hysterectomy, Orthopedic Surgery - Bilateral knee replacement, Other - Benign left breast biopsy Social History Information Source: Patient Lives with: Family Smoking Status: Former Smoker Frequency of Alcohol Use: None Hx Recreational Drug Use: No Drugs: None Hx Prescription Drug Abuse: No - Advance Directive Resuscitation Status: Full Code Family History Family History: Reviewed & Not Pertinent, Hypertension Parental Family History Reviewed: Yes Children Family History Reviewed: Yes Sibling(s) Family History Reviewed.: Yes Medication/Allergy Home Medications: Cholecalciferol (Vitamin D3) [Vitamin D3 2000 unit Tablet] 2,000 unit PO DAILY 03/10/19 Digoxin [Lanoxin 0.125 mg Tablet] 0.125 mg PO DAILY 03/10/19 Diltiazem HCl [Diltiazem 24Hr ER] 120 mg PO DAILY 03/10/19 Lisinopril [Prinivil] 20 mg PO DAILY 03/10/19 Metoprolol Tartrate [Lopressor 25 mg Tablet] 50 mg PO Q12 03/10/19 Omeprazole 20 mg PO Q6AM 03/10/19 Ondansetron HCl [Zofran 4 mg Tablet] 4 mg PO Q8HP PRN 03/10/19 Allergies/Adverse Reactions: No Known Allergies Allergy (Verified 03/10/19 10:55) Review of Systems Constitutional: ABSENT: chills, fever(s), headache(s), weight gain, weight loss Eyes: ABSENT: visual disturbances Ears: ABSENT: hearing changes Cardiovascular: ABSENT: chest pain, dyspnea on exertion, edema, orthropnea, palpitations Respiratory: ABSENT: cough, hemoptysis Gastrointestinal: ABSENT: abdominal pain, constipation, diarrhea, hematemesis, hematochezia, nausea, vomiting Genitourinary: ABSENT: dysuria, hematuria Musculoskeletal: ABSENT: joint swelling Integumentary: ABSENT: rash, wounds Neurological: ABSENT: abnormal gait, abnormal speech, confusion, dizziness, focal weakness, syncope Psychiatric: ABSENT: anxiety, depression, homidical ideation, suicidal ideation Endocrine: ABSENT: cold intolerance, heat intolerance, polydipsia, polyuria Hematologic/Lymphatic: ABSENT: easy bleeding, easy bruising Physical Exam Vital Signs: Temp Pulse Resp BP Pulse Ox 97.9 F 105 H 20 98/84 L 100 03/12/19 07:45 03/12/19 07:45 03/12/19 07:45 03/12/19 07:45 03/12/19 07:45 Pulse Oximeter Continuous Start: 03/10/19 15:13 Freq: RTQ4 Status: Complete Protocol: Document 03/11/19 16:48 HCR (Rec: 03/11/19 16:48 HCR [id number]) Pulse Oximetry Assessment Equipment Usage Equipment Discontinued Continuous SpO2 Machine # 11 Intake & Output 03/11/19 03/12/19 03/13/19 06:59 06:59 06:59 Intake Total 4630 1682 Output Total 350 1200 0 Balance 4280 482 0 Weight 60.7 kg 59.5 kg General appearance: PRESENT: no acute distress, well-developed, well-nourished Head exam: PRESENT: atraumatic, normocephalic Eye exam: PRESENT: conjunctiva pink, EOMI, PERRLA. ABSENT: scleral icterus Ear exam: PRESENT: normal external ear exam Mouth exam: PRESENT: moist, tongue midline Neck exam: ABSENT: carotid bruit, JVD, lymphadenopathy, thyromegaly Respiratory exam: PRESENT: clear to auscultation talha. ABSENT: rales, rhonchi, wheezes Cardiovascular exam: PRESENT: RRR. ABSENT: diastolic murmur, rubs, systolic murmur Pulses: PRESENT: normal dorsalis pedis pul Vascular exam: PRESENT: normal capillary refill GI/Abdominal exam: PRESENT: normal bowel sounds, soft. ABSENT: distended, guarding, mass, organolmegaly, rebound, tenderness Rectal exam: PRESENT: deferred Extremities exam: PRESENT: full ROM. ABSENT: calf tenderness, clubbing, pedal edema Neurological exam: PRESENT: alert, awake, oriented to person, oriented to place, oriented to time, oriented to situation, CN II-XII grossly intact. ABSENT: motor sensory deficit Psychiatric exam: PRESENT: appropriate affect, normal mood. ABSENT: homicidal ideation, suicidal ideation Skin exam: PRESENT: dry, intact, warm. ABSENT: cyanosis, rash Results Laboratory Results: 03/12/19 03:00 03/12/19 03:00 03/11/19 03/11/19 03/11/19 05:05 12:55 12:55 WBC 5.6 RBC 3.55 L Hgb 10.4 L Hct 31.3 L MCV 88 MCH 29.4 MCHC 33.3 RDW 15.4 H Plt Count 176 Seg Neutrophils % 72.9 Lymphocytes % 19.0 Monocytes % 6.8 Eosinophils % 0.5 Basophils % 0.8 Absolute Neutrophils 4.1 Absolute Lymphocytes 1.1 Absolute Monocytes 0.4 Absolute Eosinophils 0.0 Absolute Basophils 0.0 Sodium Potassium Chloride Carbon Dioxide Anion Gap BUN Creatinine Est GFR ( Amer) Est GFR (Non-Af Amer) Glucose Lactic Acid Calcium Magnesium 1.8 TSH Free T4 Blood Type AB NEGATIVE Antibody Screen NEGATIVE 03/11/19 03/11/19 03/11/19 12:55 13:25 20:40 WBC RBC Hgb Hct MCV MCH MCHC RDW Plt Count Seg Neutrophils % Lymphocytes % Monocytes % Eosinophils % Basophils % Absolute Neutrophils Absolute Lymphocytes Absolute Monocytes Absolute Eosinophils Absolute Basophils Sodium Potassium Chloride Carbon Dioxide Anion Gap BUN Creatinine Est GFR ( Amer) Est GFR (Non-Af Amer) Glucose Lactic Acid 2.8 H 1.8 Calcium Magnesium TSH 0.28 L Free T4 1.71 Blood Type Antibody Screen 03/12/19 03/12/19 03:00 03:00 WBC 6.1 RBC 3.38 L Hgb 10.0 L Hct 29.6 L MCV 88 MCH 29.4 MCHC 33.6 RDW 15.3 H Plt Count 174 Seg Neutrophils % 68.3 Lymphocytes % 22.6 Monocytes % 7.0 Eosinophils % 1.0 Basophils % 1.1 Absolute Neutrophils 4.1 Absolute Lymphocytes 1.4 Absolute Monocytes 0.4 Absolute Eosinophils 0.1 Absolute Basophils 0.1 Sodium 137.7 Potassium 3.9 D Chloride 109 H Carbon Dioxide 24 Anion Gap 5 BUN 16 Creatinine 0.91 Est GFR ( Amer) > 60 Est GFR (Non-Af Amer) 59 L Glucose 95 Lactic Acid Calcium 7.8 L Magnesium TSH Free T4 Blood Type Antibody Screen 03/10/19 03/10/19 03/10/19 11:55 19:49 23:43 Troponin I 0.194 0.130 0.141 NT-Pro-B Natriuret Pep 3940 H 03/11/19 12:55 Troponin I 0.125 NT-Pro-B Natriuret Pep 2820 H Impressions: Abdomen/Pelvis CT 03/10/19 11:48 IMPRESSION: 1. No evidence of acute intra-abdominal/ pelvic process. 2. Scattered centrilobular bilateral basilar ground-glass opacities, likely secondary to infection/aspiration. 3. Unchanged dilation of the pancreatic duct, better evaluated on prior contra sted exam. Chest X-Ray 03/11/19 00:00 IMPRESSION: Catheter placement. Persistent right upper lobe pneumonia. Status: Image reviewed by me Assessment & Plan - Diagnosis (1) Ovarian mass Is this a current diagnosis for this admission?: Yes Plan: Not noted on CT x 2 done here, unsure of which is true as of now. I have reviewed images and placed call to radiology. Will get further recommendations from them. will follow. - Time Time Spent: Greater than 70 Minutes - Inpatient Certification Based on my medical assessment, after consideration of the patient's comor bidities, presenting symptoms, or acuity I expect that the services needed warrant INPATIENT care.: Yes I certify that my determination is in accordance with my understanding of Medicare's requirements for reasonable and necessary INPATIENT services [42 CFR 412.3e].: Yes Medical Necessity: Risk of Complication if Not Cared For in Hospital
[2019-03-12] MEDS ORDERED: VANCOMYCIN HCL 500 MG in DEXTROSE 5%-WATER 100 ML IV SCH (10:00)
[2019-03-12] MEDS: DIGOXIN 0.125 MG TABLET PO SCH (11:12)
[2019-03-12] MEDS: ASPIRIN 81 MG TABLET, CHEWABLE PO SCH (11:12)
[2019-03-12] MEDS: CEFEPIME 1 GM/D5W RTU 1 GM/50 ML RTUPB IV SCH ×2 (11:13→21:19)
[2019-03-12] MEDS: FAMOTIDINE 20 MG TABLET PO SCH ×2 (11:14→21:03)
[2019-03-12] MEDS: GUAIFENESIN 600 MG TABLET.SA PO SCH ×2 (11:14→21:04)
[2019-03-12] MEDS: VANCOMYCIN HCL 1,000 MG in DEXTROSE 5%-WATER 250 ML IV SCH (11:15)
--- NOTE | 2019-03-12 17:19 | RADIOLOGY REPORT (SQ) ---
EXAM DESCRIPTION: CT CHEST WITHOUT COMPLETED DATE/TIME: 03/12/2019 4:57 pm REASON FOR STUDY: RUL opacity COMPARISON: None. TECHNIQUE: CT scan performed of the chest without intravenous contrast. Images reviewed with lung, soft tissue and bone windows. Reconstructed coronal and sagittal MPR images reviewed. All images st ored on PACS. All CT scanners at this facility use dose modulation, iterative reconstruction, and/or weight based d osing when appropriate to reduce radiation dose to as low as reasonably achievable (ALARA). [facility]: Dose Right [facility]: CareDose [facility]: Dose Right [facility]: Teradose 4D [facility]: [employer] RADIATION DOSE: CT Rad equipment meets quality standard of care and radiation dose reduction techniq ues were employed. CTDIvol: 4.8 mGy. DLP: 178 mGy-cm. mGy. LIMITATIONS: No technical limitations. FINDINGS: LUNGS AND PLEURA: Persistent dense consolidation- cavitary appearance of the posterior asp ect of the right upper lobe with subsegmental bronchial occlusion. There are numerous areas of nodul arity, ground-glass opacity, and interstitial thickening bilaterally, some areas appear increased com pared with the previous examination. Small bilateral pleural effusions, slightly increased compared with the prior exam. Similar right medial basilar pleural calcifications- thickening. HILAR AND MEDIASTINAL STRUCTURES: No identified bulky nodes. No obvious aneurysm. HEART AND VASCULAR STRUCTURES: No aneurysm. No pericardial effusion. UPPER ABDOMEN: No significant findings. Limited exam. THYROID AND OTHER SOFT TISSUES: No masses. No adenopathy. BONES: No acute finding. HARDWARE: Right IJ central venous catheter. OTHER: No other significant findings. IMPRESSION: Persistent dense consolidation- cavitary appearance of the posterior aspect of the right upper lobe with subsegmental bronchial occlusion. There are numerous areas of nodularity, ground-gl ass opacity, and interstitial thickening bilaterally, some areas appear increased compared with the p revious examination. Small bilateral pleural effusions, slightly increased compared with the prior e xam. Similar right medial basilar pleural calcifications- thickening. TECHNICAL DOCUMENTATION: JOB ID: [id number] Quality ID # [id number]: Final reports with documentation of one or more dose reduction techniques (e.g., Au tomated exposure control, adjustment of the mA and/or kV according to patient size, use of iterative reconstruction technique) 2010 [employer]- All Rights Reserved Reading location - IP/workstation name: [email or web address]
[2019-03-12] MEDS: LEVOFLOXACIN 500 MG/D5W RTU 500 MG/100 ML RTUPB IV SCH (18:14)
--- NOTE | 2019-03-12 18:31 | PDOC PROGRESS REPORT ---
Subjective Progress Note for:: 03/12/19 - Seen on rounds in the ICU this afternoon Subjective:: Spoke with patient at bedside and she tells me she is feeling fine. She has a puzzled look on her face wondering why she is in ICU and why everybody is worried about her. I told her that her blood pressure is low and that her heart is in a regular rhythm she tells me that her blood pressure is usually not that high. We also discussed about her her right lung and the suspected cavitary lesion and hence why we are using isolation with airborne precaution. She denies any chest pain, shortness of breath, abdominal pain, nausea/vomiting or dizziness at this time. Reason For Visit: PNEUMONIA Physical Exam Vital Signs: Temp Pulse Resp BP Pulse Ox 98.8 F 105 H 22 H 92/68 L 86 L 03/12/19 16:00 03/12/19 16:00 03/12/19 17:35 03/12/19 17:19 03/12/19 17:19 Pulse Oximeter Continuous Start: 03/10/19 15:13 Freq: RTQ4 Status: Complete Protocol: Document 03/11/19 16:48 HCR (Rec: 03/11/19 16:48 HCR [email or web address]) Pulse Oximetry Assessment Equipment Usage Equipment Discontinued Continuous SpO2 Machine # 11 Intake & Output 03/11/19 03/12/19 03/13/19 06:59 06:59 06:59 Intake Total 4630 1732 514 Output Total 350 1200 400 Balance 4280 532 114 Weight 133 lb 13.129 oz 131 lb 2.801 oz General appearance: PRESENT: no acute distress, other - Thin appearing Head exam: PRESENT: atraumatic, normocephalic Eye exam: PRESENT: EOMI. ABSENT: scleral icterus Mouth exam: PRESENT: moist Neck exam: ABSENT: tracheal deviation Respiratory exam: PRESENT: decreased breath sounds - Decreased breath sound on the right side and mostly of the base and upper lung Some fine crackles at bilateral bases Cardiovascular exam: PRESENT: +S1, +S2 Pulses: PRESENT: +1 pedal pulses bilateral GI/Abdominal exam: PRESENT: normal bowel sounds, soft. ABSENT: tenderness Extremities exam: ABSENT: pedal edema Neurological exam: PRESENT: alert, awake, oriented to person, oriented to place, CN II-XII grossly intact Skin exam: PRESENT: dry, warm Results Laboratory Results: 03/12/19 03:00 03/12/19 03:00 03/11/19 03/12/19 03/12/19 20:40 03:00 03:00 WBC 6.1 RBC 3.38 L Hgb 10.0 L Hct 29.6 L MCV 88 MCH 29.4 MCHC 33.6 RDW 15.3 H Plt Count 174 Seg Neutrophils % 68.3 Lymphocytes % 22.6 Monocytes % 7.0 Eosinophils % 1.0 Basophils % 1.1 Absolute Neutrophils 4.1 Absolute Lymphocytes 1.4 Absolute Monocytes 0.4 Absolute Eosinophils 0.1 Absolute Basophils 0.1 Sodium 137.7 Potassium 3.9 D Chloride 109 H Carbon Dioxide 24 Anion Gap 5 BUN 16 Creatinine 0.91 Est GFR ( Amer) > 60 Est GFR (Non-Af Amer) 59 L Glucose 95 Lactic Acid 1.8 Calcium 7.8 L 03/10/19 13:20 Catheterized Urine Urine Culture - Final NO GROWTH 2 DAYS 03/10/19 03/10/19 03/10/19 11:55 19:49 23:43 Troponin I 0.194 0.130 0.141 NT-Pro-B Natriuret Pep 3940 H 03/11/19 12:55 Troponin I 0.125 NT-Pro-B Natriuret Pep 2820 H Impressions: Abdomen/Pelvis CT 03/10/19 11:48 IMPRESSION: 1. No evidence of acute intra-abdominal/ pelvic process. 2. Scattered centrilobular bilateral basilar ground-glass opacities, likely secondary to infection/aspiration. 3. Unchanged dilation of the pancreatic duct, better evaluated on prior contrasted exam. Chest X-Ray 03/11/19 00:00 IMPRESSION: Catheter placement. Persistent right upper lobe pneumonia. Chest CT 03/12/19 11:42 IMPRESSION: Persistent dense consolidation- cavitary appearance of the posterior aspect of the right upper lobe with subsegmental bronchial occlusion. There are numerous areas of nodularity, ground-glass opacity, and interstitial thickening bilaterally, some areas appear increased compared with the previous examination. Small bilateral pleural effusions, slightly increased compared with the prior exam. Similar right medial basilar pleural calcifications- th ickening. Assessment and Plan - Diagnosis (1) Atrial fibrillation with RVR Is this a current diagnosis for this admission?: Yes (2) Hypokalemia Is this a current diagnosis for this admission?: Yes (3) Hypotension Qualifiers: Hypotension type: unspecified hypotension type Qualified Code(s): I95.9 - Hypotension, unspecified Is this a current diagnosis for this admission?: Yes - Time Time Spent with patient: 35 or more minutes - Inpatient Certification Medical Necessity: Failure to Improve With Outpatient Therapy, Significant Comorbidiites Make Outpatient Treatment Too Risky, Need For Continuous Telemetry Monitoring, Need for IV Antibiotics, Risk of Complication if Not Cared For in Hospital - Plan Summary Plan Summary: 84-year-old female with a past medical history of coronary artery disease, [place], hypertension, diastolic heart failure, depression who was admitted to the hospital on 03/10/2019 for suspected sepsis secondary to multifocal pneumonia of the right lung, acute kidney injury and an elevated troponin. Sepsis-suspected secondary to pneumonia of the right lung started on triple therapy with IV vancomycin, cefepime and Levaquin, day 3 today. So far her blood culture and urine cultures negative she did not have an elevated white count on admission. Pneumonia-see plan above for sepsis-she was also ordered for a CT chest which is pending to better visualize her right lower lobe and upper lobe cavitary lesion she is has had in the past on prior CTs. Continue with fungal hygiene. Right upper lobe cavitary lesion-concern for TB and currently she is on isolation with airborne precaution. Quant form goal was sent, PPD was placed and pending. Sputum cultures are also pending. During her admission to [facility] in January 2019 a TB was ruled out given her cavitary lesion at that time also. I am wondering if this is an abscess versus fungal in nature. I will consider consulting pulmonology for their nurse practitioner physicians assistant as Dr. Gary may be already familiar with her case. Acute kidney injury - resolved Atrial fibrillation with RVR-patient unfortunately went into A. fib-she has a history of PAF but was not on any anticoagulation I suspect due to her age and comorbidities. Currently cardiology is consulted and I appreciate their assistance. She is on Cardizem 2.5 mg an hour drip along with a heparin drip. She did have an elevation of troponin and I suspect this was secondary to demand mismatch and less likely a cardiac event. Elevated troponin-see plan above. Continue on telemetry. Ovarian mass-oncology was consulted prior to her coming to the ICU-they recommend a transvaginal ultrasound I believe. She did have a CT abdomen pelvis on upon admission which that showed scattered centrilobular bilateral basilar groundglass opacities-there is also an ovarian mass that is followed by outpatient gynecology.
--- NOTE | 2019-03-12 20:44 | Progress Note ---
Provider Note Provider Note: CARDIOLOGY PROGRESS NOTE by Dr. Radha Hsieh on 03/12/2019. SUBJECTIVE: The patient continues to be in atrial fibrillation with left bundle branch block her heart rate is in the low 100s. She is asymptomatic from her atrial fibrillation. Her blood pressure is 98 systolic and the patient is mentating well. Her urine output also remains good. She has a cough but is unable to produce any sputum. She denies any shortness of breath at rest. She has no bleeding on heparin. There is no TIA CVA symptoms. There is no ventricular arrhythmia seen on the monitor. There is no high-grade AV block seen on the monitor. The patient is in a respiratory/tuberculosis isolation room. She has no further vomiting. She states she had nausea is much improved and she is able to eat some. PHYSICAL EXAMINATION: The patient appears to be a frail build and chronically ill but at present in no acute distress. Selected Entries 03/12/19 07:45 Temperature 97.9 F Temperature Oral Source Pulse Rate 105 H Respiratory 20 Rate Blood Pressure 98/84 L [Left Upper Arm ] Blood Pressure 88 Mean [Left Upper Arm] Blood Pressure Supine Position [Left Upper Arm] O2 Sat by Pulse 100 Oximetry Oxygen Delivery Room Air Method ( includes room air) HEAD: Is atraumatic normocephalic. EYES: Pupils equal round regular reactive light accommodation. Extraocular movements are normal. There is no conjunctival pallor. There is no scleral icterus. ENT is negative. Neck is supple. There is no JVD. Carotids are equal there is no bruit. There is no lymphadenopathy. There is no accessory muscle respiration use. Trachea central. LUNGS: Show a few dry crackles in the right upper lobe. The rest of the lungs appear fairly clear. There is no rales of CHF. There is no rhonchi or wheezing. HEART: S1-S2 is heard. S1 is of variable intensity. There is no S3 gallop. There is no S4 gallop. There is systolic murmur left sternal border and the apex. There is no rub. ABDOMEN: Is soft nontender there is no hepatospleno megaly bowel sounds well heard. EXTREMITIES: Femorals are well felt. There is no femoral bruits. There is no pedal edema. There is no DVT or cellulitis. Leg pulses are diminished. There is no cyanosis or clubbing. HOSPITAL COOK: The patient is conscious awake alert oriented x3 with no focal deficits. PSYCHIATRIC: The patient judgment insight are intact her affect is normal. ATRIAL fibrillation with intermittent aberrant ventricular contraction of the left bundle branch block type pattern. There is T inversion anterolateral leads. Diffuse nonspecific ST-T changes. Labs- All tests 24 hr 03/11/19 03/12/19 03/12/19 20:40 03:00 03:00 WBC 6.1 RBC 3.38 L Hgb 10.0 L Hct 29.6 L MCV 88 MCH 29.4 MCHC 33.6 RDW 15.3 H Plt Count 174 Seg Neutrophils % 68.3 Lymphocytes % 22.6 Monocytes % 7.0 Eosinophils % 1.0 Basophils % 1.1 Absolute Neutrophils 4.1 Absolute Lymphocytes 1.4 Absolute Monocytes 0.4 Absolute Eosinophils 0.1 Absolute Basophils 0.1 APTT Sodium 137.7 Potassium 3.9 D Chloride 109 H Carbon Dioxide 24 Anion Gap 5 BUN 16 Creatinine 0.91 Est GFR ( Amer) > 60 Est GFR (Non-Af Amer) 59 L Glucose 95 Lactic Acid 1.8 Calcium 7.8 L 03/12/19 03/12/19 03/12/19 03:00 10:25 18:25 WBC RBC Hgb Hct MCV MCH MCHC RDW Plt Count Seg Neutrophils % Lymphocytes % Monocytes % Eosinophils % Basophils % Absolute Neutrophils Absolute Lymphocytes Absolute Monocytes Absolute Eosinophils Absolute Basophils APTT 118.1 H Cancelled > 235.0 H* Sodium Potassium Chloride Carbon Dioxide Anion Gap BUN Creatinine Est GFR ( Amer) Est GFR (Non-Af Amer) Glucose Lactic Acid Calcium Chest X-Ray 03/10/19 00:00 IMPRESSION: Persistent right upper lobe opacities compatible with pneumonia. New patchy opacities within the right middle and left lower lobe suspicious for additional multifocal infection. Abdomen/Pelvis CT 03/10/19 11:48 IMPRESSION: 1. No evidence of acute intra-abdominal/ pelvic process. 2. Scattered centrilobular bilateral basilar ground-glass opacities, likely secondary to infection/aspiration. 3. Unchanged dilation of the pancreatic duct, better evaluated on prior contrasted exam. Chest X-Ray 03/11/19 00:00 IMPRESSION: Catheter placement. Persistent right upper lobe pneumonia. Chest CT 03/12/19 11:42 IMPRESSION: Persistent dense consolidation- cavitary appearance of the posterior aspect of the right upper lobe with subsegmental bronchial occlusion. There are numerous areas of nodularity, ground-glass opacity, and interstitial thickening bilaterally, some areas appear increased compared with the previous examination. Small bilateral pleural effusions, slightly increased compared with the prior exam. Similar right medial basilar pleural calcifications- thickening. impression/RECOMMENDATION: 1. Atrial fibrillation with intermittent aberrant conduction of the left bundle branch block pattern. Continue the patient on Cardizem and digoxin. Note that the dig level is 1.93. Continue IV heparin. Need to discuss long-term anti coagulation with the patient. 2. Elevated troponin I: Secondary to supply demand mismatch. No evidence of non-ST elevation MT. This is secondary to atrial fibrillation with rapid ventricular response, and infection. 3 right upper lobe pneumonia with cavitation: Work-up in progress continue antibiotics. 4. Questionable ovarian mass: Recent CT scan of the abdomen does not show the mass. [facility]. 5. History of hypertension: Blood pressure on the lower side. 6. Nausea and vomiting: Seems to resolved.? Etiology. 7. Malnutrition: Patient may need dietary supplements. Recommend consider dietary consult. Medications reviewed. Medications adjusted. Management plan discussed with attending physician on the case and also with the senior rd engineer. Medical decis ion making is of high complexity. 40 minutes spent on this patient with more than 50% of time spent in direct patient care. Will follow
[2019-03-12] MEDS: HEPARIN SOD (PORCINE) 1,000 UNIT/ML 10 ML VIAL IV PRN (21:01)
[2019-03-13] MEDS: IPRATROPIUM/ALBUTEROL 0.5-2.5 MG/3 ML AMPUL NEB SCH ×4 (02:24→21:10)
[2019-03-13] MEDS: DILTIAZEM HCL/D5W 125 MG/125 ML RTUINJ IV PRN (08:19)
[2019-03-13 08:34] LABS: ABSOLUTE BASOPHILS # (AUTO) 0.1 10^3/uL (0.0-0.2); ABSOLUTE EOSINOPHILS # (AUTO) 0.1 10^3/uL (0.0-0.6); ABSOLUTE LYMPHOCYTES (AUTO) 1.2 10^3/uL (0.5-4.7); ABSOLUTE MONOCYTES (AUTO) 0.4 10^3/uL (0.1-1.4); ABSOLUTE NEUT (AUTO) 5.7 10^3/uL (1.7-8.2); EOSINOPHILS % (AUTO) 0.9 % (0-6); HEMATOCRIT 30.1 % (36.0-47.0); HEMOGLOBIN 10.1 g/dL (12.0-15.5); LYMPHOCYTES % (AUTO) 16.5 % (13-45); MEAN CORPUSCULAR HEMOGLOBIN 29.5 pg (27.0-33.4); MEAN CORPUSCULAR HGB CONC 33.7 g/dL (32.0-36.0); MEAN CORPUSCULAR VOLUME 88 fl (80-97); MONOCYTES % (AUTO) 5.4 % (3-13); PLATELET COUNT 173 10^3/uL (150-450); RED BLOOD COUNT 3.44 10^6/uL (3.72-5.28); RED CELL DISTRIBUTION WIDTH 15.3 % (11.5-14.0); SEGMENTED NEUTROPHILS % (AUTO) 76.2 % (42-78); TOTAL CELLS COUNTED % (AUTO) 100 %; WHITE BLOOD COUNT 7.5 10^3/uL (4.0-10.5)
[2019-03-13 08:56] LABS: ANION GAP 6 (5-19); BLOOD UREA NITROGEN 11 mg/dL (7-20); CALCIUM 8.3 mg/dL (8.4-10.2); CARBON DIOXIDE 23 mmol/L (22-30); CHLORIDE 107 mmol/L (98-107); GLUCOSE 119 mg/dL (75-110); POTASSIUM 3.8 mmol/L (3.6-5.0)
--- NOTE | 2019-03-13 10:17 | EKG REPORT ---
SEVERITY:- ABNORMAL ECG - ATRIAL FIBRILLATION ABERRANT COMPLEX, POSSIBLY SUPRAVENTRICULAR BORDERLINE LEFT AXIS DEVIATION BORDERLINE R WAVE PROGRESSION, ANTERIOR LEADS ABNORMAL T, CONSIDER ISCHEMIA, ANT-LAT LEADS : Confirmed by: Alessia Jim 13-Mar-2019 10:16:46
--- NOTE | 2019-03-13 10:17 | EKG REPORT ---
SEVERITY:- ABNORMAL ECG - ATRIAL FIBRILLATION, V-RATE 70-161 ABERRANT COMPLEX VS VPCS ABNRM R PROG, CONSIDER ASMI OR LEAD PLACEMENT ABNORMAL T, CONSIDER ISCHEMIA, ANT-LAT LEADS : Confirmed by: Alessia Jim 13-Mar-2019 10:17:13
[2019-03-13] MEDS: GUAIFENESIN 600 MG TABLET.SA PO SCH ×2 (10:23→22:48)
[2019-03-13] MEDS: METOPROLOL TARTRATE 25 MG TABLET PO SCH ×2 (10:23→22:48)
[2019-03-13] MEDS: FAMOTIDINE 20 MG TABLET PO SCH ×2 (10:23→22:48)
[2019-03-13] MEDS: DIGOXIN 0.125 MG TABLET PO SCH (10:28)
[2019-03-13] MEDS: ASPIRIN 81 MG TABLET, CHEWABLE PO SCH (10:28)
[2019-03-13] MEDS: CEFEPIME 1 GM/D5W RTU 1 GM/50 ML RTUPB IV SCH ×2 (10:29→22:48)
[2019-03-13] MEDS: VANCOMYCIN HCL 1,000 MG in DEXTROSE 5%-WATER 250 ML IV SCH (10:30)
--- NOTE | 2019-03-13 12:30 | PDOC PROGRESS REPORT ---
Subjective Progress Note for:: 03/13/19 Subjective:: No acute events overnight, patient feels great, today had a long discussion with patient, providers and reviewed records at length, spent 45 minutes in discussion and coordination of care. She had bronchoscopy for the persistent right lung opacity, and this was all negative, TB testing was negative, fungal testing was negative as well as there is no evidence of malignancy. Right now I reviewed the imaging of the left adnexal mass, the adnexal mass was present in [facility] and is present on our imaging here, although here is much smaller at 2 cm. It was recommended to repeat the transvaginal ultrasound and we will order that today. But more than likely this is probably a cyst rather than true malignancy. I did order Ca1 25 today. Reason For Visit: PNEUMONIA Physical Exam Vital Signs: Temp Pulse Resp BP Pulse Ox 97.6 F 108 H 24 H 83/61 L 100 03/13/19 09:43 03/13/19 09:43 03/13/19 09:43 03/13/19 09:43 03/13/19 09:43 Pulse Oximeter Continuous Start: 03/10/19 15:13 Freq: RTQ4 Status: Complete Protocol: Document 03/11/19 16:48 HCR (Rec: 03/11/19 16:48 HCR [email or web address]) Pulse Oximetry Assessment Equipment Usage Equipment Discontinued Continuous SpO2 Machine # 11 Intake & Output 03/12/19 03/13/19 03/14/19 06:59 06:59 06:59 Intake Total 1732 1318 135 Output Total 1200 1150 100 Balance 532 168 35 Weight 59.5 kg 59.5 kg General appearance: PRESENT: no acute distress, well-developed, well-nourished Head exam: PRESENT: atraumatic, normocephalic Eye exam: PRESENT: conjunctiva pink, EOMI, PERRLA. ABSENT: scleral icterus Ear exam: PRESENT: normal external ear exam Mouth exam: PRESENT: moist, tongue midline Neck exam: ABSENT: carotid bruit, JVD, lymphadenopathy, thyromegaly Respiratory exam: PRESENT: clear to auscultation talha. ABSENT: rales, rhonchi, wheezes Cardiovascular exam: PRESENT: RRR. ABSENT: diastolic murmur, rubs, systolic murmur Pulses: PRESENT: normal dorsalis pedis pul Vascular exam: PRESENT: normal capillary refill GI/Abdominal exam: PRESENT: normal bowel sounds, soft. ABSENT: distended, guarding, mass, organolmegaly, rebound, tenderness Rectal exam: PRESENT: deferred Extremities exam: PRESENT: full ROM. ABSENT: calf tenderness, clubbing, pedal edema Neurological exam: PRESENT: alert, awake, oriented to person, oriented to place, oriented to time, oriented to situation, CN II-XII grossly intact. ABSENT: motor sensory deficit Psychiatric exam: PRESENT: appropriate affect, normal mood. ABSENT: homicidal ideation, suicidal ideation Skin exam: PRESENT: dry, intact, warm. ABSENT: cyanosis, rash Results Laboratory Results: 03/13/19 08:20 03/13/19 08:20 03/13/19 03/13/19 08:20 08:20 WBC 7.5 RBC 3.44 L Hgb 10.1 L Hct 30.1 L MCV 88 MCH 29.5 MCHC 33.7 RDW 15.3 H Plt Count 173 Seg Neutrophils % 76.2 Lymphocytes % 16.5 Monocytes % 5.4 Eosinophils % 0.9 Basophils % 1.0 Absolute Neutrophils 5.7 Absolute Lymphocytes 1.2 Absolute Monocytes 0.4 Absolute Eosinophils 0.1 Absolute Basophils 0.1 Sodium 135.7 L Potassium 3.8 Chloride 107 Carbon Dioxide 23 Anion Gap 6 BUN 11 Creatinine 0.79 Est GFR ( Amer) > 60 Est GFR (Non-Af Amer) > 60 Glucose 119 H Calcium 8.3 L Magnesium 1.5 L 03/10/19 13:20 Catheterized Urine Urine Culture - Final NO GROWTH 2 DAYS 03/10/19 03/10/19 03/10/19 11:55 19:49 23:43 Troponin I 0.194 0.130 0.141 NT-Pro-B Natriuret Pep 3940 H 03/11/19 12:55 Troponin I 0.125 NT-Pro-B Natriuret Pep 2820 H Impressions: Abdomen/Pelvis CT 03/10/19 11:48 IMPRESSION: 1. No evidence of acute intra-abdominal/ pelvic process. 2. Scattered centrilobular bilateral basilar ground-glass opacities, likely secondary to infection/aspiration. 3. Unchanged dilation of the pancreatic duct, better evaluated on prior contrasted exam. Chest X-Ray 03/11/19 00:00 IMPRESSION: Catheter placement. Persistent right upper lobe pneumonia. Chest CT 03/12/19 11:42 IMPRESSION: Persistent dense consolidation- cavitary appearance of the posterior aspect of the right upper lobe with subsegmental bronchial occlusion. There are numerous areas of nodularity, ground-glass opacity, and interstitial thickening bilaterally, some areas appear increased compared with the previous examination. Small bilateral pleural effusions, slightly increased compared with the prior exam. Similar right medial basilar pleural calcifications- thickening. Assessment & Plan - Diagnosis (1) Ovarian mass Is this a current diagnosis for this admission?: Yes Plan: Unlikely to be a cancer, but transvaginal ultrasound pending. She will need [facility] follow-up as an outpatient. I will follow-up her as well. (2) Mass of right lung Is this a current diagnosis for this admission?: Yes Plan: Still unknown cause, it is been persistent for 2 months, bronchoscopy with biopsy was negative for any true delineation. Patient has been losing weight and been having persistent nausea so I do not know the reason for this. She wo uld benefit from a PET/CT as an outpatient. - Time Time Spent with patient: 35 or more minutes
--- NOTE | 2019-03-13 16:26 | RADIOLOGY REPORT (SQ) ---
EXAM DESCRIPTION: U/S NON OB PEL TV W/DOPPLER COMPLETED DATE/TIME: 03/13/2019 4:06 pm REASON FOR STUDY: Evaluate Left Adnexal Mass COMPARISON: None. TECHNIQUE: Dynamic and static grayscale images acquired of the pelvis via transvaginal approach and recorded on PACS. Additional selected color Doppler and spectral images recorded. LIMITATIONS: None. FINDINGS: UTERUS: Surgically absent RIGHT OVARY AND DOPPLER: Not visualize LEFT OVARY AND DOPPLER: Not visualized FREE FLUID: None noted. OTHER: In the left adnexum, there is a 1.5 x 1.5 x 2.6 cm simple cyst. No solid component. IMPRESSION: 1.5 x 1.5 x 2.6 cm simple cyst in the left adnexum. There is no solid component. TECHNICAL DOCUMENTATION: JOB ID: [id number] [employer]- All Rights Reserved Rev-12/12 Reading location - IP/workstation name: [email or web address]
[2019-03-13] MEDS ORDERED: MAGNESIUM SULFATE/D5W 1 GM/100 ML RTUPB IV ONE (17:00)
--- NOTE | 2019-03-13 17:10 | PDOC PROGRESS REPORT ---
Subjective Progress Note for:: 03/13/19 - Seen on rounds this morning in ICU Subjective:: Spoke with patient regarding her care in ICU. Discussed about her blood pressure. Patient states that she has lost a great deal of weight in the last few months. Patient also states that she was on antihypertensives but her doc tors have been cutting back on them because her blood pressure has been dropping. She was transferred to the ICU secondary to the fact that her blood pressure was low even after multiple fluid boluses. She also went into A. fib and hence she was started on Cardizem drip and heparin drip. She denies any chest pain, abdominal pain, nausea/vomiting or dizziness. She has some shortness of breath with exertion but otherwise able to walk from the bed to the bedside commode. Reason For Visit: PNEUMONIA Physical Exam Vital Signs: Temp Pulse Resp BP Pulse Ox 98.4 F 93 26 H 102/68 100 03/13/19 13:50 03/13/19 13:50 03/13/19 13:50 03/13/19 13:50 03/13/19 13:50 Pulse Oximeter Continuous Start: 03/10/19 15:13 Freq: RTQ4 Status: Complete Protocol: Document 03/11/19 16:48 HCR (Rec: 03/11/19 16:48 HCR [id number]) Pulse Oximetry Assessment Equipment Usage Equipment Discontinued Continuous SpO2 Machine # 11 Intake & Output 03/12/19 03/13/19 03/14/19 06:59 06:59 06:59 Intake Total 1732 1318 515 Output Total 1200 1150 350 Balance 532 168 165 Weight 131 lb 2.801 oz 131 lb 2.801 oz General appearance: PRESENT: no acute distress Head exam: PRESENT: atraumatic, normocephalic Eye exam: PRESENT: EOMI. ABSENT: scleral icterus Ear exam: PRESENT: normal external ear exam Mouth exam: PRESENT: moist Neck exam: ABSENT: tracheal deviation Respiratory exam: PRESENT: decreased breath sounds - Right upper lobe-with some rhonchi and coarse breath sounds Cardiovascular exam: PRESENT: +S1, +S2 GI/Abdominal exam: PRESENT: normal bowel sounds, soft. ABSENT: tenderness Extremities exam: ABSENT: pedal edema Neurological exam: PRESENT: alert, awake, oriented to person, oriented to place, CN II-XII grossly intact Skin exam: PRESENT: dry, warm Results Laboratory Results: 03/13/19 08:20 03/13/19 08:20 03/13/19 03/13/19 08:20 08:20 WBC 7.5 RBC 3.44 L Hgb 10.1 L Hct 30.1 L MCV 88 MCH 29.5 MCHC 33.7 RDW 15.3 H Plt Count 173 Seg Neutrophils % 76.2 Lymphocytes % 16.5 Monocytes % 5.4 Eosinophils % 0.9 Basophils % 1.0 Absolute Neutrophils 5.7 Absolute Lymphocytes 1.2 Absolute Monocytes 0.4 Absolute Eosinophils 0.1 Absolute Basophils 0.1 Sodium 135.7 L Potassium 3.8 Chloride 107 Carbon Dioxide 23 Anion Gap 6 BUN 11 Creatinine 0.79 Est GFR ( Amer) > 60 Est GFR (Non-Af Amer) > 60 Glucose 119 H Calcium 8.3 L Magnesium 1.5 L 03/10/19 03/10/19 03/10/19 11:55 19:49 23:43 Troponin I 0.194 0.130 0.141 NT-Pro-B Natriuret Pep 3940 H 03/11/19 12:55 Troponin I 0.125 NT-Pro-B Natriuret Pep 2820 H Impressions: Abdomen/Pelvis CT 03/10/19 11:48 IMPRESSION: 1. No evidence of acute intra-abdominal/ pelvic process. 2. Scattered centrilobular bilateral basilar ground-glass opacities, likely secondary to infection/aspiration. 3. Unchanged dilation of the pancreatic duct, better evaluated on prior contrasted exam. Chest X-Ray 03/11/19 00:00 IMPRESSION: Catheter placement. Persistent right upper lobe pneumonia. Chest CT 03/12/19 11:42 IMPRESSION: Persistent dense consolidation- cavitary appearance of the posterior aspect of the right upper lobe with subsegmental bronchial occlusion. There are numerous areas of nodularity, ground-glass opacity, and interstitial thickening bilaterally, some areas appear increased compared with the previous examination. Small bilateral pleural effusions, slightly increased compared with the prior exam. Similar right medial basilar pleural calcifications- thickening. Transvaginal US 03/13/19 12:34 IMPRESSION: 1.5 x 1.5 x 2.6 cm simple cyst in the left adnexum. There is no solid component. Assessment and Plan - Diagnosis (1) Atrial fibrillation with RVR Is this a current diagnosis for this admission?: Yes (2) Hypokalemia Is this a current diagnosis for this admission?: Yes (3) Hypotension Qualifiers: Hypotension type: unspecified hypotension type Qualified Code(s): I95.9 - Hypotension, unspecified Is this a current diagnosis for this admission?: Yes (4) Pulmonary cavitary lesion Is this a current diagnosis for this admission?: Yes (5) Ovarian mass Is this a current diagnosis for this admission?: Yes (6) Paroxysmal atrial fibrillation Is this a current diagnosis for this admission?: Yes (7) Acute kidney injury Is this a current diagnosis for this admission?: Yes (8) Pneumonia Qualifiers: Pneumonia type: due to unspecified organism Laterality: bilateral Lung location: unspecified part of lung Qualified Code(s): J18.9 - Pneumonia, unspecified organism Is this a current diagnosis for this admission?: Yes (9) Sepsis Qualifiers: Sepsis type: sepsis due to unspecified organism Sepsis acute organ dysfunction status: unspecified Qualified Code(s): A41.9 - Sepsis, unspecified organism Is this a current diagnosis for this admission?: Yes - Time Time Spent with patient: 25-34 minutes - Inpatient Certification Based on my medical assessment, after consideration of the patient's comorbidities, presenting symptoms, or acuity I expect that the services needed warrant INPATIENT care.: Yes I certify that my determination is in accordance with my understanding of Medicare's requirements for reasonable and necessary INPATIENT services [42 CFR 412.3e].: Yes Medical Necessity: Failure to Improve With Outpatient Therapy, Significant Comorbidiites Make Outpatient Treatment Too Risky, Need For Continuous Telemetry Monitoring, Risk of Complication if Not Cared For in Hospital - Plan Summary Plan Summary: 84-year-old female with a past medical history of coronary artery disease, [place], hypertension, diastolic heart failure, depression who was admitted to the hospital on 03/10/2019 for suspected sepsis secondary to multifocal pneumonia of the right lung, acute kidney injury and an elevated troponin. She was transferred down to the ICU on 03/11/2019 due to hypotension and A. fib with RVR. Sepsis-suspected secondary to pneumonia of the right lung started on triple th erapy with IV vancomycin, cefepime and Levaquin, day 4 today. So far her blood culture and urine cultures negative she did not have an elevated white count on admission. Pneumonia-see plan above for sepsis-she was also ordered for a CT chest Repeated on 03/13 showed a persistent dense consolidation cavitary appearance on the posterior aspect of the right upper lobe with subsegmental bronchial occlusion. There was also some nodularity with groundglass opacities and interstitial thickening bilaterally. Although we have been treating her with IV antibiotics as stated above-I am wondering if this is bacterial in nature or not. See plan below for right cavitary lesion Right upper lobe cavitary lesion-concern for TB and hence she was on isolation with airborne precaution but PPD placed 2 days ago has been negative. AFB and QuantiFERON gold is still pending but is less likely TB at this point. Spoke with hematology/oncologist who does not believe this is malignancy. She does have a history of weight loss for the last few months and hence was initially concerning. Given that it is a right upper lobe cavitary lesion differential diagnoses include but not limited to pulmonary abscess, non-TB infection, aspergillosis, sarcoidosis and malignancies. I am going to send for aspergillo sis antibody and sed rate/CRP today. Per towel weaver she also had a bronchoscopy done at [facility] in the last month or so and hence I am not sure if she is going to [facility] I will considering consulting Dr. Gary, traveling inventory associate for further assistance. Acute kidney injury - resolved Atrial fibrillation with RVR-patient unfortunately went into A. fib-she was started on Cardizem 2.5 mg and has been increased to 5 mg an hour-her blood pressure is holding stable with systolic greater than 85 and a map greater than 65. She is also on a heparin drip at this time and until we speak with traveling inventory associate regarding further testing we will continue. If there is no further invasive testing then we can consider switching her to a NOAC. Hypertension-her blood pressure systolic has been anywhere between 82-111 with a map greater than 65. Even when her systolic was in the mid 80s she was asymptomatic. She has been walking from the bed to the bedside commode with assistance without any dizziness or lightheadedness. He does have some shortness of breath on exertion is intermittent. she has a history of PAF but was not on any anticoagulation I suspect due to her age and comorbidities. Currently cardiology is consulted and I appreciate their assistance. She is on Cardizem 2.5 mg an hour drip along with a heparin drip. She did have an elevation of troponin and I suspect this was secondary to demand mismatch and less likely a cardiac event. Elevated troponin-troponin peaked to 0.194 and trended down-most likely demand mismatch-she has no complaints of chest pain at this time-continue on telemetry. Ovarian mass-oncology was consulted prior to her coming to the ICU-transvaginal ultrasound was completed which showed a simple cyst- left side- 1.5 x 1.5 x 2.6 cm. She did have a CT abdomen pelvis on upon admission which that showed scattered centrilobular bilateral basilar groundglass opacities. Disposition-given the fact that she has been in ICU for almost 72 hours with a stable blood pressure and no other acute symptoms she can be downgraded to IMCU for further continued care.
--- NOTE | 2019-03-13 17:15 | Progress Note ---
Provider Note Provider Note: We will DC vancomycin at this time but will continue with cefepime and Levaquin for now. She never required pressors in the ICU during her stay. Her atrial fibrillation is being followed by political science chair-appreciate his assistance.
--- NOTE | 2019-03-13 21:45 | Progress Note ---
Provider Note Provider Note: CARDIOLOGY PROGRESS NOTE by Dr. Radha Hsieh on 03/13/2019. SUBJECTIVE: The patient denies any chest pain or discomfort. She complains of cough which productive of white sputum. There is no wheezing. There is no hemoptysis. There is no chest pain or discomfort. Patient continues to be in atrial fibrillation with ventricular response being much better and in the 90s. There is no bleeding on heparin present. There is no TIA or CVA symptoms. Her records show that the patient already had a bronchoscopy done in [facility]. She was also worked up for TB and initial studies were negative. Spoke to the oncologist. There is seems to be a ovarian mass. There is no leg edema. There is no ventricular arrhythmia seen on the monitor. physical EXAMINATION: The patient appears to be a frail build. She is chronically ill Selected Entries 03/13/19 03/13/19 20:00 20:43 Temperature 98.2 F Temperature Oral Source Heart Rate ( 99 Monitors) Respiratory 23 H Rate Blood Pressure 121/65 Blood Pressure 83 Mean O2 Sat by Pulse 100 Oximetry Oxygen Delivery Room Air Method ( includes room air) HEAD: Is atraumatic normocephalic. EYES: Pupils equal round regular reactive light accommodation. Extraocular movements are normal. There is no conjunc tival pallor. There is no scleral icterus. ENT is negative. Neck is supple. There is no JVD. Carotids are equal there is no bruit. There is no lymphadenopathy. There is no accessory muscle respiration use. Trachea central. LUNGS: Show a few dry crackles in the right upper lobe. The rest of the lungs appear fairly clear. There is no rales of CHF. There is no rhonchi or wheezing. HEART: S1-S2 is heard. S1 is of variable intensity. There is no S3 gallop. There is no S4 gallop. There is systolic murmur left sternal border and the apex. There is no rub. ABDOMEN: Is soft nontender there is no hepatospleno megaly bowel sounds well heard. EXTREMITIES: Femorals are well felt. There is no femoral bruits. There is no pedal edema. There is no DVT or cellulitis. Leg pulses are diminished. There is no cyanosis or clubbing. BUSINESS SERVICES TECH: The patient is conscious awake alert oriented x3 with no focal deficits. PSYCHIATRIC: The patient judgment insight are intact her affect is normal. Labs- All tests 24 hr 03/13/19 03/13/19 03/13/19 04:05 08:20 08:20 WBC 7.5 RBC 3.44 L Hgb 10.1 L Hct 30.1 L MCV 88 MCH 29.5 MCHC 33.7 RDW 15.3 H Plt Count 173 Seg Neutrophils % 76.2 Lymphocytes % 16.5 Monocytes % 5.4 Eosinophils % 0.9 Basophils % 1.0 Absolute Neutrophils 5.7 Absolute Lymphocytes 1.2 Absolute Monocytes 0.4 Absolute Eosinophils 0.1 Absolute Basophils 0.1 ESR APTT 112.4 H D Sodium 135.7 L Potassium 3.8 Chloride 107 Carbon Dioxide 23 Anion Gap 6 BUN 11 Creatinine 0.79 Est GFR ( Amer) > 60 Est GFR (Non-Af Amer) > 60 Glucose 119 H Calcium 8.3 L Magnesium 1.5 L C-Reactive Protein 03/13/19 03/13/19 03/13/19 08:20 11:30 17:08 WBC RBC Hgb Hct MCV MCH MCHC RDW Plt Count Seg Neutrophils % Lymphocytes % Monocytes % Eosinophils % Basophils % Absolute Neutrophils Absolute Lymphocytes Absolute Monocytes Absolute Eosinophils Absolute Basophils ESR 32 H APTT 46.9 H Sodium Potassium Chloride Carbon Dioxide Anion Gap BUN Creatinine Est GFR ( Amer) Est GFR (Non-Af Amer) Glucose Calcium Magnesium C-Reactive Protein 57.1 H 03/13/19 21:00 WBC RBC Hgb Hct MCV MCH MCHC RDW Plt Count Seg Neutrophils % Lymphocytes % Monocytes % Eosinophils % Basophils % Absolute Neutrophils Absolute Lymphocytes Absolute Monocytes Absolute Eosinophils Absolute Basophils ESR APTT 80.2 H Sodium Potassium Chloride Carbon Dioxide Anion Gap BUN Creatinine Est GFR ( Amer) Est GFR (Non-Af Amer) Glucose Calcium Magnesium C-Reactive Protein Chest X-Ray 03/10/19 00:00 IMPRESSION: Persistent right upper lobe opacities compatible with pneumonia. New patchy opacities within the right middle and left lower lobe suspicious for additional multifocal infection. Abdomen/Pelvis CT 03/10/19 11:48 IMPRESSION: 1. No evidence of acute intra-abdominal/ pelvic process. 2. Scattered centrilobular bilateral basilar ground-glass opacities, likely secondary to infection/aspiration. 3. Unchanged dilation of the pancreatic duct, better evaluated on prior contrasted exam. Chest X-Ray 03/11/19 00:00 IMPRESSION: Catheter placement. Persistent right upper lobe pneumonia. Chest CT 03/12/19 11:42 IMPRESSION: Persistent dense consolidation- cavitary appearance of the posterior aspect of the right upper lobe with subsegmental bronchial occlusion. There are numerous areas of nodularity, ground-glass opacity, and interstitial thickening bilaterally, some areas appear increased compared with the previous examination. Small bilateral pleural effusions, slightly increased compared with the prior exam. Similar right medial basilar pleural calcifications- thickening. Transvaginal US 03/13/19 12:34 IMPRESSION: 1.5 x 1.5 x 2.6 cm simple cyst in the left adnexum. There is no solid component. impression/RECOMMENDATION: 1. Atrial fibrillation with intermittent aberrant conduction of the left bundle branch block pattern. Continue the patient on Cardizem and digoxin. Will increase the Cardizem drip to 5 mg/h to see if this will convert the patient to sinus.. Recommend discontinue the patient's IV heparin and switching to Eliquis at 2.5 mg p.o. twice daily. 2. Elevated troponin I: Secondary to supply demand mismatch. No evidence of non-ST elevation [place]. This is secondary to atrial fibrillation with rapid ventricular response, and infection. 3 right upper lobe pneumonia with cavitation: Work-up in progress continue antibiotics. 4. Questionable ovarian mass: Recent CT scan of the abdomen does not show the mass. 5. History of hypertension: Blood pressure on the lower side. 6. Nausea and vomiting: Seems to resolved.? Etiology. 7. Malnutrition: Patient may need dietary supplements. Recommend consider dietary consult. Records from [facility] reviewed. The patient had an echocardiogram with normal LV ejection fraction.. She has a history of persistent atrial fibrillation, and was in atrial fibrillation in [facility]. At that time she was on Eliquis which was temporarily stopped for bronchoscopy. Medications reviewed. Medications adjusted. Management plan discussed with attending physician and the road design draftsperson and the oncologist on the case. Medical decision making is of high complexity. 40 minutes spent on this patient with more than 50% of the time spent in direct patient care
[2019-03-14] MEDS: HEPARIN SODIUM,PORCINE/D5W 25,000 UNIT/250 ML RTUINJ IV PRN (00:30)
[2019-03-14] MEDS: IPRATROPIUM/ALBUTEROL 0.5-2.5 MG/3 ML AMPUL NEB SCH ×4 (01:57→20:06)
[2019-03-14 06:50] LABS: ANION GAP 7 (5-19); BLOOD UREA NITROGEN 11 mg/dL (7-20); CALCIUM 8.2 mg/dL (8.4-10.2); CARBON DIOXIDE 21 mmol/L (22-30); CHLORIDE 105 mmol/L (98-107); GLUCOSE 99 mg/dL (75-110); POTASSIUM 3.9 mmol/L (3.6-5.0)
[2019-03-14] MEDS: METOPROLOL TARTRATE 25 MG TABLET PO SCH ×2 (10:14→21:14)
[2019-03-14] MEDS: DIGOXIN 0.125 MG TABLET PO SCH (10:14)
[2019-03-14] MEDS: ASPIRIN 81 MG TABLET, CHEWABLE PO SCH (10:14)
[2019-03-14] MEDS: CEFEPIME 1 GM/D5W RTU 1 GM/50 ML RTUPB IV SCH ×2 (10:15→21:15)
[2019-03-14] MEDS: FAMOTIDINE 20 MG TABLET PO SCH ×2 (10:15→21:15)
[2019-03-14] MEDS: GUAIFENESIN 600 MG TABLET.SA PO SCH ×2 (10:15→21:16)
[2019-03-14] MEDS: DILTIAZEM HCL/D5W 125 MG/125 ML RTUINJ IV PRN (11:48)
--- NOTE | 2019-03-14 12:06 | PDOC PROGRESS REPORT ---
Subjective Progress Note for:: 03/14/19 Subjective:: Reviewed transvaginal ultrasound, it is a 2 cm simple cyst. Smaller than what it was. So this is not an ovarian cancer. As noted previously unsure of what the lung finding really is. Unsure if that is contributing to her weight loss and poor p.o. intake. Reason For Visit: PNEUMONIA Physical Exam Vital Signs: Temp Pulse Resp BP Pulse Ox 98.2 F 101 H 24 H 103/63 98 03/14/19 08:00 03/14/19 08:49 03/14/19 08:00 03/14/19 08:00 03/14/19 08:00 Pulse Oximeter Continuous Start: 03/10/19 15:13 Freq: RTQ4 Status: Complete Protocol: Document 03/11/19 16:48 HCR (Rec: 03/11/19 16:48 HCR [id number]) Pulse Oximetry Assessment Equipment Usage Equipment Discontinued Continuous SpO2 Machine # 11 Intake & Output 03/13/19 03/14/19 03/15/19 06:59 06:59 06:59 Intake Total 1318 665 115 Output Total 1150 1550 100 Balance 168 -885 15 Weight 59.5 kg 60.9 kg General appearance: PRESENT: no acute distress, well-developed, well-nourished Head exam: PRESENT: atraumatic, normocephalic Eye exam: PRESENT: conjunctiva pink, EOMI, PERRLA. ABSENT: scleral icterus Ear exam: PRESENT: normal external ear exam Mouth exam: PRESENT: moist, tongue midline Neck exam: ABSENT: carotid bruit, JVD, lymphadenopathy, thyromegaly Respiratory exam: PRESENT: clear to auscultation talha. ABSENT: rales, rhonchi, wheezes Cardiovascular exam: PRESENT: RRR. ABSENT: diastolic murmur, rubs, systolic murmur Pulses: PRESENT: normal dorsalis pedis pul Vascular exam: PRESENT: normal capillary refill GI/Abdominal exam: PRESENT: normal bowel sounds, soft. ABSENT: distended, guarding, mass, organolmegaly, rebound, tenderness Rectal exam: PRESENT: deferred Extremities exam: PRESENT: full ROM. ABSENT: calf tenderness, clubbing, pedal edema Neurological exam: PRESENT: alert, awake, oriented to person, oriented to place, oriented to time, oriented to situation, CN II-XII grossly intact. ABSENT: motor sensory deficit Psychiatric exam: PRESENT: appropriate affect, normal mood. ABSENT: homicidal ideation, suicidal ideation Skin exam: PRESENT: dry, intact, warm. ABSENT: cyanosis, rash Results Laboratory Results: 03/13/19 08:20 03/14/19 06:00 03/13/19 03/14/19 08:20 06:00 Sodium 132.9 L Potassium 3.9 Chloride 105 Carbon Dioxide 21 L Anion Gap 7 BUN 11 Creatinine 0.71 Est GFR ( Amer) > 60 Est GFR (Non-Af Amer) > 60 Glucose 99 Calcium 8.2 L Magnesium 1.8 C-Reactive Protein 57.1 H 03/10/19 03/10/19 03/10/19 11:55 19:49 23:43 Troponin I 0.194 0.130 0.141 NT-Pro-B Natriuret Pep 3940 H 03/11/19 12:55 Troponin I 0.125 NT-Pro-B Natriuret Pep 2820 H Impressions: Abdomen/Pelvis CT 03/10/19 11:48 IMPRESSION: 1. No evidence of acute intra-abdominal/ pelvic process. 2. Scattered centrilobular bilateral basilar ground-glass opacities, likely secondary to infection/aspiration. 3. Unchanged dilation of the pancreatic duct, better evaluated on prior contrasted exam. Chest X-Ray 03/11/19 00:00 IMPRESSION: Catheter placement. Persistent right upper lobe pneumonia. Chest CT 03/12/19 11:42 IMPRESSION: Persistent dense consolidation- cavitary appearance of the posterior aspect of the right upper lobe with subsegmental bronchial occlusion. There are numerous areas of nodularity, ground-glass opacity, and interstitial thickening bilaterally, some areas appear increased compared with the previous examination. Small bilateral pleural effusions, slightly increased compared with the prior exam. Similar right medial basilar pleural calcifications- thickening. Transvaginal US 03/13/19 12:34 IMPRESSION: 1.5 x 1.5 x 2.6 cm simple cyst in the left adnexum. There is no solid component. Assessment & Plan - Diagnosis (1) Ovarian mass Is this a current diagnosis for this admission?: Yes Plan: Not cancer, simple cyst. Currently no further work-up needed. (2) Mass of right lung Is this a current diagnosis for this admission?: Yes Plan: Still concerning overall to me, but bronchoscopy was negative. Probable PET/CT as an outpatient would be beneficial. We will follow peripherally. Upon discharge please make an appointment to see us. - Time Time Spent with patient: 35 or more minutes
--- NOTE | 2019-03-14 14:02 | Progress Note ---
Provider Note Provider Note: CARDIOLOGY PROGRESS NOTE by Dr. Radha Hinds on 03/14/2019. SUBJECTIVE: The patient has some nausea and is gagging. She has dry heaves. She denies any chest pain discomfort. Her atrial fibrillation is with a controlled ventricular response. There is no chest pain or discomfort. There is no PND orthopnea. She has cough which is minimal and productive very scanty mucoid sputum. There is no hemoptysis. There is no TIA CVA symptoms. There is no bleeding on heparin. PHYSICAL EXAMINATION: The patient appears to be a frail build and chronically ill but in no acute distress except for nausea and dry heaves. Selected Entries 03/14/19 12:00 Temperature 99.1 F Pulse Rate 95 Respiratory 31 H Rate Blood Pressure 110/89 H [Left Upper Arm ] Blood Pressure 96 Mean [Left Upper Arm] Blood Pressure Supine Position [Left Upper Arm] Blood Pressure 110 Systolic [Left Upper Arm] O2 Sat by Pulse 98 Oximetry Oxygen Delivery Room Air Method ( includes room air) HEAD: Is atraumatic normocephalic. EYES: Pupils equal round regular reactive light accommodation. Extraocular movements are normal. There is no conjunctival pallor. There is no scleral icterus. ENT is negative. Neck is supple. There is no JVD. Carotids are equal there is no bruit. There is no lymphadenopathy. There is no accessory muscle respiration use. Trachea central. LUNGS: Show a few dry crackles in the right upper lobe. The rest of the lungs appear fairly clear. There is no rales of CHF. There is no rhonchi or wheezing. HEART: S1-S2 is heard. S1 is of variable intensity. There is no S3 gallop. There is no S4 gallop. There is systolic murmur left sternal border and the apex. There is no rub. ABDOMEN: Is soft nontender there is no hepatospleno megaly bowel sounds well heard. EXTREMITIES: Femorals are well felt. There is no femoral bruits. There is no pedal edema. There is no DVT or cellulitis. Leg pulses are diminished. There is no cyanosis or clubbing. TUG MASTER: The patient is conscious awake alert oriented x3 with no focal deficits. PSYCHIATRIC: The patient judgment insight are intact her affect is normal. Labs- All tests 24 hr 03/13/19 03/13/19 03/13/19 08:20 17:08 21:00 ESR 32 H APTT 80.2 H Sodium Potassium Chloride Carbon Dioxide Anion Gap BUN Creatinine Est GFR ( Amer) Est GFR (Non-Af Amer) Glucose Calcium Magnesium C-Reactive Protein 57.1 H 03/14/19 03/14/19 06:00 06:00 ESR APTT 70.6 H Sodium 132.9 L Potassium 3.9 Chloride 105 Carbon Dioxide 21 L Anion Gap 7 BUN 11 Creatinine 0.71 Est GFR ( Amer) > 60 Est GFR (Non-Af Amer) > 60 Glucose 99 Calcium 8.2 L Magnesium 1.8 C-Reactive Protein Chest X-Ray 03/10/19 00:00 IMPRESSION: Persistent right upper lobe opacities compatible with pneumonia. New patchy opacities within the right middle and left lower lobe suspicious for additional multifocal infection. Abdomen/Pelvis CT 03/10/19 11:48 IMPRESSION: 1. No evidence of acute intra-abdominal/ pelvic process. 2. Scattered centrilobular bilateral basilar ground-glass opacities, likely secondary to infection/aspiration. 3. Unchanged dilation of the pancreatic duct, better evaluated on prior contrasted exam. Chest X-Ray 03/11/19 00:00 IMPRESSION: Catheter placement. Persistent right upper lobe pneumonia. Chest CT 03/12/19 11:42 IMPRESSION: Persistent dense consolidation- cavitary appearance of the posterior aspect of the right upper lobe with subsegmental bronchial occlusion. There are numerous areas of nodularity, ground-glass opacity, and interstitial thickening bilaterally, some areas appear increased compared with the previous examination. Small bilateral pleural effusions, slightly increased compared with the prior exam. Similar right medial basilar pleural calcifications- thickening. Transvaginal US 03/13/19 12:34 IMPRESSION: 1.5 x 1.5 x 2.6 cm simple cyst in the left adnexum. There is no solid component.
--- NOTE | 2019-03-14 14:15 | Progress Note ---
Provider Note Provider Note: Vancomycin was stopped
--- NOTE | 2019-03-14 16:34 | PDOC PROGRESS REPORT ---
Subjective Progress Note for:: 03/14/19 - seen this morning on ICU rounds Subjective:: Spoke to patient this morning on rounds in ICU. She was eating her breakfast. She had no acute complaints-denies chest pain, shortness of breath, abdominal pain, nausea/vomiting or dizziness. She is on room air. I discussed with her about her right-sided upper lung mass and what we are doing about it. Told her that we are treating you with antibiotics and we are still try to figure out what it is. She does not seem to concerned with that as she tells me that it is what it is. Her blood pressure has been maintaining well with a good heart rate and at this time she has been downgraded to IMCU status and awaiting bed plac ement. Reason For Visit: PNEUMONIA Physical Exam Vital Signs: Temp Pulse Resp BP Pulse Ox 98.2 F 101 H 24 H 103/63 98 03/14/19 08:00 03/14/19 08:49 03/14/19 08:00 03/14/19 08:00 03/14/19 08:00 Pulse Oximeter Continuous Start: 03/10/19 15:13 Freq: RTQ4 Status: Complete Protocol: Document 03/11/19 16:48 HCR (Rec: 03/11/19 16:48 HCR [id number]) Pulse Oximetry Assessment Equipment Usage Equipment Discontinued Continuous SpO2 Machine # 11 Intake & Output 03/13/19 03/14/19 03/15/19 06:59 06:59 06:59 Intake Total 1318 665 Output Total 1150 1550 Balance 168 -885 Weight 131 lb 2.801 oz 134 lb 4.184 oz General appearance: PRESENT: no acute distress, cooperative Head exam: PRESENT: atraumatic, normocephalic Eye exam: PRESENT: EOMI Ear exam: PRESENT: normal external ear exam Mouth exam: PRESENT: moist Teeth exam: PRESENT: poor dentation Neck exam: ABSENT: tracheal deviation Respiratory exam: PRESENT: decreased breath sounds - Decreased breath sounds of the right upper lobe and middle lobe-rhonchi and very coarse, also some bilateral bases with decreased breath sounds Cardiovascular exam: PRESENT: irregular rhythm, +S1, +S2 GI/Abdominal exam: PRESENT: normal bowel sounds, soft. ABSENT: tenderness Extremities exam: ABSENT: joint swelling, pedal edema Neurological exam: PRESENT: alert, awake, oriented to person, oriented to place, CN II-XII grossly intact Skin exam: PRESENT: dry, warm Results Laboratory Results: 03/13/19 08:20 03/14/19 06:00 03/13/19 03/14/19 08:20 06:00 Sodium 132.9 L Potassium 3.9 Chloride 105 Carbon Dioxide 21 L Anion Gap 7 BUN 11 Creatinine 0.71 Est GFR ( Amer) > 60 Est GFR (Non-Af Amer) > 60 Glucose 99 Calcium 8.2 L Magnesium 1.8 C-Reactive Protein 57.1 H 03/10/19 03/10/19 03/10/19 11:55 19:49 23:43 Troponin I 0.194 0.130 0.141 NT-Pro-B Natriuret Pep 3940 H 03/11/19 12:55 Troponin I 0.125 NT-Pro-B Natriuret Pep 2820 H Impressions: Abdomen/Pelvis CT 03/10/19 11:48 IMPRESSION: 1. No evidence of acute intra-abdominal/ pelvic process. 2. Scattered centrilobular bilateral basilar ground-glass opacities, likely secondary to infection/aspiration. 3. Unchanged dilation of the pancreatic duct, better evaluated on prior contrasted exam. Chest X-Ray 03/11/19 00:00 IMPRESSION: Catheter placement. Persistent right upper lobe pneumonia. Chest CT 03/12/19 11:42 IMPRESSION: Persistent dense consolidation- cavitary appearance of the posterior aspect of the right upper lobe with subsegmental bronchial occlusion. There are numerous areas of nodularity, ground-glass opacity, and interstitial thickening bilaterally, some areas appear increased compared with the previous examination. Small bilateral pleural effusions, slightly increased compared with the prior exam. Similar right medial basilar pleural calcifications- thickening. Transvaginal US 03/13/19 12:34 IMPRESSION: 1.5 x 1.5 x 2.6 cm simple cyst in the left adnexum. There is no solid component. Assessment and Plan - Diagnosis (1) Atrial fibrillation with RVR Is this a current diagnosis for this admission?: Yes (2) Hypokalemia Is this a current diagnosis for this admission?: Yes (3) Hypotension Qualifiers: Hypotension type: unspecified hypotension type Qualified Code(s): I95.9 - Hypotension, unspecified Is this a current diagnosis for this admission?: Yes (4) Pulmonary cavitary lesion Is this a current diagnosis for this admission?: Yes (5) Ovarian mass Is this a current diagnosis for this admission?: Yes (6) Paroxysmal atrial fibrillation Is this a current diagnosis for this admission?: Yes (7) Acute kidney injury Is this a current diagnosis for this admission?: Yes (8) Pneumonia Qualifiers: Pneumonia type: due to unspecified organism Laterality: bilateral Lung location: unspecified part of lung Qualified Code(s): J18.9 - Pneumonia, unspecified organism Is this a current diagnosis for this admission?: Yes (9) Sepsis Qualifiers: Sepsis type: sepsis due to unspecified organism Sepsis acute organ dysfunction status: unspecified Qualified Code(s): A41.9 - Sepsis, unspecified organism Is this a current diagnosis for this admission?: Yes - Inpatient Certification Based on my medical assessment, after consideration of the patient's comorbidities, presenting symptoms, or acuity I expect that the services needed warrant INPATIENT care.: Yes Medical Necessity: Failure to Improve With Outpatient Therapy, Need For Continuous Telemetry Monitoring, Need for IV Antibiotics - Plan Summary Plan Summary: 84-year-old female with a past medical history of coronary artery disease, ME, hypertension, diastolic heart failure, depression who was admitted to the hospital on 03/10/2019 for suspected sepsis secondary to multifocal pneumonia of the right lung, acute kidney injury and an elevated troponin. She was transferred down to the ICU on 03/11/2019 due to hypotension and A. fib with RVR. Sepsis-suspected secondary to pneumonia of the right lung started on triple therapy with IV cefepime, day 5 and Levaquin, day 3 today. I have stopped her IV vancomycin for now. So far her blood culture and urine cultures negative and she did not have an elevated white count on admission. Pneumonia-see plan above for sepsis-she was also ordered for a CT chest Repeated on 03/13 showed a persistent dense consolidation cavitary appearance on the posterior aspect of the right upper lobe with subsegmental bronchial occlusion. There was also some nodularity with groundglass opacities and interstitial thickening bilaterally. Although we have been treating her with IV antibiotics as stated above-I am wondering if this is bacterial in nature or not. See plan below for right cavitary lesion Right upper lobe cavitary lesion-concern for TB and hence she was on isolation with airborne precaution but PPD placed 2 days ago has been negative. AFB and QuantiFERON gold is still pending but is less likely TB at this point. We have discontinued airborne isolation for now. Spoke with hematology/oncologist who does not believe this is malignancy. Per diamond sizer and sorter she had a biopsy of the right upper lobe and supposedly this was negative for malignancy. There was concerns because she had a history of weight loss over the past few months. Given that she has a right upper lobe cavitary lesion the differential diagnosis includes aspergillosis, bacterial or nonbacterial abscess, fungal, autoimmune, TB and non-TB infection, sarcoidosis, Sylvia's, Goodpasture's, etc. I have also sent for aspergillosis antibody and its pending. I spoke with Dr. Gary and consulted him at this point officially. He will be seeing patient tomorrow. He is considering a bronc but will review the chart again. I am also considering whether they should send out for pANCA C-ANCA and anti-GBM antibody testing. Acute kidney injury - resolved Atrial fibrillation with RVR-patient unfortunately went into A. fib-she's on Cardizem 5 mg -and heparin drip. I was considering restarting her on her home dose of Eliquis but I will await for Dr. Gary to decide whether he will do another bronc on the patient. If Dr. Gary does not do a bronc then we can restart her Eliquis at 2.5 mg twice daily. Cardiology is consulted, I appreciate help and assistance with this patient Hypotension-her blood pressure systolic has been low in the mid 80s to low 100s but with a with a map greater than 65. Even when her systolic was in the mid 80s she was asymptomatic. She has been walking from the bed to the bedside commode with assistance without any dizziness or lightheadedness. He does have some shortness of breath on exertion is intermittent. Her systolic blood pressure is much better when taken manually and I have advised nursing to try and take systolic blood pressure manually instead of with the machine. She never required pressor support while in ICU. Elevated troponin-troponin peaked to 0.194 and trended down-most likely demand mismatch-she has no complaints of chest pain at this time-continue on telemetry- appreciate cardiology assistance. Ovarian mass-oncology was consulted prior to her coming to the ICU-transvaginal ultrasound was completed which showed a simple cyst- left side- 1.5 x 1.5 x 2.6 cm. She did have a CT abdomen pelvis on upon admission which that showed scattered centrilobular bilateral basilar groundglass opacities. Disposition-transfer to [facility] for further care
[2019-03-14] MEDS: LEVOFLOXACIN 500 MG/D5W RTU 500 MG/100 ML RTUPB IV SCH (17:56)
[2019-03-15] MEDS: IPRATROPIUM/ALBUTEROL 0.5-2.5 MG/3 ML AMPUL NEB SCH ×4 (02:05→19:43)
[2019-03-15 06:02] LABS: ABSOLUTE BASOPHILS # (AUTO) 0.1 10^3/uL (0.0-0.2); ABSOLUTE EOSINOPHILS # (AUTO) 0.1 10^3/uL (0.0-0.6); MEAN CORPUSCULAR HEMOGLOBIN 29.8 pg (27.0-33.4); TOTAL CELLS COUNTED % (AUTO) 100 %
[2019-03-15 06:15] LABS: ABSOLUTE LYMPHOCYTES (AUTO) 1.4 10^3/uL (0.5-4.7); ABSOLUTE MONOCYTES (AUTO) 0.6 10^3/uL (0.1-1.4); ABSOLUTE NEUT (AUTO) 6.2 10^3/uL (1.7-8.2); BASOPHILS % (AUTO) 0.7 % (0-2); HEMATOCRIT 26.9 % (36.0-47.0); HEMOGLOBIN 9.2 g/dL (12.0-15.5); LYMPHOCYTES % (AUTO) 17.4 % (13-45); MEAN CORPUSCULAR HGB CONC 34.2 g/dL (32.0-36.0); MEAN CORPUSCULAR VOLUME 87 fl (80-97); MONOCYTES % (AUTO) 6.9 % (3-13); PLATELET COUNT 154 10^3/uL (150-450); RED BLOOD COUNT 3.09 10^6/uL (3.72-5.28); RED CELL DISTRIBUTION WIDTH 15.4 % (11.5-14.0); WHITE BLOOD COUNT 8.3 10^3/uL (4.0-10.5)
[2019-03-15 06:25] LABS: ALBUMIN 2.2 g/dL (3.5-5.0); ALKALINE PHOSPHATASE 48 U/L (38-126); ANION GAP 6 (5-19); ASPARTATE AMINO TRANSFERASE 14 U/L (14-36); BILIRUBIN,DIRECT 0.3 mg/dL (0.0-0.4); BLOOD UREA NITROGEN 13 mg/dL (7-20); CALCIUM 8.1 mg/dL (8.4-10.2); CARBON DIOXIDE 20 mmol/L (22-30); CHLORIDE 106 mmol/L (98-107); GLUCOSE 94 mg/dL (75-110); POTASSIUM 3.9 mmol/L (3.6-5.0); TOTAL PROTEIN 4.8 g/dL (6.3-8.2)
[2019-03-15] MEDS: HEPARIN SOD (PORCINE) 1,000 UNIT/ML 10 ML VIAL IV PRN (07:04)
[2019-03-15] MEDS: CEFEPIME 1 GM/D5W RTU 1 GM/50 ML RTUPB IV SCH ×2 (09:32→21:41)
[2019-03-15] MEDS: FAMOTIDINE 20 MG TABLET PO SCH ×2 (09:32→21:41)
[2019-03-15] MEDS: METOPROLOL TARTRATE 25 MG TABLET PO SCH ×2 (09:32→21:41)
[2019-03-15] MEDS: GUAIFENESIN 600 MG TABLET.SA PO SCH ×2 (09:32→21:41)
[2019-03-15] MEDS: ASPIRIN 81 MG TABLET, CHEWABLE PO SCH (09:33)
[2019-03-15] MEDS: DIGOXIN 0.125 MG TABLET PO SCH (09:33)
[2019-03-15] MEDS ORDERED: DIGOXIN INJ 0.5 MG/2 ML AMPULE IV ONE (10:13)
[2019-03-15] MEDS ORDERED: DIGOXIN INJ 0.5 MG/2 ML AMPULE ONE (10:14)
--- NOTE | 2019-03-15 10:31 | RADIOLOGY REPORT (SQ) ---
EXAM DESCRIPTION: CHEST SINGLE VIEW COMPLETED DATE/TIME: 03/15/2019 9:26 am REASON FOR STUDY: RUL lung mass COMPARISON: 03/11/2019 EXAM PARAMETERS: NUMBER OF VIEWS: One view. TECHNIQUE: Single frontal radiographic view of the chest acquired. RADIATION DOSE: NA LIMITATIONS: None. FINDINGS: LUNGS AND PLEURA: Improved right upper lobe aeration with persistent patchy opacities, bet ter evaluated on prior CT. Mild left retrocardiac opacities. No pleural effusion or pneumothorax. Additional scattered pulmonary nodules better evaluated on prior CT. MEDIASTINUM AND HILAR STRUCTURES: Cerebral. HEART AND VASCULAR STRUCTURES: Enlarged, stable. Aortic atherosclerosis. BONES: No acute findings. HARDWARE: None in the chest. OTHER: No other significant finding. IMPRESSION: Improved aeration of the right upper lobe with persistent patchy opacities, better evalu ated on prior CT. Left retrocardiac opacities possibly atelectasis or infection. TECHNICAL DOCUMENTATION: JOB ID: [id number] [employer]- All Rights Reserved Reading location - IP/workstation name: [email or web address]
--- NOTE | 2019-03-15 15:40 | PDOC PROGRESS REPORT ---
Subjective Progress Note for:: 03/15/19 - IMCU Subjective:: Saw patient at bedside morning on rounds. She was laying on the bed very comfortably watching television. She was waiting for her breakfast. Spoke with patient about her right-sided lung mass and the treatment were giving her. I went over all her antibiotics her medications right now. I told her that I have consulted Dr. Gary for pulmonology and hopefully we will come up with a plan about her right upper lobe mass. She tells me that this is been there for so long most likely to nothing. She denies any chest pain, abdominal pain, nausea/vomiting or dizziness. She still gets a little bit short of breath when she moves around too fast or exerts herself. Reason For Visit: PNEUMONIA Physical Exam Vital Signs: Temp Pulse Resp BP Pulse Ox 97.6 F 94 18 100/59 L 93 03/15/19 11:22 03/15/19 13:48 03/15/19 13:48 03/15/19 11:22 03/15/19 13:48 Pulse Oximeter Continuous Start: 03/10/19 15:13 Freq: RTQ4 Status: Complete Protocol: Document 03/11/19 16:48 HCR (Rec: 03/11/19 16:48 HCR [id number]) Pulse Oximetry Assessment Equipment Usage Equipment Discontinued Continuous SpO2 Machine # 11 Intake & Output 03/14/19 03/15/19 03/16/19 06:59 06:59 06:59 Intake Total 665 265 451 Output Total 1550 900 Balance -885 -635 451 Weight 134 lb 4.184 oz 141 lb 5.061 oz General appearance: PRESENT: no acute distress, thin - Frail appearing Head exam: PRESENT: atraumatic, normocephalic Eye exam: PRESENT: EOMI. ABSENT: scleral icterus Ear exam: PRESENT: normal external ear exam Mouth exam: PRESENT: moist Neck exam: ABSENT: tracheal deviation Respiratory exam: PRESENT: decreased breath sounds - Bilaterally at the base and also right upper lobe with some rhonchi and coarse breath sounds. ABSENT: unlab ored Cardiovascular exam: PRESENT: irregular rhythm, +S1, +S2 GI/Abdominal exam: PRESENT: normal bowel sounds, soft. ABSENT: tenderness Extremities exam: ABSENT: pedal edema, +2 edema Neurological exam: PRESENT: alert, awake, oriented to person, oriented to place, oriented to time, CN II-XII grossly intact Skin exam: PRESENT: dry, warm Results Laboratory Results: 03/15/19 05:29 03/15/19 05:29 03/15/19 03/15/19 05:29 05:29 WBC 8.3 RBC 3.09 L Hgb 9.2 L Hct 26.9 L MCV 87 MCH 29.8 MCHC 34.2 RDW 15.4 H Plt Count 154 Seg Neutrophils % 74.0 Lymphocytes % 17.4 Monocytes % 6.9 Eosinophils % 1.0 Basophils % 0.7 Absolute Neutrophils 6.2 Absolute Lymphocytes 1.4 Absolute Monocytes 0.6 Absolute Eosinophils 0.1 Absolute Basophils 0.1 Sodium 132.0 L Potassium 3.9 Chloride 106 Carbon Dioxide 20 L Anion Gap 6 BUN 13 Creatinine 0.85 Est GFR ( Amer) > 60 Est GFR (Non-Af Amer) > 60 Glucose 94 Calcium 8.1 L Magnesium 1.7 Total Bilirubin 1.0 AST 14 Alkaline Phosphatase 48 Total Protein 4.8 L Albumin 2.2 L 03/10/19 11:55 Blood Blood Culture - Final NO GROWTH IN 5 DAYS 03/10/19 03/10/19 03/10/19 11:55 19:49 23:43 Troponin I 0.194 0.130 0.141 NT-Pro-B Natriuret Pep 3940 H 03/11/19 12:55 Troponin I 0.125 NT-Pro-B Natriuret Pep 2820 H Impressions: Abdomen/Pelvis CT 03/10/19 11:48 IMPRESSION: 1. No evidence of acute intra-abdominal/ pelvic process. 2. Scattered centrilobular bilateral basilar ground-glass opacities, likely secondary to infection/aspiration. 3. Unchanged dilation of the pancreatic duct, better evaluated on prior contrasted exam. Chest CT 03/12/19 11:42 IMPRESSION: Persistent dense consolidation- cavitary appearance of the posterior aspect of the right upper lobe with subsegmental bronchial occlusion. There are numerous areas of nodularity, ground-glass opacity, and interstitial thickening bilaterally, some areas appear increased compared with the previous examination. Small bilateral pleural effusions, slightly increased compared with the prior exam. Similar right medial basilar pleural calcifications- thickening. Transvaginal US 03/13/19 12:34 IMPRESSION: 1.5 x 1.5 x 2.6 cm simple cyst in the left adnexum. There is no solid component. Chest X-Ray 03/15/19 06:00 IMPRESSION: Improved aeration of the right upper lobe with persistent patchy opacities, better evaluated on prior CT. Left retrocardiac opacities possibly atelectasis or infection. Assessment and Plan - Diagnosis (1) Atrial fibrillation with RVR Is this a current diagnosis for this admission?: Yes (2) Hypokalemia Is this a current diagnosis for this admission?: Yes (3) Hypotension Qualifiers: Hypotension type: unspecified hypotension type Qualified Code(s): I95.9 - Hypotension, unspecified Is this a current diagnosis for this admission?: Yes (4) Pulmonary cavitary lesion Is this a current diagnosis for this admission?: Yes (5) Ovarian mass Is this a current diagnosis for this admission?: Yes (6) Paroxysmal atrial fibrillation Is this a current diagnosis for this admission?: Yes (7) Acute kidney injury Is this a current diagnosis for this admission?: Yes (8) Pneumonia Qualifiers: Pneumonia type: due to unspecified organism Laterality: bilateral Lung location: unspecified part of lung Qualified Code(s): J18.9 - Pneumonia, uns pecified organism Is this a current diagnosis for this admission?: Yes (9) Sepsis Qualifiers: Sepsis type: sepsis due to unspecified organism Sepsis acute organ dysfunction status: unspecified Qualified Code(s): A41.9 - Sepsis, unspecified organism Is this a current diagnosis for this admission?: Yes - Time Time Spent with patient: 25-34 minutes - Plan Summary Plan Summary: 84-year-old female with a past medical history of coronary artery disease, MD, hypertension, diastolic heart failure, depression who was admitted to the hospital on 03/10/2019 for suspected sepsis secondary to multifocal pneumonia of the right lung, acute kidney injury and an elevated troponin. She was transferred down to the ICU on 03/11/2019 due to hypotension and A. fib with RVR. Sepsis-suspected secondary to pneumonia of the right lung - was initially started on triple therapy - currently on IV cefepime, day 6 and Levaquin, day 4 today. I have stopped her IV vancomycin for now. I am really wondering if this is a pneumonia or something else as she has not had any fevers over the last 24 to 48 hours and her cultures have remained negative. I am considering stopping IV antibiotics but I will speak with human resources operations director Dr. Gary regarding this. Pneumonia-see plan above for sepsis-she was also ordered for a CT chest Repeated on 03/13 showed a persistent dense consolidation cavitary appearance on the posterior aspect of the right upper lobe with subsegmental bronchial occlusion. There was also some nodularity with groundglass opacities and interstitial thickening bilaterally. Although we have been treating her with IV antibiotics as stated above-I am wondering if this is bacterial in nature or not. See plan below for right cavitary lesion Right upper lobe cavitary lesion-concern for TB and hence she was on isolation with airborne precaution but PPD placed 2 days ago has been negative. AFB and QuantiFERON gold is still pending but is less likely TB at this point. We have discontinued airborne isolation for now. Spoke with hematology/oncologist who d oes not believe this is malignancy. Per contracts analyst she had a biopsy of the right upper lobe and supposedly this was negative for malignancy. There was concerns because she had a history of weight loss over the past few months. Given that she has a right upper lobe cavitary lesion the differential diagnosis includes aspergillosis, bacterial or nonbacterial abscess, fungal, autoimmune, TB and non-TB infection, sarcoidosis, Sylvia's, Goodpasture's, etc. I have also sent for aspergillosis antibody and its pending. I spoke with Dr. Gary and consulted him at this point officially. He will be seeing patient tomorrow. He is considering a bronc but will review the chart again. I am also considering whether they should send out for pANCA C-ANCA and anti-GBM antibody testing. Acute kidney injury - resolved Atrial fibrillation with RVR-cardiology was consulted-appreciate Dr. Hsieh for his assistance. She was in the Cardizem drip in the ICU but this was turned off and currently he is on metoprolol 50 mg twice daily. Her Eliquis was also started by Dr. Hsieh. I am not so sure if Dr. Gary was planning on doing a bronc or not. Eliquis will need to be held if he wants to do bronc. Hypotension-she is a very thin and frail lady and her blood pressure has always been low she tells me. I think her blood pressure is better when it is taken manually. I have advised nursing to take blood pressure manually with her to get a better reading. Her systolic runs anywhere between the mid 80s and low 100s. She remains asymptomatic even in the mid 80s. Elevated troponin-troponin peaked to 0.194 and trended down-most likely demand mismatch-she has no complaints of chest pain at this time-continue on telemetry- appreciate cardiology assistance. Ovarian mass-oncology was consulted prior to her coming to the ICU-transvaginal ultrasound was completed which showed a simple cyst- left side- 1.5 x 1.5 x 2.6 cm. She did have a CT abdomen pelvis on upon admission which that showed scattered centrilobular bilateral basilar groundglass opacities.
[2019-03-15 15:58] LABS: AMORPHOUS SEDIMENT,URINE TRACE /HPF; APPEARANCE,URINE SLIGHTLY-CLOUDY; BILIRUBIN,URINE NEGATIVE (NEGATIVE); COLOR,URINE YELLOW; GLUCOSE, URINE NEGATIVE (NEGATIVE); KETONES,URINE NEGATIVE (NEGATIVE); LEUKOCYTE ESTERASE,URINE NEGATIVE (NEGATIVE); NITRITE,URINE NEGATIVE (NEGATIVE); PROTEIN,URINE 30 mg/dL (NEGATIVE); URINE SPECIFIC GRAVITY 1.012; UROBILINOGEN,URINE NEGATIVE mg/dL (<2.0)
[2019-03-15] MEDS: APIXABAN 2.5 MG TABLET PO SCH (17:51)
--- NOTE | 2019-03-15 18:37 | Progress Note ---
Provider Note Provider Note: CARDIOLOGY PROGRESS NOTE by Dr. Radha Hsieh on 03/14/2019. SUBJECTIVE: The patient continues to be in atrial fibrillation. Ventricular response now seems to be controlled around 90s. Although at times but heart rate was 120. She denies any PND orthopnea or chest pain or discomfort. There is cough which is very minimal and she has no hemoptysis. She has scanty mucoid sputum production. At rest she denies shortness of breath. There is no bleeding on Eliquis. There is no TIA CVA symptoms. PHYSICAL EXAMINATION: The patient is a frail build and she appears to be chronically ill. Selected Entries 03/15/19 07:27 Temperature 98.3 F Temperature Oral Source Pulse Rate 94 Respiratory 19 Rate Blood Pressure 90/47 L Blood Pressure 61 Mean BP Location Left Arm BP Position Supine O2 Sat by Pulse 97 Oximetry Oxygen Delivery Room Air Method HEAD: Is atraumatic normocephalic. EYES: Pupils equal round regular reactive light accommodation. Extraocular movements are normal. There is no conjunctival pallor. There is no scleral icterus. ENT is negative. Neck is supple. There is no JVD. Carotids are equal there is no bruit. There is no lymphadenopathy. There is no accessory muscle respiration use. Trachea central. LUNGS: Show a few dry crackles in the right upper lobe. The rest of the lungs appear fairly clear. There is no rales of CHF. There is no rhonchi or wheezing. HEART: S1-S2 is heard. S1 is of variable intensity. There is no S3 gallop. There is no S4 gallop. There is systolic murmur left sternal border and the apex. There is no rub. ABDOMEN: Is soft nontender there is no hepatospleno megaly bowel sounds well heard. EXTREMITIES: Femorals are well felt. There is no femoral bruits. There is no pedal edema. There is no DVT or cellulitis. Leg pulses are diminished. There is no cyanosis or clubbing. PRINCIPAL PROCESS ENGINEER: The patient is conscious awake alert oriented x3 with no focal deficits. PSYCHIATRIC: The patient judgment insight are intact her affect is normal. Labs- All tests 24 hr 03/13/19 03/15/19 03/15/19 08:20 05:29 05:29 WBC 8.3 RBC 3.09 L Hgb 9.2 L Hct 26.9 L MCV 87 MCH 29.8 MCHC 34.2 RDW 15.4 H Plt Count 154 Seg Neutrophils % 74.0 Lymphocytes % 17.4 Monocytes % 6.9 Eosinophils % 1.0 Basophils % 0.7 Absolute Neutrophils 6.2 Absolute Lymphocytes 1.4 Absolute Monocytes 0.6 Absolute Eosinophils 0.1 Absolute Basophils 0.1 APTT Sodium 132.0 L Potassium 3.9 Chloride 106 Carbon Dioxide 20 L Anion Gap 6 BUN 13 Creatinine 0.85 Est GFR ( Amer) > 60 Est GFR (Non-Af Amer) > 60 Glucose 94 Calcium 8.1 L Magnesium 1.7 Total Bilirubin 1.0 Direct Bilirubin 0.3 Neonat Total Bilirubin Not Reportable Neonat Direct Bilirubin Not Reportable Neonat Indirect Bili Not Reportable AST 14 ALT 9 Alkaline Phosphatase 48 Total Protein 4.8 L Albumin 2.2 L CA 125 Antigen 22.4 Urine Color Urine Appearance Urine pH Ur Specific [place] Urine Protein Urine Glucose (UA) Urine Ketones Urine Blood Urine Nitrite Urine Bilirubin Urine Urobilinogen Ur Leukocyte Esterase Urine WBC (Auto) Urine RBC (Auto) Urine Bacteria (Auto) Squamous Epi Cells Auto Amorphous Sediment Auto Urine Mucus (Auto) Urine Ascorbic Acid Digoxin 03/15/19 03/15/19 03/15/19 05:29 05:29 15:25 WBC RBC Hgb Hct MCV MCH MCHC RDW Plt Count Seg Neutrophils % Lymphocytes % Monocytes % Eosinophils % Basophils % Absolute Neutrophils Absolute Lymphocytes Absolute Monocytes Absolute Eosinophils Absolute Basophils APTT 39.1 H Sodium Potassium Chloride Carbon Dioxide Anion Gap BUN Creatinine Est GFR ( Amer) Est GFR (Non-Af Amer) Glucose Calcium Magnesium Total Bilirubin Direct Bilirubin Neonat Total Bilirubin Neonat Direct Bilirubin Neonat Indirect Bili AST ALT Alkaline Phosphatase Total Protein Albumin CA 125 Antigen Urine Color YELLOW Urine Appearance SLIGHTLY-CLOUDY Urine pH 6.0 Ur Specific [place] 1.012 Urine Protein 30 H Urine Glucose (UA) NEGATIVE Urine Ketones NEGATIVE Urine Blood MODERATE H Urine Nitrite NEGATIVE Urine Bilirubin NEGATIVE Urine Urobilinogen NEGATIVE Ur Leukocyte Esterase NEGATIVE Urine WBC (Auto) 3 Urine RBC (Auto) 1 Urine Bacteria (Auto) 1+ Squamous Epi Cells Auto 5 Amorphous Sediment Auto TRACE Urine Mucus (Auto) RARE Urine Ascorbic Acid NEGATIVE Digoxin 1.29 Chest X-Ray 03/10/19 00:00 IMPRESSION: Persistent right upper lobe opacities compatible with pneumonia. New patchy opacities within the right middle and left lower lobe suspicious for additional multifocal infection. Abdomen/Pelvis CT 03/10/19 11:48 IMPRESSION: 1. No evidence of acute intra-abdominal/ pelvic process. 2. Scattered centrilobular bilateral basilar ground-glass opacities, likely secondary to infection/aspiration. 3. Unchanged dilation of the pancreatic duct, better evaluated on prior contrasted exam. Chest X-Ray 03/11/19 00:00 IMPRESSION: Catheter placement. Persistent right upper lobe pneumonia. Chest CT 03/12/19 11:42 IMPRESSION: Persistent dense consolidation- cavitary appearance of the posterior aspect of the right upper lobe with subsegmental bronchial occlusion. There are numerous areas of nodularity, ground-glass opacity, and interstitial thickening bilaterally, some areas appear increased compared with the previous examination. Small bilateral pleural effusions, slightly increased compared with the prior exam. Similar right medial basilar pleural calcifications- thickening. Transvaginal US 03/13/19 12:34 IMPRESSION: 1.5 x 1.5 x 2.6 cm simple cyst in the left adnexum. There is no solid component. Chest X-Ray 03/15/19 06:00 IMPRESSION: Improved aeration of the right upper lobe with persistent patchy opacities, better evaluated on prior CT. Left retrocardiac opacities possibly atelectasis or infection. impression/RECOMMENDATION: 1. Atrial fibrillation with intermittent aberrant conduction of the left bundle branch block pattern. This level is 1.29. Will give an extra dose of digoxin. We will continue patient on metoprolol and digoxin. We will stop the patient's IV Cardizem. Will decrease discontinue the patient's IV heparin and start the patient on Eliquis. This will be discussed with the hospitalist. 2. Elevated troponin I: Secondary to supply demand mismatch. No evidence of non-ST elevation [place]. This is secondary to atrial fibrillation with rapid ventricular response, and infection. 3 right upper lobe pneumonia with cavitation: Work-up in progress continue antibiotics. 4. Questionable ovarian mass: Recent CT scan of the abdomen does not show the mass. 5. History of hypertension: Blood pressure on the lower side. 6. Nausea and vomiting: Seems to resolved.? Etiology. 7. Malnutrition: Patient may need dietary supplements. Recommend consider dietary consult. MEDICATIONS reviewed. Medications changed. Management plan discussed with attending physician on the case. Medical decision making today of is of high complexity in view of the medication changes. 40 minutes spent on this patient with more than 50% of time spent under patient care. Will follow.
[2019-03-15] MEDS ORDERED: BISACODYL 10 MG SUPP.RECT PR PRN (18:38)
[2019-03-15] MEDS: POLYETHYLENE GLYCOL 3350 POWDER 17 GM/1 PACKET PO SCH (20:11)
[2019-03-15] MEDS: DOCUSATE SODIUM 100 MG CAPSULE PO SCH (20:11)
[2019-03-16] MEDS: NORMAL SALINE 1000 ML 1,000 ML IV PRN ×2 (00:49→17:36)
[2019-03-16] MEDS: IPRATROPIUM/ALBUTEROL 0.5-2.5 MG/3 ML AMPUL NEB SCH ×4 (01:54→20:54)
[2019-03-16 06:28] LABS: ABSOLUTE EOSINOPHILS # (AUTO) 0.1 10^3/uL (0.0-0.6); ABSOLUTE LYMPHOCYTES (AUTO) 1.3 10^3/uL (0.5-4.7); ABSOLUTE MONOCYTES (AUTO) 0.7 10^3/uL (0.1-1.4); ABSOLUTE NEUT (AUTO) 6.7 10^3/uL (1.7-8.2); BASOPHILS % (AUTO) 0.5 % (0-2); EOSINOPHILS % (AUTO) 0.7 % (0-6); HEMATOCRIT 27.4 % (36.0-47.0); HEMOGLOBIN 9.2 g/dL (12.0-15.5); LYMPHOCYTES % (AUTO) 14.9 % (13-45); MEAN CORPUSCULAR HEMOGLOBIN 29.5 pg (27.0-33.4); MEAN CORPUSCULAR HGB CONC 33.7 g/dL (32.0-36.0); MEAN CORPUSCULAR VOLUME 88 fl (80-97); MONOCYTES % (AUTO) 8.2 % (3-13); PLATELET COUNT 166 10^3/uL (150-450); RED BLOOD COUNT 3.13 10^6/uL (3.72-5.28); RED CELL DISTRIBUTION WIDTH 15.6 % (11.5-14.0); SEGMENTED NEUTROPHILS % (AUTO) 75.7 % (42-78); TOTAL CELLS COUNTED % (AUTO) 100 %; WHITE BLOOD COUNT 8.9 10^3/uL (4.0-10.5)
[2019-03-16 06:41] LABS: ALBUMIN 2.2 g/dL (3.5-5.0); ALKALINE PHOSPHATASE 55 U/L (38-126); ANION GAP 5 (5-19); ASPARTATE AMINO TRANSFERASE 12 U/L (14-36); BILIRUBIN,DIRECT 0.3 mg/dL (0.0-0.4); BLOOD UREA NITROGEN 13 mg/dL (7-20); CALCIUM 8.1 mg/dL (8.4-10.2); CARBON DIOXIDE 21 mmol/L (22-30); CHLORIDE 107 mmol/L (98-107); GLUCOSE 92 mg/dL (75-110); POTASSIUM 4.1 mmol/L (3.6-5.0); TOTAL PROTEIN 4.9 g/dL (6.3-8.2)
--- NOTE | 2019-03-16 08:37 | PDOC PROGRESS REPORT ---
Subjective Progress Note for:: 03/16/19 Subjective:: March 16, 2019-no complaints at this time Reason For Visit: PNEUMONIA Physical Exam Vital Signs: Temp Pulse Resp BP Pulse Ox 98.3 F 116 H 16 117/61 95 03/16/19 03:54 03/16/19 07:40 03/16/19 07:40 03/16/19 03:54 03/16/19 07:40 Pulse Oximeter Continuous Start: 03/10/19 15:13 Freq: RTQ4 Status: Complete Protocol: Document 03/11/19 16:48 HCR (Rec: 03/11/19 16:48 HCR [id number]) Pulse Oximetry Assessment Equipment Usage Equipment Discontinued Continuous SpO2 Machine # 11 Intake & Output 03/15/19 03/16/19 03/17/19 06:59 06:59 06:59 Intake Total 265 1156 Output Total 900 200 Balance -635 956 Weight 64.1 kg 63.8 kg General appearance: PRESENT: no acute distress, well-developed, well-nourished Head exam: PRESENT: atraumatic, normocephalic Eye exam: PRESENT: conjunctiva pink, EOMI, PERRLA. ABSENT: scleral icterus Ear exam: PRESENT: normal external ear exam Mouth exam: PRESENT: moist, tongue midline Neck exam: ABSENT: carotid bruit, JVD, lymphadenopathy, thyromegaly Respiratory exam: PRESENT: clear to auscultation talha. ABSENT: rales, rhonchi, wheezes Cardiovascular exam: PRESENT: RRR. ABSENT: diastolic murmur, rubs, systolic murmur Pulses: PRESENT: normal dorsalis pedis pul Vascular exam: PRESENT: normal capillary refill GI/Abdominal exam: PRESENT: normal bowel sounds, soft. ABSENT: distended, guarding, mass, organolmegaly, rebound, tenderness Rectal exam: PRESENT: deferred Extremities exam: PRESENT: full ROM. ABSENT: calf tenderness, clubbing, pedal edema Neurological exam: PRESENT: alert, awake, oriented to person, oriented to place, oriented to time, oriented to situation, CN II-XII grossly intact. ABSENT: m otor sensory deficit Psychiatric exam: PRESENT: appropriate affect, normal mood. ABSENT: homicidal ideation, suicidal ideation Skin exam: PRESENT: dry, intact, warm. ABSENT: cyanosis, rash Results Laboratory Results: 03/16/19 05:50 03/16/19 05:50 03/15/19 03/16/19 03/16/19 15:25 05:50 05:50 WBC 8.9 RBC 3.13 L Hgb 9.2 L Hct 27.4 L MCV 88 MCH 29.5 MCHC 33.7 RDW 15.6 H Plt Count 166 Seg Neutrophils % 75.7 Lymphocytes % 14.9 Monocytes % 8.2 Eosinophils % 0.7 Basophils % 0.5 Absolute Neutrophils 6.7 Absolute Lymphocytes 1.3 Absolute Monocytes 0.7 Absolute Eosinophils 0.1 Absolute Basophils 0.0 Sodium 132.8 L Potassium 4.1 Chloride 107 Carbon Dioxide 21 L Anion Gap 5 BUN 13 Creatinine 0.81 Est GFR ( Amer) > 60 Est GFR (Non-Af Amer) > 60 Glucose 92 Calcium 8.1 L Magnesium 1.7 Total Bilirubin 1.0 AST 12 L Alkaline Phosphatase 55 Total Protein 4.9 L Albumin 2.2 L Urine Color YELLOW Urine Appearance SLIGHTLY-CLOUDY Urine pH 6.0 Ur Specific [place] 1.012 Urine Protein 30 H Urine Glucose (UA) NEGATIVE Urine Ketones NEGATIVE Urine Blood MODERATE H Urine Nitrite NEGATIVE Ur Leukocyte Esterase NEGATIVE Urine WBC (Auto) 3 Urine RBC (Auto) 1 03/10/19 15:49 Blood Blood Culture - Final NO GROWTH IN 5 DAYS 03/10/19 11:55 Blood Blood Culture - Final NO GROWTH IN 5 DAYS 03/10/19 03/10/19 03/10/19 11:55 19:49 23:43 Troponin I 0.194 0.130 0.141 NT-Pro-B Natriuret Pep 3940 H 03/11/19 12:55 Troponin I 0.125 NT-Pro-B Natriuret Pep 2820 H Impressions: Abdomen/Pelvis CT 03/10/19 11:48 IMPRESSION: 1. No evidence of acute intra-abdominal/ pelvic process. 2. Scattered centrilobular bilateral basilar ground-glass opacities, likely secondary to infection/aspiration. 3. Unchanged dilation of the pancreatic duct, better evaluated on prior contrasted exam. Chest CT 03/12/19 11:42 IMPRESSION: Persistent dense consolidation- cavitary appearance of the posterior aspect of the right upper lobe with subsegmental bronchial occlusion. There are numerous areas of nodularity, ground-glass opacity, and interstitial thickening bilaterally, some areas appear increased compared with the previous examination. Small bilateral pleural effusions, slightly increased compared w ith the prior exam. Similar right medial basilar pleural calcifications- thickening. Transvaginal US 03/13/19 12:34 IMPRESSION: 1.5 x 1.5 x 2.6 cm simple cyst in the left adnexum. There is no solid component. Chest X-Ray 03/15/19 06:00 IMPRESSION: Improved aeration of the right upper lobe with persistent patchy opacities, better evaluated on prior CT. Left retrocardiac opacities possibly atelectasis or infection. Assessment and Plan - Diagnosis (1) Sepsis Qualifiers: Sepsis type: sepsis due to unspecified organism Sepsis acute organ dysfunction status: unspecified Qualified Code(s): A41.9 - Sepsis, unspecified organism Is this a current diagnosis for this admission?: Yes Plan: Sepsis, due to multifocal pneumonia, present on admission, evidenced by tachycardia, hypotension, tachypnea, hypoxia on room air, acute kidney injury, and elevated lactic acid. Patient received 3 L IV fluid bolus by the ED provider. Received 1 dose of IV Rocephin and vancomycin by ED provider. Lactic acid 3.0-> 2.4-> 2.4-> 2.8 Blood cultures have no growth at 24 hours. Urine culture no growth at 1 day. Sputum cultures pending. Due to persistent hypotension, patient is upgraded to ICU for possible vasopressor support. Continue continuous cardiac telemetry. Continue maintenance IV fluids. Levophed as needed to maintain MAP>60; central line placed. We will treat for healthcare associated pneumonia (admitted to our facility 4 weeks ago and [facility] 6 weeks ago; received IV antibiotics during both admissions for pneumonia) with IV vancomycin, cefepime, and Levaquin. Will adjust antibiotics as cultures result. March 16, 2019-resolved at this time. We will continue to follow (2) Pneumonia Qualifiers: Pneumonia type: due to unspecified organism Laterality: bilateral Lung location: unspecified part of lung Qualified Code(s): J18.9 - Pneumonia, unspecified organism Is this a current diagnosis for this admission?: Yes Plan: Chest x-ray demonstrated persistent right upper lobe opacity (history of cavitary lesion) with new patchy opacities to the right middle and left lower lobes suspicious for multifocal infection. Abdominal pelvic CT shows scattered centrilobular bilateral bibasilar groundglass opacities likely secondary to infection/aspiration. Blood cultures are negative at 24 hours. Sputum cultures pending. PPD placed. Gold QuantiFERON pending; send out lab. Airborne precautions. Patient is empirically treated for healthcare associated pneumonia with IV vancomycin, cefepime, Levaquin. She is provided supplemental oxygen as needed to maintain saturations. Scheduled as needed nebulizer treatments. Twice daily Mucinex. Robitussin as needed. Incentive spirometer to bedside. TB was ruled out during her [facility] admission in January 2019. Discussed with Dr. Gary. Given her persistent right upper lobe cavitary lesion, right sided pneumonia, and weight loss, concern for TB persist. Dr. Gary recommends airborne precautions and further rule out with repeat PPD and gold QuantiFERON testing. March 16, 2019-awaiting [employer] and want to fair on testing for TB. Most likely not to be at this time but continue to rule out. (3) Acute kidney injury Is this a current diagnosis for this admission?: Yes Plan: Improved; Cr 2.58-> 1.58 Multifactorial secondary to sepsis/hypotension, poor p.o. intake secondary to nausea and abdominal upset, and GI losses related to vomiting. Has received aggressive IV fluid resuscitation. Continuing maintenance fluids. We will avoid nephrotoxic medications as able; pharmacy to dose vancomycin. Daily chemistries. March 16, 2019-resolved (4) Intractable nausea and vomiting Qualifiers: Vomiting type: unspecified Qualified Code(s): R11.2 - Nausea with vomiting, unspecified Is this a current diagnosis for this admission?: Yes Plan: Improved; continued nausea but without emesis today. Unclear etiology; secondary to acute illness (sepsis/pneumonia) versus metastatic cause (right ovarian mass mid work-up; patient is poor historian and able to tell me current evaluation/treatment plan close parentheses. Consider head CT. IV maintenance fluids. Antiemetics as needed. March 16, 2019-resolved at this time continue to follow (5) Ovarian mass Is this a current diagnosis for this admission?: Yes Plan: Dr. Nicole is consulted. Have requested discharge summary, SALES REP consult notes, CT ABD/Pelvis and Pelvic U/S results from [facility]. March 16, 2019-awaiting results from [facility]. Hematology oncology has been consulted. - Time Time Spent with patient: 15-24 minutes - Inpatient Certification Based on my medical assessment, after consideration of the patient's comorbidities, presenting symptoms, or acuity I expect that the services needed warrant INPATIENT care.: Yes I certify that my determination is in accordance with my understanding of Medicare's requirements for reasonable and necessary INPATIENT services [42 CFR 412.3e].: Yes Medical Necessity: Other - Await confirmation TB testing
--- NOTE | 2019-03-16 08:38 | Progress Note Acknowledgement ---
Progress Note Acknowledgement Progess Note Acknowledgement: I, the undersigned member of the medical staff with appropriate privileges and with supervisory authority over [Raj Hatch], a dependent practice allied health professional, acknowledge that I have reviewed the progress notes entered on this patient, and in my professional judgment believe that the assessment made and/or any care evidenced was appropriate
[2019-03-16] MEDS ORDERED: DIGOXIN INJ 0.5 MG/2 ML AMPULE IV ONE (11:00)
[2019-03-16] MEDS: CEFEPIME 1 GM/D5W RTU 1 GM/50 ML RTUPB IV SCH ×2 (11:01→21:41)
[2019-03-16] MEDS: DIGOXIN 0.125 MG TABLET PO SCH (11:03)
[2019-03-16] MEDS: GUAIFENESIN 600 MG TABLET.SA PO SCH ×2 (11:03→21:41)
[2019-03-16] MEDS: METOPROLOL TARTRATE 25 MG TABLET PO SCH ×2 (11:03→21:40)
[2019-03-16] MEDS: FAMOTIDINE 20 MG TABLET PO SCH ×2 (11:04→21:41)
[2019-03-16] MEDS: DOCUSATE SODIUM 100 MG CAPSULE PO SCH (11:04)
[2019-03-16] MEDS: ASPIRIN 81 MG TABLET, CHEWABLE PO SCH (11:04)
[2019-03-16] MEDS: APIXABAN 2.5 MG TABLET PO SCH ×2 (11:04→17:36)
[2019-03-16] MEDS: POLYETHYLENE GLYCOL 3350 POWDER 17 GM/1 PACKET PO SCH (11:05)
[2019-03-16] MEDS: LEVOFLOXACIN 500 MG/D5W RTU 500 MG/100 ML RTUPB IV SCH (17:36)
--- NOTE | 2019-03-16 22:10 | Progress Note ---
Provider Note Provider Note: CARDIOLOGY, progress NOTE by Dr. Radha Hsieh on 03/16/2019. SUBJECTIVE: The patient is off oxygen. She denies any chest pain or discomfort. There is no shortness of breath. There is no arrhythmia seen on the monitor. The patient has no chest pain or discomfort. The patient denies any PND, but she does have orthopnea. There is no leg edema. She has no further nausea vomiting. There is no bleeding on Eliquis. There is no TIA CVA symptoms. PHYSICAL EXAMINATION: The patient is a frail build. She appears to be chronically ill. Selected Entries 03/16/19 03/16/19 08:23 09:00 Temperature 98.1 F Temperature Oral Source Heart Rate ( 111 Monitors) Respiratory 16 Rate Blood Pressure 96/52 L Blood Pressure 66 Mean BP Location Left Arm BP Position Supine Oxygen Delivery Room Air Method HEAD: Is atraumatic normocephalic. EYES: Pupils equal round regular reactive light accommodation. Extraocular movements are normal. There is no conjunctival pallor. There is no scleral icterus. ENT is negative. Neck is supple. There is no JVD. Carotids are equal there is no bruit. There is no lymphadenopathy. There is no accessory muscle respiration use. Trachea central. LUNGS: Show a few dry crackles in the right upper lobe. The rest of the lungs appear fairly clear. There is no rales of CHF. There is no rhonchi or wheezing. HEART: S1-S2 is heard. S1 is of variable intensity. There is no S3 gallop. There is no S4 gallop. There is systolic murmur left sternal border and the apex. There is no rub. ABDOMEN: Is soft nontender there is no hepatospleno megaly bowel sounds well heard. EXTREMITIES: Femorals are well felt. There is no femoral bruits. There is no pedal edema. There is no DVT or cellulitis. Leg pulses are diminished. There is no cyanosis or clubbing. 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 PSYCHIATRIC: The patient judgment insight are intact her affect is normal. Labs- All tests 24 hr 03/16/19 03/16/19 03/16/19 05:50 05:50 18:05 WBC 8.9 RBC 3.13 L Hgb 9.2 L Hct 27.4 L MCV 88 MCH 29.5 MCHC 33.7 RDW 15.6 H Plt Count 166 Seg Neutrophils % 75.7 Lymphocytes % 14.9 Monocytes % 8.2 Eosinophils % 0.7 Basophils % 0.5 Absolute Neutrophils 6.7 Absolute Lymphocytes 1.3 Absolute Monocytes 0.7 Absolute Eosinophils 0.1 Absolute Basophils 0.0 Sodium 132.8 L Potassium 4.1 Chloride 107 Carbon Dioxide 21 L Anion Gap 5 BUN 13 Creatinine 0.81 Est GFR ( Amer) > 60 Est GFR (Non-Af Amer) > 60 Glucose 92 Calcium 8.1 L Magnesium 1.7 Total Bilirubin 1.0 Direct Bilirubin 0.3 Neonat Total Bilirubin Not Reportable Neonat Direct Bilirubin Not Reportable Neonat Indirect Bili Not Reportable AST 12 L ALT 8 Alkaline Phosphatase 55 Total Protein 4.9 L Albumin 2.2 L Stool Occult Blood NEGATIVE Chest X-Ray 03/10/19 00:00 IMPRESSION: Persistent right upper lobe opacities compatible with pneumonia. New patchy opacities within the right middle and left lower lobe suspicious for additional multifocal infection. Abdomen/Pelvis CT 03/10/19 11:48 IMPRESSION: 1. No evidence of acute intra-abdominal/ pelvic process. 2. Scattered centrilobular bilateral basilar ground-glass opacities, likely secondary to infection/aspiration. 3. Unchanged dilation of the pancreatic duct, better evaluated on prior contrasted exam. Chest X-Ray 03/11/19 00:00 IMPRESSION: Catheter placement. Persistent right upper lobe pneumonia. Chest CT 03/12/19 11:42 IMPRESSION: Persistent dense consolidation- cavitary appearance of the poste rior aspect of the right upper lobe with subsegmental bronchial occlusion. There are numerous areas of nodularity, ground-glass opacity, and interstitial thickening bilaterally, some areas appear increased compared with the previous examination. Small bilateral pleural effusions, slightly increased compared with the prior exam. Similar right medial basilar pleural calcifications- thickening. Transvaginal US 03/13/19 12:34 IMPRESSION: 1.5 x 1.5 x 2.6 cm simple cyst in the left adnexum. There is no solid component. Chest X-Ray 03/15/19 06:00 IMPRESSION: Improved aeration of the right upper lobe with persistent patchy opacities, better evaluated on prior CT. Left retrocardiac opacities possibly atelectasis or infection. impression/RECOMMENDATION: 1. Atrial fibrillation with intermittent aberrant conduction of the left bundle branch block pattern. Will give an extra dose of digoxin. We will continue patient on metoprolol and digoxin. Continue eliquis. If his systolic blood pressure remains low we will start the patient on Midodrine. This was discussed with the hospitalist. 2. Elevated troponin I: Secondary to supply demand mismatch. No evidence of non-ST elevation [place]. This is secondary to atrial fibrillation with rapid ventricular response, and infection. 3 right upper lobe pneumonia with cavitation: Work-up in progress continue antibiotics. 4. Questionable ovarian mass: Recent CT scan of the abdomen does not show the mass. 5. History of hypertension: Blood pressure on the lower side. 6. Nausea and vomiting: Seems to have resolved.. 7. Malnutrition: Patient may need dietary supplements.. Medications reviewed. Medications added. Management plan discussed with the hospitalist attending. 40 minutes spent on this patient with more than 50% of time spent in direct patient care. Medical decision making is of moderate complexity. Will follow.
[2019-03-17] MEDS: IPRATROPIUM/ALBUTEROL 0.5-2.5 MG/3 ML AMPUL NEB SCH ×4 (03:02→19:51)
[2019-03-17 06:10] LABS: HEMATOCRIT 27.4 % (36.0-47.0); HEMOGLOBIN 9.2 g/dL (12.0-15.5); MEAN CORPUSCULAR HEMOGLOBIN 29.7 pg (27.0-33.4); MEAN CORPUSCULAR HGB CONC 33.7 g/dL (32.0-36.0); MEAN CORPUSCULAR VOLUME 88 fl (80-97); PLATELET COUNT 175 10^3/uL (150-450); RED BLOOD COUNT 3.12 10^6/uL (3.72-5.28); RED CELL DISTRIBUTION WIDTH 15.6 % (11.5-14.0); WHITE BLOOD COUNT 8.6 10^3/uL (4.0-10.5)
--- NOTE | 2019-03-17 08:39 | PDOC PROGRESS REPORT ---
Subjective Progress Note for:: 03/17/19 Subjective:: March 16, 2019-no complaints at this time March 17, 2019-no complaints this a.m. Reason For Visit: PNEUMONIA Physical Exam Vital Signs: Temp Pulse Resp BP Pulse Ox 97.7 F 112 H 16 112/66 97 03/17/19 04:25 03/17/19 07:44 03/17/19 07:44 03/17/19 04:25 03/17/19 07:44 Pulse Oximeter Continuous Start: 03/10/19 15:13 Freq: RTQ4 Status: Complete Protocol: Document 03/11/19 16:48 HCR (Rec: 03/11/19 16:48 HCR [id number]) Pulse Oximetry Assessment Equipment Usage Equipment Discontinued Continuous SpO2 Machine # 11 Intake & Output 03/16/19 03/17/19 03/18/19 06:59 06:59 06:59 Intake Total 1156 1483 Output Total 200 Balance 956 1483 Weight 63.8 kg 63.7 kg General appearance: PRESENT: no acute distress, well-developed, well-nourished Neck exam: ABSENT: carotid bruit, JVD, lymphadenopathy, thyromegaly Respiratory exam: PRESENT: clear to auscultation talha. ABSENT: rales, rhonchi, wheezes Cardiovascular exam: PRESENT: RRR. ABSENT: diastolic murmur, rubs, systolic murmur Pulses: PRESENT: +1 pedal pulses bilateral Vascular exam: PRESENT: normal capillary refill GI/Abdominal exam: PRESENT: normal bowel sounds, soft. ABSENT: distended, guarding, mass, organolmegaly, rebound, tenderness Extremities exam: PRESENT: full ROM. ABSENT: calf tenderness, clubbing, pedal edema Neurological exam: PRESENT: alert, awake, oriented to person, oriented to place, oriented to time, oriented to situation, CN II-XII grossly intact. ABSENT: motor sensory deficit Psychiatric exam: PRESENT: appropriate affect, normal mood. ABSENT: homicidal i deation, suicidal ideation Skin exam: PRESENT: dry, intact, warm. ABSENT: cyanosis, rash Results Laboratory Results: 03/17/19 05:40 03/16/19 05:50 03/16/19 03/17/19 18:05 05:40 WBC 8.6 RBC 3.12 L Hgb 9.2 L Hct 27.4 L MCV 88 MCH 29.7 MCHC 33.7 RDW 15.6 H Plt Count 175 Stool Occult Blood NEGATIVE 03/10/19 03/10/19 03/10/19 11:55 19:49 23:43 Troponin I 0.194 0.130 0.141 NT-Pro-B Natriuret Pep 3940 H 03/11/19 12:55 Troponin I 0.125 NT-Pro-B Natriuret Pep 2820 H Impressions: Abdomen/Pelvis CT 03/10/19 11:48 IMPRESSION: 1. No evidence of acute intra-abdominal/ pelvic process. 2. Scattered centrilobular bilateral basilar ground-glass opacities, likely secondary to infection/aspiration. 3. Unchanged dilation of the pancreatic duct, better evaluated on prior contrasted exam. Chest CT 03/12/19 11:42 IMPRESSION: Persistent dense consolidation- cavitary appearance of the posterior aspect of the right upper lobe with subsegmental bronchial occlusion. There are numerous areas of nodularity, ground-glass opacity, and interstitial thickening bilaterally, some areas appear increased compared with the previous examination. Small bilateral pleural effusions, slightly increased compared with the prior exam. Similar right medial basilar pleural calcifications- thickening. Transvaginal US 03/13/19 12:34 IMPRESSION: 1.5 x 1.5 x 2.6 cm simple cyst in the left adnexum. There is no solid component. Chest X-Ray 03/15/19 06:00 IMPRESSION: Improved aeration of the right upper lobe with persistent patchy opacities, better evaluated on prior CT. Left retrocardiac opacities possibly atelectasis or infection. Assessment and Plan - Diagnosis (1) Sepsis Qualifiers: Sepsis type: sepsis due to unspecified organism Sepsis acute organ dysfunction status: unspecified Qualified Code(s): A41.9 - Sepsis, unspecified organism Is this a current diagnosis for this admission?: Yes Plan: Sepsis, due to multifocal pneumonia, present on admission, evidenced by tachycardia, hypotension, tachypnea, hypoxia on room air, acute kidney injury, and elevated lactic acid. Patient received 3 L IV fluid bolus by the ED provider. Received 1 dose of IV Rocephin and vancomycin by ED provider. Lactic acid 3.0-> 2.4-> 2.4-> 2.8 Blood cultures have no growth at 24 hours. Urine culture no growth at 1 day. Sputum cultures pending. Due to persistent hypotension, patient is upgraded to ICU for possible vasopressor support. Continue continuous cardiac telemetry. Continue maintenance IV fluids. Levophed as needed to maintain MAP>60; central line placed. We will treat for healthcare associated pneumonia (admitted to our facility 4 weeks ago and [facility] 6 weeks ago; received IV antibiotics during both admissions for pneumonia) with IV vancomycin, cefepime, and Levaquin. Will adjust antibiotics as cultures result. March 16, 2019-resolved at this time. We will continue to follow March 17, 2019-continue resolution. Continue to follow (2) Pneumonia Qualifiers: Pneumonia type: due to unspecified organism Laterality: bilateral Lung location: unspecified part of lung Qualified Code(s): J18.9 - Pneumonia, unspecified organism Is this a current diagnosis for this admission?: Yes Plan: Chest x-ray demonstrated persistent right upper lobe opacity (history of cavitary lesion) with new patchy opacities to the right middle and left lower lobes suspicious for multifocal infection. Abdominal pelvic CT shows scattered centrilobular bilateral bibasilar groundglass opacities likely secondary to infection/aspiration. Blood cultures are negative at 24 hours. Sputum cultures pending. PPD placed. Gold QuantiFERON pending; send out lab. Airborne precautions. Patient is empirically treated for healthcare associated pneumonia with IV vancomycin, cefepime, Levaquin. She is provided supplemental oxygen as needed to maintain saturations. Scheduled as needed nebulizer treatments. Twice daily Mucinex. Robitussin as needed. Incentive spirometer to bedside. TB was ruled out during her [facility] admission in January 2019. Discussed with Dr. Gary. Given her persistent right upper lobe cavitary lesion, right sided pneumonia, and weight loss, concern for TB persist. Dr. Gary recommends airborne precautions and further rule out with repeat PPD and gold QuantiFERON testing. March 16, 2019-awaiting AFB and want to fair on testing for TB. Most likely not to be at this time but continue to rule out. March 17, 2019-still awaiting AFB. Continue current antibiotics and await further cultures (3) Acute kidney injury Is this a current diagnosis for this admission?: Yes Plan: Improved; Cr 2.58-> 1.58 Multifactorial secondary to sepsis/hypotension, poor p.o. intake secondary to nausea and abdominal upset, and GI losses related to vomiting. Has received aggressive IV fluid resuscitation. Continuing maintenance fluids. We will avoid nephrotoxic medications as able; pharmacy to dose vancomycin. Daily chemistries. March 16, 2019-resolved March 17, 2019-resolved (4) Intractable nausea and vomiting Qualifiers: Vomiting type: unspecified Qualified Code(s): R11.2 - Nausea with vomiting, unspecified Is this a current diagnosis for this admission?: Yes Plan: Improved; continued nausea but without emesis today. Unclear etiology; secondary to acute illness (sepsis/pneumonia) versus metastatic cause (right ovarian mass mid work-up; patient is poor historian and able to tell me current evaluation/treatment plan close parentheses. Consider head CT. IV maintenance fluids. Antiemetics as needed. March 16, 2019-resolved at this time continue to follow March 17, 2019-resolved at this time continue antiemetics as needed (5) Ovarian mass Is this a current diagnosis for this admission?: Yes Plan: Dr. Nicole is consulted. Have requested discharge summary, BRUSHING OPERATOR consult notes, CT ABD/Pelvis and Pelvic U/S results from [facility]. March 16, 2019-awaiting results from [facility]. Hematology oncology has been consulted. March 17, 2019 awaiting regulations from oncology (6) Failure to thrive Is this a current diagnosis for this admission?: Yes Plan: March 17, 2019-patient emaciated secondary to chronic disease and age. I have added boost or Ensure with each meal for protein calorie supplementation. - Time Time Spent with patient: 15-24 minutes - Inpatient Certification Based on my medical assessment, after consideration of the patient's comorbidities, presenting symptoms, or acuity I expect that the services needed warrant INPATIENT care.: Yes I certify that my determination is in accordance with my understanding of Medicare's requirements for reasonable and necessary INPATIENT services [42 CFR 412.3e].: Yes Medical Necessity: Other - Awaiting TB test
[2019-03-17] MEDS: GUAIFENESIN 600 MG TABLET.SA PO SCH ×2 (09:11→21:20)
[2019-03-17] MEDS: METOPROLOL TARTRATE 25 MG TABLET PO SCH ×2 (09:11→21:20)
[2019-03-17] MEDS: FAMOTIDINE 20 MG TABLET PO SCH ×2 (09:11→21:20)
[2019-03-17] MEDS: CEFEPIME 1 GM/D5W RTU 1 GM/50 ML RTUPB IV SCH ×2 (09:11→21:20)
[2019-03-17] MEDS: DIGOXIN 0.125 MG TABLET PO SCH (09:11)
[2019-03-17] MEDS: DOCUSATE SODIUM 100 MG CAPSULE PO SCH (09:11)
[2019-03-17] MEDS: APIXABAN 2.5 MG TABLET PO SCH ×2 (09:11→18:27)
[2019-03-17] MEDS: POLYETHYLENE GLYCOL 3350 POWDER 17 GM/1 PACKET PO SCH (09:11)
[2019-03-17] MEDS: ASPIRIN 81 MG TABLET, CHEWABLE PO SCH (09:12)
--- NOTE | 2019-03-17 13:59 | PDOC CONSULTATION ---
Consultation Consult Date: 03/15/19 Attending physician:: OSCAR SANTIAGO Provider Consulted: AGUS SAMUEL Consult reason:: Right upper lobe opacity History of Present Illness Admission Date/PCP: 03/10/19 16:24 YESSICA ROSAS MD History of Present Illness: CHRISTINA SOMMER is a 84 year old female with a past medical history significant for CAD, LA, hypertension, diastolic CHF, anxiety, depression, arthritis who presents to the emergency department today with a complaint of nausea and vomiting with generalized malaise that has progressively worsened x2 weeks. The patient had been discharged from [facility] 2 days prior after receiving full course of antibiotic treatment for pneumonia including TB rule out with negative AFBs/bronchoscopy evaluation. Bronchoscopy was also productive for tissue biopsies that were nondiagnostic.At [facility], she was found to have a right ovarian mass concerning for malignancy Also,wthe patient was admitted to our facility 1 month ago for acute kidney injury secondary to nausea and vomiting and concern for right upper lobe pneumonia. It was determined that which is the likely source of her N/V. Unfortunately, the patient is a poor historian. She tells me that she has followed up with her salesforce developer and analytical data scientist (Dr. Hartman) as was previously scheduled but is unable to tell me with the current treatment plans are for either her cavitary lung lesion or ovarian mass. Past Medical History Cardiac Medical History: Reports: Coronary Artery Disease, Myocardial Inf arction, Hypertension, Heart Murmur - Long-standing, per patient Pulmonary Medical History: Reports: Pneumonia EENT Medical History: Reports: None Neurological Medical History: Reports: None Endocrine Medical History: Reports: None Renal/ Medical History: Reports: Chronic Kidney Disease Malignancy Medical History: Reports: Ovarian Cancer - New diagnosis right ovarian mass; concerning for malignancy, work-up underw GI Medical History: Reports: Gastroesophageal Reflux Disease Musculoskeltal Medical History: Reports: Arthritis Psychiatric Medical History: Reports: Depression, General Anxiety Disorder Hematology: Reports: Anemia Infectious Medical History: Reports: None Past Surgical History Past Surgical History: Reports: Cholecystectomy, Hysterectomy, Orthopedic Surgery - Bilateral knee replacement, Other - Benign left breast biopsy Social History Lives with: Family Smoking Status: Former Smoker Cigarettes Packs Per Day: 0.5 Number of Years Smokin Passive smoke exposure as: Both Frequency of Alcohol Use: None Hx Recreational Drug Use: No Drugs: None Hx Prescription Drug Abuse: No Do you have pets?: No Have you had any respiratory illnesses as a child?: No Have you been exposed to any sick contacts recently?: No Have you had any recent respiratory illnesses?: No Have you travelled outside of [place] in the past 12 months?: No - Advance Directive Resuscitation Status: Full Code Family History Family History: CAD, Hypertension Parental Family History Reviewed: Yes Children Family History Reviewed: Yes Sibling(s) Family History Reviewed.: Yes Medication/Allergy Home Medications: Cholecalciferol (Vitamin D3) [Vitamin D3 2000 unit Tablet] 2,000 unit PO DAILY 03/10/19 Digoxin [Lanoxin 0.125 mg Tablet] 0.125 mg PO DAILY 03/10/19 Diltiazem HCl [Diltiazem 24Hr ER] 120 mg PO DAILY 03/10/19 Lisinopril [Prinivil] 20 mg PO DAILY 03/10/19 Metoprolol Tartrate [Lopressor 25 mg Tablet] 50 mg PO Q12 03/10/19 Omeprazole 20 mg PO Q6AM 03/10/19 Ondansetron HCl [Zofran 4 mg Tablet] 4 mg PO Q8HP PRN 03/10/19 Allergies/Adverse Reactions: No Known Allergies Allergy (Verified 03/10/19 10:55) Review of Systems ROS unobtainable: Due to mental status Physical Exam Vital Signs: Temp Pulse Resp BP Pulse Ox 98.4 F 121 H 18 89/48 L 99 03/17/19 11:28 03/17/19 11:28 03/17/19 11:28 03/17/19 11:28 03/17/19 11:28 Pulse Oximeter Continuous Start: 03/10/19 15:13 Freq: RTQ4 Status: Complete Protocol: Document 03/11/19 16:48 HCR (Rec: 03/11/19 16:48 HCR [id number]) Pulse Oximetry Assessment Equipment Usage Equipment Discontinued Continuous SpO2 Machine # 11 Intake & Output 03/16/19 03/17/19 03/18/19 06:59 06:59 06:59 Intake Total 1156 1533 350 Output Total 200 Balance 956 1533 350 Weight 63.8 kg 63.7 kg General appearance: PRESENT: no acute distress, cooperative, disheveled, thin Head exam: PRESENT: atraumatic, normocephalic Eye exam: PRESENT: conjunctiva pale, EOMI. ABSENT: nystagmus, periorbital swe lling Mouth exam: PRESENT: dry mucosa, neck supple, tongue midline Teeth exam: PRESENT: poor dentation Neck exam: ABSENT: carotid bruit, full ROM, JVD, lymphadenopathy, meningismus, tenderness, thyromegaly, tracheal deviation, tracheostomy, other Respiratory exam: PRESENT: decreased breath sounds, prolonged expiratory phas, rales, rhonchi. ABSENT: retraction, stridor, symmetrical, tachypnea Cardiovascular exam: PRESENT: RRR, +S1, +S2, tachycardia Pulses: PRESENT: normal radial pulses GI/Abdominal exam: PRESENT: normal bowel sounds, soft. ABSENT: mass, tenderness Extremities exam: ABSENT: calf tenderness, clubbing, joint swelling Musculoskeletal exam: ABSENT: deformity, dislocation Neurological exam: PRESENT: awake Psychiatric exam: PRESENT: flat affect Focused psych exam: PRESENT: flight of ideas, internal stimuli Skin exam: PRESENT: dry, warm Results Laboratory Results: 03/17/19 05:40 03/16/19 05:50 03/16/19 03/17/19 18:05 05:40 WBC 8.6 RBC 3.12 L Hgb 9.2 L Hct 27.4 L MCV 88 MCH 29.7 MCHC 33.7 RDW 15.6 H Plt Count 175 Stool Occult Blood NEGATIVE 03/10/19 03/10/19 03/10/19 11:55 19:49 23:43 Troponin I 0.194 0.130 0.141 NT-Pro-B Natriuret Pep 3940 H 03/11/19 12:55 Troponin I 0.125 NT-Pro-B Natriuret Pep 2820 H Impressions: Abdomen/Pelvis CT 03/10/19 11:48 IMPRESSION: 1. No evidence of acute intra-abdominal/ pelvic process. 2. Scattered centrilobular bilateral basilar ground-glass opacities, likely secondary to infection/aspiration. 3. Unchanged dilation of the pancreatic duct, better evaluated on prior contrasted exam. Chest CT 03/12/19 11:42 IMPRESSION: Persistent dense consolidation- cavitary appearance of the posterior aspect of the right upper lobe with subsegmental bronchial occlusion. There are numerous areas of nodularity, ground-glass opacity, and interstitial thickening bilaterally, some areas appear increased compared with the previous examination. Small bilateral pleural effusions, slightly increased compared with the prior exam. Similar right medial basilar pleural calcifications- thickening. Transvaginal US 03/13/19 12:34 IMPRESSION: 1.5 x 1.5 x 2.6 cm simple cyst in the left adnexum. There is no solid component. Chest X-Ray 03/15/19 06:00 IMPRESSION: Improved aeration of the right upper lobe with persistent patchy opacities, better evaluated on prior CT. Left retrocardiac opacities possibly atelectasis or infection. Assessment & Plan - Diagnosis (1) Atrial fibrillation with RVR Is this a current diagnosis for this admission?: Yes Plan: Stable at this time (2) Mass of right lung Is this a current diagnosis for this admission?: Yes Plan: No mass in the right upper lobe patient has undergone bronchoscopy and biopsy all of which were nondiagnostic in addition she is undergone intravenous antibiotic therapy (3) Ovarian mass Is this a current diagnosis for this admission?: Yes Plan: This mass was noted on CTs at other institutions but not noted on the CT at this institution she is being followed by oncology she did display 1.5x1.5x2.5 adnexal cyst on ultra sound - Time Total Critical Time (Minutes): 50
[2019-03-17] MEDS: NORMAL SALINE INJ/PF 0.9% 10 ML SDV IV PRN (14:21)
[2019-03-17] MEDS: GUAIFENESIN SYRP 200 MG/10 ML UDC PO PRN (15:35)
[2019-03-17 19:36] LABS: ASPERGILLUS FUMIGATUS Negative (Neg:<1:1)
--- NOTE | 2019-03-17 21:15 | Progress Note ---
Provider Note Provider Note: CARDIOLOGY PROGRESS NOTE by Dr. Radha Hinds on 03/17/2019. SUBJECTIVE: The patient continues to be atrial fibrillation. Most of the time the patient's heart rate is controlled, occasionally the heart rate does go up to 114 bpm. She states she still has cough but is not able to produce any sputum. She has no chest pain or discomfort. There is no PND orthopnea. There is no shortness of breath. There is no TIA CVA symptoms. There is no leg edema. There is no ventricular arrhythmia seen on the monitor. There is no bleeding on Eliquis. There is no TIA CVA symptoms. PHYSICAL EXAMINATION: The patient appears to be a frail build and chronically ill. Selected Entries 03/17/19 16:46 Temperature 97.6 F Temperature Oral Source Pulse Rate 84 Respiratory 22 H Rate Blood Pressure 111/73 Blood Pressure 85 Mean BP Location Left Arm BP Position Supine O2 Sat by Pulse 100 Oximetry Oxygen Delivery Room Air Method HEAD: Is atraumatic normocephalic. EYES: Pupils equal round regular reactive light accommodation. Extraocular movements are normal. There is no conjunct ival pallor. There is no scleral icterus. ENT is negative. Neck is supple. There is no JVD. Carotids are equal there is no bruit. There is no lymphadenopathy. There is no accessory muscle respiration use. Trachea central. LUNGS: Show a few dry crackles in the right upper lobe. The rest of the lungs appear fairly clear. There is no rales of CHF. There is no rhonchi or wheezing. HEART: S1-S2 is heard. S1 is of variable intensity. There is no S3 gallop. There is no S4 gallop. There is systolic murmur left sternal border and the apex. There is no rub. ABDOMEN: Is soft nontender there is no hepatospleno megaly bowel sounds well heard. EXTREMITIES: Femorals are well felt. There is no femoral bruits. There is no pedal edema. There is no DVT or cellulitis. Leg pulses are diminished. There is no cyanosis or clubbing. LANGUAGE THERAPIST: The patient is conscious awake alert oriented x3 with no focal deficits. PSYCHIATRIC: The patient judgment insight are intact her affect is normal. Labs- All tests 24 hr 03/17/19 05:40 WBC 8.6 RBC 3.12 L Hgb 9.2 L Hct 27.4 L MCV 88 MCH 29.7 MCHC 33.7 RDW 15.6 H Plt Count 175 Chest X-Ray 03/10/19 00:00 IMPRESSION: Persistent right upper lobe opacities compatible with pneumonia. New patchy opacities within the right middle and left lower lobe suspicious for additional multifocal infection. Abdomen/Pelvis CT 03/10/19 11:48 IMPRESSION: 1. No evidence of acute intra-abdominal/ pelvic process. 2. Scattered centrilobular bilateral basilar ground-glass opacities, likely secondary to infection/aspiration. 3. Unchanged dilation of the pancreatic duct, better evaluated on prior contrasted exam. Chest X-Ray 03/11/19 00:00 IMPRESSION: Catheter placement. Persistent right upper lobe pneumonia. Chest CT 03/12/19 11:42 IMPRESSION: Persistent dense consolidation- cavitary appearance of the posterior aspect of the right upper lobe with subsegmental bronchial occlusion. There are numerous areas of nodularity, ground-glass opacity, and interstitial thickening bilaterally, some areas appear increased compared with the previous examination. Small bilateral pleural effusions, slightly increased compared with the prior exam. Similar right medial basilar pleural calcifications- thickening. Transvaginal US 03/13/19 12:34 IMPRESSION: 1.5 x 1.5 x 2.6 cm simple cyst in the left adnexum. There is no solid component. Chest X-Ray 03/15/19 06:00 IMPRESSION: Improved aeration of the right upper lobe with persistent patchy opacities, better evaluated on prior CT. Left retrocardiac opacities possibly atelectasis or infection. impression/RECOMMENDATION: 1. Atrial fibrillation with intermittent aberrant conduction of the left bundle branch block pattern. Will give an extra dose of digoxin. We will continue patient on metoprolol and digoxin. Continue eliquis. If his systolic blood pressure remains low we will start the patient on Midodrine. At present blood pressure stable. Will hold off on starting the patient on midodrine.this was discussed with the hospitalist. We will check the patient's this level in the morning. 2. Elevated troponin I: Secondary to supply demand mismatch. No evidence of non-ST elevation DE. This is secondary to atrial fibrillation with rapid ventricular response, and infection. 3 right upper lobe pneumonia with cavitation: Work-up in progress continue antibiotics. We will check the patient's chest x-ray in the a.m. 4. Questionable ovarian mass: Recent CT scan of the abdomen does not show the mass. 5. History of hypertension: Blood pressure on the lower side. 6. Malnutrition: Patient may need dietary supplements. Medications reviewed. Management plan discussed with attending physician on the case. Medical decision making is of moderate complexity. 40 minutes spent on this patient with more than 50% of time spent in direct patient care. Will follow.
[2019-03-18] MEDS: IPRATROPIUM/ALBUTEROL 0.5-2.5 MG/3 ML AMPUL NEB SCH ×4 (02:20→20:59)
[2019-03-18 07:16] LABS: ASPERGILLUS NIGER Negative (Neg:<1:1)
--- NOTE | 2019-03-18 08:27 | RADIOLOGY REPORT (SQ) ---
EXAM DESCRIPTION: CHEST SINGLE VIEW COMPLETED DATE/TIME: 03/18/2019 8:00 am REASON FOR STUDY: Pneumonia. COMPARISON: 03/15/2019 EXAM PARAMETERS: NUMBER OF VIEWS: One view. TECHNIQUE: Single frontal radiographic view of the chest acquired. RADIATION DOSE: NA LIMITATIONS: None. FINDINGS: LUNGS AND PLEURA: Patchy parenchymal opacities throughout both lungs with no improvement. Slight worsening in the left upper lobe. MEDIASTINUM AND HILAR STRUCTURES: No masses. Contour normal. HEART AND VASCULAR STRUCTURES: Heart normal in size. Normal vasculature. BONES: No acute findings. HARDWARE: Venous access catheter unchanged. OTHER: No other significant finding. IMPRESSION: Diffuse patchy parenchymal opacities. No improvement, and slight worsening in the left upper lobe. TECHNICAL DOCUMENTATION: JOB ID: [id number] [employer]- All Rights Reserved Reading location - IP/workstation name: [email or web address]
--- NOTE | 2019-03-18 08:34 | PDOC PROGRESS REPORT ---
Subjective Progress Note for:: 03/18/19 Subjective:: March 16, 2019-no complaints at this time March 17, 2019-no complaints this a.m. March 18, 2019-shortness of breath Reason For Visit: PNEUMONIA Physical Exam Vital Signs: Temp Pulse Resp BP Pulse Ox 98.2 F 116 H 18 101/61 96 03/18/19 00:19 03/18/19 07:49 03/18/19 07:49 03/18/19 00:19 03/18/19 07:49 Pulse Oximeter Continuous Start: 03/10/19 15:13 Freq: RTQ4 Status: Complete Protocol: Document 03/11/19 16:48 HCR (Rec: 03/11/19 16:48 HCR [id number]) Pulse Oximetry Assessment Equipment Usage Equipment Discontinued Continuous SpO2 Machine # 11 Intake & Output 03/17/19 03/18/19 03/19/19 06:59 06:59 06:59 Intake Total 1533 600 Balance 1533 600 Weight 63.7 kg 63.5 kg General appearance: PRESENT: no acute distress, well-developed, well-nourished Neck exam: ABSENT: carotid bruit, JVD, lymphadenopathy, thyromegaly Respiratory exam: PRESENT: crackles, decreased breath sounds, symmetrical, unlabored Cardiovascular exam: PRESENT: irregular rhythm, tachycardia Pulses: PRESENT: +1 pedal pulses bilateral Vascular exam: PRESENT: normal capillary refill GI/Abdominal exam: PRESENT: normal bowel sounds, soft. ABSENT: distended, guarding, mass, organolmegaly, rebound, tenderness Extremities exam: PRESENT: full ROM. ABSENT: calf tenderness, clubbing, pedal edema Neurological exam: PRESENT: alert, awake, oriented to person, oriented to place, oriented to time, oriented to situation, CN II-XII grossly intact. ABSENT: motor sensory deficit Psychiatric exam: PRESENT: appropriate affect, normal mood. ABSENT: homicidal ideation, suicidal ideation Skin exam: PRESENT: dry, intact, warm. ABSENT: cyanosis, rash Results Laboratory Results: 03/17/19 05:40 03/16/19 05:50 03/10/19 03/10/19 03/10/19 11:55 19:49 23:43 Troponin I 0.194 0.130 0.141 NT-Pro-B Natriuret Pep 3940 H 03/11/19 12:55 Troponin I 0.125 NT-Pro-B Natriuret Pep 2820 H Impressions: Abdomen/Pelvis CT 03/10/19 11:48 IMPRESSION: 1. No evidence of acute intra-abdominal/ pelvic process. 2. Scattered centrilobular bilateral basilar ground-glass opacities, likely secondary to infection/aspiration. 3. Unchanged dilation of the pancreatic duct, better evaluated on prior contrasted exam. Chest CT 03/12/19 11:42 IMPRESSION: Persistent dense consolidation- cavitary appearance of the posterior aspect of the right upper lobe with subsegmental bronchial occlusion. There are numerous areas of nodularity, ground-glass opacity, and interstitial thickening bilaterally, some areas appear increased compared with the previous examination. Small bilateral pleural effusions, slightly increased compared with the prior exam. Similar right medial basilar pleural calcifications- thickening. Transvaginal US 03/13/19 12:34 IMPRESSION: 1.5 x 1.5 x 2.6 cm simple cyst in the left adnexum. There is no solid component. Chest X-Ray 03/18/19 06:00 IMPRESSION: Diffuse patchy parenchymal opacities. No improvement, and slight worsening in the left upper lobe. Assessment and Plan - Diagnosis (1) Sepsis Qualifiers: Sepsis type: sepsis due to unspecified organism Sepsis acute organ dysfunction status: unspecified Qualified Code(s): A41.9 - Sepsis, unspecified organism Is this a current diagnosis for this admission?: Yes Plan: Sepsis, due to multifocal pneumonia, present on admission, evidenced by tachycardia, hypotension, tachypnea, hypoxia on room air, acute kidney injury, and elevated lactic acid. Patient received 3 L IV fluid bolus by the ED provider. Received 1 dose of IV Rocephin and vancomycin by ED provider. Lactic acid 3.0-> 2.4-> 2.4-> 2.8 Blood cultures have no growth at 24 hours. Urine culture no growth at 1 day. Sputum cultures pending. Due to persistent hypotension, patient is upgraded to ICU for possible vasopressor support. Continue continuous cardiac telemetry. Continue maintenance IV fluids. Levophed as needed to maintain MAP>60; central line placed. We will treat for healthcare associated pneumonia (admitted to our facility 4 weeks ago and [facility] 6 weeks ago; received IV antibiotics during both admissions for pneumonia) with IV vancomycin, cefepime, and Levaquin. Will adjust antibiotics as cultures result. March 16, 2019-resolved at this time. We will continue to follow March 17, 2019-continue resolution. Continue to follow March 18, 2019.-Continue resolved at this time. Patient remains on cefepime and Levaquin awaiting final culture report. (2) Pneumonia Qualifiers: Pneumonia type: due to unspecified organism Laterality: bilateral Lung location: unspecified part of lung Qualified Code(s): J18.9 - Pneumonia, unspecified organism Is this a current diagnosis for this admission?: Yes Plan: Chest x-ray demonstrated persistent right upper lobe opacity (history of cavitary lesion) with new patchy opacities to the right middle and left lower lobes suspicious for multifocal infection. Abdominal pelvic CT shows scattered centrilobular bilateral bibasilar groundglass opacities likely secondary to infection/aspiration. Blood cultures are negative at 24 hours. Sputum cultures pending. PPD placed. Gold QuantiFERON pending; send out lab. Airborne precautions. Patient is empirically treated for healthcare associated pneumonia with IV vancomycin, cefepime, Levaquin. She is provided supplemental oxygen as needed to maintain saturations. Scheduled as needed nebulizer treatments. Twice daily Mucinex. Robitussin as needed. Incentive spirometer to bedside. TB was ruled out during her [facility] admission in January 2019. Discussed with Dr. Gary. Given her persistent right upper lobe cavitary lesion, right sided pneumonia, and weight loss, concern for TB persist. Dr. Gary recommends airborne precautions and further rule out with repeat PPD and gold QuantiFERON testing. March 16, 2019-awaiting AF[employer] and want to fair on testing for TB. Most likely not to be at this time but continue to rule out. March 17, 2019-still awaiting AFB. Continue current antibiotics and await further cultures March 18, 2019-AFB negative. Patient clinically improved from her pneumonia although she is in a little congestive heart failure this a.m. Will give be given Lasix and reassess. (3) Acute kidney injury Is this a current diagnosis for this admission?: Yes Plan: Improved; Cr 2.58-> 1.58 Multifactorial secondary to sepsis/hypotension, poor p.o. intake secondary to nausea and abdominal upset, and GI losses related to vomiting. Has received aggressive IV fluid resuscitation. Continuing maintenance fluids. We will avoid nephrotoxic medications as able; pharmacy to dose vancomycin. Daily chemistries. March 16, 2019-resolved March 17, 2019-resolved March 18, 2019-resolved DC IV fluids (4) Intractable nausea and vomiting Qualifiers: Vomiting type: unspecified Qualified Code(s): R11.2 - Nausea with vomiting, unspecified Is this a current diagnosis for this admission?: Yes Plan: Improved; continued nausea but without emesis today. Unclear etiology; secondary to acute illness (sepsis/pneumonia) versus metastatic cause (right ovarian mass mid work-up; patient is poor historian and able to tell me current evaluation/treatment plan close parentheses. Consider head CT. IV maintenance fluids. Antiemetics as needed. March 16, 2019-resolved at this time continue to follow March 17, 2019-resolved at this time continue antiemetics as needed March 18, 2019-resolved continue antiemetics as needed (5) Ovarian mass Is this a current diagnosis for this admission?: Yes Plan: Dr. Nicole is consulted. Have requested discharge summary, [employer] consult notes, CT ABD/Pelvis and Pelvic U/S results from [facility]. March 16, 2019-awaiting results from [facility]. Hematology oncology has been consulted. March 17, 2019 awaiting regulations from oncology March 18, 2019-continue to await recommendations from oncology (6) Failure to thrive Is this a current diagnosis for this admission?: Yes Plan: March 17, 2019-patient emaciated secondary to chronic disease and age. I have added boost or Ensure with each meal for protein calorie supplementation. March 18, 2019-continue supplementation with Ensure or boost. (7) Acute congestive heart failure Is this a current diagnosis for this admission?: Yes Plan: March 18, 2019-patient with acute congestive heart failure secondary to IV fluids. IV fluids been DC'd. Patient will be given 40 mg IV Lasix x1 and reassessed. (8) Atrial fibrillation with RVR Is this a current diagnosis for this admission?: Yes Plan: March 18, 2019-patient with a history of atrial fibrillation with RVR. Apparently patient goes into RVR every morning she has been given extra doses of digoxin. I will give her a 0.125 mg IV dig this morning holding her p.o. dig if her heart rate does not decline I will discuss this with cardiology. Cardiology has seen patient and states of her blood pressure stays low we will place patient on milrinone. - Time Time Spent with patient: 15-24 minutes - Inpatient Certification Based on my medical assessment, after consideration of the patient's comorbidities, presenting symptoms, or acuity I expect that the services needed warrant INPATIENT care.: Yes I certify that my determination is in accordance with my understanding of Medicare's requirements for reasonable and necessary INPATIENT services [42 CFR 412.3e].: Yes Medical Necessity: Other - IV diuresis, rate control
[2019-03-18] MEDS ORDERED: FUROSEMIDE INJ/PF 40 MG/4 ML SDV IV ONE (08:45)
[2019-03-18] MEDS ORDERED: DIGOXIN INJ 0.5 MG/2 ML AMPULE IV ONE ×2 (08:45→15:00)
[2019-03-18] MEDS: CEFEPIME 1 GM/D5W RTU 1 GM/50 ML RTUPB IV SCH ×2 (09:07→21:20)
[2019-03-18] MEDS: METOPROLOL TARTRATE 25 MG TABLET PO SCH ×2 (09:07→21:20)
[2019-03-18] MEDS: ASPIRIN 81 MG TABLET, CHEWABLE PO SCH (09:07)
[2019-03-18] MEDS: FAMOTIDINE 20 MG TABLET PO SCH ×2 (09:07→21:20)
[2019-03-18] MEDS: GUAIFENESIN 600 MG TABLET.SA PO SCH ×2 (09:07→21:20)
[2019-03-18] MEDS: DOCUSATE SODIUM 100 MG CAPSULE PO SCH (09:07)
[2019-03-18] MEDS: APIXABAN 2.5 MG TABLET PO SCH ×2 (09:08→17:15)
[2019-03-18] MEDS: POLYETHYLENE GLYCOL 3350 POWDER 17 GM/1 PACKET PO SCH (09:09)
[2019-03-18] MEDS: DIGOXIN 0.125 MG TABLET PO SCH ×2 (09:35→15:24)
[2019-03-18] MEDS: NORMAL SALINE INJ/PF 0.9% 10 ML SDV IV PRN (15:12)
[2019-03-18] MEDS: GUAIFENESIN SYRP 200 MG/10 ML UDC PO PRN (15:25)
[2019-03-18] MEDS: LEVOFLOXACIN 500 MG/D5W RTU 500 MG/100 ML RTUPB IV SCH (17:15)
--- NOTE | 2019-03-18 21:41 | Progress Note ---
Provider Note Provider Note: CARDIOLOGY PROGRESS NOTE by Dr. Radha Hsieh on 03/18/2019. Subjective: The patient denies any chest pain or shortness of breath. There is no PND orthopnea. There is no leg edema. Still the patient continues to be in atrial fibrillation with occasional spurts of heart rate up to the 120s. She is asymptomatic from it. Her blood pressure is on the lower side in the 90s, hence cannot increase her metoprolol. She is also already gotten extra dose of digoxin. There is no bleeding on Eliquis. There is no TIA CVA symptoms. Physical EXAMINATION: The patient is a frail build. She appears to be chronically ill. Selected Entries 03/18/19 15:21 Temperature 97.4 F Temperature Oral Source Pulse Rate 112 H Respiratory 18 Rate Blood Pressure 91/54 L Blood Pressure 66 Mean BP Location Left Arm BP Position Supine O2 Sat by Pulse 98 Oximetry Oxygen Delivery Room Air Method HEAD: Is atraumatic normocephalic. EYES: Pupils equal round regular reactive light accommodation. Extraocular movements are normal. There is no conjunctival pallor. There is no scleral icterus. ENT is negative. Neck is supple. There is no JVD. Carotids are equal there is no bruit. There is no lymphadenopathy. There is no accessory muscle respiration use. Trachea central. LUNGS: Show a few dry crackles in the right upper lobe. The rest of the lungs appear fairly clear. There is no rales of CHF. There is no rhonchi or wheezing. HEART: S1-S2 is heard. S1 is of variable intensity. There is no S3 gallop. There is no S4 gallop. There is systolic murmur left sternal border and the apex. There is no rub. ABDOMEN: Is soft nontender there is no hepatospleno megaly bowel sounds well heard. EXTREMITIES: Femorals are well felt. There is no femoral bruits. There is no pedal edema. There is no DVT or cellulitis. Leg pulses are diminished. There is no cyanosis or clubbing. CLIENT COORDINATOR: The patient is conscious awake alert oriented x3 with no focal deficits. PSYCHIATRIC: The patient judgment insight are intact her affect is normal. Labs- All tests 24 hr 03/11/19 03/13/19 03/18/19 12:55 17:08 04:55 Digoxin 1.43 Aspergillus flavus Ab Negative Aspergill fumigatus Ab Negative Aspergillus niger Ab Negative TB Gold In Tube Comment Comment TB Test (QFT) Gold Plus Negative TB (QFT) Incubation TB Test (QFT) Mitogen 2.33 TB Test (QFT) Ag 1 0.06 TB Test (QFT) Ag 2 0.09 TB Test TB - Nil 0.07 Chest X-Ray 03/10/19 00:00 IMPRESSION: Persistent right upper lobe opacities compatible with pneumonia. New patchy opacities within the right middle and left lower lobe suspicious for additional multifocal infection. Abdomen/Pelvis CT 03/10/19 11:48 IMPRESSION: 1. No evidence of acute intra-abdominal/ pelvic process. 2. Scattered centrilobular bilateral basilar ground-glass opacities, likely secondary to infection/aspiration. 3. Unchanged dilation of the pancreatic duct, better evaluated on prior contrasted exam. Chest X-Ray 03/11/19 00:00 IMPRESSION: Catheter placement. Persistent right upper lobe pneumonia. Chest CT 03/12/19 11:42 IMPRESSION: Persistent dense consolidation- cavitary appearance of the posterior aspect of the right upper lobe with subsegmental bronchial occlusion. There are numerous areas of nodularity, ground-glass opacity, and interstitial thickening bilaterally, some areas appear increased compared with the previous examination. Small bilateral pleural effusions, slightly increased compared with the prior exam. Similar right medial basilar pleural calcifications- thickening. Transvaginal US 03/13/19 12:34 IMPRESSION: 1.5 x 1.5 x 2.6 cm simple cyst in the left adnexum. There is no solid component. Chest X-Ray 03/15/19 06:00 IMPRESSION: Improved aeration of the right upper lobe with persistent patchy opacities, better evaluated on prior CT. Left retrocardiac opacities possibly atelectasis or infection. Chest X-Ray 03/18/19 06:00 IMPRESSION: Diffuse patchy parenchymal opacities. No improvement, and slight worsening in the left upper lobe. impression/RECOMMENDATION: 1. Atrial fibrillation with intermittent aberrant conduction of the left bundle branch block pattern. Will give an extra dose of digoxin. We will continue patient on metoprolol and digoxin. Continue eliquis. The patient systolic blood blood pressure appears to be low. Hence we will start the patient on midodrine tomorrow. Hopefully this will get the blood pressure up so that we can increase the patient's AV césar blocking agent. Since there is not much response of Lopressor, and since the patient's LV function is normal, will start the patient on Cardizem.. We will check the patient's this level in the morning. 2. Elevated troponin I: Secondary to supply demand mismatch. No evidence of non-ST elevation IL. This is secondary to atrial fibrillation with rapid ventricular response, and infection. 3 right upper lobe pneumonia with cavitation: Work-up in progress continue antibiotics. We will check the patient's chest x-ray in the a.m. the patient's infiltrates are getting worse. Possibly need to reconsider antibiotics. 4. Questionable ovarian mass: Recent CT scan of the abdomen does not show the mass. 5. History of hypertension: Blood pressure on the lower side. 6. Malnutrition: Patient may need dietary supplements. Medications reviewed. Medications adjusted. Management plan and medication treatment discussed with the attending provider on the case." Medical decision making is of high complexity. 40 minutes spent on this patient with more than 50% of time spent in direct patient care.
[2019-03-18] MEDS: DILTIAZEM HCL 60 MG TABLET PO SCH (23:02)
[2019-03-19] MEDS: IPRATROPIUM/ALBUTEROL 0.5-2.5 MG/3 ML AMPUL NEB SCH ×4 (02:25→20:57)
[2019-03-19] MEDS: DILTIAZEM HCL 60 MG TABLET PO SCH ×3 (05:46→21:29)
[2019-03-19 06:16] LABS: HEMATOCRIT 27.2 % (36.0-47.0); HEMOGLOBIN 9.2 g/dL (12.0-15.5); MEAN CORPUSCULAR HEMOGLOBIN 29.7 pg (27.0-33.4); MEAN CORPUSCULAR HGB CONC 33.8 g/dL (32.0-36.0); MEAN CORPUSCULAR VOLUME 88 fl (80-97); PLATELET COUNT 212 10^3/uL (150-450); RED BLOOD COUNT 3.09 10^6/uL (3.72-5.28); WHITE BLOOD COUNT 7.3 10^3/uL (4.0-10.5)
[2019-03-19 06:37] LABS: ANION GAP 6 (5-19); BLOOD UREA NITROGEN 12 mg/dL (7-20); CALCIUM 8.5 mg/dL (8.4-10.2); CARBON DIOXIDE 23 mmol/L (22-30); CHLORIDE 105 mmol/L (98-107); DIGOXIN 1.94 ng/mL (0.8-2.0); GLUCOSE 89 mg/dL (75-110)
--- NOTE | 2019-03-19 09:24 | PDOC PROGRESS REPORT ---
Subjective Progress Note for:: 03/19/19 Subjective:: March 16, 2019-no complaints at this time March 17, 2019-no complaints this a.m. March 18, 2019-shortness of breath March 19, 2019-no complaints Reason For Visit: PNEUMONIA Physical Exam Vital Signs: Temp Pulse Resp BP Pulse Ox 98.2 F 112 H 18 92/50 L 95 03/19/19 07:02 03/19/19 08:16 03/19/19 08:16 03/19/19 07:02 03/19/19 08:16 Pulse Oximeter Continuous Start: 03/10/19 15:13 Freq: RTQ4 Status: Complete Protocol: Document 03/11/19 16:48 HCR (Rec: 03/11/19 16:48 HCR [id number]) Pulse Oximetry Assessment Equipment Usage Equipment Discontinued Continuous SpO2 Machine # 11 Intake & Output 03/18/19 03/19/19 03/20/19 06:59 06:59 06:59 Intake Total 600 2370 50 Output Total 1950 Balance 600 420 50 Weight 63.5 kg General appearance: PRESENT: no acute distress, well-developed, well-nourished Neck exam: ABSENT: carotid bruit, JVD, lymphadenopathy, thyromegaly Respiratory exam: PRESENT: clear to auscultation talha. ABSENT: rales, rhonchi, wheezes Cardiovascular exam: PRESENT: irregular rhythm, tachycardia Pulses: PRESENT: +1 pedal pulses bilateral Vascular exam: PRESENT: normal capillary refill GI/Abdominal exam: PRESENT: normal bowel sounds, soft. ABSENT: distended, guarding, mass, organolmegaly, rebound, tenderness Extremities exam: PRESENT: full ROM. ABSENT: calf tenderness, clubbing, pedal edema Neurological exam: PRESENT: alert, awake, oriented to person, oriented to place, oriented to time, oriented to situation, CN II-XII grossly intact. ABSENT: motor sensory deficit Psychiatric exam: PRESENT: appropriate affect, normal mood. ABSENT: homicidal ideation, suicidal ideation Skin exam: PRESENT: dry, intact, warm. ABSENT: cyanosis, rash Results Laboratory Results: 03/19/19 05:15 03/19/19 05:15 03/19/19 03/19/19 05:15 05:15 WBC 7.3 RBC 3.09 L Hgb 9.2 L Hct 27.2 L MCV 88 MCH 29.7 MCHC 33.8 RDW 15.0 H Plt Count 212 Sodium 133.8 L Potassium 4.0 Chloride 105 Carbon Dioxide 23 Anion Gap 6 BUN 12 Creatinine 0.75 Est GFR ( Amer) > 60 Glucose 89 Calcium 8.5 03/10/19 03/10/19 03/10/19 11:55 19:49 23:43 Troponin I 0.194 0.130 0.141 NT-Pro-B Natriuret Pep 3940 H 03/11/19 12:55 Troponin I 0.125 NT-Pro-B Natriuret Pep 2820 H Impressions: Abdomen/Pelvis CT 03/10/19 11:48 IMPRESSION: 1. No evidence of acute intra-abdominal/ pelvic process. 2. Scattered centrilobular bilateral basilar ground-glass opacities, likely secondary to infection/aspiration. 3. Unchanged dilation of the pancreatic duct, better evaluated on prior contrasted exam. Chest CT 03/12/19 11:42 IMPRESSION: Persistent dense consolidation- cavitary appearance of the posterior aspect of the right upper lobe with subsegmental bronchial occlusion. There are numerous areas of nodularity, ground-glass opacity, and interstitial thickening bilaterally, some areas appear increased compared with the previous examination. Small bilateral pleural effusions, slightly increased compared with the prior exam. Similar right medial basilar pleural calcifications- thickening. Transvaginal US 03/13/19 12:34 IMPRESSION: 1.5 x 1.5 x 2.6 cm simple cyst in the left adnexum. There is no solid component. Chest X-Ray 03/18/19 06:00 IMPRESSION: Diffuse patchy parenchymal opacities. No improvement, and slight worsening in the left upper lobe. Assessment and Plan - Diagnosis (1) Sepsis Qualifiers: Sepsis type: sepsis due to unspecified organism Sepsis acute organ dysfunction status: unspecified Qualified Code(s): A41.9 - Sepsis, unspecified organism Is this a current diagnosis for this admission?: Yes Plan: Sepsis, due to multifocal pneumonia, present on admission, evidenced by tachycardia, hypotension, tachypnea, hypoxia on room air, acute kidney injury, and elevated lactic acid. Patient received 3 L IV fluid bolus by the ED provider. Received 1 dose of IV Rocephin and vancomycin by ED provider. Lactic acid 3.0-> 2.4-> 2.4-> 2.8 Blood cultures have no growth at 24 hours. Urine culture no growth at 1 day. Sputum cultures pending. Due to persistent hypotension, patient is upgraded to ICU for possible vasopressor support. Continue continuous cardiac telemetry. Continue maintenance IV fluids. Levophed as needed to maintain MAP>60; central line placed. We will treat for healthcare associated pneumonia (admitted to our facility 4 weeks ago and [facility] 6 weeks ago; received IV antibiotics during both admissions for pneumonia) with IV vancomycin, cefepime, and Levaquin. Will adjust antibiotics as cultures result. March 16, 2019-resolved at this time. We will continue to follow March 17, 2019-continue resolution. Continue to follow March 18, 2019.-Continue resolved at this time. Patient remains on cefepime and Levaquin awaiting final culture report. March 19, 2019-resolved. Awaiting final culture report. Patient remains on cefepime and Levaquin. Will DC both cefepime and Levaquin at this time place patient on Levaquin 500 mg p.o. daily (2) Pneumonia Qualifiers: Pneumonia type: due to unspecified organism Laterality: bilateral Lung location: unspecified part of lung Qualified Code(s): J18.9 - Pneumonia, unspecified organism Is this a current diagnosis for this admission?: Yes Plan: Chest x-ray demonstrated persistent right upper lobe opacity (history of cavitary lesion) with new patchy opacities to the right middle and left lower lobes suspicious for multifocal infection. Abdominal pelvic CT shows scattered centrilobular bilateral bibasilar groundglass opacities likely secondary to infection/aspiration. Blood cultures are negative at 24 hours. Sputum cultures pending. PPD placed. Gold QuantiFERON pending; send out lab. Airborne precautions. Patient is empirically treated for healthcare associated pneumonia with IV vancomycin, cefepime, Levaquin. She is provided supplemental oxygen as needed to maintain saturations. Scheduled as needed nebulizer treatments. Twice daily Mucinex. Robitussin as needed. Incentive spirometer to bedside. TB was ruled out during her [facility] admission in January 2019. Discussed with Dr. Gary. Given her persistent right upper lobe cavitary lesion, right sided pneumonia, and weight loss, concern for TB persist. Dr. Gary re commends airborne precautions and further rule out with repeat PPD and gold QuantiFERON testing. March 16, 2019-awaiting AF[employer] and want to fair on testing for TB. Most likely not to be at this time but continue to rule out. March 17, 2019-still awaiting AFB. Continue current antibiotics and await further cultures March 18, 2019-AFB negative. Patient clinically improved from her pneumonia al though she is in a little congestive heart failure this a.m. Will give be given Lasix and reassess. March 19, 2019-I have DC'd both IV Levaquin and cefepime. Will place patient on Levaquin 500 g p.o. daily. Awaiting final cultures so far blood culture negative x5 days. (3) Acute kidney injury Is this a current diagnosis for this admission?: Yes Plan: Improved; Cr 2.58-> 1.58 Multifactorial secondary to sepsis/hypotension, poor p.o. intake secondary to nausea and abdominal upset, and GI losses related to vomiting. Has received aggressive IV fluid resuscitation. Continuing maintenance fluids. We will avoid nephrotoxic medications as able; pharmacy to dose vancomycin. Daily chemistries. March 16, 2019-resolved March 17, 2019-resolved March 18, 2019-resolved DC IV fluids March 19, 2019-resolved (4) Intractable nausea and vomiting Qualifiers: Vomiting type: unspecified Qualified Code(s): R11.2 - Nausea with vomiting, unspecified Is this a current diagnosis for this admission?: Yes Plan: Improved; continued nausea but without emesis today. Unclear etiology; secondary to acute illness (sepsis/pneumonia) versus metastatic cause (right ovarian mass mid work-up; patient is poor historian and able to tell me current evaluation/treatment plan close parentheses. Consider head CT. IV maintenance fluids. Antiemetics as needed. March 16, 2019-resolved at this time continue to follow March 17, 2019-resolved at this time continue antiemetics as needed March 18, 2019-resolved continue antiemetics as needed March 19, 2019-resolved continue antiemetics as necessary (5) Ovarian mass Is this a current diagnosis for this admission?: Yes Plan: Dr. Nicole is consulted. Have requested discharge summary, PATTERN HAND consult notes, CT ABD/Pelvis and Pelvic U/S results from [facility]. March 16, 2019-awaiting results from [facility]. Hematology oncology has been consulted. March 17, 2019 awaiting regulations from oncology March 18, 2019-continue to await recommendations from oncology March 19, 2019-cyst read as simple cyst of the left adnexum. (6) Failure to thrive Is this a current diagnosis for this admission?: Yes Plan: March 17, 2019-patient emaciated secondary to chronic disease and age. I have added boost or Ensure with each meal for protein calorie supplementation. March 18, 2019-continue supplementation with Ensure or boost. March 19, 2019-Megace 200 mg p.o. daily. Continue to follow (7) Acute congestive heart failure Is this a current diagnosis for this admission?: Yes Plan: March 18, 2019-patient with acute congestive heart failure secondary to IV fluids. IV fluids been DC'd. Patient will be given 40 mg IV Lasix x1 and reassessed. March 19, 2019-resolved. Will follow and re-dose with Lasix as needed (8) Atrial fibrillation with RVR Is this a current diagnosis for this admission?: Yes Plan: March 18, 2019-patient with a history of atrial fibrillation with RVR. Apparently patient goes into RVR every morning she has been given extra doses of digoxin. I will give her a 0.125 mg IV dig this morning holding her p.o. dig if her heart rate does not decline I will discuss this with cardiology. Cardiology has seen patient and states of her blood pressure stays low we will place patient on milrinone. March 19, 2019-still rate uncontrolled. Patient had Cardizem 60 g p.o. 3 times daily added yesterday per Dr. Hsieh will follow and adjust medications as needed - Time Time Spent with patient: 15-24 minutes - Inpatient Certification Based on my medical assessment, after consideration of the patient's comorbidities, presenting symptoms, or acuity I expect that the services needed warrant INPATIENT care.: Yes I certify that my determination is in accordance with my understanding of Medicare's requirements for reasonable and necessary INPATIENT services [42 CFR 412.3e].: Yes Medical Necessity: Other - Rate controlled
[2019-03-19] MEDS ORDERED: FUROSEMIDE INJ/PF 40 MG/4 ML SDV IV ONE (10:00)
[2019-03-19] MEDS: FAMOTIDINE 20 MG TABLET PO SCH ×2 (10:15→21:29)
[2019-03-19] MEDS: GUAIFENESIN 600 MG TABLET.SA PO SCH ×2 (10:15→21:29)
[2019-03-19] MEDS: GUAIFENESIN SYRP 200 MG/10 ML UDC PO PRN (10:15)
[2019-03-19] MEDS: DOCUSATE SODIUM 100 MG CAPSULE PO SCH (10:16)
[2019-03-19] MEDS: ASPIRIN 81 MG TABLET, CHEWABLE PO SCH (10:16)
[2019-03-19] MEDS: DIGOXIN 0.125 MG TABLET PO SCH (10:16)
[2019-03-19] MEDS: LEVOFLOXACIN 500 MG TABLET PO SCH (10:16)
[2019-03-19] MEDS: APIXABAN 2.5 MG TABLET PO SCH ×2 (10:16→17:41)
[2019-03-19] MEDS: POLYETHYLENE GLYCOL 3350 POWDER 17 GM/1 PACKET PO SCH (10:17)
[2019-03-19] MEDS: MEGESTROL ACETATE SUSP 400 MG/10 ML UDCUP PO SCH (10:32)
[2019-03-19] MEDS ORDERED: MIDODRINE HCL 5 MG TABLET PO ONE (12:00)
[2019-03-19] MEDS ORDERED: ONDANSETRON HCL INJ/PF 4 MG/2 ML SDV ONE (12:33)
--- NOTE | 2019-03-19 20:43 | Progress Note ---
Provider Note Provider Note: CARDIOLOGY PROGRESS NOTE by Dr. Radha Hsieh on 03/19/2019. SUBJECTIVE: The patient continues to be in atrial fibrillation with rates at times in the 120s. She is asymptomatic. There is no ventricular arrhythmia seen. The patient denies any chest pain or discomfort. There is no PND orthopnea. There is no shortness of breath. There is no leg edema. There is no bleeding on Eliquis. There is no TIA CVA symptoms. Physical EXAMINATION: The patient is of frail build. She appears to be chronically ill. Selected Entries 03/19/19 11:06 Temperature 97.6 F Temperature Oral Source Pulse Rate 83 Respiratory 16 Rate Blood Pressure 110/54 L Blood Pressure 72 Mean BP Location Right Arm BP Position Supine O2 Sat by Pulse 99 Oximetry Oxygen Delivery Room Air Method HEAD: Is atraumatic normocephalic. EYES: Pupils equal round regular reactive light accommodation. Extraocular movements are normal. There is no conjunctival pallor. There is no scleral icterus. ENT is negative. Neck is supple. There is no JVD. Carotids are equal there is no bruit. There is no lymphadenopathy. There is no accessory muscle respiration use. Trachea central. LUNGS: Show a few dry crackles in the right upper lobe. The rest of the lungs appear fairly clear. There is no rales of CHF. There is no rhonchi or wheezing. HEART: S1-S2 is heard. S1 is of variable intensity. There is no S3 gallop. There is no S4 gallop. There is systolic murmur left sternal border and the apex. There is no rub. ABDOMEN: Is soft nontender there is no hepatospleno megaly bowel sounds well heard. EXTREMITIES: Femorals are well felt. There is no femoral bruits. There is no pedal edema. There is no DVT or cellulitis. Leg pulses are diminished. There is no cyanosis or clubbing. 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 PSYCHIATRIC: The patient judgment insight are intact her affect is normal. Labs- All tests 24 hr 03/19/19 03/19/19 05:15 05:15 WBC 7.3 RBC 3.09 L Hgb 9.2 L Hct 27.2 L MCV 88 MCH 29.7 MCHC 33.8 RDW 15.0 H Plt Count 212 Sodium 133.8 L Potassium 4.0 Chloride 105 Carbon Dioxide 23 Anion Gap 6 BUN 12 Creatinine 0.75 Est GFR ( Amer) > 60 Est GFR (MDRD) Non-Af > 60 Glucose 89 Calcium 8.5 Digoxin 1.94 Chest X-Ray 03/10/19 00:00 IMPRESSION: Persistent right upper lobe opacities compatible with pneumonia. New patchy opacities within the right middle and left lower lobe suspicious for additional multifocal infection. Abdomen/Pelvis CT 03/10/19 11:48 IMPRESSION: 1. No evidence of acute intra-abdominal/ pelvic process. 2. Scattered centrilobular bilateral basilar ground-glass opacities, likely secondary to infection/aspiration. 3. Unchanged dilation of the pancreatic duct, better evaluated on prior contrasted exam. Chest X-Ray 03/11/19 00:00 IMPRESSION: Catheter placement. Persistent right upper lobe pneumonia. Chest CT 03/12/19 11:42 IMPRESSION: Persistent dense consolidation- cavitary appearance of the posterior aspect of the right upper lobe with subsegmental bronchial occlusion. There are numerous areas of nodularity, ground-glass opacity, and interstitial thickening bilaterally, some areas appear increased compared with the previous examination. Small bilateral pleural effusions, slightly increased compared with the prior exam. Similar right medial basilar pleural calcifications- thickening. Transvaginal US 03/13/19 12:34 IMPRESSION: 1.5 x 1.5 x 2.6 cm simple cyst in the left adnexum. There is no solid component. Chest X-Ray 03/15/19 06:00 IMPRESSION: Improved aeration of the right upper lobe with persistent patchy opacities, better evaluated on prior CT. Left retrocardiac opacities possibly atelectasis or infection. Chest X-Ray 03/18/19 06:00 IMPRESSION: Diffuse patchy parenchymal opacities. No improvement, and slight worsening in the left upper lobe. IMPRESSION/RECOMMENDATION: 1. Atrial fibrillation with intermittent aberrant conduction of the left bundle branch block pattern. We will continue patient on metoprolol and digoxin. Continue eliquis. The patient was given 5 mg of midodrine and the patient's blood pressure did come up to 108 systolic. Hence we will start the patient on midodrine 10 mg p.o. 3 times daily from tomorrow. With the blood pressure drop then can increase the patient's AV césar blocking agent. 2. Elevated troponin I: Secondary to supply demand mismatch. No evidence of non-ST elevation [place]. This is secondary to atrial fibrillation with rapid ventricular response, and infection. 3 right upper lobe pneumonia with cavitation: Work-up in progress continue antibiotics. We will check the patient's chest x-ray in the a.m. 4. Questionable ovarian mass: Recent CT scan of the abdomen does not show the mass. 5. History of hypertension: Blood pressure on the lower side. 6. Malnutrition: Patient may need dietary supplements. Medications reviewed. Medications added. Management plan discussed with the attending provider on the case. Medical decision making in view of the need to adjust medications of high complexity. 40 minutes spent on this patient more than 50% time spent in direct patient care. Will follow.
[2019-03-20] MEDS: IPRATROPIUM/ALBUTEROL 0.5-2.5 MG/3 ML AMPUL NEB SCH ×5 (01:48→20:44)
[2019-03-20] MEDS: MIDODRINE HCL 5 MG TABLET PO SCH ×3 (06:11→14:05)
[2019-03-20] MEDS: DILTIAZEM HCL 60 MG TABLET PO SCH ×2 (06:11→14:06)
[2019-03-20] MEDS ORDERED: FLUDROCORTISONE ACETATE 0.1 MG TABLET PO ONE (08:35)
[2019-03-20] MEDS: DOCUSATE SODIUM 100 MG CAPSULE PO SCH (09:36)
[2019-03-20] MEDS: POLYETHYLENE GLYCOL 3350 POWDER 17 GM/1 PACKET PO SCH (09:36)
[2019-03-20] MEDS: ASPIRIN 81 MG TABLET, CHEWABLE PO SCH (09:36)
[2019-03-20] MEDS: GUAIFENESIN 600 MG TABLET.SA PO SCH ×2 (09:37→21:12)
[2019-03-20] MEDS: FLUDROCORTISONE ACETATE 0.1 MG TABLET PO SCH (09:37)
[2019-03-20] MEDS: LEVOFLOXACIN 500 MG TABLET PO SCH (09:37)
[2019-03-20] MEDS: DIGOXIN 0.125 MG TABLET PO SCH (09:37)
[2019-03-20] MEDS: MEGESTROL ACETATE SUSP 400 MG/10 ML UDCUP PO SCH (09:37)
[2019-03-20] MEDS: FAMOTIDINE 20 MG TABLET PO SCH ×2 (09:37→21:12)
[2019-03-20] MEDS: APIXABAN 2.5 MG TABLET PO SCH ×2 (09:37→17:11)
--- NOTE | 2019-03-20 15:14 | PDOC PROGRESS REPORT ---
Subjective Progress Note for:: 03/20/19 Subjective:: This is 84 years old black female patient with multiple comorbidities including depression and generalized anxiety disorder, VT, hypertension, coronary disease, diastolic CHF presented with chief complaint of nausea and vomiting with generalized malaise that has progressively worsened over the last 2 weeks prior to her presentation. Her initial work-up shows elevated creatinine of 2.51, hypokalemia his potassium was 3.2 lactic acid 3 BNP 3900 and mildly elevated troponin of 0.194. Her CT scan of the chest shows scattered centrilobular bilateral bibasilar groundglass opacities likely secondary to infection versus aspiration. Clinical also patient found to be tachycardic with heart rate of 120 hypotension with blood pressure of 68/50 kay with respiratory rate of 27. Patient has been managed with antibiotics and bolus of IV fluids. Patient also developed atrial fibrillation for which Dr. Hsieh consulted and has been managing the patient. This morning patient evaluated and she is still in A. fib with heart rate around 110s and 120. Reason For Visit: PNEUMONIA Physical Exam Vital Signs: Temp Pulse Resp BP Pulse Ox 97.7 F 111 H 16 95/58 L 100 03/20/19 10:49 03/20/19 10:49 03/20/19 10:49 03/20/19 10:49 03/20/19 10:49 Pulse Oximeter Continuous Start: 03/10/19 15:13 Freq: RTQ4 Status: Complete Protocol: Document 03/11/19 16:48 HCR (Rec: 03/11/19 16:48 HCR [id number]) Pulse Oximetry Assessment Equipment Usage Equipment Discontinued Continuous SpO2 Machine # 11 Intake & Output 03/19/19 03/20/19 03/21/19 06:59 06:59 06:59 Intake Total 2470 720 240 Output Total 1950 875 150 Balance 520 -155 90 Weight 62.6 kg 61 kg Results Laboratory Results: 03/19/19 05:15 03/19/19 05:15 03/10/19 03/10/19 03/10/19 11:55 19:49 23:43 Troponin I 0.194 0.130 0.141 NT-Pro-B Natriuret Pep 3940 H 03/11/19 12:55 Troponin I 0.125 NT-Pro-B Natriuret Pep 2820 H Impressions: Abdomen/Pelvis CT 03/10/19 11:48 IMPRESSION: 1. No evidence of acute intra-abdominal/ pelvic process. 2. Scattered centrilobular bilateral basilar ground-glass opacities, likely secondary to infection/aspiration. 3. Unchanged dilation of the pancreatic duct, better evaluated on prior contrasted exam. Chest CT 03/12/19 11:42 IMPRESSION: Persistent dense consolidation- cavitary appearance of the posterior aspect of the right upper lobe with subsegmental bronchial occlusion. There are numerous areas of nodularity, ground-glass opacity, and interstitial thickening bilaterally, some areas appear increased compared with the previous examination. Small bilateral pleural effusions, slightly increased compared with the prior exam. Similar right medial basilar pleural calcifications- thickening. Transvaginal US 03/13/19 12:34 IMPRESSION: 1.5 x 1.5 x 2.6 cm simple cyst in the left adnexum. There is no solid component. Chest X-Ray 03/18/19 06:00 IMPRESSION: Diffuse patchy parenchymal opacities. No improvement, and slight worsening in the left upper lobe. Assessment and Plan - Diagnosis (1) Atrial fibrillation with RVR Is this a current diagnosis for this admission?: Yes Plan: We will continue anticoagulation, digoxin and Cardizem. (2) Possible multifocal pneumonia Is this a current diagnosis for this admission?: Yes Plan: We will continue antibiotics. Her repeat chest x-ray does not show any change. Dr. Gary has been consulted on this patient. At [facility] patient has been worked up for cavitary lung lesion for probable TB and all tests are negative (3) Coronary artery disease Qualifiers: Coronary Disease-Associated Artery/Lesion type: [place] artery Is this a current diagnosis for this admission?: Yes Plan: No anginal symptoms (4) Mildly elevated troponin Is this a current diagnosis for this admission?: Yes Plan: Attributed to demand supply mismatch which is a type II VT. (5) Hypertension Qualifiers: Hypertension type: essential hypertension Qualified Code(s): I10 - Essential (primary) hypertension Is this a current diagnosis for this admission?: Yes Plan: Continue current medication (6) Hypokalemia Is this a current diagnosis for this admission?: Yes Plan: Has resolved
--- NOTE | 2019-03-20 20:28 | Progress Note ---
Provider Note Provider Note: CARDIOLOGY PROGRESS NOTE by Dr. Radha Hsieh on 03/20/2019. SUBJECTIVE: The patient states she had nausea and she threw up. She denies any chest pain or discomfort. There is no shortness of breath. There is no PND orthopnea. The patient has been started on midodrine, and just received a dose early this morning. We will see the effects of effect on the patient's blood pressure. If the blood pressure does come up then will increase the patient's AV césar blocking agents. There is no TIA CVA symptoms. There is no bleeding on Eliquis. SUBJECTIVE: The patient is a frail build. Appears to be chronically ill. Selected Entries 03/20/19 10:49 Temperature 97.7 F Temperature Oral Source Pulse Rate 111 H Respiratory 16 Rate Blood Pressure 95/58 L Blood Pressure 70 Mean BP Location Right Arm BP Position Supine O2 Sat by Pulse 100 Oximetry Oxygen Delivery Room Air Method HEAD: Is atraumatic normocephalic. EYES: Pupils equal round regular reactive light accommodation. Extraocular movements are normal. There is no conjunctival pallor. There is no scleral icterus. ENT is negative. Neck is supple. There is no JVD. Carotids are equal there is no bruit. There is no lymphadenopathy. There is no accessory muscle respiration use. Trachea central. LUNGS: Show a few dry crackles in the right upper lobe. The rest of the lungs appear fairly clear. There is no rales of CHF. There is no rhonchi or wheezing. HEART: S1-S2 is heard. S1 is of variable intensity. There is no S3 gallop. There is no S4 gallop. There is systolic murmur left sternal border and the apex. There is no rub. ABDOMEN: Is soft nontender there is no hepatospleno megaly bowel sounds well heard. EXTREMITIES: Femorals are well felt. There is no femoral bruits. There is no pedal edema. There is no DVT or cellulitis. Leg pulses are diminished. There is no cyanosis or clubbing. 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 PSYCHIATRIC: The patient judgment insight are intact her affect is normal. IMPRESSION/RECOMMENDATION: 1. Atrial fibrillation with intermittent aberrant conduction of the left bundle branch block pattern. We will continue patient on digoxin. Continue eliquis. The patient metoprolol was stopped and the patient started on digoxin. We will increase the patient's Cardizem and change to Cardizem CD 180 mg p.o. every 12 hours. Continue the patient on midodrine 10 mg p.o. 3 times daily. 2. Elevated troponin I: Secondary to supply demand mismatch. No evidence of non-ST elevation [place]. This is secondary to atrial fibrillation with rapid ventricular response, and infection. 3 right upper lobe pneumonia with cavitation: Work-up in progress continue antibiotics. We will check the patient's chest x-ray in the a.m. 4. Questionable ovarian mass: Recent CT scan of the abdomen does not show the mass. 5. History of hypertension: Blood pressure on the lower side. 6. Moderate pulmonary hypertension: Continue Cardizem. 7. Malnutrition. Medications reviewed medications added and adjusted. Medical decision making is of high complexity. Management plan and medication regimen discussed with the attending provider on the case. Will follow. 40 minutes spent on this patient with more than 50% of time spent in direct patient care.
[2019-03-20] MEDS: DILTIAZEM HCL 180 MG CAPSULE.CR PO SCH (21:12)
[2019-03-21] MEDS: IPRATROPIUM/ALBUTEROL 0.5-2.5 MG/3 ML AMPUL NEB SCH ×4 (02:16→21:12)
[2019-03-21] MEDS: MIDODRINE HCL 5 MG TABLET PO SCH ×3 (05:43→14:10)
[2019-03-21] MEDS: DILTIAZEM HCL 180 MG CAPSULE.CR PO SCH ×2 (09:31→22:07)
[2019-03-21] MEDS: POLYETHYLENE GLYCOL 3350 POWDER 17 GM/1 PACKET PO SCH (09:31)
[2019-03-21] MEDS: GUAIFENESIN 600 MG TABLET.SA PO SCH ×2 (09:32→22:07)
[2019-03-21] MEDS: APIXABAN 2.5 MG TABLET PO SCH ×2 (09:32→17:27)
[2019-03-21] MEDS: LEVOFLOXACIN 500 MG TABLET PO SCH (09:32)
[2019-03-21] MEDS: FAMOTIDINE 20 MG TABLET PO SCH ×2 (09:32→22:07)
[2019-03-21] MEDS: ASPIRIN 81 MG TABLET, CHEWABLE PO SCH (09:32)
[2019-03-21] MEDS: DOCUSATE SODIUM 100 MG CAPSULE PO SCH (09:32)
[2019-03-21] MEDS: DIGOXIN 0.125 MG TABLET PO SCH (09:33)
[2019-03-21] MEDS: FLUDROCORTISONE ACETATE 0.1 MG TABLET PO SCH (09:33)
[2019-03-21] MEDS: MEGESTROL ACETATE SUSP 400 MG/10 ML UDCUP PO SCH (09:33)
[2019-03-21] MEDS: ONDANSETRON HCL INJ/PF 4 MG/2 ML SDV IV PRN ×3 (12:26→23:17)
--- NOTE | 2019-03-21 14:43 | PDOC PROGRESS REPORT ---
Subjective Progress Note for:: 03/21/19 Subjective:: This is 84 years old black female patient with multiple comorbidities including depression and generalized anxiety disorder, UT, hypertension, coronary disease, diastolic CHF presented with chief complaint of nausea and vomiting with generalized malaise that has progressively worsened over the last 2 weeks prior to her presentation. Her initial work-up shows elevated creatinine of 2.51, hypokalemia his potassium was 3.2 lactic acid 3 BNP 3900 and mildly elevated troponin of 0.194. Her CT scan of the chest shows scattered centrilobular bilateral bibasilar groundglass opacities likely secondary to infection versus aspiration. Clinical also patient found to be tachycardic with heart rate of 120 hypotension with blood pressure of 68/50 kay with respiratory rate of 27. Patient has been managed with antibiotics and bolus of IV fluids. Patient also developed atrial fibrillation for which Dr. Hsieh consulted and has been managing the patient. This morning patient evaluated and she is still in A. fib with heart rate around 110s and 120. 03/21/2019: Patient seen resting in bed comfortably. No adverse event. Her heart rate ranges between 97 and 115. The dose of her Cardizem increased to 180 every [address] Hsieh. Reason For Visit: PNEUMONIA Physical Exam Vital Signs: Temp Pulse Resp BP Pulse Ox 97.6 F 84 16 119/58 L 100 03/21/19 11:06 03/21/19 11:06 03/21/19 11:06 03/21/19 11:06 03/21/19 11:06 Pulse Oximeter Continuous Start: 03/10/19 15:13 Freq: RTQ4 Status: Complete Protocol: Document 03/11/19 16:48 HCR (Rec: 03/11/19 16:48 HCR [email or web address]) Pulse Oximetry Assessment Equipment Usage Equipment Discontinued Continuous SpO2 Machine # 11 Intake & Output 03/20/19 03/21/19 03/22/19 06:59 06:59 06:59 Intake Total 720 540 240 Output Total 875 325 100 Balance -155 215 140 Weight 61 kg 60 kg General appearance: PRESENT: no acute distress Eye exam: PRESENT: conjunctiva pink Mouth exam: PRESENT: dry mucosa Neck exam: ABSENT: carotid bruit, JVD, lymphadenopathy, thyromegaly Respiratory exam: PRESENT: clear to auscultation talha. ABSENT: rales, rhonchi, wheezes Cardiovascular exam: PRESENT: irregular rhythm Neurological exam: PRESENT: alert, awake Results Laboratory Results: 03/19/19 05:15 03/19/19 05:15 03/10/19 03/10/19 03/10/19 11:55 19:49 23:43 Troponin I 0.194 0.130 0.141 NT-Pro-B Natriuret Pep 3940 H 03/11/19 12:55 Troponin I 0.125 NT-Pro-B Natriuret Pep 2820 H Impressions: Abdomen/Pelvis CT 03/10/19 11:48 IMPRESSION: 1. No evidence of acute intra-abdominal/ pelvic process. 2. Scattered centrilobular bilateral basilar ground-glass opacities, likely secondary to infection/aspiration. 3. Unchanged dilation of the pancreatic duct, better evaluated on prior contrasted exam. Chest CT 03/12/19 11:42 IMPRESSION: Persistent dense consolidation- cavitary appearance of the posterior aspect of the right upper lobe with subsegmental bronchial occlusion. There are numerous areas of nodularity, ground-glass opacity, and interstitial thickening bilaterally, some areas appear increased compared with the previous examination. Small bilateral pleural effusions, slightly increased compared with the prior exam. Similar right medial basilar pleural calcifications- thickening. Transvaginal US 03/13/19 12:34 IMPRESSION: 1.5 x 1.5 x 2.6 cm simple cyst in the left adnexum. There is no solid component. Chest X-Ray 03/18/19 06:00 IMPRESSION: Diffuse patchy parenchymal opacities. No improvement, and slight worsening in the left upper lobe. Assessment and Plan - Diagnosis (1) Atrial fibrillation with RVR Is this a current diagnosis for this admission?: Yes Plan: Patient is still in A. fib and RVR. She has been on digoxin and Cardizem. (2) Possible multifocal pneumonia Is this a current diagnosis for this admission?: Yes Plan: We will continue antibiotics. Her repeat chest x-ray does not show any change. Dr. Gary has been consulted on this patient. At [facility] patient has been worked up for cavitary lung lesion for probable TB and all tests are negative (3) Coronary artery disease Qualifiers: Coronary Disease-Associated Artery/Lesion type: [place] artery Is this a current diagnosis for this admission?: Yes Plan: No anginal symptoms (4) Mildly elevated troponin Is this a current diagnosis for this admission?: Yes Plan: Attributed to demand supply mismatch which is a type II UT. (5) Hypertension Qualifiers: Hypertension type: essential hypertension Qualified Code(s): I10 - Essential (primary) hypertension Is this a current diagnosis for this admission?: Yes Plan: Continue current medication (6) Hypokalemia Is this a current diagnosis for this admission?: Yes Plan: Has resolved
--- NOTE | 2019-03-21 14:46 | Progress Note ---
Provider Note Provider Note: CARDIOLOGY PROGRESS note by Dr. Radha Hsieh on 03/21/2019. Subjective: The patient states earlier she had a bout of vomiting. At present she has no nausea. There is no chest pain or discomfort. Patient denies any shortness of breath. There is no PND orthopnea. There is no leg edema. Her heart rate is much improved. There is no ventricular arrhythmia seen on the monitor. Physical EXAMINATION: The patient is a frail build. She appears to be chronically ill Selected Entries 03/21/19 03/21/19 03/21/19 11:00 11:06 12:00 Temperature 97.6 F Temperature Oral Source Pulse Rate 84 Heart Rate ( 97 115 Monitors) Respiratory 16 Rate Blood Pressure 119/58 L Blood Pressure 78 Mean BP Location Right Arm BP Position Supine O2 Sat by Pulse 100 Oximetry Oxygen Delivery Room Air Method HEAD: Is atraumatic normocephalic. EYES: Pupils equal round regular reactive light accommodation. Extraocular movements are normal. There is no conjunctival pallor. There is no scleral icterus. ENT is negative. Neck is supple. There is no JVD. Carotids are equal there is no bruit. There is no lymphadenopathy. There is no accessory muscle respiration use. Trachea central. LUNGS: Show a few dry crackles in the right upper lobe. The rest of the lungs appear fairly clear. There is no rales of CHF. There is no rhonchi or wheezing. HEART: S1-S2 is heard. S1 is of variable intensity. There is no S3 gallop. There is no S4 gallop. There is systolic murmur left sternal border and the apex. There is no rub. ABDOMEN: Is soft nontender there is no hepatospleno megaly bowel sounds well heard. EXTREMITIES: Femorals are well fe lt. There is no femoral bruits. There is no pedal edema. There is no DVT or cellulitis. Leg pulses are diminished. There is no cyanosis or clubbing. 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 PSYCHIATRIC: The patient judgment insight are intact her affect is normal. IMPRESSION/RECOMMENDATION: 1. Atrial fibrillation with intermittent aberrant conduction of the left bundle branch block pattern. We will continue patient on digoxin. Continue eliquis. The patient metoprolol was stopped and the patient started on digoxin. We will continue Cardizem CD 180 mg p.o. every 12 hours. Continue the patient on midodrine 10 mg p.o. 3 times daily. If blood pressure remains stable we will increase the Cardizem CD to 40 mg p.o. twice daily. 2. Elevated troponin I: Secondary to supply demand mismatch. No evidence of non-ST elevation NH. This is secondary to atrial fibrillation with rapid ventricular response, and infection. 3 right upper lobe pneumonia with cavitation: Work-up in progress continue antibiotics. We will check the patient's chest x-ray in the a.m. 4. Questionable ovarian mass: Recent CT scan of the abdomen does not show the mass. 5. History of hypertension: Blood pressure on the lower side. 6. Moderate pulmonary hypertension: Continue Cardizem. 7., Nausea and vomiting:? We will check dig level in the a.m. 8. Malnutrition. Medications reviewed. Medications and management plan discussed with attending provider on the case medical decision making is of moderate complexity. 40 minutes spent on this patient with more than 50% time spent in direct patient care. Will follow.
[2019-03-21] MEDS ORDERED: IPRATROPIUM/ALBUTEROL 0.5-2.5 MG/3 ML AMPUL NEB ONE (21:10)
[2019-03-22] MEDS: IPRATROPIUM/ALBUTEROL 0.5-2.5 MG/3 ML AMPUL NEB SCH ×3 (01:46→13:58)
[2019-03-22] MEDS: MIDODRINE HCL 5 MG TABLET PO SCH ×3 (06:32→13:51)
[2019-03-22] MEDS: DOCUSATE SODIUM 100 MG CAPSULE PO SCH (09:27)
[2019-03-22] MEDS: DILTIAZEM HCL 180 MG CAPSULE.CR PO SCH (09:27)
[2019-03-22] MEDS: FAMOTIDINE 20 MG TABLET PO SCH (09:27)
[2019-03-22] MEDS: POLYETHYLENE GLYCOL 3350 POWDER 17 GM/1 PACKET PO SCH (09:27)
[2019-03-22] MEDS: ASPIRIN 81 MG TABLET, CHEWABLE PO SCH (09:32)
[2019-03-22] MEDS: GUAIFENESIN 600 MG TABLET.SA PO SCH (09:32)
[2019-03-22] MEDS: APIXABAN 2.5 MG TABLET PO SCH (09:32)
[2019-03-22] MEDS: LEVOFLOXACIN 500 MG TABLET PO SCH (09:32)
[2019-03-22] MEDS: DIGOXIN 0.125 MG TABLET PO SCH (09:32)
[2019-03-22] MEDS: MEGESTROL ACETATE SUSP 400 MG/10 ML UDCUP PO SCH (09:37)
[2019-03-22] MEDS: FLUDROCORTISONE ACETATE 0.1 MG TABLET PO SCH (09:37)
--- NOTE | 2019-03-22 13:14 | RADIOLOGY REPORT (SQ) ---
EXAM DESCRIPTION: BARIUM SWALLOW ESOPHAGUS COMPLETED DATE/TIME: 03/22/2019 10:10 am REASON FOR STUDY: dysphagia COMPARISON: None. TECHNIQUE: Under fluoroscopic guidance, patient ingested effervescent granules followed by thick and thin barium. Fluoroscopic spot images and routine radiographic images acquired and stored on PACS. 12 MM BARIUM TABLET GIVEN: Yes. No significant delay in passage. LIMITATIONS: None. FLUOROSCOPY TIME: FLUORO TIME: 3 minutes 5 seconds 7 series of digital fluoroscopic images saved to PACS. FINDINGS: NEUROMUSCULAR COORDINATION OF SWALLOW: Normal. No aspiration. ESOPHAGEAL MOTILITY: Normal peristalsis. No esophageal spasm. ESOPHAGEAL MUCOSA: Normal mucosa without masses or ulceration. GASTRO-ESOPHAGEAL JUNCTION: Tiny sliding hiatal hernia. Gastroesophageal reflux to the mid 3rd of th e esophagus. No Schatzki's ring. No distal esophageal stricture NON-GI TRACT STRUCTURES: Right jugular central line tip superior vena cava. Diffuse degenerative xiomara nges in the cervical spine OTHER: No other significant finding. IMPRESSION: Tiny sliding hiatal hernia Gastroesophageal reflux without stricture COMMENT: Quality ID [id number]: Final reports for procedures using fluoroscopy that document radiation exp osure indices, or exposure time and number of fluorographic images (if radiation exposure indices are not available) TECHNICAL DOCUMENTATION: JOB ID: [id number] [employer]- All Rights Reserved Reading location - IP/workstation name: [email or web address]
--- NOTE | 2019-03-22 13:39 | PDOC DISCHARGE SUMMARY ---
General - Admit/Disc Date/PCP Admission Date/Primary Care Provider: 03/10/19 16:24 YESSICA ROSAS MD Discharge Date: 03/22/19 - Discharge Diagnosis (1) Atrial fibrillation with RVR Is this a current diagnosis for this admission?: Yes (2) Possible multifocal pneumonia Is this a current diagnosis for this admission?: Yes (3) Coronary artery disease Is this a current diagnosis for this admission?: Yes (4) Mildly elevated troponin Is this a current diagnosis for this admission?: Yes (5) Hypertension Is this a current diagnosis for this admission?: Yes (6) Hypokalemia Is this a current diagnosis for this admission?: Yes - Additional Information Resuscitation Status: Full Code Home Medications: Cholecalciferol (Vitamin D3) [Vitamin D3 2000 unit Tablet] 2,000 unit PO DAILY 03/10/19 Digoxin [Lanoxin 0.125 mg Tablet] 0.125 mg PO DAILY 03/10/19 Diltiazem HCl [Diltiazem 24Hr ER] 120 mg PO DAILY 03/10/19 Lisinopril [Prinivil] 20 mg PO DAILY 03/10/19 Metoprolol Tartrate [Lopressor 25 mg Tablet] 50 mg PO Q12 03/10/19 Omeprazole 20 mg PO Q6AM 03/10/19 Ondansetron HCl [Zofran 4 mg Tablet] 4 mg PO Q8HP PRN 03/10/19 History of Present Illness History of Present Illness: CHRISTINA SOMMER is a 84 year old female with a past medical history significant for CAD, CA, hypertension, diastolic CHF, anxiety, depression, arthritis who presents to the emergency department today with a complaint of nausea and vomiting with generalized malaise that has progressively worsened x2 weeks. Of note, the patient was admitted to our facility 1 month ago for acute kidney injury secondary to nausea and vomiting and concern for right upper lobe pneumonia. It was determined that the patient had been discharged from [facility] 2 days prior after receiving full course of antibiotic treatment for pneumonia including TB rule out with negative AFBs/bronchoscopy evaluation. During her stay at [facility], she was found to have a right ovarian mass concerning for malignancy which is the likely source of her N/V. Unfortunately, the patient is a poor historian. 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 Hartman) as was previously scheduled but is unable to tell me with the current treatment plans are for either her cavitary lung lesion or ovarian mass. Evaluation in the emergency department today revealed Tachycardia (heart rate 120s), hypotension (blood pressure 68/50 4/37; responsive to IV fluid bolus), tachypnea (RR 27), hypoxia on room air (86%), unremarkable CBC, acute kidney injury (CR 2.51, BUN 32), hypokalemia 3.2, elevated lactic acid (3.0), elevated proBNP (3900) and troponin (0.194). Chest x-ray demonstrated persistent right upper lobe opacity (history of cavitary lesion) with new patchy opacities to the right middle and left lower lobes suspicious for multifocal infection. Abdominal pelvic CT shows scattered centrilobular bilateral bibasilar groundglass opacities likely secondary to infection/aspiration, unchanged dilatation of the pancreatic duct from previous exam, and no evidence of acute intra-abdominal/pelvic processes. EKG demonstrated atrial fibrillation with RVR and a left bundle branch block. Left bundle branch block was present on EKG January 2019. The patient is referred to the hospitalist service for admission and management of sepsis secondary to multifocal pneumonia. Hospital Course Hospital Course: This is 84 years old black female patient with multiple comorbidities including depression and generalized anxiety disorder, CA, hypertension, coronary disease, diastolic CHF presented with chief complaint of nausea and vomiting with generalized malaise that has progressively worsened over the last 2 weeks prior to her presentation. Her initial work-up shows elevated creatinine of 2.51, hypokalemia his potassium was 3.2 lactic acid 3 BNP 3900 and mildly elevated troponin of 0.194. Her CT scan of the chest shows scattered centrilobular bilateral bibasilar groundglass opacities likely secondary to infection versus aspiration. Clinical also patient found to be tachycardic with heart rate of 120 hypotension with blood pressure of 68/50 kay with respiratory rate of 27. Patient has been managed with antibiotics and bolus of IV fluids. Patient also developed atrial fibrillation for which Dr. Hsieh consulted and has been managing the patient. This morning patient evaluated and she is still in A. fib with heart rate around 110s and 120. 03/21/2019: Patient seen resting in bed comfortably. No adverse event. Her heart rate ranges between 97 and 115. The dose of her Cardizem increased to 180 every [address] Hsieh. 03/22/2019: Patient seen resting in bed comfortably. She is awake alert oriented. She is eager to go home. She complains of nausea and vomiting that has been going on for 1 months. She states the vomiting is for solid food only. Started barium swallow ordered and the report is negative for stricture or mass. She needs follow-up with her primary care physician. Her heart rate and rhythm is regular. Patient is going to be discharged in stable condition. Physical Exam Vital Signs: Temp Pulse Resp BP Pulse Ox 97.4 F 90 18 115/73 100 03/22/19 11:37 03/22/19 11:37 03/22/19 11:37 03/22/19 11:37 03/22/19 11:37 Pulse Oximeter Continuous Start: 03/10/19 15:13 Freq: RTQ4 Status: Complete Protocol: Document 03/11/19 16:48 HCR (Rec: 03/11/19 16:48 HCR [id number]) Pulse Oximetry Assessment Equipment Usage Equipment Discontinued Continuous SpO2 Machine # 11 Intake & Output 03/21/19 03/22/19 03/23/19 06:59 06:59 06:59 Intake Total 540 1155 Output Total 325 100 Balance 215 1055 Weight 60 kg 60.7 kg General appearance: PRESENT: no acute distress Head exam: PRESENT: atraumatic Eye exam: PRESENT: conjunctiva pink Neck exam: ABSENT: carotid bruit, JVD, lymphadenopathy, thyromegaly Respiratory exam: PRESENT: clear to auscultation talha. ABSENT: rales, rhonchi, wheezes Cardiovascular exam: PRESENT: RRR. ABSENT: diastolic murmur, rubs, systolic murmur Neurological exam: PRESENT: alert, awake Results Laboratory Results: 03/19/19 05:15 03/19/19 05:15 03/10/19 03/10/19 03/10/19 11:55 19:49 23:43 Troponin I 0.194 0.130 0.141 NT-Pro-B Natriuret Pep 3940 H 03/11/19 12:55 Troponin I 0.125 NT-Pro-B Natriuret Pep 2820 H Impressions: Abdomen/Pelvis CT 03/10/19 11:48 IMPRESSION: 1. No evidence of acute intra-abdominal/ pelvic process. 2. Scattered centrilobular bilateral basilar ground-glass opacities, likely secondary to infection/aspiration. 3. Unchanged dilation of the pancreatic duct, better evaluated on prior contrasted exam. Chest CT 03/12/19 11:42 IMPRESSION: Persistent dense consolidation- cavitary appearance of the posterior aspect of the right upper lobe with subsegmental bronchial occlusion. There are numerous areas of nodularity, ground-glass opacity, and interstitial thickening bilaterally, some areas appear increased compared with the previous examination. Small bilateral pleural effusions, slightly increased compared with the prior exam. Similar right medial basilar pleural calcifications- thickening. Transvaginal US 03/13/19 12:34 IMPRESSION: 1.5 x 1.5 x 2.6 cm simple cyst in the left adnexum. There is no solid component. Chest X-Ray 03/18/19 06:00 IMPRESSION: Diffuse patchy parenchymal opacities. No improvement, and slight worsening in the left upper lobe. Esophagus X-Ray 03/22/19 00:00 IMPRESSION: Tiny sliding hiatal hernia Gastroesophageal reflux without stricture Qualifiers - * PATIENT BEING DISCHARGED WITH ANY OF THE FOLLOWING DIAGNOSIS: No Acute Heart Failure - Is this a Heart Failure Patient?: No LVEF < 40%?: No- if no continue to question #3 3. Anticoagulant therapy for permanect/persistent/paraoxysmal Afib or Aflutter: N/A
[2019-03-22 14:14] VITALS: BP 78/58
--- NOTE | 2019-03-23 11:29 | PDOC PROGRESS REPORT ---
Subjective Progress Note for:: 03/17/19 Subjective:: Better Reason For Visit: PNEUMONIA Physical Exam Vital Signs: Temp Pulse Resp BP Pulse Ox 98.4 F 121 H 18 89/48 L 99 03/17/19 11:28 03/17/19 11:28 03/17/19 11:28 03/17/19 11:28 03/17/19 11:28 Pulse Oximeter Continuous Start: 03/10/19 15:13 Freq: RTQ4 Status: Complete Protocol: Document 03/11/19 16:48 HCR (Rec: 03/11/19 16:48 HCR [email or web address]) Pulse Oximetry Assessment Equipment Usage Equipment Discontinued Continuous SpO2 Machine # 11 Intake & Output 03/16/19 03/17/19 03/18/19 06:59 06:59 06:59 Intake Total 1156 1533 350 Output Total 200 Balance 956 1533 350 Weight 63.8 kg 63.7 kg General appearance: PRESENT: no acute distress, disheveled, thin Head exam: PRESENT: atraumatic, normocephalic Eye exam: PRESENT: conjunctiva pale, EOMI. ABSENT: nystagmus, periorbital swelling Mouth exam: PRESENT: moist, neck supple, tongue midline Neck exam: ABSENT: carotid bruit, full ROM, JVD, lymphadenopathy, meningismus, tenderness, thyromegaly, tracheal deviation, tracheostomy, other Respiratory exam: PRESENT: decreased breath sounds, prolonged expiratory phas, rales, rhonchi, unlabored. ABSENT: retraction, stridor Cardiovascular exam: PRESENT: RRR, +S1, +S2 Pulses: PRESENT: normal radial pulses GI/Abdominal exam: PRESENT: soft. ABSENT: distended, guarding, mass, tenderness Extremities exam: ABSENT: calf tenderness, clubbing, joint swelling, tenderness Musculoskeletal exam: ABSENT: deformity, dislocation Neurological exam: PRESENT: awake Psychiatric exam: PRESENT: flat affect Focused psych exam: PRESENT: internal stimuli Skin exam: PRESENT: dry, warm Results Laboratory Results: 03/17/19 05:40 03/16/19 05:50 03/16/19 03/17/19 18:05 05:40 WBC 8.6 RBC 3.12 L Hgb 9.2 L Hct 27.4 L MCV 88 MCH 29.7 MCHC 33.7 RDW 15.6 H Plt Count 175 Stool Occult Blood NEGATIVE 03/10/19 03/10/19 03/10/19 11:55 19:49 23:43 Troponin I 0.194 0.130 0.141 NT-Pro-B Natriuret Pep 3940 H 03/11/19 12:55 Troponin I 0.125 NT-Pro-B Natriuret Pep 2820 H Impressions: Abdomen/Pelvis CT 03/10/19 11:48 IMPRESSION: 1. No evidence of acute intra-abdominal/ pelvic process. 2. Scattered centrilobular bilateral basilar ground-glass opacities, likely secondary to infection/aspiration. 3. Unchanged dilation of the pancreatic duct, better evaluated on prior contrasted exam. Chest CT 03/12/19 11:42 IMPRESSION: Persistent dense consolidation- cavitary appearance of the posterior aspect of the right upper lobe with subsegmental bronchial occlusion. There are numerous areas of nodularity, ground-glass opacity, and interstitial thickening bilaterally, some areas appear increased compared with the previous examination. Small bilateral pleural effusions, slightly increased compared with the prior exam. Similar right medial basilar pleural calcifications- thickening. Transvaginal US 03/13/19 12:34 IMPRESSION: 1.5 x 1.5 x 2.6 cm simple cyst in the left adnexum. There is no solid component. Chest X-Ray 03/15/19 06:00 IMPRESSION: Improved aeration of the right upper lobe with persistent patchy opacities, better evaluated on prior CT. Left retrocardiac opacities possibly atelectasis or infection. Assessment & Plan - Diagnosis (1) Atrial fibrillation with RVR Is this a current diagnosis for this admission?: Yes Plan: Stable at this time (2) Mass of right lung Is this a current diagnosis for this admission?: Yes Plan: No mass in the right upper lobe patient has undergone bronchoscopy and biopsy all of which were nondiagnostic in addition she is undergone intravenous a ntibiotic therapy (3) Ovarian mass Is this a current diagnosis for this admission?: Yes Plan: This mass was noted on CTs at other institutions but not noted on the CT at this institution she is being followed by oncology she did display 1.5x1.5x2.5 adnexal cyst on ultra sound
== END 2019-03-22 15:54 | disposition home or self-care (01) | DRG 871 ==
LOC: ER 10:53 → EH 16:24 → 3N 19:07 → ICU 03-11 10:53 → 3N 03-14 14:25
PROVIDERS: ADMIT Internal Medicine; ATTEND Internal Medicine
PROC: 02HV33Z Insertion of Infusion Device into Superior Vena Cava, Percutaneous Approach (ICD-10-PCS; principal; 2019-03-11)
DX: A41.9 Sepsis, unspecified organism (principal); J18.1 Lobar pneumonia, unspecified organism; I50.31 Acute diastolic (congestive) heart failure; I50.32 Chronic diastolic (congestive) heart failure; N17.9 Acute kidney failure, unspecified; I13.0 Hypertensive heart and chronic kidney disease with heart failure and stage 1 through stage 4 chronic kidney disease, or unspecified chronic kidney disease; C56.1 Malignant neoplasm of right ovary; I24.8 Other forms of acute ischemic heart disease; I48.0 Paroxysmal atrial fibrillation; I25.10 Atherosclerotic heart disease of native coronary artery without angina pectoris; E87.6 Hypokalemia; F32.9 Major depressive disorder, single episode, unspecified; I95.9 Hypotension, unspecified; F41.1 Generalized anxiety disorder; I44.7 Left bundle-branch block, unspecified; N18.9 Chronic kidney disease, unspecified; K21.9 Gastro-esophageal reflux disease without esophagitis; D63.1 Anemia in chronic kidney disease; I27.20 Pulmonary hypertension, unspecified; Z96.653 Presence of artificial knee joint, bilateral; Z66 Do not resuscitate; Z60.2 Problems related to living alone; I25.2 Old myocardial infarction; Z79.899 Other long term (current) drug therapy; Z87.891 Personal history of nicotine dependence; Z79.01 Long term (current) use of anticoagulants; Z82.49 Family history of ischemic heart disease and other diseases of the circulatory system
CPT/HCPCS: 36415; 71045; 71250; 74176; 74220; 76830; 80048; 80053; 80162; 81001; 82272; 82803; 82962; 83605; 83690; 83735; 83880; 84439; 84443; 84484; 85025; 85027; 85610; 85652; 85730; 86140; 86304; 86480; 86606; 86850; 86900; 86901; 87040; 87086; 93005; 93010; 93976; 94640; 94762; 94799; 96361; 96365; 96367; 96375; 99291; C1751; J0692; J0696; J1160; J1642; J1644; J1940; J1956; J2405; J3370; J3475; J3480; J3490; J7030; J7040; J7060; J7120; J7620